=== PATIENT | male | born 1965 | race Caucasian/White ===

== ENCOUNTER 2021-06-08 09:26 | Inpatient (IN) ==
[2021-06-08 10:12] LABS: Basophils # (auto) 0.04 K/uL (0-0.2); Basophils % (auto) 0.3 %; Eosinophils # (auto) 0.02 K/uL (0-0.5); Eosinophils % (auto) 0.1 %; Hematocrit (blood only) 36.7 % (42-52); Hemoglobin 12.8 g/dL (14.0-18.0); Immature Granulocytes # (auto) 0.07 K/uL (0.00-0.02); Immature Granulocytes % (auto) 0.4 %; Lymphocytes # (auto) 1.09 K/uL (1.2-3.4); Lymphocytes % (auto) 6.9 %; Mean Corpuscular Hemoglobin 32.7 pg (25-34); Mean Corpuscular Hgb Conc 34.9 g/dL (32-36); Mean Corpuscular Volume 93.6 fL (80-100); Monocytes # (auto) 1.35 K/uL (0.11-0.59); Monocytes % (auto) 8.6 %; Neutrophils # (auto) 13.17 K/uL (1.4-6.5); Neutrophils % (auto) 83.7 %; Platelet Count 140 K/uL (130-400); RDW Coefficient of Variation 13.6 % (11.5-14.5); RDW Standard Deviation 46.8 fL (36.4-46.3); Red Blood Count 3.92 M/uL (4.7-6.1); White Blood Count 15.74 K/uL (4.8-10.8)
[2021-06-08 10:14] LABS: Partial Thromboplastin Time 27.6 Seconds (21.0-31.0); Prothrombin Time 10.1 Seconds (9.0-12.0)
[2021-06-08 10:20] LABS: Alanine Aminotransferase 32 U/L (12-78); Albumin Level 3.3 gm/dl (3.4-5.0); Aspartate Aminotransferase 16 U/L (15-37); BUN Creatinine Ratio 25.7 (10-20); Blood Urea Nitrogen 83 mg/dl (7-18); Calcium 9.2 mg/dl (8.5-10.1); Carbon Dioxide 19 mmol/L (21-32); Chloride 101 mmol/L (98-107); Creatinine Clr Calc Pharmacy 40.1 ml/min; Est GFR (African American) 23.6 ml/min; Est GFR (Non-African American) 20.4 ml/min; Glucose 163 mg/dl (70-99); Potassium 4.1 mmol/L (3.5-5.1); Sodium 131 mmol/L (136-145)
[2021-06-08 10:25] LABS: Albumin Globulin Ratio 0.7 (0.9-2); Alkaline Phosphatase 99 U/L (45-117); Bilirubin,Total 0.7 mg/dl (0.2-1); Globulin 4.6 gm/dl (2.5-4.0); Total Protein 7.9 gm/dl (6.4-8.2); Troponin I < 0.015 ng/ml (0-0.045)
--- NOTE | 2021-06-08 10:29 | XRay Report ---
XR chest 1V portable HISTORY: Atypical Chest Pain COMPARISON: Chest 05/24/2019. FINDINGS: No pneumothorax or no pleural effusions. No new focal lung consolidations to suggest pneumo sheryl. No evidence for pulmonary edema. The heart remains enlarged. IMPRESSION: Stable mild cardiomegaly. Otherwise, no acute process within the chest. ACT 112: Negative or not required by law. Electronically signed by: Charan Grady M.D. 06/08/2021 10:27 AM
[2021-06-08] MEDS ORDERED: DAPTOmycin 450 MG in SYRINGE 0 ML IV ONE (11:14)
[2021-06-08] MEDS ORDERED: PIPERACILL/TAZOBAC CONSULT ACTIVE PRN ×2 (11:14→19:51)
[2021-06-08] MEDS ORDERED: PIPERACILLIN/TAZOBACTAM 4.5 GM/120 ML BAG IV ONE (11:14)
--- NOTE | 2021-06-08 11:22 | Emergency Department Note ---
Impression & Plan Cellulitis, Acute on chronic renal failure, Chronic venous insufficiency ED Provider Note NAME: CHANTEL NOYOLA AGE: 55 SEX: M ARRIVES VIA: Walk-In INFORMANT: Patient, ED PROVIDER(S): Goran Waldrop MD CHIEF COMPLAINT: Left leg pain and swelling. PLAN: Disposition: Admit MEDICAL DECISION MAKING: The patient is a pleasant 55-year-old gentleman with a past medical history of PMR, venous insufficiency, morbid obesity, type 2 diabetes who presents to the emergency department with worsening left leg swelling, redness, pain and weeping since Tuesday which is where he reports feeling initial pain in his left upper inner thigh but then rapidly progressed over the weekend. He reports he has an appointment with his doctor tomorrow but the swelling, redness and pain rapidly became more severe. He reports feeling feverish on Tuesday but this resolved. He denies nausea, vomiting, diarrhea, chest pain, shortness of breath, cough, congestion, known COVID-19 exposures. He is not vaccinated for COVID-19 but is interested in getting the vaccine. On arrival the patient is no acute distress, afebrile stable vital signs. His left lower extremity has 4+ pitting edema with erythema warmth, induration and tenderness of the left lower leg and mild induration warmth and tenderness of the proximal medial thigh. There is no scrotal edema, erythema, induration or crepitus. Zosyn and Daptomycin ordered empirically. EKG without overt acute ischemia. CXR negative for acute cardiopulmonary process. WBC 15.7K. H/H approximate to prior range of values. Platelets wnl. Chemistry without acidosis. Cr. 3.2 increased from 1.2 in September. BUN/Cr > 20 suggestive of pre-renal component. Electrolytes unremarkable. LFTs without significant abno rmality. Troponin negative/undetectable. BNP wnl. Procalcitonin is elevated at 14.5. LLE US negative for DVT. Not is made of left inguinal lymphadenopathy. Patient agrees with plan for admission. Case was discussed with Dr. Larios, [facility] [place], who will evaluate the patient for admission. Triage Nursing notes reviewed and agree them. Prior medical records reviewed Vital Signs: reviewed and remarkable for no significant abnormalities Differential diagnosis: Cellulitis, abscess, MRSA infection, DVT, necrotizing fasciitis, dermatitis, drug eruption, allergic reaction, as well as other pathologies. ER treatment provided: See below. Diagnostics interpreted by me: ECG: Normal sinus rhythm, 64 bpm, non ectopy, non-specific intra-ventricular conduction block, nonspecific ST and T wave abnormality, no overt ST elevation or depression. QTC 472, QRS 132. Cardiac Monitoring: An order for continuous cardiac monitoring was placed and demonstrated Normal sinus rhythm, 64 bpm, non ectopy. Laboratory studies: See below Imaging studies: See below Consultation(s): Case was discussed with Dr. Larios, [facility] [place], who will evaluate the patient for admission. HPI: The patient is a pleasant 55-year-old gentleman with a past medical history of PMR, venous insufficiency, morbid obesity, type 2 diabetes who presents to the emergency department with worsening left leg swelling, redness, pain and weeping since Tuesday which is where he reports feeling initial pain in his left upper inner thigh but then rapidly progressed over the weekend. He reports he has an appointment with his doctor tomorrow but the swelling, redness and pain rapidly became more severe. He reports feeling feverish on Tuesday but this r esolved. He denies nausea, vomiting, diarrhea, chest pain, shortness of breath, cough, congestion, known COVID-19 exposures. He is not vaccinated for COVID-19 but is interested in getting the vaccine. ROS: See above HPI for pertinent positives & negatives. A total of 10 systems reviewed and were otherwise negative. PAST MEDICAL HISTORY:See Below PAST SURGICAL HISTORY:See Below FAMILY HISTORY:See Below SOCIAL HISTORY:See Below HOME MEDICATIONS:See Below ALLERGIES:See Below VITALS:See Below PHYSICAL EXAMINATION: GENERAL: Awake, alert, uncomfortable-appearing, in no distress, BMI 45.5 HENT: Normocephalic, atraumatic. Oropharynx with dry mucous membranes and otherwise unremarkable. EYES: Normal conjunctiva. Sclera non-icteric. NECK: Supple. No nuchal rigidity. FROM. No JVD. RESPIRATORY: Clear to auscultation. CARDIAC: Regular rate, normal rhythm. Extremities warm and well perfused. Pulses equal. ABDOMEN: Soft, non-distended. No tenderness to palpation. No rebound or guarding. No masses. RECTAL: Deferred. : No scrotal edema, erythema, induration or crepitus. MUSCULOSKELETAL: Chest examination reveals no tenderness. The back is symmetrical on inspection without obvious abnormality. There is no CVA tenderness to palpation. LOWER EXTREMITIES: Asymmetric Left lower extremity has 4+ pitting edema with erythema warmth, induration and tenderness of the left lower leg and mild induration warmth and tenderness of the proximal medial thigh. NEURO: Normal sensorium. No sensory or motor deficits noted. SKIN: No rash or jaundice noted. Goran Waldrop MD Past Med/Surg History Medical History Acute kidney injury Anemia Arthritis Back pain Bilateral primary osteoarthritis of knee Chronic venous insufficiency Depression Diabetes DM type 2 (diabetes mellitus, type 2) Fatty liver Gout High cholesterol History of atrial flutter "s/p cardioversion 06/2014" History of gallbladder disease History of gout History of polymyalgia rheumatica History of right bundle branch block (RBBB) HTN (hypertension) Hypertension Lower extremity edema Microalbuminuria Obesity, morbid, BMI 50 or higher Osteoarthritis Pseudomonas infection Renal hematoma, left Spinal stenosis Spinal stenosis Venous insufficiency Surgical History H/O arthroscopic knee surgery 2000 and 2007 S/P cardiac cath "cath 07/05/2014- angiographically normal vessels, EF 60-65%" S/P left knee arthroscopy S/P tonsillectomy Family History Mother Diabetes Hypertension Denies family history of Ovarian cancer Prostate cancer Myocardial infarction Breast cancer Colorectal cancer Social History Smoking Status: Never smoker Tobacco Type: Cigarettes Age Started Using Tobacco: 27; Age Quit Using Tobacco: 49; packs per day: 1; Second Hand Exposure: No; Hx Alcohol Use: Yes Alcohol type: beer Alcohol Intake Frequency: Monthly or Less Hx Substance Use: No Preferred Language: Zimbabwean Communication Ability: Effective Visual Impairment: No Limitations Hearing Ability: Normal Salvage Determiner Required: No Beliefs That Will Affect Care: None marital status: Current Living Situation: Alone current occupational status: retired Feels Safe at Home: Yes Childhood Exposure to Second-Hand Smoke: No caffeine: Yes (Coffee x 2 per day.) during the past year weight has: decreased > 10 lbs Dental Care, Regularly: No Physical Activity Frequency: 3-4 Times per Week Physical Activity Frequency Comment: limited by physical condition/ does excercises while sitting Seatbelt Use: always Sunscreen Use: No Allergies Allergies Allergy/AdvReac Type Severity Reaction Status Date / Time Sulfa (Sulfonamide Allergy Intermediate itching Verified 06/08/21 11:06 Antibiotics) cephalexin [From Keflex] Allergy Mild Rash Verified 06/08/21 11:06 Home Meds Home Medications Medication Instructions Recorded Confirmed cholecalciferol (vitamin D3) 50 50 mcg PO DAILY 10/22/20 06/08/21 mcg (2,000 unit) capsule Previous Rx's Medication Instructions Recorded aspirin 81 mg tablet,delayed 81 mg PO DAILY #30 tab 04/21/20 release (Aspirin Low Dose) glipizide 10 mg tablet, extended 20 mg PO DAILY 90 Days #180 tab 06/04/20 release 24 hr sotalol 120 mg tablet 120 mg PO BID #180 tab 08/12/20 tramadol 50 mg tablet 50 mg PO BID PRN #30 tab 10/22/20 insulin NPH isoph U-100 human 100 10 unit SUBCUT BID #15 ml 10/28/20 unit/mL (3 mL) subcutaneous pen (Novolin N Flexpen) hydrochlorothiazide 12.5 mg tablet 12.5 mg PO DAILY #90 tab 11/13/20 amlodipine 5 mg tablet 5 mg PO HS #90 tab 12/02/20 bupropion HCl 150 mg tablet,12 hr 150 mg PO BID #60 ea 12/02/20 sustained-release atorvastatin 40 mg tablet 40 mg PO DAILY #90 tab 04/20/21 lisinopril 40 mg tablet 40 mg PO DAILY #90 tab 04/20/21 metformin 1,000 mg tablet 1,000 mg PO BID #180 tab 04/20/21 allopurinol 300 mg tablet 300 mg PO DAILY #90 tab 04/21/21 Results & Data (ED) Vital Signs Vital Signs - 24 hr 06/08/21 09:32 06/08/21 11:14 06/08/21 11:30 Temperature 36.6 C Temperature Source Temporal Artery Scan Pulse Rate 68 63 63 Pulse Rate from SpO2 Sensor 63 Respiratory Rate 18 24 25 H Respiratory Depth Normal Blood Pressure 124/76 Blood Pressure Mean 92 Pulse Oximetry 97 97 Sepsis Recent Fever Within 48 Hours No Sepsis New/Unexplained Change in Mental Status No Sepsis Action Taken by Nursing No Action Required 06/08/21 12:13 06/08/21 12:30 06/08/21 13:00 Temperature Temperature Source Pulse Rate 67 67 71 Pulse Rate from SpO2 Sensor 67 72 Respiratory Rate 12 29 H 23 Respiratory Depth Blood Pressure Blood Pressure Mean Pulse Oximetry 99 98 Sepsis Recent Fever Within 48 Hours Sepsis New/Unexplained Change in Mental Status Sepsis Action Taken by Nursing 06/08/21 13:30 06/08/21 14:00 06/08/21 14:30 Temperature Temperature Source Pulse Rate 73 73 72 Pulse Rate from SpO2 Sensor 73 73 72 Respiratory Rate 19 25 H 15 Respiratory Depth Blood Pressure 136/70 122/64 Blood Pressure Mean 92 83 Pulse Oximetry 98 94 95 Sepsis Recent Fever Within 48 Hours Sepsis New/Unexplained Change in Mental Status Sepsis Action Taken by Nursing 06/08/21 15:00 Temperature Temperature Source Pulse Rate 70 Pulse Rate from SpO2 Sensor 70 Respiratory Rate 19 Respiratory Depth Blood Pressure Blood Pressure Mean Pulse Oximetry 95 Sepsis Recent Fever Within 48 Hours Sepsis New/Unexplained Change in Mental Status Sepsis Action Taken by Nursing Laboratory Data Attestation: I reviewed the patient's lab results. Result diagrams: 06/08/21 09:45 06/08/21 09:45 Lab Results 06/08/21 06/08/21 06/08/21 Range/Units 09:45 09:45 09:45 WBC 15.74 H (4.8-10.8) K/uL RBC 3.92 L (4.7-6.1) M/uL Hgb 12.8 L (14.0-18.0) g/dL Hct 36.7 L (42-52) % MCV 93.6 (80-100) fL MCH 32.7 (25-34) pg MCHC 34.9 (32-36) g/dL RDW Std Deviation 46.8 H (36.4-46.3) fL RDW Coeff of Dar 13.6 (11.5-14.5) % Plt Count 140 (130-400) K/uL MPV 12.0 H (7.4-10.4) fL Immature Gran % (Auto) 0.4 % Neut % (Auto) 83.7 % Lymph % (Auto) 6.9 % Villalba % (Auto) 8.6 % Eos % (Auto) 0.1 % Baso % (Auto) 0.3 % Neut # (Auto) 13.17 H (1.4-6.5) K/uL Lymph # (Auto) 1.09 L (1.2-3.4) K/uL Villalba # (Auto) 1.35 H (0.11-0.59) K/uL Eos # (Auto) 0.02 (0-0.5) K/uL Baso # (Auto) 0.04 (0-0.2) K/uL Immature Gran # (Auto) 0.07 H (0.00-0.02) K/uL PT 10.1 (9.0-12.0) Seconds INR 1.0 (0.9-1.1) APTT 27.6 (21.0-31.0) Seconds PTT Ratio 1.0 Sodium 131 L (136-145) mmol/L Potassium 4.1 (3.5-5.1) mmol/L Chloride 101 (98-107) mmol/L Carbon Dioxide 19 L (21-32) mmol/L Anion Gap 11.0 (3-11) BUN 83 H (7-18) mg/dl Creatinine 3.22 H (0.6-1.4) mg/dl Est Cr Clr Drug Dosing 40.1 ml/min Est GFR ( Amer) 23.6 ml/min Est GFR (Non-Af Amer) 20.4 ml/min BUN/Creatinine Ratio 25.7 H (10-20) Glucose 163 H (70-99) mg/dl Lactate (0.4-2.0) mmol/L Calcium 9.2 (8.5-10.1) mg/dl Total Bilirubin 0.7 (0.2-1) mg/dl AST 16 (15-37) U/L ALT 32 (12-78) U/L Alkaline Phosphatase 99 (45-117) U/L Troponin I < 0.015 (0-0.045) ng/ml NT-Pro-B Natriuret Pep (0-900) pg/ml Total Protein 7.9 (6.4-8.2) gm/dl Albumin 3.3 L (3.4-5.0) gm/dl Globulin 4.6 H (2.5-4.0) gm/dl Albumin/Globulin Ratio 0.7 L (0.9-2) Procalcitonin (0-0.5) ng/ml COVID-19 Eval Order SARS-CoV-2 (PCR) (Negative) 06/08/21 06/08/21 06/08/21 Range/Units 09:45 09:45 11:22 WBC (4.8-10.8) K/uL RBC (4.7-6.1) M/uL Hgb (14.0-18.0) g/dL Hct (42-52) % MCV (80-100) fL MCH (25-34) pg MCHC (32-36) g/dL RDW Std Deviation (36.4-46.3) fL RDW Coeff of Dar (11.5-14.5) % Plt Count (130-400) K/uL MPV (7.4-10.4) fL Immature Gran % (Auto) % Neut % (Auto) % Lymph % (Auto) % Villalba % (Auto) % Eos % (Auto) % Baso % (Auto) % Neut # (Auto) (1.4-6.5) K/uL Lymph # (Auto) (1.2-3.4) K/uL Villalba # (Auto) (0.11-0.59) K/uL Eos # (Auto) (0-0.5) K/uL Baso # (Auto) (0-0.2) K/uL Immature Gran # (Auto) (0.00-0.02) K/uL PT (9.0-12.0) Seconds INR (0.9-1.1) APTT (21.0-31.0) Seconds PTT Ratio Sodium (136-145) mmol/L Potassium (3.5-5.1) mmol/L Chloride (98-107) mmol/L Carbon Dioxide (21-32) mmol/L Anion Gap (3-11) BUN (7-18) mg/dl Creatinine (0.6-1.4) mg/dl Est Cr Clr Drug Dosing ml/min Est GFR ( Amer) ml/min Est GFR (Non-Af Amer) ml/min BUN/Creatinine Ratio (10-20) Glucose (70-99) mg/dl Lactate (0.4-2.0) mmol/L Calcium (8.5-10.1) mg/dl Total Bilirubin (0.2-1) mg/dl AST (15-37) U/L ALT (12-78) U/L Alkaline Phosphatase (45-117) U/L Troponin I (0-0.045) ng/ml NT-Pro-B Natriuret Pep 489 (0-900) pg/ml Total Protein (6.4-8.2) gm/dl Albumin (3.4-5.0) gm/dl Globulin (2.5-4.0) gm/dl Albumin/Globulin Ratio (0.9-2) Procalcitonin 14.57 H (0-0.5) ng/ml COVID-19 Eval Order Covid19 at [facility] SARS-CoV-2 (PCR) (Negative) 06/08/21 06/08/21 Range/Units 11:22 11:35 WBC (4.8-10.8) K/uL RBC (4.7-6.1) M/uL Hgb (14.0-18.0) g/dL Hct (42-52) % MCV (80-100) fL MCH (25-34) pg MCHC (32-36) g/dL RDW Std Deviation (36.4-46.3) fL RDW Coeff of Dar (11.5-14.5) % Plt Count (130-400) K/uL MPV (7.4-10.4) fL Immature Gran % (Auto) % Neut % (Auto) % Lymph % (Auto) % Villalba % (Auto) % Eos % (Auto) % Baso % (Auto) % Neut # (Auto) (1.4-6.5) K/uL Lymph # (Auto) (1.2-3.4) K/uL Villalba # (Auto) (0.11-0.59) K/uL Eos # (Auto) (0-0.5) K/uL Baso # (Auto) (0-0.2) K/uL Immature Gran # (Auto) (0.00-0.02) K/uL PT (9.0-12.0) Seconds INR (0.9-1.1) APTT (21.0-31.0) Seconds PTT Ratio Sodium (136-145) mmol/L Potassium (3.5-5.1) mmol/L Chloride (98-107) mmol/L Carbon Dioxide (21-32) mmol/L Anion Gap (3-11) BUN (7-18) mg/dl Creatinine (0.6-1.4) mg/dl Est Cr Clr Drug Dosing ml/min Est GFR ( Amer) ml/min Est GFR (Non-Af Amer) ml/min BUN/Creatinine Ratio (10-20) Glucose (70-99) mg/dl Lactate 1.3 (0.4-2.0) mmol/L Calcium (8.5-10.1) mg/dl Total Bilirubin (0.2-1) mg/dl AST (15-37) U/L ALT (12-78) U/L Alkaline Phosphatase (45-117) U/L Troponin I (0-0.045) ng/ml NT-Pro-B Natriuret Pep (0-900) pg/ml Total Protein (6.4-8.2) gm/dl Albumin (3.4-5.0) gm/dl Globulin (2.5-4.0) gm/dl Albumin/Globulin Ratio (0.9-2) Procalcitonin (0-0.5) ng/ml COVID-19 Eval Order SARS-CoV-2 (PCR) NEGATIVE (Negative) Administered Medications Amlodipine Besylate (Amlodipine Besylate 5 Mg Tab) 5 mg PO HS AMY Stop: 07/08/21 20:59 Last Admin: 06/08/21 21:06 Dose: 5 mg Documented by: [id number] Sodium Chloride (Nss 1000ml) 1,000 mls @ 100 mls/hr IV .Q10H AMY Stop: 07/08/21 19:59 Last Admin: 06/08/21 21:15 Dose: 100 mls/hr Documented by: [id number] Piperacillin Sod/Tazobactam (Sod 4.5 gm/ Dextrose) 120 mls @ 30 mls/hr IV Q8H AMY; Protocol Stop: 06/15/21 20:59 Last Admin: 06/08/21 21:06 Dose: 30 mls/hr Documented by: [id number] Insulin Aspart (Insulin Aspart 100 Units/Ml 3 Ml Pen) 0 units SC ACHS AMY Stop: 07/08/21 20:59 Last Admin: 06/08/21 21:07 Dose: 1 units Documented by: [id number] Cosigned by: [id number] Sotalol HCl (Sotalol Hcl 80 Mg Tab) 120 mg PO BID AMY Stop: 07/08/21 20:59 Last Admin: 06/08/21 21:06 Dose: 120 mg Documented by: [id number] Tramadol HCl (Tramadol Hcl 50 Mg Tablet) 50 mg PO BID PRN PRN Reason: pain Stop: 07/08/21 19:50 Last Admin: 06/08/21 21:14 Dose: 50 mg Documented by: [id number] Discontinued Medications Piperacillin Sod/Tazobactam Sod (Zosyn) 4.5 gm in 120 mls @ 240 mls/hr IV NOW ONE Stop: 06/08/21 11:43 Last Infusion: 06/08/21 12:40 Dose: 240 mls/hr Documented by: [id number] Admin: 06/08/21 12:10 Dose: 240 mls/hr Documented by: [id number] Daptomycin 450 mg/ Syringe 9 mls @ 4.5 mls/min IV NOW ONE; Protocol Stop: 06/08/21 11:15 Last Admin: 06/08/21 12:10 Dose: 4.5 mls/min Documented by: [id number] Acetaminophen (Ofirmev) 1,000 mg in 100 mls @ 400 mls/hr IV NOW STA Stop: 06/08/21 12:19 Last Infusion: 06/08/21 13:08 Dose: 400 mls/hr Documented by: [id number] Admin: 06/08/21 12:53 Dose: 400 mls/hr Documented by: [id number] Sodium Chloride (Nss) 500 mls @ 999 mls/hr IV .Q31M ONE Stop: 06/08/21 12:35 Last Infusion: 06/08/21 12:46 Dose: 999 mls/hr Documented by: [id number] Admin: 06/08/21 12:15 Dose: 999 mls/hr Documented by: [id number] Morphine Sulfate (Morphine Sulfate 2 Mg/Ml Carp) 2 mg IV NOW STA Stop: 06/08/21 12:06 Last Admin: 06/08/21 12:11 Dose: 2 mg Documented by: [id number] Imaging Data Radiologist's Impression: Chest X-Ray 06/08/21 09:36 XR chest 1V portable HISTORY: Atypical Chest Pain COMPARISON: Chest 05/24/2019. FINDINGS: No pneumothorax or no pleural effusions. No new focal lung consolidations to suggest pneumonia. No evidence for pulmonary edema. The heart remains enlarged. IMPRESSION: Stable mild cardiomegaly. Otherwise, no acute process within the chest. ACT 112: Negative or not required by law. Electronically signed by: Charan Grady M.D. 06/08/2021 10:27 AM Venous Doppler Study 06/08/21 11:12 LEFT LOWER EXTREMITY VENOUS DOPPLER HISTORY: Left leg pain swelling COMPARISON STUDY: None. FINDINGS: There is normal compressibility, flow, and augmentation within the left lower extremity deep venous system. Left inguinal lymphadenopathy with the largest lymph node measuring 5.5 x 5.9 x 1.9 cm. IMPRESSION: No DVT within the left lower extremity. Left inguinal lymphadenopathy. ACT 112: Negative or not required by law. Electronically signed by: Charan Grady M.D. 06/08/2021 12:14 PM Discharge Plan Visit Data Chief Complaint: Swelling/Edema to Extremity Stated Complaint: SWOLLEN LEFT LEG Discharge Problem: Cellulitis, Acute on chronic renal failure, Chronic venous insufficiency Patient Disposition: Admitted As Inpatient Discharge Instructions Interventions: ED Discharge Assessment Last Done: 06/08/21 19:41 Discharge Problem: Cellulitis Qualifiers: Site of cellulitis: extremity Site of cellulitis of extremity: lower extremity Laterality: left Qualified Code(s): L03.116 - Cellulitis of left lower limb Acute on chronic renal failure Qualifiers: Acute renal failure type: unspecified Chronic kidney disease stage: unspecified stage Qualified Code(s): N17.9 - Acute kidney failure, unspecified
[2021-06-08] MEDS ORDERED: ACETAMINOPHEN 1,000 MG/100 ML VIAL IV STA (12:05)
[2021-06-08] MEDS ORDERED: MoRPHine SULFATE 2 MG/ML CARP IV STA (12:05)
[2021-06-08] MEDS ORDERED: SODIUM CHLORIDE 0.9% 500 ML IV ONE (12:05)
--- NOTE | 2021-06-08 12:15 | Ultrasound Report ---
LEFT LOWER EXTREMITY VENOUS DOPPLER HISTORY: Left leg pain swelling COMPARISON STUDY: None. FINDINGS: There is normal compressibility, flow, and augmentation within the left lower extremity mushtaq p venous system. Left inguinal lymphadenopathy with the largest lymph node measuring 5.5 x 5.9 x 1.9 cm. IMPRESSION: No DVT within the left lower extremity. Left inguinal lymphadenopathy. ACT 112: Negative or not required by law. Electronically signed by: Charan Grady M.D. 06/08/2021 12:14 PM
--- NOTE | 2021-06-08 14:32 | Electrocardiogram Report ---
Test Reason : Blood Pressure : / mmHG Vent. Rate : 064 BPM Atrial Rate : 064 BPM P-R Int : 178 ms QRS Dur : 132 ms QT Int : 458 ms P-R-T Axes : 096 000 051 degrees QTc Int : 472 ms Poor data quality, interpretation may be adversely affected Normal sinus rhythm Non-specific intra-ventricular conduction block Nonspecific ST and T wave abnormality Abnormal ECG When compared with ECG of 08-JUN-2016 20:00, No significant change was found Confirmed by Rupesh Loomis ([id number]) on 06/08/2021 2:32:10 PM Referred By: Confirmed By:Rupesh Loomis
--- NOTE | 2021-06-08 15:07 | History & Physical Report ---
Date of Service June 08, 2021 Assessment & Plan (1) Cellulitis: Plan: Significant cellulitis in left lower extremity Admit to a monitored bed Patient was given daptomycin and Zosyn in the emergency room. Will continue these pending cultures Follow blood cultures. No open wound on leg noted to culture (2) DAYO (acute kidney injury): Plan: May be secondary to prerenal azotemia/dehydration Will hydrate slowly with normal saline, monitor for improvement Bladder scan to ensure no outlet obstruction If no improvement over 24 hours, consider renal ultrasound, nephrology evaluation Hold lisinopril, hydrochlorothiazide (3) History of atrial flutter: Plan: Patient is in normal sinus rhythm, tells me he is on sotalol twice a day which we will continue Not on anticoagulation. Will start DVT prophylaxis but no further blood thinners needed Continue cardiac medications as ordered (4) DM type 2 (diabetes mellitus, type 2): Plan: Patient is on glipizide which should be continued. Hold Metformin as patient has acute renal failure Patient is also on NPH twice daily which we can continue We will start sliding scale insulin. Check hemoglobin A1c (5) HTN (hypertension): History of Present Illness Chief Complaint: LLE edema Primary Care Provider: BRODY Cason This is a 55-year-old gentleman with past medical history of chronic venous stasis, type 2 diabetes mellitus, morbid obesity presents complaining of left lower extremity edema. Patient is pleasant and a decent historian. Patient tells me he has had chronic venous stasis for a very long time and has swelling in his legs. However, starting 06/05, he had some pink erythema around his left groin. He noted a lesion there that popped like a pustule and then scabbed over fairly readily. However, the erythema spread down into his leg. His left leg became very edematous and erythematous below the knee. There is a significant amount of serous weeping but no open lesions. The entire area is extremely tender. Patient did note to me that he was feeling lethargic and some chills. He also noted significant nausea and decreased appetite, was having some vomiting earlier but is now holding down food. Does admit that his oral fluid intake has been decreased as well. Allergies Allergy/AdvReac Type Severity Reaction Status Date / Time Sulfa (Sulfonamide Allergy Intermediate itching Verified 06/08/21 11:06 Antibiotics) cephalexin [From Keflex] Allergy Mild Rash Verified 06/08/21 11:06 Home Medications Medication Instructions Recorded Confirmed Type aspirin 81 mg tablet,delayed 81 mg PO DAILY #30 tab 04/21/20 06/08/21 Rx release (Aspirin Low Dose) glipizide 10 mg tablet, extended 20 mg PO DAILY 90 Days #180 tab 06/04/20 06/08/21 Rx release 24 hr sotalol 120 mg tablet 120 mg PO BID #180 tab 08/12/20 06/08/21 Rx cholecalciferol (vitamin D3) 50 50 mcg PO DAILY 10/22/20 06/08/21 History mcg (2,000 unit) capsule tramadol 50 mg tablet 50 mg PO BID PRN #30 tab 10/22/20 06/08/21 Rx insulin NPH isoph U-100 human 100 10 unit SUBCUT BID #15 ml 10/28/20 06/08/21 Rx unit/mL (3 mL) subcutaneous pen (Novolin N Flexpen) hydrochlorothiazide 12.5 mg tablet 12.5 mg PO DAILY #90 tab 11/13/20 06/08/21 Rx amlodipine 5 mg tablet 5 mg PO HS #90 tab 12/02/20 06/08/21 Rx bupropion HCl 150 mg tablet,12 hr 150 mg PO BID #60 ea 12/02/20 06/08/21 Rx sustained-release atorvastatin 40 mg tablet 40 mg PO DAILY #90 tab 04/20/21 06/08/21 Rx lisinopril 40 mg tablet 40 mg PO DAILY #90 tab 04/20/21 06/08/21 Rx metformin 1,000 mg tablet 1,000 mg PO BID #180 tab 04/20/21 06/08/21 Rx allopurinol 300 mg tablet 300 mg PO DAILY #90 tab 04/21/21 06/08/21 Rx Past Med/Surg History Medical History Acute kidney injury Anemia Arthritis Back pain Bilateral primary osteoarthritis of knee Chronic venous insufficiency Depression Diabetes DM type 2 (diabetes mellitus, type 2) Fatty liver Gout High cholesterol History of atrial flutter "s/p cardioversion 06/2014" History of gallbladder disease History of gout History of polymyalgia rheumatica History of right bundle branch block (RBBB) HTN (hypertension) Hypertension Lower extremity edema Microalbuminuria Obesity, morbid, BMI 50 or higher Osteoarthritis Pseudomonas infection Renal hematoma, left Spinal stenosis Spinal stenosis Venous insufficiency Surgical History H/O arthroscopic knee surgery 2000 and 2007 S/P cardiac cath "cath 07/05/2014- angiographically normal vessels, EF 60-65%" S/P left knee arthroscopy S/P tonsillectomy Family History Mother Diabetes Hypertension Denies family history of Ovarian cancer Prostate cancer Myocardial infarction Breast cancer Colorectal cancer Social History Smoking Status: Never smoker Tobacco Type: Cigarettes Age Started Using Tobacco: 27; Age Quit Using Tobacco: 49; packs per day: 1; Second Hand Exposure: No; Hx Alcohol Use: Yes Alcohol type: beer Alcohol Intake Frequency: Monthly or Less Hx Substance Use: No Preferred Language: Faroese Communication Ability: Effective Visual Impairment: No Limitations Hearing Ability: Normal 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 Product Inspection Required: No Beliefs That Will Affect Care: None marital status: Current Living Situation: Alone current occupational status: retired Feels Safe at Home: Yes Childhood Exposure to Second-Hand Smoke: No caffeine: Yes (Coffee x 2 per day.) during the past year weight has: decreased > 10 lbs Dental Care, Regularly: No Physical Activity Frequency: 3-4 Times per Week Physical Activity Frequency Comment: limited by physical condition/ does excercises while sitting Seatbelt Use: always Sunscreen Use: No Review of Systems Constitutional: + chills and + weakness; no fever, no weight loss and no weight gain Eyes: as per Subjective / HPI Respiratory: no cough, no chest congestion, no dyspnea and no dyspnea on exertion Cardiovascular: no chest pain, no orthopnea, no palpitations, no lightheadedness and no edema Gastrointestinal: no abdominal pain, no nausea, no vomiting, no constipation and no diarrhea/loose stools Musculoskeletal: no back pain, no neck pain, no joint pain, no stiffness and no myalgia Integumentary: + boil; no rash Neurologic: no gait abnormality, no unsteadiness, no falls and no generalized weakness Physical Exam Constitutional: + morbidly obese and cooperative; no acute distress Neck: trachea midline, no thyromegaly Respiratory: normal respiratory effort Auscultation: lungs clear to auscultation bilaterally; no crackles, no rales, no rhonchi and no wheezes Cardiovascular: Rate/Rhythm: regular rate and regular rhythm Heart Sounds: normal S1 and normal S2 Gastrointestinal (Abdomen): Inspection/Auscultation: abdomen normal to inspection Percussion/Palpation: abdomen soft; abdomen nontender, no guarding, abdomen not rigid and no hepatosplenomegaly Musculoskeletal: Right lower extremity with trace/+1 pitting edema, venous stasis changes with erythema. Left lower extremity with 4+ non-dependent edema to knee, extensive serous weeping. [place] erythema tracking from the knee up to the left groin. Small eschar in the groin, dry without drainage. Skin: no rashes, warm and dry Results & Data Results & Data ([facility]) Vital Signs (Past 12 Hours) Vital Signs Temp Pulse Resp BP Pulse Ox 06/08/21 13:30 73 19 136/70 98 06/08/21 13:00 71 23 98 06/08/21 12:30 67 29 H 99 06/08/21 12:13 67 12 06/08/21 11:30 63 25 H 06/08/21 11:14 63 24 97 06/08/21 09:32 36.6 C 68 18 124/76 97 Laboratory Results Laboratory Results WBC 15.74 K/uL (4.8-10.8) H 06/08/21 09:45 RBC 3.92 M/uL (4.7-6.1) L 06/08/21 09:45 Hgb 12.8 g/dL (14.0-18.0) L 06/08/21 09:45 Hct 36.7 % (42-52) L 06/08/21 09:45 MCV 93.6 fL (80-100) 06/08/21 09:45 MCH 32.7 pg (25-34) 06/08/21 09:45 MCHC 34.9 g/dL (32-36) 06/08/21 09:45 RDW Std Deviation 46.8 fL (36.4-46.3) H 06/08/21 09:45 RDW Coeff of Dar 13.6 % (11.5-14.5) 06/08/21 09:45 Plt Count 140 K/uL (130-400) 06/08/21 09:45 MPV 12.0 fL (7.4-10.4) H 06/08/21 09:45 Immature Gran % (Auto) 0.4 % 06/08/21 09:45 Neut % (Auto) 83.7 % 06/08/21 09:45 Lymph % (Auto) 6.9 % 06/08/21 09:45 [place] % (Auto) 8.6 % 06/08/21 09:45 Eos % (Auto) 0.1 % 06/08/21 09:45 Baso % (Auto) 0.3 % 06/08/21 09:45 Neut # (Auto) 13.17 K/uL (1.4-6.5) H 06/08/21 09:45 Lymph # (Auto) 1.09 K/uL (1.2-3.4) L 06/08/21 09:45 [place] # (Auto) 1.35 K/uL (0.11-0.59) H 06/08/21 09:45 Eos # (Auto) 0.02 K/uL (0-0.5) 06/08/21 09:45 Baso # (Auto) 0.04 K/uL (0-0.2) 06/08/21 09:45 Immature Gran # (Auto) 0.07 K/uL (0.00-0.02) H 06/08/21 09:45 PT 10.1 Seconds (9.0-12.0) 06/08/21 09:45 INR 1.0 (0.9-1.1) 06/08/21 09:45 APTT 27.6 Seconds (21.0-31.0) 06/08/21 09:45 PTT Ratio 1.0 06/08/21 09:45 Sodium 131 mmol/L (136-145) L 06/08/21 09:45 Potassium 4.1 mmol/L (3.5-5.1) 06/08/21 09:45 Chloride 101 mmol/L (98-107) 06/08/21 09:45 Carbon Dioxide 19 mmol/L (21-32) L 06/08/21 09:45 Anion Gap 11.0 (3-11) 06/08/21 09:45 BUN 83 mg/dl (7-18) H 06/08/21 09:45 Creatinine 3.22 mg/dl (0.6-1.4) H 06/08/21 09:45 Est Cr Clr Drug Dosing 40.1 ml/min 06/08/21 09:45 Est GFR ( Amer) 23.6 ml/min 06/08/21 09:45 Est GFR (Non-Af Amer) 20.4 ml/min 06/08/21 09:45 BUN/Creatinine Ratio 25.7 (10-20) H 06/08/21 09:45 Glucose 163 mg/dl (70-99) H 06/08/21 09:45 Lactate 1.3 mmol/L (0.4-2.0) 06/08/21 11:35 Calcium 9.2 mg/dl (8.5-10.1) 06/08/21 09:45 Total Bilirubin 0.7 mg/dl (0.2-1) 06/08/21 09:45 AST 16 U/L (15-37) 06/08/21 09:45 ALT 32 U/L (12-78) 06/08/21 09:45 Alkaline Phosphatase 99 U/L (45-117) 06/08/21 09:45 Troponin I < 0.015 ng/ml (0-0.045) 06/08/21 09:45 NT-Pro-B Natriuret Pep 489 pg/ml (0-900) 06/08/21 09:45 Total Protein 7.9 gm/dl (6.4-8.2) 06/08/21 09:45 Albumin 3.3 gm/dl (3.4-5.0) L 06/08/21 09:45 Globulin 4.6 gm/dl (2.5-4.0) H 06/08/21 09:45 Albumin/Globulin Ratio 0.7 (0.9-2) L 06/08/21 09:45 Procalcitonin 14.57 ng/ml (0-0.5) H 06/08/21 09:45 COVID-19 Eval Order Covid19 at [facility] 06/08/21 11:22 SARS-CoV-2 (PCR) NEGATIVE (Negative) 06/08/21 11:22 Impressions Chest X-Ray 06/08/21 09:36 XR chest 1V portable HISTORY: Atypical Chest Pain COMPARISON: Chest 05/24/2019. FINDINGS: No pneumothorax or no pleural effusions. No new focal lung consolidations to suggest pneumonia. No evidence for pulmonary edema. The heart remains enlarged. IMPRESSION: Stable mild cardiomegaly. Otherwise, no acute process within the chest. ACT 112: Negative or not required by law. Electronically signed by: Charan Grady M.D. 06/08/2021 10:27 AM Venous Doppler Study 06/08/21 11:12 LEFT LOWER EXTREMITY VENOUS DOPPLER HISTORY: Left leg pain swelling COMPARISON STUDY: None. FINDINGS: There is normal compressibility, flow, and augmentation within the left lower extremity deep venous system. Left inguinal lymphadenopathy with the largest lymph node measuring 5.5 x 5.9 x 1.9 cm. IMPRESSION: No DVT within the left lower extremity. Left inguinal lymphadenopathy. ACT 112: Negative or not required by law. Electronically signed by: Charan Grady M.D. 06/08/2021 12:14 PM PG Care Time/CCT Total # of Minutes Spent Total Time Spent with Patient: Total time spent is greater than 50% in coord ination of care (as documented) at patient's floor/unit and/or counseling patient: Coding Level of Care Code 20054 Initial Inpt Care Lvl 3 Diagnoses History of atrial flutter Z86.79 DM type 2 (diabetes mellitus, type 2) E11.9 HTN (hypertension) I10 Cellulitis L03.90 DAYO (acute kidney injury) N17.9
[2021-06-08] MEDS ORDERED: DEXTROSE 50% 50 ML SYRINGE IV PRN (19:51)
[2021-06-08] MEDS ORDERED: GLUCOSE 10 TABS/TUBE PO PRN (19:51)
[2021-06-08] MEDS ORDERED: GLUCAGON FOR INJ 1 MG VIAL SQ PRN (19:51)
[2021-06-08] MEDS ORDERED: ONDANSETRON INJ 2 MG/ML 2 ML VIAL IV PRN (19:51)
[2021-06-08] MEDS ORDERED: CARBOHYDRATES FOR HYPOGLYCEMIA PO PRN (19:51)
[2021-06-08] MEDS ORDERED: GLUCOSE 40% GEL 15 GM TUBE PO PRN (19:51)
[2021-06-08] MEDS ORDERED: amLODIPine BESYLATE 5 MG TAB PO SCH (21:00)
[2021-06-08] MEDS: PIPERACILLIN/TAZOBACTAM 4.5 GM in DEXTROSE 5% 100 ML IV SCH (21:06)
[2021-06-08] MEDS: SOTALOL HCL 80 MG TAB PO SCH (21:06)
[2021-06-08] MEDS: INSULIN ASPART 100 UNITS/ML 3 ML PEN SC SCH (21:07)
[2021-06-08] MEDS: traMADol HCL 50 MG TABLET PO PRN (21:14)
[2021-06-08] MEDS: SODIUM CHLORIDE 0.9% 1000ML 1,000 ML IV SCH (21:15)
[2021-06-08] MEDS: HEPARIN SOD 5,000 UNIT/0.5 ML VIAL SQ SCH (23:46)
[2021-06-09] MEDS: PIPERACILLIN/TAZOBACTAM 4.5 GM in DEXTROSE 5% 100 ML IV SCH ×2 (05:13→13:04)
[2021-06-09] MEDS: HEPARIN SOD 5,000 UNIT/0.5 ML VIAL SQ SCH ×3 (05:14→21:41)
[2021-06-09] MEDS: SODIUM CHLORIDE 0.9% 1000ML 1,000 ML IV SCH ×3 (05:14→23:36)
[2021-06-09 06:20] LABS: Basophils # (auto) 0.03 K/uL (0-0.2); Basophils % (auto) 0.2 %; Eosinophils # (auto) 0.01 K/uL (0-0.5); Eosinophils % (auto) 0.1 %; Hematocrit (blood only) 32.9 % (42-52); Hemoglobin 11.6 g/dL (14.0-18.0); Immature Granulocytes % (auto) 0.6 %; Lymphocytes # (auto) 1.69 K/uL (1.2-3.4); Lymphocytes % (auto) 10.1 %; Mean Corpuscular Hemoglobin 33.1 pg (25-34); Mean Corpuscular Hgb Conc 35.3 g/dL (32-36); Mean Platelet Volume 11.4 fL (7.4-10.4); Monocytes # (auto) 1.08 K/uL (0.11-0.59); Monocytes % (auto) 6.5 %; Neutrophils # (auto) 13.76 K/uL (1.4-6.5); Neutrophils % (auto) 82.5 %; Platelet Count 132 K/uL (130-400); RDW Coefficient of Variation 13.6 % (11.5-14.5); RDW Standard Deviation 46.6 fL (36.4-46.3); White Blood Count 16.67 K/uL (4.8-10.8)
[2021-06-09] MEDS: traMADol HCL 50 MG TABLET PO PRN ×2 (06:22→23:36)
[2021-06-09 06:35] LABS: BUN Creatinine Ratio 36.1 (10-20); Calcium 8.4 mg/dl (8.5-10.1); Creatinine Clr Calc Pharmacy 59.5 ml/min; Est GFR (African American) 38.1 ml/min; Est GFR (Non-African American) 32.8 ml/min; Magnesium 2.3 mg/dl (1.8-2.4)
[2021-06-09 07:15] LABS: Estimated Average Glucose 148 mg/dl; Hemoglobin A1C 6.8 % (4.5-5.6)
[2021-06-09] MEDS ORDERED: PHARMACY GLYCEMIC MGMT CONSULT PRN (07:54)
--- NOTE | 2021-06-09 07:54 | Hospitalist Progress Note ---
Date of Service June 09, 2021 Assessment & Plan (1) Cellulitis: Plan: Kevin is a 55-year-old male with a history of PMR, atrial flutter, venous insufficiency, type 2 diabetes, hypertension who was admitted for the management of left lower extremity cellulitis. Left lower extremity cellulitis Leukocytosis to 16, afebrile Pro-Ervin elevated to 14 on admission No hypotension/tachycardia/fever, although patient subjectively with fever/chills/sweats Received Dapto/Zosyn in ER Narrowed to Zosyn monotherapy, no purulence to suggest anaerobes/Dapto needed. No known history of MRSA. Further narrowed to cefepime, if worsening expanding back to Zosyn/Dapto BC pending Past lower extremity isolates with fluoroquinolone resistance. (2) DAYO (acute kidney injury): Plan: Baseline creatinine approximately 11 0.23 Creatinine on admission 3.22, consistent with DAYO? Prerenal azotemia Downtrending to 2.17 06/09 with fluid support and antibiotics (3) History of atrial flutter: Plan: Normal sinus rhythm on admission Continue home sotalol twice daily Patient not on anticoagulation prior to admission DVT prophylaxis while inpatient (4) DM type 2 (diabetes mellitus, type 2): Plan: Home glipizide continued Metformin held Patient on home NPH twice daily, will convert to basal bolus while inpatient. Glycemic consult placed A1c 6.8 from prior 10.1 (5) HTN (hypertension): Admission and Anticipated Discharge Date Admission Date: June 08, 2021 Subjective Patient is seen at the bedside. He reports he has had no fever/chills/sweats today, these have resolved since being put on antibiotics last night. Reports he continues to have left leg swelling and pain, greatly improved and feels his leg swelling has gone down by about half since starting antibiotics. Denies chest pain, chest pressure, shortness of breath, dyspnea today. Review of Systems Review of Systems: Constitutional: Denies fever, chills, malaise Eyes: Denies vision change ENT: Denies ear pain, sore throat, sinus pain Cardiovascular: Denies Chest pain, chest pressure, palpitations, extremity swelling Respiratory: Denies shortness of breath, cough, sputum production, difficulty breathing Gastrointestinal: Denies abdominal pain, nausea, vomiting, constipation, diarrhea Genitourinary: Denies dysuria, urinary frequency Musculoskeletal: Denies acute focal weakness, endorses left leg pain erythema as noted and bilateral lower extremity swelling at baseline Integumentary: Endorses left leg cellulitis as previously noted Neurological: Denies headache, numbness, tingling, focal weakness Physical Exam Physical Exam: General: A&Ox3. NAD. Cooperative. HEENT: Atraumatic, normocephalic. Visual acuity and hearing grossly intact. Pulm: CTAB A&P. -wheezes, -rales, -rhonchi. Symmetrical chest rise. No increase work of breathing. No respiratory distress. Cardiac: RRR, -mrg. Radial pulses intact and symmetrical. Abdominal: Nontender, nondistended, soft. BS present. Extremity: Left lower leg swollen, erythematous, tender. No purulence. Anterior chronic venous stasis/mild ulceration. Station to soft touch intact bilaterally. PT pulse difficult to appreciate due to swelling, hallux cap refill less than 2 seconds bilaterally. Results & Data Results & Data ([facility]) Vital Signs (Past 12 Hours) Vital Signs Temp Pulse Resp BP Pulse Ox 06/08/21 23:53 36.7 C 76 16 112/63 96 06/08/21 21:18 88 18 111/61 98 PG Care Time/CCT Total # of Minutes Spent Total Time Spent with Patient: Total time spent is greater than 50% in coordina tion of care (as documented) at patient's floor/unit and/or counseling patient: Coding Level of Care Code 73049 Subseq Hosp Care Lvl 3 Diagnoses Cellulitis L03.116 Laterality: left Site of cellulitis: extremity Site of cellulitis of extremity: lower extremity DAYO (acute kidney injury) N17.9 History of atrial flutter Z86.79 DM type 2 (diabetes mellitus, type 2) E11.9 HTN (hypertension) I10 (1) Cellulitis Laterality: left Site of cellulitis: extremity Site of cellulitis of extremity: lower extremity Qualified Code(s): L03.116 - Cellulitis of left lower limb
[2021-06-09] MEDS ORDERED: INSULIN HUMAN NPH SQ SCH (08:00)
[2021-06-09] MEDS: INSULIN ASPART 100 UNITS/ML 3 ML PEN SC SCH ×4 (08:01→21:30)
[2021-06-09] MEDS ORDERED: ATORVASTATIN 40 MG TAB PO SCH (09:00)
[2021-06-09] MEDS ORDERED: NON-FORMULARY MEDICATION (Glipizide 10 mg tablet extended release 24hr) PO SCH (09:00)
[2021-06-09] MEDS: SOTALOL HCL 80 MG TAB PO SCH ×2 (09:06→21:22)
[2021-06-09] MEDS: ASPIRIN 81 MG ECTAB PO SCH (09:08)
[2021-06-09] MEDS: buPROPion SR 150 MG TABCR PO SCH ×2 (09:08→17:08)
[2021-06-09] MEDS: allopurinoL 300 MG TAB PO SCH (09:08)
[2021-06-09] MEDS: CHOLECALCIFEROL 1,000 UNITS 25 MCG TAB PO SCH (09:08)
[2021-06-09] MEDS: INSULIN HUMAN NPH SQ SCH ×2 (09:12→17:54)
[2021-06-09] MEDS ORDERED: FLUARIX QUADRIVALENT 0.5 ML SYR IM ONE (10:00)
--- NOTE | 2021-06-09 10:44 | Pharmacy Report ---
Pharmacy Glycemic Short Note 2 - Date of Service June 09, 2021 - Glycemic Short BSG Results (Last 24 hours): 06/08/21 06/09/21 06/09/21 21:04 05:57 07:32 Glucose 162 H POC Glucose 149 H 172 H OUTPATIENT ANTIDIABETIC REGIMEN: * NPH 10 units SC BID * Metformin * Glipizide * HbA1c 6.8% 06/09/21 ASSESSMENT: * 55 yo M with T2DM admitted for cellulitis * AM fasting BSG elevated today, but this is likely 2nd missed evening dose of NPH yesterday * Stressors may increase insulin demands, although it's reasonable at this time to continue with NPH as the basal insulin due to easier transition back to outpatient regimen on discharge. May need to switch to Lantus if BSG's are not able to be controlled well with NPH * Will hold outpatient po and initiate bolus Novolog instead. Weight-based moderate stress estimate PLAN FOR INPATIENT GLYCEMIC CONTROL: * Hold outpatient oral diabetes medications * Basal insulin * NPH 10-12 units SQ BID * Bolus insulin * NovoLog per scale ACHS or Q6hrs while NPO * Goal Range: Low 110 mg/dL - High 140 mg/dL * Correction Factor: 15 mg/dL/unit * Nutritional / Prandial insulin per carb ratio of 1 unit per 5 grams CHO consumed PLAN FOR DISCHARGE: * Continue outpatient regimen, assuming frequent lows as an outpatient are not occurring and assuming no contraindications exist at discharge
[2021-06-09] MEDS ORDERED: DAPTOmycin 450 MG in SYRINGE 0 ML IV SCH (12:00)
[2021-06-09] MEDS ORDERED: MoRPHine SULFATE 2 MG/ML CARP IV PRN (16:05)
[2021-06-09] MEDS: MoRPHine SULFATE 2 MG/ML CARP IV PRN ×2 (16:39→22:23)
[2021-06-09] MEDS ORDERED: LORazepam 0.5 MG TAB PO STA (19:53)
[2021-06-09] MEDS: CEFEPIME 2,000 MG in SYRINGE 0 ML IV SCH (20:23)
[2021-06-09] MEDS ORDERED: Nursing to Pharmacy Communication SCH (20:30)
[2021-06-10] MEDS: INSULIN ASPART 100 UNITS/ML 3 ML PEN SC SCH ×5 (00:09→21:03)
[2021-06-10] MEDS: MoRPHine SULFATE 2 MG/ML CARP IV PRN ×3 (06:06→20:51)
[2021-06-10] MEDS: CEFEPIME 2,000 MG in SYRINGE 0 ML IV SCH ×3 (06:07→20:52)
[2021-06-10] MEDS: SODIUM CHLORIDE 0.9% 1000ML 1,000 ML IV SCH ×2 (06:07→17:47)
[2021-06-10] MEDS: HEPARIN SOD 5,000 UNIT/0.5 ML VIAL SQ SCH ×3 (07:08→21:05)
[2021-06-10 07:09] LABS: Basophils # (auto) 0.04 K/uL (0-0.2); Basophils % (auto) 0.2 %; Eosinophils # (auto) 0.01 K/uL (0-0.5); Eosinophils % (auto) 0.1 %; Hemoglobin 12.1 g/dL (14.0-18.0); Immature Granulocytes # (auto) 0.24 K/uL (0.00-0.02); Immature Granulocytes % (auto) 1.4 %; Lymphocytes # (auto) 1.36 K/uL (1.2-3.4); Lymphocytes % (auto) 8.2 %; Mean Corpuscular Hemoglobin 33.2 pg (25-34); Mean Corpuscular Hgb Conc 35.6 g/dL (32-36); Mean Corpuscular Volume 93.2 fL (80-100); Monocytes # (auto) 2.09 K/uL (0.11-0.59); Monocytes % (auto) 12.6 %; Neutrophils # (auto) 12.82 K/uL (1.4-6.5); Neutrophils % (auto) 77.5 %; Platelet Count 191 K/uL (130-400); RDW Coefficient of Variation 13.6 % (11.5-14.5); RDW Standard Deviation 46.5 fL (36.4-46.3); Red Blood Count 3.65 M/uL (4.7-6.1); White Blood Count 16.56 K/uL (4.8-10.8)
[2021-06-10 07:37] LABS: BUN Creatinine Ratio 43.1 (10-20); Calcium 9.1 mg/dl (8.5-10.1); Creatinine Clr Calc Pharmacy 96.3 ml/min; Est GFR (African American) 68.2 ml/min; Est GFR (Non-African American) 58.8 ml/min; Potassium 3.7 mmol/L (3.5-5.1)
[2021-06-10] MEDS: INSULIN HUMAN NPH SQ SCH ×2 (09:26→17:48)
[2021-06-10] MEDS: CHOLECALCIFEROL 1,000 UNITS 25 MCG TAB PO SCH (09:32)
[2021-06-10] MEDS: buPROPion SR 150 MG TABCR PO SCH ×2 (09:32→17:47)
[2021-06-10] MEDS: ASPIRIN 81 MG ECTAB PO SCH (09:32)
[2021-06-10] MEDS: allopurinoL 300 MG TAB PO SCH (09:32)
[2021-06-10] MEDS: SOTALOL HCL 80 MG TAB PO SCH ×2 (09:32→20:52)
--- NOTE | 2021-06-10 11:07 | Gastrointestinal Consultation ---
Date of Consultation June 10, 2021 Assessment & Plan (1) Odynophagia: 55 year old male admitted w/ cellulitis who notes epigastric abd pain w/ swallowing, globus getting worse since onset NPO for EGD this AM Please see EGD report for further recommendation once completed Start Pantoprazole 40 mg daily Supervising Physician Co-Signing Physician Notes I have seen and examined the patient with BRODY Busch whose note reflects our findings and plan. Dysphagia and globus sensation. Will perform an EGD today. PPI to be continued at time of discharge History of Present Illness Reason for Consultation: dysphagia Requesting Physician: Boris Attending Physician: Thong Escalante MD History of Present Illness 55 year old male w/ history of PMR, atrial flutter, venous insufficiency, type 2 diabetes, hypertension who was admitted for the management of left lower extremity cellulitis who notes dysphagia. Suggests that he swallowed felt something get hung up and has had intermittent symptoms since. Worsening over the last 24 hours. He gets pain, discomfort with attempted PO, even water. Feels pressure sensation at back of his throat. No nausea, vomiting. Has had attempted any PO in over 48 hours. Has had intermittent hiccups as well. Allergies Allergy/AdvReac Type Severity Reaction Status Date / Time Sulfa (Sulfonamide Allergy Intermediate itching Verified 06/08/21 11:06 Antibiotics) cephalexin [From Keflex] Allergy Mild Rash Verified 06/08/21 11:06 Home Medications Medication Instructions Recorded Confirmed Type aspirin 81 mg tablet,delayed 81 mg PO DAILY #30 tab 04/21/20 06/08/21 Rx release (Aspirin Low Dose) glipizide 10 mg tablet, extended 20 mg PO DAILY 90 Days #180 tab 06/04/20 06/08/21 Rx release 24 hr sotalol 120 mg tablet 120 mg PO BID #180 tab 08/12/20 06/08/21 Rx cholecalciferol (vitamin D3) 50 50 mcg PO DAILY 10/22/20 06/08/21 History mcg (2,000 unit) capsule tramadol 50 mg tablet 50 mg PO BID PRN #30 tab 10/22/20 06/08/21 Rx insulin NPH isoph U-100 human 100 10 unit SUBCUT BID #15 ml 10/28/20 06/08/21 Rx unit/mL (3 mL) subcutaneous pen (Novolin N Flexpen) hydrochlorothiazide 12.5 mg tablet 12.5 mg PO DAILY #90 tab 11/13/20 06/08/21 Rx amlodipine 5 mg tablet 5 mg PO HS #90 tab 12/02/20 06/08/21 Rx bupropion HCl 150 mg tablet,12 hr 150 mg PO BID #60 ea 12/02/20 06/08/21 Rx sustained-release atorvastatin 40 mg tablet 40 mg PO DAILY #90 tab 04/20/21 06/08/21 Rx lisinopril 40 mg tablet 40 mg PO DAILY #90 tab 04/20/21 06/08/21 Rx metformin 1,000 mg tablet 1,000 mg PO BID #180 tab 04/20/21 06/08/21 Rx allopurinol 300 mg tablet 300 mg PO DAILY #90 tab 04/21/21 06/08/21 Rx Patient History Medical History Acute kidney injury Anemia Arthritis Back pain Bilateral primary osteoarthritis of knee Chronic venous insufficiency Depression Diabetes DM type 2 (diabetes mellitus, type 2) Fatty liver Gout High cholesterol History of atrial flutter "s/p cardioversion 06/2014" History of gallbladder disease History of gout History of polymyalgia rheumatica History of right bundle branch block (RBBB) HTN (hypertension) Hypertension Lower extremity edema Microalbuminuria Obesity, morbid, BMI 50 or higher Osteoarthritis Pseudomonas infection Renal hematoma, left Spinal stenosis Spinal stenosis Venous insufficiency Surgical History H/O arthroscopic knee surgery 2000 and 2007 S/P cardiac cath "cath 07/05/2014- angiographically normal vessels, EF 60-65%" S/P left knee arthroscopy S/P tonsillectomy Family History Mother Diabetes Hypertension Denies family history of Ovarian cancer Prostate cancer Myocardial infarction Breast cancer Colorectal cancer Social History Smoking Status: Never smoker Tobacco Type: Cigarettes Age Started Using Tobacco: 27; Age Quit Using Tobacco: 49; packs per day: 1; Second Hand Exposure: No; Hx Alcohol Use: Yes Alcohol type: beer Alcohol Intake Frequency: Monthly or Less Hx Substance Use: No Preferred Language: [place] Communication Ability: Effective Visual Impairment: No Limitations Hearing Ability: Normal Reimbursement Counselor Required: No Beliefs That Will Affect Care: None marital status: Current Living Situation: Family current occupational status: retired Other Information That Helps Us Care for You: No Feels Safe at Home: Yes Safety Concerns: Feels Safe At This Time Childhood Exposure to Second-Hand Smoke: No caffeine: Yes (Coffee x 2 per day.) during the past year weight has: decreased > 10 lbs Dental Care, Regularly: No Physical Activity Frequency: 3-4 Times per Week Physical Activity Frequency Comment: limited by physical condition/ does excercises while sitting Seatbelt Use: always Sunscreen Use: No Assistive Devices: None Review of Systems Review of Systems: All systems reviewed & are unremarkable except as noted in HPI & below Physical Exam Constitutional: WD/WN, vitals as above Neck: trachea midline, no thyromegaly Respiratory: normal respiratory effort, lungs clear to auscultation Cardiovascular: Rate/Rhythm: regular rate and regular rhythm Gastrointestinal (Abdomen): normal bowel sounds, soft, nontender, no hepatosplenomegaly Results & Data ([facility]) Vital Signs (Past 12 Hours) Vital Signs Temp Pulse Resp BP Pulse Ox 06/10/21 07:12 37.3 C 77 20 121/65 95 Laboratory Results 06/10/21 06/10/21 06/10/21 Range/Units 06:44 06:44 06:15 WBC 16.56 H (4.8-10.8) K/uL RBC 3.65 L (4.7-6.1) M/uL Hgb 12.1 L (14.0-18.0) g/dL Hct 34.0 L (42-52) % MCV 93.2 (80-100) fL MCH 33.2 (25-34) pg MCHC 35.6 (32-36) g/dL RDW Std Deviation 46.5 H (36.4-46.3) fL RDW Coeff of Dar 13.6 (11.5-14.5) % Plt Count 191 (130-400) K/uL MPV 11.0 H (7.4-10.4) fL Immature Gran % (Auto) 1.4 % Neut % (Auto) 77.5 % Lymph % (Auto) 8.2 % Gregg % (Auto) 12.6 % Eos % (Auto) 0.1 % Baso % (Auto) 0.2 % Neut # (Auto) 12.82 H (1.4-6.5) K/uL Lymph # (Auto) 1.36 (1.2-3.4) K/uL Gregg # (Auto) 2.09 H (0.11-0.59) K/uL Eos # (Auto) 0.01 (0-0.5) K/uL Baso # (Auto) 0.04 (0-0.2) K/uL Immature Gran # (Auto) 0.24 H (0.00-0.02) K/uL Sodium 139 (136-145) mmol/L Potassium 3.7 (3.5-5.1) mmol/L Chloride 110 H (98-107) mmol/L Carbon Dioxide 18 L (21-32) mmol/L Anion Gap 11.0 (3-11) BUN 58 H (7-18) mg/dl Creatinine 1.34 D (0.6-1.4) mg/dl Est Cr Clr Drug Dosing 96.3 ml/min Est GFR ( Amer) 68.2 ml/min Est GFR (Non-Af Amer) 58.8 ml/min BUN/Creatinine Ratio 43.1 H (10-20) Glucose 169 H (70-99) mg/dl POC Glucose 164 H (70-99) mg/dl Calcium 9.1 (8.5-10.1) mg/dl C-Reactive Protein (0-0.29) mg/dl 06/10/21 06/09/21 06/09/21 Range/Units 00:01 21:29 17:33 WBC (4.8-10.8) K/uL RBC (4.7-6.1) M/uL Hgb (14.0-18.0) g/dL Hct (42-52) % MCV (80-100) fL MCH (25-34) pg MCHC (32-36) g/dL RDW Std Deviation (36.4-46.3) fL RDW Coeff of Dar (11.5-14.5) % Plt Count (130-400) K/uL MPV (7.4-10.4) fL Immature Gran % (Auto) % Neut % (Auto) % Lymph % (Auto) % Gregg % (Auto) % Eos % (Auto) % Baso % (Auto) % Neut # (Auto) (1.4-6.5) K/uL Lymph # (Auto) (1.2-3.4) K/uL Gregg # (Auto) (0.11-0.59) K/uL Eos # (Auto) (0-0.5) K/uL Baso # (Auto) (0-0.2) K/uL Immature Gran # (Auto) (0.00-0.02) K/uL Sodium (136-145) mmol/L Potassium (3.5-5.1) mmol/L Chloride (98-107) mmol/L Carbon Dioxide (21-32) mmol/L Anion Gap (3-11) BUN (7-18) mg/dl Creatinine (0.6-1.4) mg/dl Est Cr Clr Drug Dosing ml/min Est GFR ( Amer) ml/min Est GFR (Non-Af Amer) ml/min BUN/Creatinine Ratio (10-20) Glucose (70-99) mg/dl POC Glucose 142 H 149 H 172 H (70-99) mg/dl Calcium (8.5-10.1) mg/dl C-Reactive Protein (0-0.29) mg/dl 06/09/21 06/09/21 Range/Units 11:39 05:57 WBC (4.8-10.8) K/uL RBC (4.7-6.1) M/uL Hgb (14.0-18.0) g/dL Hct (42-52) % MCV (80-100) fL MCH (25-34) pg MCHC (32-36) g/dL RDW Std Deviation (36.4-46.3) fL RDW Coeff of Dar (11.5-14.5) % Plt Count (130-400) K/uL MPV (7.4-10.4) fL Immature Gran % (Auto) % Neut % (Auto) % Lymph % (Auto) % Gregg % (Auto) % Eos % (Auto) % Baso % (Auto) % Neut # (Auto) (1.4-6.5) K/uL Lymph # (Auto) (1.2-3.4) K/uL Gregg # (Auto) (0.11-0.59) K/uL Eos # (Auto) (0-0.5) K/uL Baso # (Auto) (0-0.2) K/uL Immature Gran # (Auto) (0.00-0.02) K/uL Sodium (136-145) mmol/L Potassium (3.5-5.1) mmol/L Chloride (98-107) mmol/L Carbon Dioxide (21-32) mmol/L Anion Gap (3-11) BUN (7-18) mg/dl Creatinine (0.6-1.4) mg/dl Est Cr Clr Drug Dosing ml/min Est GFR ( Amer) ml/min Est GFR (Non-Af Amer) ml/min BUN/Creatinine Ratio (10-20) Glucose (70-99) mg/dl POC Glucose 230 H (70-99) mg/dl Calcium (8.5-10.1) mg/dl C-Reactive Protein 25.00 H (0-0.29) mg/dl
[2021-06-10] MEDS ORDERED: PROPOFOL IV EMULSION 10 MG/ML 20 ML VIAL IV ONE (11:08)
[2021-06-10] MEDS ORDERED: LIDOCAINE 2% 2 ML VIAL/AMP(20MG/ML) INFIL ONE (11:08)
--- NOTE | 2021-06-10 11:15 | Anesthesiology Consultation ---
Date of Service June 10, 2021 Assessment & Plan (1) Encounter for pre-operative examination: Chart Review Chart Review: Acceptable Risk for Surgery and Patient NOT seen in Pre Admission Testing Consults Requested none History Surgery Operation Date: 06/10/21 17:00 Proposed Procedures p Esophagogastroduodenoscopy Dr Seth - Matilda Seth, DO Height/Weight Height: 6 ft 1 in Weight: 156.6 kg Allergies Allergy/AdvReac Type Severity Reaction Status Date / Time Sulfa (Sulfonamide Allergy Intermediate itching Verified 06/08/21 11:06 Antibiotics) cephalexin [From Keflex] Allergy Mild Rash Verified 06/08/21 11:06 Medications Home Medications Medication Instructions Recorded Confirmed Last Taken aspirin 81 mg tablet,delayed 81 mg PO DAILY #30 tab 04/21/20 06/08/21 06/08/21 release (Aspirin Low Dose) glipizide 10 mg tablet, extended 20 mg PO DAILY 90 Days #180 tab 06/04/20 06/08/21 06/08/21 release 24 hr sotalol 120 mg tablet 120 mg PO BID #180 tab 08/12/20 06/08/21 06/08/21 cholecalciferol (vitamin D3) 50 50 mcg PO DAILY 10/22/20 06/08/21 06/08/21 mcg (2,000 unit) capsule tramadol 50 mg tablet 50 mg PO BID PRN #30 tab 10/22/20 06/08/21 06/08/21 insulin NPH isoph U-100 human 100 10 unit SUBCUT BID #15 ml 10/28/20 06/08/21 06/08/21 unit/mL (3 mL) subcutaneous pen (Novolin N Flexpen) hydrochlorothiazide 12.5 mg tablet 12.5 mg PO DAILY #90 tab 11/13/20 06/08/21 06/08/21 amlodipine 5 mg tablet 5 mg PO HS #90 tab 12/02/20 06/08/21 06/07/21 bupropion HCl 150 mg tablet,12 hr 150 mg PO BID #60 ea 12/02/20 06/08/21 06/08/21 sustained-release atorvastatin 40 mg tablet 40 mg PO DAILY #90 tab 04/20/21 06/08/21 06/08/21 lisinopril 40 mg tablet 40 mg PO DAILY #90 tab 08/06/08/21 06/08/21 metformin 1,000 mg tablet 1,000 mg PO BID #180 tab 04/20/21 06/08/21 06/08/21 allopurinol 300 mg tablet 300 mg PO DAILY #90 tab 04/21/21 06/08/21 06/08/21 Active Medications Generic Name Dose Route Start Last Admin Trade Name Sagar JAYN Reason Stop Dose Admin Allopurinol 300 mg 06/09/21 09:00 06/10/21 09:32 Allopurinol 300 Mg Tab PO 07/09/21 08:59 Not Given DAILY AMY Amlodipine Besylate 5 mg 06/08/21 21:00 06/08/21 21:06 Amlodipine Besylate 5 Mg Tab PO 07/08/21 20:59 5 mg HS AMY Administration Aspirin 81 mg 06/09/21 09:00 06/10/21 09:32 Aspirin 81 Mg Ectab PO 07/09/21 08:59 Not Given DAILY AMY Bupropion HCl 150 mg 06/09/21 09:00 06/10/21 09:32 Bupropion Sr 150 Mg Tabcr PO 07/09/21 08:59 Not Given BID17 AMY Heparin Sodium (Porcine) 7,500 units 06/08/21 22:00 06/10/21 07:08 Heparin Sod 5,000 Unit/0.5 Ml Vial SQ 07/08/21 21:59 7,500 units Q8 AMY Administration Sodium Chloride 1,000 mls @ 125 mls/hr 06/08/21 20:00 06/10/21 06:07 Nss 1000ml IV 07/08/21 19:59 125 mls/hr .Q8H AMY Administration Cefepime HCl 2,000 mg/ Syringe 20 mls @ 5 mls/min 06/09/21 21:00 06/10/21 06:07 IV 06/16/21 20:59 5 mls/min Q8H AMY Administration Protocol Insulin Aspart 0 units 06/09/21 21:00 06/10/21 06:38 Insulin Aspart 100 Units/Ml 3 Ml Pen SC 07/08/21 20:59 2 units Q6 AMY Administration Insulin Human NPH 0 units 06/09/21 08:00 06/10/21 09:26 Insulin Human Nph SQ 07/09/21 07:59 12 units BIDM AMY Administration Protocol Morphine Sulfate 2 mg 06/09/21 16:11 06/10/21 06:06 Morphine Sulfate 2 Mg/Ml Carp IV 06/23/21 16:10 2 mg Q4H PRN Administration Severe Pain (7,8,9,10) on NRS Ondansetron HCl 4 mg 06/08/21 19:51 06/09/21 08:36 Ondansetron Inj 2 Mg/Ml 2 Ml Vial IV 07/08/21 19:50 4 mg Q6H PRN Administration Nausea Sotalol HCl 120 mg 06/08/21 21:00 06/10/21 09:32 Sotalol Hcl 80 Mg Tab PO 07/08/21 20:59 Not Given BID AMY Tramadol HCl 50 mg 06/08/21 19:51 06/09/21 23:36 Tramadol Hcl 50 Mg Tablet PO 07/08/21 19:50 50 mg BID PRN Administration pain Vitamin D 2,000 units 06/09/21 09:00 06/10/21 09:32 Cholecalciferol 1,000 Units 25 Mcg Tab PO 07/09/21 08:59 Not Given DAILY AMY Past Medical History Medical History Acute kidney injury Anemia Arthritis Back pain Bilateral primary osteoarthritis of knee Chronic venous insufficiency Depression Diabetes DM type 2 (diabetes mellitus, type 2) Fatty liver Gout High cholesterol History of atrial flutter "s/p cardioversion 06/2014" History of gallbladder disease History of gout History of polymyalgia rheumatica History of right bundle branch block (RBBB) HTN (hypertension) Hypertension Lower extremity edema Microalbuminuria Obesity, morbid, BMI 50 or higher Osteoarthritis Pseudomonas infection Renal hematoma, left Spinal stenosis Spinal stenosis Venous insufficiency Past Family History Family History Mother Diabetes Hypertension Denies family history of Ovarian cancer Prostate cancer Myocardial infarction Breast cancer Colorectal cancer Past Surgical History Surgical History H/O arthroscopic knee surgery 2000 and 2007 S/P cardiac cath "cath 07/05/2014- angiographically normal vessels, EF 60-65%" S/P left knee arthroscopy S/P tonsillectomy Social History Smoking Status: Never smoker tobacco type: cigarettes Hx Alcohol Use: Yes Alcohol type: beer alcohol intake frequency: 0-2 drinks per day Hx Substance Use: No substance use type: does not use Physical Exam Vital Signs Last Vital Signs Temp 99.1 F 06/10/21 07:12 Pulse 77 06/10/21 07:12 Resp 20 06/10/21 07:12 BP 121/65 06/10/21 07:12 Pulse Ox 95 06/10/21 07:12 Testing Laboratory Results 06/10/21 06:44 06/10/21 06:44 PT 10.1 Seconds (9.0-12.0) 06/08/21 09:45 INR 1.0 (0.9-1.1) 06/08/21 09:45 APTT 27.6 Seconds (21.0-31.0) 06/08/21 09:45 Hemoglobin A1c 6.8 % (4.5-5.6) H 06/09/21 05:57 06/08/21 11:36 Aerobic Blood Culture - Preliminary Blood No growth in Aerobic bottle after 24 hours. Anaerobic Blood Culture - Final 06/08/21 11:35 Aerobic Blood Culture - Preliminary Blood No growth in Aerobic bottle after 24 hours. Anaerobic Blood Culture - Preliminary No growth in Anaerobic bottle after 24 hours. 06/10/21 06/10/21 06:15 00:01 POC Glucose 164 H 142 H Electrocardiogram Date: 06/08/21 Normal sinus rhythm Non-specific intra-ventricular conduction block Nonspecific ST and T wave abnormality Abnormal ECG When compared with ECG of 08-JUN-2016 20:00, No significant change was found Chest X-Ray Date: 06/08/21 Findings: + cardiomegaly (mild)
[2021-06-10] MEDS ORDERED: ePHEDrine sulfate 50 MG/ML AMP IV PRN (11:42)
[2021-06-10] MEDS ORDERED: ATROPINE SULFATE 0.1 MG/ML 10ML SYR IV PRN (11:42)
[2021-06-10] MEDS ORDERED: ONDANSETRON INJ 2 MG/ML 2 ML VIAL IV PRN (11:42)
--- NOTE | 2021-06-10 12:09 | GI REPORT ---
Patient Name: Zeferino Velarde Procedure Date: 06/10/2021 11:39 AM Date of : 1965 Admit Type: Inpatient Age: 55 Gender: Male Attending MD: Matilda Seth DO Procedure: Upper GI endoscopy Providers: Matilda Seth DO Referring MD: Thong Escalante Md Indications: Functional Dyspepsia, Eructation, Globus sensation Medicines: Propofol per Anesthesia Complications: No immediate complications. Estimated blood loss: None. Estimated Blood Loss: Estimated blood loss: none. Procedure: Pre-Anesthesia Assessment: - Prior to the procedure, a History and Physical was performed, and patient medications, allergies and sensitivities were reviewed. The patient's tolerance of previous anesthesia was reviewed. - The risks and benefits of the procedure and the sedation options and risks were discussed with the patient. All questions were answered and informed consent was obtained. - Patient identification and proposed procedure were verified prior to the procedure by the physician and the nurse. The procedure was verified in the pre-procedure area in the procedure room. - Airway Examination: normal oropharyngeal airway and neck mobility. - Respiratory Examination: clear to auscultation. - ASA Grade Assessment: IV - A patient with severe systemic disease that is a constant threat to life. After obtaining informed consent, the endoscope was passed under direct vision. Throughout the procedure, the patient's blood pressure, pulse, and oxygen saturations were monitored continuously. The Endoscope was introduced through the mouth, and advanced to the second part of duodenum. The upper GI endoscopy was accomplished without difficulty. The patient tolerated the procedure well. Findings: Non-severe esophagitis with no bleeding was found at the gastroesophageal junction. The stomach was normal. Mild inflammation characterized by congestion (edema) was found in the entire duodenum. Impression: - Non-severe reflux esophagitis. No stricture. - Normal stomach. - Mild duodenitis. - No specimens collected. Recommendation: - Check stool for H. pylori and treat if positive. - Oral PPI daily. - [facility] patient [facility] for [facility] care. Wyatt Neff DO 06/10/2021 12:09:03 PM This report has been signed electronically. Note Initiated On: 06/10/2021 11:39 AM Number of Addenda: 0 I attest to the content of the Intraoperative Record and orders documented therein, exceptions below {[id number]}
--- NOTE | 2021-06-10 13:18 | Anesthesiology Progress Note ---
Date of Service June 10, 2021 Anesthesia Post Procedure Vital Signs Vital Signs: Temp Pulse Resp BP Pulse Ox 06/10/21 13:00 97.7 F 80 18 135/74 98 06/10/21 12:35 79 19 105/61 96 06/10/21 12:23 78 19 125/61 95 06/10/21 12:07 79 19 121/79 94 06/10/21 11:34 99.3 F 82 19 143/69 H 96 06/10/21 07:12 99.1 F 77 20 121/65 95 06/09/21 21:55 98.8 F 77 18 121/74 96 06/09/21 21:20 71 107/65 06/09/21 20:12 76 104/60 06/09/21 15:44 98.2 F 74 18 99/62 L 96 Pain Intensity Bilateral Leg: Pain Intensity: 5 Left Leg: Pain Intensity: 6 Transfer of Care Handoff Completed per policy Notes Mental Status: alert / awake / arousable and participated in evaluation Patient Amnestic to Procedure: Yes Nausea / Vomiting: adequately controlled Pain: adequately controlled Airway Patency, RR, SpO2: stable & adequate BP & HR: stable & adequate Hydration State: stable & adequate Anesthetic Complications: no major complications apparent and Pt Satisfied with anesthetic care
--- NOTE | 2021-06-10 14:24 | Pharmacy Report ---
Pharmacy Glycemic Short Note 2 - Date of Service June 10, 2021 - Glycemic Short BSG Results (Last 24 hours): 06/09/21 06/09/21 06/10/21 17:33 21:29 00:01 Glucose POC Glucose 172 H 149 H 142 H 06/10/21 06/10/21 06/10/21 06:15 06:44 12:55 Glucose 169 H POC Glucose 164 H 154 H OUTPATIENT ANTIDIABETIC REGIMEN: * NPH 10 units SC BID * Metformin * Glipizide * HbA1c 6.8% 06/09/21 ASSESSMENT: 06/10/21: * Mr Velarde received 52 units of insulin yesterday, with good glycemic control (BSGs 172, 149, 164, 154 past 24 hours) * Insulin appears to be appropriately distributed (~50:50 basal:bolus). * No changes required at this time. 06/09 * 55 yo M with T2DM admitted for cellulitis * AM fasting BSG elevated today, but this is likely 2nd missed evening dose of NPH yesterday * Stressors may increase insulin demands, although it's reasonable at this time to continue with NPH as the basal insulin due to easier transition back to outpatient regimen on discharge. May need to switch to Lantus if BSG's are not able to be controlled well with NPH * Will hold outpatient po and initiate bolus Novolog instead. Weight-based moderate stress estimate PLAN FOR INPATIENT GLYCEMIC CONTROL: * Hold outpatient oral diabetes medications * Basal insulin * NPH 10-12 units SQ BID * Bolus insulin * NovoLog per scale ACHS or Q6hrs while NPO * Goal Range: Low 100 mg/dL - High 140 mg/dL * Correction Factor: 15 mg/dL/unit * Nutritional / Prandial insulin per carb ratio of 1 unit per 5 grams CHO consumed PLAN FOR DISCHARGE: * HbA1c: 6.8% * This indicates adequate glycemic control as an outpt. * Continue outpatient regimen, assuming frequent lows as an outpatient are not occurring and assuming no contraindications exist at discharge.
[2021-06-10] MEDS ORDERED: bisacodyL 10 MG SUPP PR PRN (15:23)
--- NOTE | 2021-06-10 15:38 | Hospitalist Progress Note ---
Date of Service June 10, 2021 Assessment & Plan (1) Cellulitis: Plan: Kevin is a 55-year-old male with a history of PMR, atrial flutter, venous insufficiency, type 2 diabetes, hypertension who was admitted for the management of left lower extremity cellulitis. Left lower extremity cellulitis Leukocytosis persists, afebrile. Pro-Ervin elevated to 14 on admission No hypotension/tachycardia/fever, although patient subjectively with fever/chills/sweats Received Dapto/Zosyn in ER Narrowed to Zosyn monotherapy, clear fluid without purulence, no purulence to suggest anaerobes/Dapto needed. No known history of MRSA. Previously narrowed to cefepime, if worsening expanding back to Zosyn/Dapto BC pending Past lower extremity isolates with fluoroquinolone resistance. - Leg with fluid blisters and persistent erythema, increased pain. F/u CT-lower extremity pending. Wound care consulted - Continue Cefepime CRP 25, repeat tomorrow (2) DAYO (acute kidney injury): Plan: Baseline creatinine approximately less than 1.4 Creatinine on admission 3.22, consistent with DAYO? Prerenal azotemia Downtrend and and normalized (3) History of atrial flutter: Plan: Normal sinus rhythm on admission Continue home sotalol twice daily Patient not on anticoagulation prior to admission DVT prophylaxis while inpatient (4) DM type 2 (diabetes mellitus, type 2): Plan: Home glipizide continued Metformin held Patient on home NPH twice daily, will convert to basal bolus while inpatient. Glycemic consult placed A1c 6.8 from prior 10.1 (5) HTN (hypertension): (6) Odynophagia: Plan: - Worsening x5 days - Pt feels food gets stuck in his throat, can initiate swallow but feeling of getting stuck midway - NPO prior to EGD evaluation, EGD performed with results below and diet resumed. - GI consulted. EGD: Nonsevere esophagitis with no bleeding, mild inflammation/congestion of the duodenum without obstruction or stricture. Continue PPI, H. pylori biopsies taken. (7) Constipation: Plan: No BM in 3-4 days ? Contribution to bloating and hiccups KUB pending +miralax Bisacodyl PRN if not improving with miralax Admission and Anticipated Discharge Date Admission Date: June 08, 2021 Subjective She is bedside this morning. Worsened hiccups and feeling that food is stuck in his throat, difficulty swallowing. N.p.o. at time of morning assessment, GI consulted with pending EGD. EGD update: No stricture or obstruction, nonsevere esophagitis, mild duodenal congestion. Stool to be checked for H. pylori, continue PPI. Discussed above with patient, meds resumed. On afternoon visit patient feels that he is improving, but his leg feels painful today and has multiple fluid blisters. Swelling diminishing. No fever/chills/sweats. Hiccups as noted, otherwise no chest pain/chest pressure/shortness of breath Review of Systems Review of Systems: All systems reviewed & are unremarkable except as noted in HPI & below Physical Exam Physical Exam: General: A&Ox3. NAD. Cooperative. HEENT: Atraumatic, normocephalic. Visual acuity and hearing grossly intact. Pulm: CTAB A&P. -wheezes, -rales, -rhonchi. Symmetrical chest rise. No increase work of breathing. No respiratory distress. Cardiac: RRR, -mrg. Radial pulses intact and symmetrical. Abdominal: Nontender, nondistended, soft. BS present. Extremity: Left lower leg swollen, erythematous, tender. Reduce swelling, erythema persists with some purple discoloration. Fluid blister of the left lateral lower leg. No purulence. Anterior chronic venous stasis/mild ulceration. Sensation to soft touch intact bilaterally. PT pulse difficult to appreciate due to swelling, hallux cap refill less than 2 seconds bilaterally. Results & Data Results & Data ([facility]) Vital Signs (Past 12 Hours) Vital Signs Temp Pulse Resp BP Pulse Ox 06/10/21 13:30 37.4 C 77 16 126/75 96 06/10/21 13:00 36.5 C 80 18 135/74 98 06/10/21 12:35 79 19 105/61 96 06/10/21 12:23 78 19 125/61 95 06/10/21 12:07 79 19 121/79 94 06/10/21 11:34 37.4 C 82 19 143/69 H 96 06/10/21 07:12 37.3 C 77 20 121/65 95 PG Care Time/CCT Total # of Minutes Spent Total Time Spent with Patient: Total time spent is greater than 50% in coordination of care (as documented) at patient's floor/unit and/or counseling patient: Coding Level of Care Code 65323 Subseq Hosp Care Lvl 3 Diagnoses Cellulitis L03.116 Laterality: left Site of cellulitis: extremity Site of cellulitis of extremity: lower extremity DAYO (acute kidney injury) N17.9 History of atrial flutter Z86.79 DM type 2 (diabetes mellitus, type 2) E11.9 HTN (hypertension) I10 Odynophagia R13.10 Constipation K59.00 (1) Cellulitis Laterality: left Site of cellulitis: extremity Site of cellulitis of extremity: lower extremity Qualified Code(s): L03.116 - Cellulitis of left lower limb
--- NOTE | 2021-06-10 16:06 | XRay Report ---
KUB CLINICAL HISTORY: Generalized abdominal pain. FINDINGS: 4 AP supine abdominal radiographs are correlated with abdominal CT dated 06/07/2018. There is a nonobstructed abdominal bowel gas pattern. Moderate fecal retention is seen throughout the colon . No evidence of intraperitoneal free air is seen on these supine views. The liver appears enlarged. There are no abnormal abdominal calcifications. The bony structures appear intact. Lumbosacral spondy losis is observed. IMPRESSION: Nonobstructed bowel gas pattern. Electronically signed by: Wilfredo Ventura M.D. 06/10/2021 4:04 PM
--- NOTE | 2021-06-10 16:55 | CT Scan Report ---
CT SCAN OF THE LEFT TIBIA AND FIBULA WITHOUT IV CONTRAST CLINICAL HISTORY: Left leg pain. Cellulitis. COMPARISON STUDY: No priors. TECHNIQUE: CT scan of the left tibia and fibula is performed from the distal femur to the ankle. Imag es are reviewed in the axial, sagittal, and coronal planes. IV contrast was not administered for this examination. A dose lowering technique was utilized adhering to the principles of ALARA. Note that i nterpretation is significantly suboptimal without plain film correlate. CT DOSE: 403.91 mGy.cm FINDINGS: The skeletal structures are osteopenic. There is no evidence of tibial or fibular fracture. No bony erosion or periostitis is identified. The knee and ankle joints are grossly maintained, noti ng degenerative change. No destructive bony lesion is seen. There is a popliteal cyst posterior to th e knee which measures up to 6 cm. There is marked generalized atrophy of the regional musculature, gr eatest involving the gastrocnemius muscles. Atherosclerotic calcification is noted in the regional ar teries. Diffuse subcutaneous soft tissue edema and fluid are seen throughout the left lower extremity . No organized fluid collection is seen to suggest abscess. No soft tissue gas is identified. Milder soft tissue edema is noted in the partially imaged right lower extremity. IMPRESSION: 1. No osseous abnormality is seen involving the left tibia or fibula. 2. Diffuse soft tissue edema and subcutaneous fluid are consistent with reported history of celluliti s. 3. There is no organized fluid collection seen to suggest abscess. 4. No soft tissue gas is identified. 5. Popliteal cyst. ACT 112: Negative or not required by law. Dictated: 06/10/2021 4:26 PM Transcribed: 06/10/2021 4:50 PM Amira [id number] NICKOLAS_Christian Electronically signed by: Wilfredo Ventura M.D. 06/10/2021 4:54 PM
--- NOTE | 2021-06-10 16:56 | CT Scan Report ---
CT SCAN OF THE LEFT FOOT WITHOUT IV CONTRAST CLINICAL HISTORY: Cellulitis. Swelling. COMPARISON STUDY: No priors. TECHNIQUE: CT scan of the left foot is performed from the ankle to the base of the foot. Images are r eviewed in the axial, sagittal, and coronal planes. IV contrast was not administered for this examina tion. A dose lowering technique was utilized adhering to the principles of ALARA. Note that interpret ation is suboptimal without plain film correlate. FINDINGS: The skeletal structures are osteopenic. No acute fracture is identified. The ankle mortise appears intact. Osteoarthritic change is seen throughout the foot, greatest at the first metatarsopha langeal joint and at the tarsometatarsal articulations. There is no evidence of bony erosion or perio stitis. There are dorsal and plantar calcaneal enthesophytes. Diffuse soft tissue edema and subcutane ous fluid are seen throughout the foot and ankle. No organized fluid collection is identified to sugg est abscess. There is diffuse atrophy of the regional musculature. Advanced atherosclerotic calcifica tion is noted in the regional arteries. No soft tissue gas or radiodense foreign body is seen. IMPRESSION: 1. No acute bony abnormality is identified. 2. Diffuse soft tissue edema and subcutaneous fluid are consistent with reported history of celluliti s. 3. No organized fluid collection is seen to indicate abscess. 4. No soft tissue gas is seen. ACT 112: Negative or not required by law. Dictated: 06/10/2021 4:40 PM Transcribed: 06/10/2021 4:54 PM Amira [id number] NICKOLAS_Christian Electronically signed by: Wilfredo Ventura M.D. 06/10/2021 4:55 PM
[2021-06-10] MEDS: traMADol HCL 50 MG TABLET PO PRN (19:33)
[2021-06-10] MEDS: POLYETHYLENE (MIRALAX) 17 GM PACK PO SCH (20:52)
[2021-06-11] MEDS: SODIUM CHLORIDE 0.9% 1000ML 1,000 ML IV SCH ×3 (01:33→17:35)
[2021-06-11] MEDS: MoRPHine SULFATE 2 MG/ML CARP IV PRN ×4 (01:34→17:09)
[2021-06-11] MEDS: HEPARIN SOD 5,000 UNIT/0.5 ML VIAL SQ SCH ×3 (05:38→22:06)
[2021-06-11] MEDS: CEFEPIME 2,000 MG in SYRINGE 0 ML IV SCH ×3 (05:38→20:38)
[2021-06-11 07:09] LABS: Basophils # (auto) 0.05 K/uL (0-0.2); Basophils % (auto) 0.4 %; Eosinophils # (auto) 0.05 K/uL (0-0.5); Eosinophils % (auto) 0.4 %; Hematocrit (blood only) 32.3 % (42-52); Hemoglobin 11.3 g/dL (14.0-18.0); Immature Granulocytes # (auto) 0.36 K/uL (0.00-0.02); Immature Granulocytes % (auto) 2.7 %; Lymphocytes # (auto) 1.68 K/uL (1.2-3.4); Lymphocytes % (auto) 12.5 %; Mean Corpuscular Volume 94.4 fL (80-100); Monocytes # (auto) 1.21 K/uL (0.11-0.59); Neutrophils # (auto) 10.12 K/uL (1.4-6.5); Platelet Count 201 K/uL (130-400); RDW Coefficient of Variation 13.8 % (11.5-14.5); RDW Standard Deviation 47.5 fL (36.4-46.3); Red Blood Count 3.42 M/uL (4.7-6.1); White Blood Count 13.47 K/uL (4.8-10.8)
[2021-06-11 07:39] LABS: BUN Creatinine Ratio 36.4 (10-20); C Reactive Protein 12.9 mg/dl (0-0.29); Calcium 9.2 mg/dl (8.5-10.1); Creatinine Clr Calc Pharmacy 135.8 ml/min; Est GFR (African American) 103.3 ml/min; Est GFR (Non-African American) 89.1 ml/min; Potassium 3.7 mmol/L (3.5-5.1)
[2021-06-11] MEDS: allopurinoL 300 MG TAB PO SCH (09:27)
[2021-06-11] MEDS: buPROPion SR 150 MG TABCR PO SCH ×2 (09:27→18:11)
[2021-06-11] MEDS: SOTALOL HCL 80 MG TAB PO SCH ×2 (09:28→20:37)
[2021-06-11] MEDS: ASPIRIN 81 MG ECTAB PO SCH (09:30)
[2021-06-11] MEDS: CHOLECALCIFEROL 1,000 UNITS 25 MCG TAB PO SCH (09:30)
[2021-06-11] MEDS: INSULIN HUMAN NPH SQ SCH ×2 (09:31→18:12)
[2021-06-11] MEDS: POLYETHYLENE (MIRALAX) 17 GM PACK PO SCH ×2 (09:31→20:35)
[2021-06-11] MEDS: INSULIN ASPART 100 UNITS/ML 3 ML PEN SC SCH ×4 (09:32→22:07)
--- NOTE | 2021-06-11 11:00 | Hospitalist Progress Note ---
Date of Service June 11, 2021 Assessment & Plan (1) Cellulitis: Plan: Kevin is a 55-year-old male with a history of PMR, atrial flutter, venous insufficiency, type 2 diabetes, hypertension who was admitted for the management of left lower extremity cellulitis. Left lower extremity cellulitis Leukocytosis persists, afebrile. Pro-Ervin elevated to 14 on admission No hypotension/tachycardia/fever, although patient subjectively with fever/chills/sweats Received Dapto/Zosyn in ER Narrowed to Zosyn monotherapy, clear fluid without purulence, no purulence to suggest anaerobes/Dapto needed. No known history of MRSA. Previously narrowed to cefepime, if worsening expanding back to Zosyn/Dapto BC NGTD Past lower extremity isolates with fluoroquinolone resistance. -Wound care consulted, leg with C/D/high dressing. Appreciate care. - Continue Cefepime. Giving patient's very severe cellulitis, high CRP, high white count/pro-Ervin, and history of Pseudomonas he required pseudomonal treatment at admission and did not have clinical room to narrow antibiotics below pseudomonal coverage earlier in admission. At this point given the slow resolution, severe cellulitis, and overall clinical picture I do believe that Pseudomonas coverage should be continued for cellulitis. Unfortunately Cipro is not able to be used as his past culture was intermediately resistant to this, anticipate he will require a peripheral IV with cefepime infusion at discharge. CRP 25, downtrended to 12.9 (2) DAYO (acute kidney injury): Plan: Baseline creatinine approximately less than 1.4 Creatinine on admission 3.22, consistent with DAYO? Prerenal azotemia Downtrend and and normalized (3) History of atrial flutter: Plan: Normal sinus rhythm on admission Continue home sotalol twice daily Patient not on anticoagulation prior to admission DVT prophylaxis while inpatient (4) DM type 2 (diabetes mellitus, type 2): Plan: Home glipizide continued Metformin held Patient on home NPH twice daily, will convert to basal bolus while inpatient. Glycemic consult deviously placed. A1c 6.8 from prior 10.1 (5) HTN (hypertension): (6) Odynophagia: Plan: - Worsening x5 days [employer] - Pt feels food gets stuck in his throat, can initiate swallow but feeling of getting stuck midway - NPO prior to EGD evaluation, EGD performed with results below and diet resumed. - GI consulted. EGD: Nonsevere esophagitis with no bleeding, mild inflammation/congestion of the duodenum without obstruction or stricture. Continue PPI, H. pylori biopsies taken. ? Hiccups and reflux in 2 to constipation, managed as below (7) Constipation: Plan: No BM in 3-4 days ? Contribution to bloating and hiccups KUB pending No bowel movement with MiraLAX/bisacodyl Plus milk of magnesia, if ineffective follow-up with Fleet enema Admission and Anticipated Discharge Date Admission Date: June 08, 2021 Tong Mcgarry is seen at the bedside this morning. He reports his leg feels like it is starting to improve, but is still very red and swollen. He thinks that there is somewhat less drainage today than it was yesterday. He is very concerned about his ability to move his leg around and manage drainage when he returns home. Denies fever/chills/sweats overnight. Reports overall he thinks the pain is improving but still hurts to stand on. He continues to have hiccups/reflux. Has not had a bowel movement yet. Review of Systems Review of Systems: Constitutional: Denies fever, chills, malaise Eyes: Denies vision change ENT: Denies ear pain, sore throat, sinus pain Cardiovascular: Denies Chest pain, chest pressure, palpitations, extremity swelling Respiratory: Denies shortness of breath, cough, sputum production, difficulty breathing Gastrointestinal: Denies abdominal pain, nausea, vomiting, constipation, diarrhea Genitourinary: Denies dysuria, urinary frequency Musculoskeletal: Denies acute focal weakness, endorses left leg pain erythema as noted (improved from prior) and bilateral lower extremity swelling at baseline Integumentary: Endorses left leg cellulitis as previously noted Neurological: Denies headache, numbness, tingling, focal weakness Physical Exam Physical Exam: General: A&Ox3. NAD. Cooperative. HEENT: Atraumatic, normocephalic. Visual acuity and hearing grossly intact. Pulm: CTAB A&P. -wheezes, -rales, -rhonchi. Symmetrical chest rise. No increase work of breathing. No respiratory distress. Cardiac: RRR, -mrg. Radial pulses intact and symmetrical. Abdominal: Nontender, nondistended, soft. BS present. Extremity: Left lower leg swollen, erythematous, tender. Left lower extremity with fresh wound care dressing intact, no seepage appreciated. Erythema around borders of dressing, pitting edema persists. Results & Data Results & Data ([facility]) Vital Signs (Past 12 Hours) Vital Signs Temp Pulse Resp BP Pulse Ox 06/11/21 07:17 37.0 C 116 H 19 128/77 95 PG Care Time/CCT Total # of Minutes Spent Total Time Spent with Patient: Total time spent is greater than 50% in coordin ation of care (as documented) at patient's floor/unit and/or counseling patient: Coding Level of Care Code 04343 Subseq Hosp Care Lvl 3 Diagnoses Cellulitis L03.116 Laterality: left Site of cellulitis: extremity Site of cellulitis of extremity: lower extremity DAYO (acute kidney injury) N17.9 History of atrial flutter Z86.79 DM type 2 (diabetes mellitus, type 2) E11.9 HTN (hypertension) I10 Odynophagia R13.10 Constipation K59.00 (1) Cellulitis Laterality: left Site of cellulitis: extremity Site of cellulitis of extremity: lower extremity Qualified Code(s): L03.116 - Cellulitis of left lower limb
[2021-06-11] MEDS ORDERED: SOD PHOSPHATE/SOD BIPHOSPHATE ENEMA 132 ML BTL PR PRN (11:08)
--- NOTE | 2021-06-11 15:27 | Pharmacy Report ---
Pharmacy Glycemic Short Note 2 - Date of Service June 11, 2021 - Glycemic Short BSG Results (Last 24 hours): 06/10/21 06/10/21 06/11/21 17:28 20:27 05:55 Glucose 173 H POC Glucose 194 H 220 H 06/11/21 06/11/21 08:14 12:13 Glucose POC Glucose 172 H 195 H OUTPATIENT ANTIDIABETIC REGIMEN: * NPH 10 units SC BID * Metformin * Glipizide * HbA1c 6.8% 06/09/21 ASSESSMENT: 06/11: * Pt received total 45 units of insulin yesterday; 24 units basal + 21 units bolus * Fasting BSG was elevated at 172 mg/dl today. NPH insulin dose scale increased. * Since post-prandial BSGs yesterday were elevated, breakfast and lunch Novolog carb ratio tightened slightly but continued same as yesterday for dinner and HS. Correction factor tightened for dinner and HS. 06/10/21: * Mr Velarde received 52 units of insulin yesterday, with good glycemic control (BSGs 172, 149, 164, 154 past 24 hours) * Insulin appears to be appropriately distributed (~50:50 basal:bolus). * No changes required at this time. 06/09 * 55 yo M with T2DM admitted for cellulitis * AM fasting BSG elevated today, but this is likely 2nd missed evening dose of NPH yesterday * Stressors may increase insulin demands, although it's reasonable at this time to continue with NPH as the basal insulin due to easier transition back to outpatient regimen on discharge. May need to switch to Lantus if BSG's are not able to be controlled well with NPH * Will hold outpatient po and initiate bolus Novolog instead. Weight-based moderate stress estimate PLAN FOR INPATIENT GLYCEMIC CONTROL: * Hold outpatient oral diabetes medications * Basal insulin: increased * NPH 10-15 units SQ BID * Bolus insulin: increased * NovoLog per scale ACHS or Q6hrs while NPO * Goal Range: Low 100 mg/dL - High 140 mg/dL * Correction Factor: 15 mg/dL/unit for breakfast and lunch. CF: 10 mg/dl/unit for dinner and HS * Nutritional / Prandial insulin per carb ratio of 1 unit per 4.5 grams CHO consumed for breakfast and lunch. CR: 5 mg/dl/unit for dinner and HS. PLAN FOR DISCHARGE: * HbA1c: 6.8% * This indicates adequate glycemic control as an outpt. * Continue outpatient regimen, assuming frequent lows as an outpatient are not occurring and assuming no contraindications exist at discharge.
[2021-06-11] MEDS: MAGNESIUM HYDROXIDE SUSP 30 ML UDC PO PRN (16:49)
[2021-06-11] MEDS: traMADol HCL 50 MG TABLET PO PRN (20:36)
[2021-06-12] MEDS: SODIUM CHLORIDE 0.9% 1000ML 1,000 ML IV SCH ×3 (01:20→17:40)
[2021-06-12] MEDS: HEPARIN SOD 5,000 UNIT/0.5 ML VIAL SQ SCH (05:48)
[2021-06-12] MEDS: CEFEPIME 2,000 MG in SYRINGE 0 ML IV SCH ×3 (05:49→21:32)
[2021-06-12] MEDS: MoRPHine SULFATE 2 MG/ML CARP IV PRN ×2 (05:50→15:23)
[2021-06-12 07:33] LABS: Basophils # (auto) 0.08 K/uL (0-0.2); Basophils % (auto) 0.5 %; Eosinophils # (auto) 0.11 K/uL (0-0.5); Eosinophils % (auto) 0.7 %; Hematocrit (blood only) 35.4 % (42-52); Hemoglobin 12.1 g/dL (14.0-18.0); Immature Granulocytes # (auto) 0.47 K/uL (0.00-0.02); Lymphocytes # (auto) 2.31 K/uL (1.2-3.4); Lymphocytes % (auto) 14.5 %; Mean Corpuscular Hgb Conc 34.2 g/dL (32-36); Mean Corpuscular Volume 96.5 fL (80-100); Mean Platelet Volume 10.7 fL (7.4-10.4); Monocytes # (auto) 1.05 K/uL (0.11-0.59); Monocytes % (auto) 6.6 %; Neutrophils # (auto) 11.88 K/uL (1.4-6.5); Neutrophils % (auto) 74.7 %; Platelet Count 213 K/uL (130-400); RDW Coefficient of Variation 13.7 % (11.5-14.5); RDW Standard Deviation 48.5 fL (36.4-46.3); Red Blood Count 3.67 M/uL (4.7-6.1)
[2021-06-12] MEDS: SOTALOL HCL 80 MG TAB PO SCH ×2 (07:38→21:30)
[2021-06-12 08:11] LABS: BUN Creatinine Ratio 32.3 (10-20); Calcium 8.8 mg/dl (8.5-10.1); Creatinine Clr Calc Pharmacy 165.4 ml/min; Est GFR (Non-African American) 100.9 ml/min; Potassium 4.1 mmol/L (3.5-5.1)
--- NOTE | 2021-06-12 08:22 | Hospitalist Progress Note ---
Date of Service June 12, 2021 Assessment & Plan (1) Cellulitis: Plan: Kevin is a 55-year-old male with a history of PMR, atrial flutter, venous insufficiency, type 2 diabetes, hypertension who was admitted for the management of left lower extremity cellulitis. Left lower extremity cellulitis Leukocytosis downtrending, uptrending after narrowing abx Pro-Ervin elevated to 14 on admission No hypotension/tachycardia/fever, although patient subjectively with fever/ chills/sweats Received Dapto/Zosyn in ER Narrowed to Zosyn monotherapy, clear fluid without purulence, no purulence to suggest anaerobes/Dapto needed. No known history of MRSA. Previously narrowed to cefepime, if worsening expanding back to Zosyn/Dapto BC NGTD Past lower extremity isolates with fluoroquinolone resistance. -Wound care consulted, leg with C/D/high dressing. Appreciate care. - Continue Cefepime. Giving patient's very severe cellulitis, high CRP, high white count/pro-Ervin, and history of Pseudomonas he required pseudomonal treatment at admission and did not have clinical room to narrow antibiotics below pseudomonal coverage earlier in admission. At this point given the slow resolution, severe cellulitis, and overall clinical picture I do believe that Pseudomonas coverage should be continued for cellulitis. Unfortunately Cipro is not able to be used as his past culture was intermediately resistant to this, anticipate he will require a peripheral IV with cefepime infusion at discharge. CRP 25, downtrended to 12.9, repeat continues to improve - If WBC worsening, clinical worsening, or CRP worsens --> resume dapto (2) DAYO (acute kidney injury): Plan: Baseline creatinine approximately less than 1.4 Creatinine on admission 3.22, consistent with DAYO? Prerenal azotemia Downtrended and normalized Remains normal (3) Afib: Plan: Patient with A. fib, history of past a flutter status post conversion [id number] 2 points, moderatehigh risk Given history of prior atrial arrhythmia, and recurrence even though likely exacerbated/provoked by acute illness Rate low 100s in setting of acute illness. Increased sotalol to 120 mg a.m./160 mg p.o. Discussed risk/benefits of anticoagulation. Discussed various options including warfarin and DOAC's, and the effect of his recurrent A. fib despite cardioversion, BMI and anticoagulation, and [id number] of 2. Will pursue DOAC treatment at this time and follow-up as outpatient. (4) History of atrial flutter: Plan: Normal sinus rhythm on admission Sotatol as noted Patient not on anticoagulation prior to admission (5) DM type 2 (diabetes mellitus, type 2): Plan: Home glipizide continued Metformin held Patient on home NPH twice daily, will convert to basal bolus while inpatient. Glycemic consult previously placed. A1c 6.8 from prior 10.1 (6) HTN (hypertension): Plan: Reasonable blood pressure control during inpatient, 149/86 today (7) Odynophagia: Plan: - Worsening x5 days [employer] - Pt feels food gets stuck in his throat, can initiate swallow but feeling of getting stuck midway - NPO prior to EGD evaluation, EGD performed with results below and diet resumed. - GI consulted. EGD: Nonsevere esophagitis with no bleeding, mild inflammation/congestion of the duodenum without obstruction or stricture. Continue PPI, H. pylori biopsies taken. ? Hiccups and reflux in 2 to constipation, managed as below (8) Constipation: Plan: First BM today ? Contribution to bloating and hiccups KUB with moderate stool burden No bowel movement with MiraLAX/bisacodyl Continue milk of magnesia, if ineffective follow-up with Fleet enema Admission and Anticipated Discharge Date Admission Date: June 08, 2021 Subjective Seen at bedside this morning. He reports his leg feels about the same, although pain is improved. Some seepage into the wound care dressing today. Continues to have some hiccups and belching, had a bowel movement today for the first time in several days. Does not feel palpitations, is aware that he is in A. fib from his morning EKG. Reports he has been in a flutter/A. fib in the past last several years ago and has been shocked out of it twice. Discussed recurrent nature of A. fib, and given that he has returned into it and has had 2 recurrences in the past it is likely he will intermittently be in A. fib again in the future and is appropriate to pursue a rate control strategy at this time. Discussed [id number] or and risk of bleeding versus clot, [id number] 2 and low risk of bleeding. Agreeable to anticoagulation. Review of Systems Review of Systems: 10 point review systems negative except as noted in HPI Physical Exam Physical Exam: General: A&Ox3. NAD. Cooperative. HEENT: Atraumatic, normocephalic. Visual acuity and hearing grossly intact. Pulm: CTAB A&P. -wheezes, -rales, -rhonchi. Symmetrical chest rise. No increase work of breathing. No respiratory distress. Cardiac: Cardiac, irregularly irregular, -mrg. Radial pulses intact and symmetrical. Abdominal: Nontender, nondistended, soft. BS present. Extremity: Left lower leg swollen, erythematous, tender. Left lower extremity with fresh wound care dressing intact, trace serous seepage in the dressing appreciated. Erythema around borders of dressing tomorrow prior, pitting edema persists. Results & Data Results & Data ([facility]) Vital Signs (Past 12 Hours) Vital Signs Temp Pulse Resp BP Pulse Ox 06/12/21 05:55 37.1 C 111 H 20 149/86 H 95 06/11/21 22:35 37 C 104 H 18 126/78 96 PG Care Time/CCT Total # of Minutes Spent Total Time Spent with Patient: Total time spent is greater than 50% in coordination of care (as documented) at patient's floor/unit and/or counseling patient: Coding Level of Care Code 58654 Subseq Hosp Care Lvl 3 Diagnoses Cellulitis L03.116 Laterality: left Site of cellulitis: extremity Site of cellulitis of extremity: lower extremity DAYO (acute kidney injury) N17.9 History of atrial flutter Z86.79 DM type 2 (diabetes mellitus, type 2) E11.9 HTN (hypertension) I10 Odynophagia R13.10 Constipation K59.00 Afib I48.91 (1) Cellulitis Laterality: left Site of cellulitis: extremity Site of cellulitis of extremity: lower extremity Qualified Code(s): L03.116 - Cellulitis of left lower limb
[2021-06-12] MEDS: allopurinoL 300 MG TAB PO SCH (08:37)
[2021-06-12] MEDS: buPROPion SR 150 MG TABCR PO SCH ×2 (08:37→18:05)
[2021-06-12] MEDS: CHOLECALCIFEROL 1,000 UNITS 25 MCG TAB PO SCH (08:37)
[2021-06-12] MEDS: ASPIRIN 81 MG ECTAB PO SCH (08:38)
[2021-06-12] MEDS: POLYETHYLENE (MIRALAX) 17 GM PACK PO SCH ×2 (08:38→21:28)
[2021-06-12] MEDS: MAGNESIUM HYDROXIDE SUSP 30 ML UDC PO PRN (08:41)
[2021-06-12] MEDS: INSULIN ASPART 100 UNITS/ML 3 ML PEN SC SCH ×4 (08:42→21:40)
[2021-06-12] MEDS: INSULIN HUMAN NPH SQ SCH ×2 (08:43→18:03)
--- NOTE | 2021-06-12 08:55 | Pharmacy Report ---
Pharmacy Glycemic Short Note 2 - Date of Service June 12, 2021 - Glycemic Short BSG Results (Last 24 hours): 06/11/21 06/11/21 06/11/21 12:13 16:59 20:33 Glucose POC Glucose 195 H 123 H 223 H 06/12/21 06/12/21 06:58 08:40 Glucose 165 H POC Glucose 185 H OUTPATIENT ANTIDIABETIC REGIMEN: * NPH 10 units SC BID * Metformin * Glipizide * HbA1c 6.8% 06/09/21 ASSESSMENT: 06/12: * Pt received total of 80 units of insulin (30 basal and 50 bolus) yesterday which is almost double of what he got the day before. * Fasting BSG = 165 mg/dl, continued current NPH dose scale BID with meals. * Dinner BSG yesterday was within goal but HS BSG climbed up to 223 mg/dl. Tightened Novolog CR and CF this AM to continue throughout the day. 06/11: * Pt received total 45 units of insulin yesterday; 24 units basal + 21 units bolus * Fasting BSG was elevated at 172 mg/dl today. NPH insulin dose scale increased. * Since post-prandial BSGs yesterday were elevated, breakfast and lunch Novolog carb ratio tightened slightly but continued same as yesterday for dinner and HS. Correction factor tightened for dinner and HS. 06/10/21: * Mr Velarde received 52 units of insulin yesterday, with good glycemic control (BSGs 172, 149, 164, 154 past 24 hours) * Insulin appears to be appropriately distributed (~50:50 basal:bolus). * No changes required at this time. 06/09 * 55 yo M with T2DM admitted for cellulitis * AM fasting BSG elevated today, but this is likely 2nd missed evening dose of NPH yesterday * Stressors may increase insulin demands, although it's reasonable at this time to continue with NPH as the basal insulin due to easier transition back to outpatient regimen on discharge. May need to switch to Lantus if BSG's are not able to be controlled well with NPH * Will hold outpatient po and initiate bolus Novolog instead. Weight-based moderate stress estimate PLAN FOR INPATIENT GLYCEMIC CONTROL: * Hold outpatient oral diabetes medications * Basal insulin: * NPH 10-15 units SQ BID * Bolus insulin: tightened CF/CR * NovoLog per scale ACHS or Q6hrs while NPO * Goal Range: Low 100 mg/dL - High 140 mg/dL * Correction Factor: 10 mg/dL/unit * Nutritional / Prandial insulin per carb ratio of 1 unit per 4.5 grams CHO PLAN FOR DISCHARGE: * HbA1c: 6.8% * This indicates adequate glycemic control as an outpt. * Continue outpatient regimen, assuming frequent lows as an outpatient are not occurring and assuming no contraindications exist at discharge.
[2021-06-12] MEDS ORDERED: SIMETHICONE 80 MG CHEW PO PRN (11:17)
[2021-06-12] MEDS ORDERED: SIMETHICONE 40 MG/0.6 ML 30ML PO ONE (11:18)
[2021-06-12] MEDS ORDERED: SIMETHICONE 80 MG CHEW PO ONE (12:00)
[2021-06-12] MEDS: APIXABAN 2.5 MG TAB PO SCH ×2 (12:06→21:31)
[2021-06-12] MEDS: FAMOTIDINE 20 MG in SYRINGE 3 ML IV SCH ×2 (12:07→21:32)
[2021-06-12] MEDS ORDERED: SOTALOL HCL 80 MG TAB PO ONE (12:15)
--- NOTE | 2021-06-12 16:00 | Electrocardiogram Report ---
Test Reason : Blood Pressure : / mmHG Vent. Rate : 117 BPM Atrial Rate : 258 BPM P-R Int : 000 ms QRS Dur : 104 ms QT Int : 332 ms P-R-T Axes : 000 -25 007 degrees QTc Int : 463 ms Poor data quality, interpretation may be adversely affected Atrial fibrillation with rapid ventricular response with premature ventricular or aberrantly conducte d complexes Incomplete right bundle branch block Abnormal ECG When compared with ECG of 08-JUN-2021 09:36, Atrial fibrillation has replaced Sinus rhythm Vent. rate has increased BY 53 BPM Incomplete right bundle branch block has replaced Non-specific intra-ventricular conduction block Minimal criteria for Inferior infarct are now Present Confirmed by Rupesh Loomis ([id number]) on 06/12/2021 3:59:46 PM Referred By: REFERRED SELF Confirmed By:Rupesh Loomis
[2021-06-12] MEDS: traMADol HCL 50 MG TABLET PO PRN ×2 (17:11→21:29)
[2021-06-13] MEDS: SODIUM CHLORIDE 0.9% 1000ML 1,000 ML IV SCH ×4 (01:43→23:12)
[2021-06-13] MEDS: MoRPHine SULFATE 2 MG/ML CARP IV PRN ×4 (04:48→21:50)
[2021-06-13] MEDS: CEFEPIME 2,000 MG in SYRINGE 0 ML IV SCH ×3 (04:48→20:36)
[2021-06-13 07:01] LABS: BUN Creatinine Ratio 23.2 (10-20); Calcium 8.5 mg/dl (8.5-10.1); Creatinine Clr Calc Pharmacy 148.3 ml/min; Est GFR (African American) 111.8 ml/min; Est GFR (Non-African American) 96.5 ml/min; Potassium 4.2 mmol/L (3.5-5.1)
[2021-06-13 07:28] LABS: Hematocrit (blood only) 33.3 % (42-52); Hemoglobin 11.5 g/dL (14.0-18.0); Mean Corpuscular Hemoglobin 33.4 pg (25-34); Mean Corpuscular Hgb Conc 34.5 g/dL (32-36); Mean Corpuscular Volume 96.8 fL (80-100); Mean Platelet Volume 10.6 fL (7.4-10.4); Platelet Count 221 K/uL (130-400); RDW Coefficient of Variation 13.9 % (11.5-14.5); RDW Standard Deviation 49.4 fL (36.4-46.3); Red Blood Count 3.44 M/uL (4.7-6.1); White Blood Count 16.75 K/uL (4.8-10.8)
[2021-06-13] MEDS ORDERED: INSULIN HUMAN NPH SQ SCH ×2 (08:00→16:30)
[2021-06-13] MEDS: FAMOTIDINE 20 MG in SYRINGE 3 ML IV SCH ×2 (08:40→20:36)
[2021-06-13] MEDS: ASPIRIN 81 MG ECTAB PO SCH (08:41)
[2021-06-13] MEDS: CHOLECALCIFEROL 1,000 UNITS 25 MCG TAB PO SCH (08:41)
[2021-06-13] MEDS: allopurinoL 300 MG TAB PO SCH (08:41)
[2021-06-13] MEDS: APIXABAN 2.5 MG TAB PO SCH ×2 (08:41→20:30)
[2021-06-13] MEDS: buPROPion SR 150 MG TABCR PO SCH ×2 (08:41→16:04)
[2021-06-13 08:42] LABS: Basophils % (auto) 0.4 %; Eosinophils # (auto) 0.14 K/uL (0-0.5); Eosinophils % (auto) 0.8 %; Lymphocytes # (auto) 2.21 K/uL (1.2-3.4); Lymphocytes % (auto) 13.2 %; Monocytes # (auto) 0.85 K/uL (0.11-0.59); Monocytes % (auto) 5.1 %; Neutrophils # (auto) 12.99 K/uL (1.4-6.5); Neutrophils % (auto) 77.5 %
[2021-06-13] MEDS: POLYETHYLENE (MIRALAX) 17 GM PACK PO SCH ×2 (08:42→20:29)
[2021-06-13 08:43] LABS: Basophils # (auto) 0.06 K/uL (0-0.2)
[2021-06-13] MEDS ORDERED: SOTALOL HCL 80 MG TAB PO ONE (09:00)
[2021-06-13] MEDS: INSULIN ASPART 100 UNITS/ML 3 ML PEN SC SCH ×4 (09:10→20:31)
[2021-06-13] MEDS ORDERED: DAPTOmycin 450 MG in SYRINGE 0 ML IV SCH (16:00)
--- NOTE | 2021-06-13 18:52 | Hospitalist Progress Note ---
Date of Service June 13, 2021 Assessment & Plan (1) Cellulitis: Plan: Kevin is a 55-year-old male with a history of PMR, atrial flutter, venous insufficiency, type 2 diabetes, hypertension who was admitted for the management of left lower extremity cellulitis. Left lower extremity cellulitis Leukocytosis downtrending, uptrending after narrowing abx Pro-Ervin elevated to 14 on admission No hypotension/tachycardia/fever, although patient subjectively with fever/ chills/sweats Received Dapto/Zosyn in ER Narrowed to Zosyn monotherapy, clear fluid without purulence, no purulence to suggest anaerobes/Dapto needed. No known history of MRSA. Previously narrowed to cefepime, if worsening expanding back to Zosyn/Dapto BC NGTD Past lower extremity isolates with fluoroquinolone resistance. -Wound care consulted, leg with C/D/high dressing. Appreciate care. - Continue Cefepime. Giving patient's very severe cellulitis, high CRP, high white count/pro-Ervin, and history of Pseudomonas he required pseudomonal treatment at admission and did not have clinical room to narrow antibiotics below pseudomonal coverage earlier in admission. At this point given the slow resolution, severe cellulitis, and overall clinical picture I do believe that Pseudomonas coverage should be continued for cellulitis. Unfortunately Cipro is not able to be used as his past culture was intermediately resistant to this, anticipate he will require a peripheral IV with cefepime infusion at discharge. CRP 25, downtrended to 12.9, down less than 6 today Concern for treatments all as patient had increased pain in uptrending leukocytosis, on reassessment and evening swelling has continued to go down, clinically improving, and CRP has continued to downtrend. We will continue to defer daptomycin, WBC daily Patient will require wound care, unable to have services and infusion set up until Tuesday. Will require outpatient cefepime (2) DAYO (acute kidney injury): Plan: Baseline creatinine approximately less than 1.4 Creatinine on admission 3.22, consistent with DAYO? Prerenal azotemia Downtrended and normalized Remains normal (3) Afib: Plan: Patient with A. fib, history of past a flutter status post conversion [id number] 2 points, moderatehigh risk Given history of prior atrial arrhythmia, and recurrence even though likely exacerbated/provoked by acute illness Rate low 100s in setting of acute illness. Increased sotalol to 120 mg a.m./160 mg p.o. Discussed risk/benefits of anticoagulation. Discussed various options including warfarin and DOAC's, and the effect of his recurrent A. fib despite cardioversion, BMI and anticoagulation, and [id number] of 2. Will pursue DOAC treatment at this time and follow-up as outpatient. (4) History of atrial flutter: Plan: Normal sinus rhythm on admission Sotatol as noted Patient not on anticoagulation prior to admission (5) DM type 2 (diabetes mellitus, type 2): Plan: Home glipizide continued Metformin held Patient on home NPH twice daily, will convert to basal bolus while inpatient. Glycemic consult previously placed. 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 - GI consulted. EGD: Nonsevere esophagitis with no bleeding, mild inflammation/congestion of the duodenum without obstruction or stricture. Continue PPI, H. pylori biopsies taken. ? Hiccups and reflux in 2 to constipation, managed as below Resolved with improved bowel movement (8) Constipation: Plan: First BM today ? Contribution to bloating and hiccups KUB with moderate stool burden Improved bowel movements with milk of magnesia Hiccups have improved with production of stool volume Admission and Anticipated Discharge Date Admission Date: June 08, 2021 Subjective At bedside today. Patient reports in the morning that his legs feel slightly worse and very painful to the touch, erythema does not seem to have spread but has not improved either. White blood cell count up trended, tentatively may add back on Dapto but we will recheck a CRP. Otherwise patient feels well, no shortness of breath, chest pain. Shortness of breath seems improved with improved heart rate. Patient reports he will need help with wound care and infusions at home, these will not be able to be set up for him until 06/14. CRP ordered, on afternoon reassessment legs continue to improve. CRP continues to be downtrending, leg swelling reduced. In the setting of improved clinical picture and reassuring CRP will defer addition of additional antibiotics at this time and continue to follow. Suspect he will have a slow course due to his extensive underlying venous stasis/soft tissue swelling. Review of Systems Review of Systems: 10 point review systems negative except as noted in HPI Physical Exam Physical Exam: General: A&Ox3. NAD. Cooperative. HEENT: Atraumatic, normocephalic. Visual acuity and hearing grossly intact. Pulm: CTAB A&P. -wheezes, -rales, -rhonchi. Symmetrical chest rise. No increase work of breathing. No respiratory distress. Cardiac: Cardiac, irregularly irregular, -mrg. Radial pulses intact and symmetrical. Abdominal: Nontender, nondistended, soft. BS present. Extremity: Left lower leg swollen, erythematous, tender. Left lower extremity with fresh wound care dressing intact, continued pitting edema. Sensitive to soft touch. Results & Data Results & Data ([facility]) Vital Signs (Past 12 Hours) Vital Signs Temp Pulse Resp BP Pulse Ox 06/13/21 15:58 37 C 95 H 18 130/90 96 06/13/21 07:30 37.1 C 97 H 18 169/83 H 96 PG Care Time/CCT Total # of Minutes Spent Total Time Spent with Patient: Total time spent is greater than 50% in coordination of care (as documented) at patient's floor/unit and/or counseling patient: Coding Level of Care Code 80847 Subseq Hosp Care Lvl 2 Diagnoses Cellulitis L03.116 Laterality: left Site of cellulitis: extremity Site of cellulitis of extremity: lower extremity DAYO (acute kidney injury) N17.9 Afib I48.91 History of atrial flutter Z86.79 DM type 2 (diabetes mellitus, type 2) E11.9 HTN (hypertension) I10 Odynophagia R13.10 Constipation K59.00 (1) Cellulitis Laterality: left Site of cellulitis: extremity Site of cellulitis of extremity: lower extremity Qualified Code(s): L03.116 - Cellulitis of left lower limb
[2021-06-13] MEDS: SOTALOL HCL 80 MG TAB PO SCH (20:30)
[2021-06-14] MEDS: CEFEPIME 2,000 MG in SYRINGE 0 ML IV SCH ×3 (05:18→20:26)
[2021-06-14] MEDS: MoRPHine SULFATE 2 MG/ML CARP IV PRN ×3 (05:18→20:59)
[2021-06-14] MEDS: SODIUM CHLORIDE 0.9% 1000ML 1,000 ML IV SCH ×3 (05:23→20:23)
[2021-06-14 06:08] LABS: Basophils % (auto) 0.5 %; Eosinophils # (auto) 0.14 K/uL (0-0.5); Eosinophils % (auto) 0.7 %; Hematocrit (blood only) 35.3 % (42-52); Hemoglobin 11.8 g/dL (14.0-18.0); Immature Granulocytes # (auto) 0.78 K/uL (0.00-0.02); Immature Granulocytes % (auto) 3.9 %; Lymphocytes # (auto) 2.17 K/uL (1.2-3.4); Mean Corpuscular Hemoglobin 32.9 pg (25-34); Mean Corpuscular Hgb Conc 33.4 g/dL (32-36); Mean Corpuscular Volume 98.3 fL (80-100); Mean Platelet Volume 10.5 fL (7.4-10.4); Monocytes # (auto) 1.32 K/uL (0.11-0.59); Monocytes % (auto) 6.7 %; Neutrophils # (auto) 15.25 K/uL (1.4-6.5); Neutrophils % (auto) 77.2 %; Platelet Count 229 K/uL (130-400); RDW Coefficient of Variation 13.5 % (11.5-14.5); RDW Standard Deviation 48.5 fL (36.4-46.3); Red Blood Count 3.59 M/uL (4.7-6.1); White Blood Count 19.76 K/uL (4.8-10.8)
[2021-06-14 06:28] LABS: BUN Creatinine Ratio 19.4 (10-20); Calcium 8.6 mg/dl (8.5-10.1); Est GFR (African American) 112.4 ml/min; Est GFR (Non-African American) 96.9 ml/min; Potassium 4.1 mmol/L (3.5-5.1)
[2021-06-14] MEDS: traMADol HCL 50 MG TABLET PO PRN (07:15)
[2021-06-14] MEDS: FAMOTIDINE 20 MG in SYRINGE 3 ML IV SCH ×2 (08:39→20:26)
[2021-06-14] MEDS: POLYETHYLENE (MIRALAX) 17 GM PACK PO SCH ×2 (08:40→20:26)
[2021-06-14] MEDS: ASPIRIN 81 MG ECTAB PO SCH (08:40)
[2021-06-14] MEDS: buPROPion SR 150 MG TABCR PO SCH ×2 (08:40→16:09)
[2021-06-14] MEDS: APIXABAN 2.5 MG TAB PO SCH ×2 (08:40→20:24)
[2021-06-14] MEDS: allopurinoL 300 MG TAB PO SCH (08:40)
[2021-06-14] MEDS ORDERED: MoRPHine SULFATE 2 MG/ML CARP IV STA (08:54)
[2021-06-14] MEDS ORDERED: CHOLECALCIFEROL 400 UNITS 10 MCG TAB PO SCH (09:00)
[2021-06-14] MEDS: INSULIN HUMAN NPH SQ SCH ×2 (09:06→18:08)
[2021-06-14] MEDS: INSULIN ASPART 100 UNITS/ML 3 ML PEN SC SCH ×4 (09:07→20:57)
[2021-06-14] MEDS: metroNIDAZOLE 500 MG TAB PO SCH ×2 (09:13→20:25)
[2021-06-14] MEDS ORDERED: DAPTOmycin 450 MG in SYRINGE 0 ML IV ONE (10:00)
--- NOTE | 2021-06-14 10:50 | Pharmacy Report ---
Pharmacy Glycemic Short Note 2 - Date of Service June 14, 2021 - Glycemic Short BSG Results (Last 24 hours): 06/13/21 06/13/21 06/13/21 12:31 17:28 20:31 Glucose POC Glucose 166 H 124 H 120 H 06/14/21 06/14/21 05:43 09:01 Glucose 152 H POC Glucose 151 H OUTPATIENT ANTIDIABETIC REGIMEN: * NPH 10 units SC BID * Metformin * Glipizide * HbA1c 6.8% 06/09/21 ASSESSMENT: 06/14/21 * Patient's BSGs yesterday were [phone] mg/dl * Patient received 80 units of insulin (33 units of basal and 47 units of bolus). * Fasting BSG today was 151 mg/dL. * Continue NPH 18 units in morning. Will increase evening NPH by 1 unit (~5%) since patient's fasting is just slightly out of range. * Continue aggressive Novolog. 06/12: * Pt received total of 80 units of insulin (30 basal and 50 bolus) yesterday which is almost double of what he got the day before. * Fasting BSG = 165 mg/dl, continued current NPH dose scale BID with meals. * Dinner BSG yesterday was within goal but HS BSG climbed up to 223 mg/dl. Tightened Novolog CR and CF this AM to continue throughout the day. 06/11: * Pt received total 45 units of insulin yesterday; 24 units basal + 21 units bolus * Fasting BSG was elevated at 172 mg/dl today. NPH insulin dose scale increased. * Since post-prandial BSGs yesterday were elevated, breakfast and lunch Novolog carb ratio tightened slightly but continued same as yesterday for dinner and HS. Correction factor tightened for dinner and HS. 06/10/21: * Mr Velarde received 52 units of insulin yesterday, with good glycemic control ( BSGs 172, 149, 164, 154 past 24 hours) * Insulin appears to be appropriately distributed (~50:50 basal:bolus). * No changes required at this time. 06/09 * 55 yo M with T2DM admitted for cellulitis * AM fasting BSG elevated today, but this is likely 2nd missed evening dose of NPH yesterday * Stressors may increase insulin demands, although it's reasonable at this time to continue with NPH as the basal insulin due to easier transition back to outpatient regimen on discharge. May need to switch to Lantus if BSG's are not able to be controlled well with NPH * Will hold outpatient po and initiate bolus Novolog instead. Weight-based moderate stress estimate PLAN FOR INPATIENT GLYCEMIC CONTROL: * Hold outpatient oral diabetes medications * Basal insulin: * NPH 18 units SQ in morning; 16 units SQ with dinner * Bolus insulin: * NovoLog per scale ACHS or Q6hrs while NPO * Goal Range: Low 100 mg/dL - High 140 mg/dL * Correction Factor: 15 mg/dL/unit * Nutritional / Prandial insulin per carb ratio of 1 unit per 4.5 grams CHO PLAN FOR DISCHARGE: * HbA1c: 6.8% * This indicates adequate glycemic control as an outpt. * Continue outpatient regimen, assuming frequent lows as an outpatient are not occurring and assuming no contraindications exist at discharge.
[2021-06-14] MEDS: DAPTOmycin 450 MG in SYRINGE 0 ML IV SCH (16:09)
[2021-06-14] MEDS ORDERED: INSULIN HUMAN NPH SQ SCH (16:30)
--- NOTE | 2021-06-14 17:40 | Hospitalist Progress Note ---
Date of Service June 14, 2021 Assessment & Plan (1) Cellulitis: Plan: Kevin is a 55-year-old male with a history of PMR, atrial flutter, venous insufficiency, type 2 diabetes, hypertension who was admitted for the management of left lower extremity cellulitis. Left lower extremity cellulitis Pro-Ervin elevated to 14 on admission No hypotension/tachycardia/fever, although patient subjectively with fever/chills/sweats Received Dapto/Zosyn in ER Narrowed to Zosyn monotherapy, clear fluid without purulence, no purulence to suggest anaerobes/Dapto needed. No known history of MRSA. Previously narrowed to cefepime, if worsening expanding back to Zosyn/Dapto BC NGTD Past lower extremity isolates with fluoroquinolone resistance. -Wound care consulted, leg with C/D/high dressing. Appreciate care. - Continue Cefepime. Giving patient's very severe cellulitis, high CRP, high white count/pro-Ervin, and history of Pseudomonas he required pseudomonal treatment at admission and did not have clinical room to narrow antibiotics below pseudomonal coverage earlier in admission. At this point given the slow resolution, severe cellulitis, and overall clinical picture I do believe that Pseudomonas coverage should be continued for cellulitis. Unfortunately Cipro is not able to be used as his past culture was intermediately resistant to this, anticipate he will require a peripheral IV with cefepime infusion at discharge. CRP 25, downtrended to 12.9, down less than 6 today 06/13: Concern for treatments all as patient had increased pain in uptrending leukocytosis, on reassessment and evening swelling has continued to go down, clinically improving, and CRP has continued to downtrend. We will continue to defer daptomycin, WBC daily 06/14: On reassessment borders of erythema expanded, leukocytosis up trended, patient feels more pain today. Clinically appears worsened with increased leukocytosis, added Dapto plus Flagyl. Continue to follow (2) DAYO (acute kidney injury): Plan: Baseline creatinine approximately less than 1.4 Creatinine on admission 3.22, consistent with DAYO? Prerenal azotemia Downtrended and normalized Remains normal (3) Afib: Plan: Patient with A. fib, history of past a flutter status post conversion [id number] 2 points, moderatehigh risk Given history of prior atrial arrhythmia, and recurrence even though likely exacerbated/provoked by acute illness Rate low 100s in setting of acute illness. Increased sotalol to 120 mg a.m./160 mg p.o. Discussed risk/benefits of anticoagulation. Discussed various options including warfarin and DOAC's, and the effect of his recurrent A. fib despite cardioversion, BMI and anticoagulation, and [id number] of 2. Will pursue DOAC treatment at this time and follow-up as outpatient. (4) History of atrial flutter: Plan: Normal sinus rhythm on admission Sotatol as noted Patient not on anticoagulation prior to admission (5) DM type 2 (diabetes mellitus, type 2): Plan: Home glipizide continued Metformin held Patient on home NPH twice daily, will convert to basal bolus while inpatient. Glycemic consult previously placed. 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 - GI consulted. EGD: Nonsevere esophagitis with no bleeding, mild inflammation/congestion of the duodenum without obstruction or stricture. Continue PPI, H. pylori biopsies taken. ? Hiccups and reflux in 2 to constipation, managed as below Resolved with improved bowel movement (8) Constipation: Plan: First BM today ? Contribution to bloating and hiccups KUB with moderate stool burden Improved bowel movements with milk of magnesia Hiccups have improved with BMs Admission and Anticipated Discharge Date Admission Date: June 08, 2021 Subjective Seen at bedside today. White blood cell count has up trended to 19, patient feels his leg is more painful, and erythema has reexpanded up towards the knee/thigh. No sign of abscess/phlegmon formation. Discussed with patient, antibiotics reexpanded. He reports other than the pain in his leg he is okay, denies shortness of breath/difficulty breathing, chest pain, chest pressure, lightheadedness, dizziness today. Review of Systems Review of Systems: 10 point review systems negative except as noted in above Physical Exam Physical Exam: General: A&Ox3. NAD. Cooperative. HEENT: Atraumatic, normocephalic. Visual acuity and hearing grossly intact. Pulm: CTAB A&P. -wheezes, -rales, -rhonchi. Symmetrical chest rise. No increase work of breathing. No respiratory distress. Cardiac: Cardiac, irregularly irregular, -mrg. Radial pulses intact and symmetrical. Abdominal: Nontender, nondistended, soft. BS present. Extremity: Left lower leg swollen, erythematous, tender. Area of tender erythema increased today, at the level of the knee and distal thigh. Knee edema present, no areas of fluctuance or purulent discharge. Drainage continues, wound wrap in place by wound care. Results & Data Results & Data ([facility]) Vital Signs (Past 12 Hours) Vital Signs Temp Pulse Resp BP Pulse Ox 06/14/21 16:00 37.4 C 106 H 18 133/88 97 06/14/21 07:30 36.9 C 102 H 18 132/84 95 PG Care Time/CCT Total # of Minutes Spent Total Time Spent with Patient: Total time spent is greater than 50% in coordination of care (as documented) at patient's floor/unit and/or counseling patient: Coding Level of Care Code 24331 Subseq Hosp Care Lvl 3 Diagnoses Cellulitis L03.116 Laterality: left Site of cellulitis: extremity Site of cellulitis of extremity: lower extremity DAYO (acute kidney injury) N17.9 Afib I48.91 History of atrial flutter Z86.79 DM type 2 (diabetes mellitus, type 2) E11.9 HTN (hypertension) I10 Odynophagia R13.10 Constipation K59.00 (1) Cellulitis Laterality: left Site of cellulitis: extremity Site of cellulitis of extremity: lower extremity Qualified Code(s): L03.116 - Cellulitis of left lower limb
[2021-06-14] MEDS: SOTALOL HCL 80 MG TAB PO SCH (20:24)
[2021-06-15] MEDS: SODIUM CHLORIDE 0.9% 1000ML 1,000 ML IV SCH ×2 (01:57→09:26)
[2021-06-15] MEDS: MoRPHine SULFATE 2 MG/ML CARP IV PRN ×4 (01:59→19:17)
[2021-06-15] MEDS: CEFEPIME 2,000 MG in SYRINGE 0 ML IV SCH (05:46)
[2021-06-15 06:11] LABS: Basophils # (auto) 0.05 K/uL (0-0.2); Basophils % (auto) 0.3 %; Eosinophils % (auto) 0.7 %; Hematocrit (blood only) 33.7 % (42-52); Hemoglobin 11.4 g/dL (14.0-18.0); Immature Granulocytes # (auto) 0.45 K/uL (0.00-0.02); Lymphocytes # (auto) 2.04 K/uL (1.2-3.4); Lymphocytes % (auto) 13.5 %; Mean Corpuscular Hemoglobin 33.1 pg (25-34); Mean Corpuscular Hgb Conc 33.8 g/dL (32-36); Mean Platelet Volume 10.5 fL (7.4-10.4); Monocytes # (auto) 1.21 K/uL (0.11-0.59); Neutrophils # (auto) 11.31 K/uL (1.4-6.5); Neutrophils % (auto) 74.5 %; Platelet Count 226 K/uL (130-400); RDW Coefficient of Variation 13.5 % (11.5-14.5); RDW Standard Deviation 47.9 fL (36.4-46.3); Red Blood Count 3.44 M/uL (4.7-6.1); White Blood Count 15.16 K/uL (4.8-10.8)
[2021-06-15 06:41] LABS: BUN Creatinine Ratio 20.2 (10-20); Calcium 8.6 mg/dl (8.5-10.1); Creatinine Clr Calc Pharmacy 146.6 ml/min; Est GFR (African American) 111.3 ml/min; Potassium 3.9 mmol/L (3.5-5.1)
[2021-06-15] MEDS: metroNIDAZOLE 500 MG TAB PO SCH (08:48)
[2021-06-15] MEDS: POLYETHYLENE (MIRALAX) 17 GM PACK PO SCH ×2 (08:48→20:47)
[2021-06-15] MEDS: ASPIRIN 81 MG ECTAB PO SCH (08:48)
[2021-06-15] MEDS: buPROPion SR 150 MG TABCR PO SCH ×2 (08:48→16:57)
[2021-06-15] MEDS: APIXABAN 2.5 MG TAB PO SCH ×2 (08:48→20:48)
[2021-06-15] MEDS: FAMOTIDINE 20 MG in SYRINGE 3 ML IV SCH (08:48)
[2021-06-15] MEDS: allopurinoL 300 MG TAB PO SCH (08:48)
[2021-06-15] MEDS: INSULIN HUMAN NPH SQ SCH ×2 (08:49→17:45)
[2021-06-15] MEDS: CHOLECALCIFEROL 1,000 UNITS 25 MCG TAB PO SCH (08:49)
[2021-06-15] MEDS: INSULIN ASPART 100 UNITS/ML 3 ML PEN SC SCH ×4 (08:50→21:13)
[2021-06-15] MEDS ORDERED: PIPERACILL/TAZOBAC CONSULT ACTIVE PRN (11:41)
[2021-06-15] MEDS ORDERED: PIPERACILLIN/TAZOBACTAM 3.375 GM in DEXTROSE 5% 100 ML IV SCH (11:45)
[2021-06-15] MEDS ORDERED: PIPERACILLIN/TAZOBACTAM 4.5 GM in DEXTROSE 5% 100 ML IV ONE (12:00)
[2021-06-15] MEDS ORDERED: metroNIDAZOLE 500 MG TAB PO SCH (14:00)
--- NOTE | 2021-06-15 14:56 | Hospitalist Progress Note ---
Date of Service June 15, 2021 Assessment & Plan (1) Cellulitis: Plan: Pt is a 55-year-old male with a history of PMR, atrial flutter, venous insufficiency, type 2 diabetes, hypertension who was admitted for the management of left lower extremity cellulitis. Left lower extremity cellulitis Pro-Ervin elevated to 14 on admission No hypotension/tachycardia/fever, although patient subjectively with fever/chills/sweats Received Dapto/Zosyn in ER and then placed on Cefepime No known history of MRSA BC NGTD Past lower extremity isolates with GNR/Pseudomonas,Enterobacter and Achromobacter sensitive to Zosyn but Intermediate to Cefepime, also with MSSA resistant to clinda -Wound care consulted, leg with C/D/high dressing. Appreciate care. CRP 25, downtrended to 12.9, down less than 6 on 06/14,had worsening with borders of erythema expanded, leukocytosis up trended, and increased pain. Added Dapto plus Flagyl Today, WBC count coming down, is afebrile, erythema slightly improved Given h/o Achromobacter intermediate sensitivity to Cefepime--> will change to Zosyn to cover for GNRs and anaerobes. Continue Dapto for now but will convert to po doxy on discharge to cover for MRSA since had improvement with starting Dapto has US-guided PIV and wants to go home tomorrow on IV abx -follow CBC, CMP in AM (2) DAYO (acute kidney injury): Plan: Baseline creatinine approximately less than 1.4 Creatinine on admission 3.22, consistent with DAYO/ Prerenal azotemia Downtrended and normalized Remains normal -dc IVFs (3) Afib: Plan: Patient with rapid A. fib here, history of past a flutter status post conversion Looking back at vital signs--> became tachycardic on 06/10--this is likely when it started, but not found on exam/ECG until 06/12 [id number] 2 points, moderatehigh risk Given history of prior atrial arrhythmia, and recurrence even though likely exacerbated/provoked by acute illness Rate low 100s in setting of acute illness. Increased sotalol to 120 mg a.m./160 mg p.o. -remains with some tachycardia Discussed risk/benefits of anticoagulation. Discussed various options including warfarin and DOAC's, and the effect of his recurrent A. fib despite cardioversion, BMI and anticoagulation, and [id number] of 2. Will pursue DOAC treatment at this time and follow-up as outpatient. Continues on Elqius -Consult Cardiology as he may end up needing cardioversion again and remains with uncontrolled rates -not on telemetry and no need to transfer at this point unless recommended by Cardiology -give KCl 10 meq po x 1 now (4) History of atrial flutter: Plan: Normal sinus rhythm on admission Sotatol as noted Patient not on anticoagulation prior to admission (5) DM type 2 (diabetes mellitus, type 2): Plan: hold Home glipizide Metformin held Patient on home NPH twice daily, will convert to basal bolus while inpatient. Glycemic consult previously placed. A1c 6.8 from prior 10.1 (6) HTN (hypertension): Plan: Reasonable blood pressure control during inpatient -held lisinopril and HCTZ for DAYO -amlodipine on hold now as well-continue to hold unless BPs elevate -continue ASA (7) Odynophagia: Plan: - Worsening x5 days [employer] - Pt feels food gets stuck in his throat, can initiate swallow but feeling of getting stuck midway - EGD performed with results below and diet resumed. - GI consulted. EGD: Nonsevere esophagitis with no bleeding, mild inflammation/congestion of the duodenum without obstruction or stricture. -Continue PPI, H. pylori stool antigen to be ordered today as I do not see path results pending from biopsy Hiccups and reflux in 2 to constipation, managed as below hiccups resolved with improved bowel movement -dc IV Pepcid (8) Constipation: Plan: now resolved KUB with moderate stool burden Improved bowel movements with milk of magnesia Plan: DVT Prohylaxis-ELiquis Dispo-continued stay, hopeful for home tomorrow with IV abx Admission and Anticipated Discharge Date Admission Date: June 08, 2021 Subjective Pt feels left leg is much better, less redness on the toes and not as much pain in leg. No CP or SOB, no lightheadedness, no diarrhea. Is eating and drinking, Is anxious to get out of the hospital. Can not tell when he is in atrial fibrillation. Never followed up with Cardiology after his cardioversion 5 years ago. Review of Systems Review of Systems: All systems reviewed & are unremarkable except as noted in HPI & below Physical Exam Constitutional: WD/WN, vitals as above + morbidly obese Eyes: + anicteric sclerae Neck: trachea midline, no thyromegaly Respiratory: normal respiratory effort, lungs clear to auscultation Cardiovascular: Rate/Rhythm: + tachycardic and + irregularly irregular Heart Sounds: no murmur Extremities: + edema (2+ pitting edema LLE, 1+ RLE) Chest (Breasts): Chest: normal inspection of chest Gastrointestinal (Abdomen): normal bowel sounds, soft, nontender, no hepatosplenomegaly Musculoskeletal: Extremities: extremities normal to inspection; no cyanosis and no clubbing Skin: + erythema (entire left leg and dorsal foot,small blisters and serous weeping) Neurologic: moves all extremities and awake; no focal motor deficits Psychiatric: A+Ox3, euthymic affect Results & Data Results & Data ([facility]) Vital Signs (Past 12 Hours) Vital Signs Temp Pulse Resp BP Pulse Ox 06/15/21 07:30 36.8 C 102 H 20 124/65 94 Laboratory Results 06/15/21 06/15/21 06/15/21 Range/Units 12:35 08:29 05:35 WBC (4.8-10.8) K/uL RBC (4.7-6.1) M/uL Hgb (14.0-18.0) g/dL Hct (42-52) % MCV (80-100) fL MCH (25-34) pg MCHC (32-36) g/dL RDW Std Deviation (36.4-46.3) fL RDW Coeff of Dar (11.5-14.5) % Plt Count (130-400) K/uL MPV (7.4-10.4) fL Immature Gran % (Auto) % Neut % (Auto) % Lymph % (Auto) % Branch % (Auto) % Eos % (Auto) % Baso % (Auto) % Neut # (Auto) (1.4-6.5) K/uL Lymph # (Auto) (1.2-3.4) K/uL Branch # (Auto) (0.11-0.59) K/uL Eos # (Auto) (0-0.5) K/uL Baso # (Auto) (0-0.2) K/uL Immature Gran # (Auto) (0.00-0.02) K/uL Sodium 136 (136-145) mmol/L Potassium 3.9 (3.5-5.1) mmol/L Chloride 105 (98-107) mmol/L Carbon Dioxide 24 (21-32) mmol/L Anion Gap 7.0 (3-11) BUN 18 (7-18) mg/dl Creatinine 0.88 (0.6-1.4) mg/dl Est Cr Clr Drug Dosing 146.6 ml/min Est GFR ( Amer) 111.3 ml/min Est GFR (Non-Af Amer) 96.0 ml/min BUN/Creatinine Ratio 20.2 H (10-20) Glucose 140 H (70-99) mg/dl POC Glucose 142 H 149 H (70-99) mg/dl Calcium 8.6 (8.5-10.1) mg/dl 06/15/21 06/14/21 06/14/21 Range/Units 05:35 20:38 17:15 WBC 15.16 H (4.8-10.8) K/uL RBC 3.44 L (4.7-6.1) M/uL Hgb 11.4 L (14.0-18.0) g/dL Hct 33.7 L (42-52) % MCV 98.0 (80-100) fL MCH 33.1 (25-34) pg MCHC 33.8 (32-36) g/dL RDW Std Deviation 47.9 H (36.4-46.3) fL RDW Coeff of Dar 13.5 (11.5-14.5) % Plt Count 226 (130-400) K/uL MPV 10.5 H (7.4-10.4) fL Immature Gran % (Auto) 3.0 % Neut % (Auto) 74.5 % Lymph % (Auto) 13.5 % Branch % (Auto) 8.0 % Eos % (Auto) 0.7 % Baso % (Auto) 0.3 % Neut # (Auto) 11.31 H (1.4-6.5) K/uL Lymph # (Auto) 2.04 (1.2-3.4) K/uL Branch # (Auto) 1.21 H (0.11-0.59) K/uL Eos # (Auto) 0.10 (0-0.5) K/uL Baso # (Auto) 0.05 (0-0.2) K/uL Immature Gran # (Auto) 0.45 H (0.00-0.02) K/uL Sodium (136-145) mmol/L Potassium (3.5-5.1) mmol/L Chloride (98-107) mmol/L Carbon Dioxide (21-32) mmol/L Anion Gap (3-11) BUN (7-18) mg/dl Creatinine (0.6-1.4) mg/dl Est Cr Clr Drug Dosing ml/min Est GFR ( Amer) ml/min Est GFR (Non-Af Amer) ml/min BUN/Creatinine Ratio (10-20) Glucose (70-99) mg/dl POC Glucose 224 H 158 H (70-99) mg/dl Calcium (8.5-10.1) mg/dl PG Care Time/CCT Total # of Minutes Spent Total Time Spent with Patient: Total time spent is greater than 50% in coordination of care (as documented) at patient's floor/unit and/or counseling patient: Coding Level of Care Code 16680 Subseq Hosp Care Lvl 3 Diagnoses Cellulitis L03.116 Laterality: left Site of cellulitis: extremity Site of cellulitis of extremity: lower extremity DAYO (acute kidney injury) N17.9 Afib I48.91 History of atrial flutter Z86.79 DM type 2 (diabetes mellitus, type 2) E11.9 HTN (hypertension) I10 Odynophagia R13.10 Constipation K59.00 (1) Cellulitis Laterality: left Site of cellulitis: extremity Site of cellulitis of extremity: lower extremity Qualified Code(s): L03.116 - Cellulitis of left lower limb
[2021-06-15] MEDS ORDERED: POTASSIUM CHLORIDE 10 MEQ TABCR PO STA (14:59)
[2021-06-15] MEDS: DAPTOmycin 450 MG in SYRINGE 0 ML IV SCH (15:18)
--- NOTE | 2021-06-15 15:39 | Cardiology Consultation ---
Date of Consultation June 15, 2021 Assessment & Plan (1) Afib: (2) Cellulitis: The patient will need to have follow-up EKGs to assess QT interval with his increase in sotalol dose. At present he is in a persistent atrial fibrillation by my exam today. He is anticoagulated and presently he is asymptomatic in regard to the arrhythmia. He has not had an echocardiogram for several years and I have ordered that study to be completed this admission. At this point I would continue to treat his cellulitis and if he does not spontaneously convert back to a normal sinus rhythm at some point in the future we can consider an elective cardioversion. We will follow along with you during his hospital stay. History of Present Illness Attending Physician: Jessika Nagel MD History of Present Illness This is a 55-year-old male patient who was last seen in our practice in 2017 with a history of paroxysmal atrial fibrillation. He has been lost to follow-up and he states that his primary care physician has been writing for his sotalol. He is not anticoagulated but has taken aspirin daily. He has a history of recurrent cellulitis of the lower extremities and was admitted with a cellulitis of the left lower extremity. Patient states that he ran out of his medications, specifically sotalol the week prior to admission and he felt his heart become irregular before he entered the hospital however, his admitting EKG indicates he was in a sinus mechanism. EKG obtained 3 days ago indicates the patient is in persistent atrial fibrillation with a controlled heart rate. Patient is asymptomatic in regard to the atrial fibrillation. He denies shortness of breath orthopnea. He has had no chest pain, dizziness or lightheadedness. At some point, the patient had his sotalol increased to 120 mg twice daily from 80 mg twice daily. He was also placed on Eliquis. Past medical history: 1. Past paroxysmal atrial flutter controlled in sinus rhythm with sotalol. 2. History of prior diagnostic cardiac catheterization in of 2013 without obstructive coronary artery disease. 3. Longstanding hypertension. 4. Morbid obesity. 5. Hyperlipidemia. 6. Chronic back pain and lower extremity edema. Allergies Allergy/AdvReac Type Severity Reaction Status Date / Time Sulfa (Sulfonamide Allergy Intermediate itching Verified 06/10/21 11:32 Antibiotics) cephalexin [From Keflex] Allergy Mild Rash Verified 06/10/21 11:32 Home Medications Medication Instructions Recorded Confirmed Type aspirin 81 mg tablet,delayed 81 mg PO DAILY #30 tab 04/21/20 06/08/21 Rx release (Aspirin Low Dose) glipizide 10 mg tablet, extended 20 mg PO DAILY 90 Days #180 tab 06/04/20 06/08/21 Rx release 24 hr sotalol 120 mg tablet 120 mg PO BID #180 tab 08/12/20 06/08/21 Rx cholecalciferol (vitamin D3) 50 50 mcg PO DAILY 10/22/20 06/08/21 History mcg (2,000 unit) capsule tramadol 50 mg tablet 50 mg PO BID PRN #30 tab 10/22/20 06/08/21 Rx insulin NPH isoph U-100 human 100 10 unit SUBCUT BID #15 ml 10/28/20 06/08/21 Rx unit/mL (3 mL) subcutaneous pen (Novolin N Flexpen) hydrochlorothiazide 12.5 mg tablet 12.5 mg PO DAILY #90 tab 11/13/20 06/08/21 Rx amlodipine 5 mg tablet 5 mg PO HS #90 tab 12/02/20 06/08/21 Rx bupropion HCl 150 mg tablet,12 hr 150 mg PO BID #60 ea 12/02/20 06/08/21 Rx sustained-release atorvastatin 40 mg tablet 40 mg PO DAILY #90 tab 04/20/21 06/08/21 Rx lisinopril 40 mg tablet 40 mg PO DAILY #90 tab 04/20/21 06/08/21 Rx metformin 1,000 mg tablet 1,000 mg PO BID #180 tab 04/20/21 06/08/21 Rx allopurinol 300 mg tablet 300 mg PO DAILY #90 tab 04/21/21 06/08/21 Rx piperacillin-tazobactam 4.5 4.5 g IV Q8H 6 Days #2025 ml 06/15/21 Rx gram/100 mL dextrose(iso-osm) IV piggyback (Zosyn) Patient History Medical History Acute kidney injury Anemia Arthritis Back pain Bilateral primary osteoarthritis of knee Chronic venous insufficiency Depression Diabetes DM type 2 (diabetes mellitus, type 2) Fatty liver Gout High cholesterol History of atrial flutter "s/p cardioversion 06/2014" History of gallbladder disease History of gout History of polymyalgia rheumatica History of right bundle branch block (RBBB) HTN (hypertension) Hypertension Lower extremity edema Microalbuminuria Obesity, morbid, BMI 50 or higher Osteoarthritis Pseudomonas infection Renal hematoma, left Spinal stenosis Spinal stenosis Venous insufficiency Surgical History H/O arthroscopic knee surgery 2000 and 2007 S/P cardiac cath "cath 07/05/2014- angiographically normal vessels, EF 60-65%" S/P left knee arthroscopy S/P tonsillectomy Family History Mother Diabetes Hypertension Denies family history of Ovarian cancer Prostate cancer Myocardial infarction Breast cancer Colorectal cancer Social History Smoking Status: Never smoker Tobacco Type: Cigarettes Age Started Using Tobacco: 27; Age Quit Using Tobacco: 49; packs per day: 1; Second Hand Exposure: No; Hx Alcohol Use: Yes Alcohol type: beer Alcohol Intake Frequency: Monthly or Less Hx Substance Use: No Preferred Language: Chinese Communication Ability: Effective Visual Impairment: No Limitations Hearing Ability: Normal Lpn Or Medical Assistant Required: No Beliefs That Will Affect Care: None marital status: Current Living Situation: Family current occupational status: retired Other Information That Helps Us Care for You: No Feels Safe at Home: Yes Safety Concerns: Feels Safe At This Time Childhood Exposure to Second-Hand Smoke: No caffeine: Yes (Coffee x 2 per day.) during the past year weight has: decreased > 10 lbs Dental Care, Regularly: No Physical Activity Frequency: 3-4 Times per Week Physical Activity Frequency Comment: limited by physical condition/ does excercises while sitting Seatbelt Use: always Sunscreen Use: No Assistive Devices: Glasses Review of Systems Review of Systems: Review of Systems: See HPI for pertinent positives. All other 10 point review of systems are negative. Physical Exam Physical Exam: General: no acute distress and stated age Head: normocephalic, no masses, lesions, tenderness or abnormalities Eyes: conjunctiva are pink and non-injected, sclera clear Neck: supple, no adenopathy, no bruits, normal jugular venous pulse, no hepatojugular reflux Chest: normal shape and normal respiratory effort Lungs: clear to auscultation and percussion Cardiac Exam: - irregular rate & rhythm, no murmurs gallops or rubs - normal S1, normal S2 Pulses: 2(+) throughout Abdomen: abdomen soft, non-tender, no abnormal masses and no hepatosplenomegaly Musculoskeletal: no gait disturbance, no joint inflammation, no deforming arthritis Extremities: no edema and no cyanosis Neuro: grossly normal exam Results & Data ([facility]) Vital Signs (Past 12 Hours) Vital Signs Temp Pulse Resp BP Pulse Ox 06/15/21 07:30 36.8 C 102 H 20 124/65 94 Laboratory Results Laboratory Results - last 24 hr 06/14/21 06/14/21 06/15/21 17:15 20:38 05:35 WBC 15.16 H RBC 3.44 L Hgb 11.4 L Hct 33.7 L MCV 98.0 MCH 33.1 MCHC 33.8 RDW Std Deviation 47.9 H RDW Coeff of Dar 13.5 Plt Count 226 MPV 10.5 H Immature Gran % (Auto) 3.0 Neut % (Auto) 74.5 Lymph % (Auto) 13.5 [place] % (Auto) 8.0 Eos % (Auto) 0.7 Baso % (Auto) 0.3 Neut # (Auto) 11.31 H Lymph # (Auto) 2.04 [place] # (Auto) 1.21 H Eos # (Auto) 0.10 Baso # (Auto) 0.05 Immature Gran # (Auto) 0.45 H Sodium Potassium Chloride Carbon Dioxide Anion Gap BUN Creatinine Est Cr Clr Drug Dosing Est GFR ( Amer) Est GFR (Non-Af Amer) BUN/Creatinine Ratio Glucose POC Glucose 158 H 224 H Calcium 06/15/21 06/15/21 06/15/21 05:35 08:29 12:35 WBC RBC Hgb Hct MCV MCH MCHC RDW Std Deviation RDW Coeff of Dar Plt Count MPV Immature Gran % (Auto) Neut % (Auto) Lymph % (Auto) [place] % (Auto) Eos % (Auto) Baso % (Auto) Neut # (Auto) Lymph # (Auto) [place] # (Auto) Eos # (Auto) Baso # (Auto) Immature Gran # (Auto) Sodium 136 Potassium 3.9 Chloride 105 Carbon Dioxide 24 Anion Gap 7.0 BUN 18 Creatinine 0.88 Est Cr Clr Drug Dosing 146.6 Est GFR ( Amer) 111.3 Est GFR (Non-Af Amer) 96.0 BUN/Creatinine Ratio 20.2 H Glucose 140 H POC Glucose 149 H 142 H Calcium 8.6 Medications Administered Current Inpatient Medications Acetaminophen (Acetaminophen 325 Mg Tab) 650 mg PO Q4H PRN PRN Reason: pain/fever Stop: 07/08/21 19:50 Allopurinol (Allopurinol 300 Mg Tab) 300 mg PO DAILY AMY Stop: 07/09/21 08:59 Last Admin: 06/15/21 08:48 Dose: 300 mg Documented by: Amlodipine Besylate (Amlodipine Besylate 5 Mg Tab) 5 mg PO HS AMY Stop: 07/08/21 20:59 Last Admin: 06/08/21 21:06 Dose: 5 mg Documented by: Apixaban (Apixaban 2.5 Mg Tab) 5 mg PO BID AMY Stop: 07/12/21 11:44 Last Admin: 06/15/21 08:48 Dose: 5 mg Documented by: Aspirin (Aspirin 81 Mg Ectab) 81 mg PO DAILY AMY Stop: 07/09/21 08:59 Last Admin: 06/15/21 08:48 Dose: 81 mg Documented by: Atorvastatin Calcium (Atorvastatin 40 Mg Tab) 40 mg PO DAILY AMY Stop: 07/09/21 08:59 Bisacodyl (Bisacodyl 10 Mg Supp) 10 mg MI DAILY PRN PRN Reason: Constipation Stop: 07/10/21 15:22 Bupropion HCl (Bupropion Sr 150 Mg Tabcr) 150 mg PO BID17 AMY Stop: 07/09/21 08:59 Last Admin: 06/15/21 08:48 Dose: 150 mg Documented by: Dextrose (Dextrose 50% 50 Ml Syringe) 25 - 50 ml IV UD PRN; Protocol PRN Reason: Hypoglycemia Protocol Stop: 07/08/21 19:50 Glucagon (Glucagon For Inj 1 Mg Vial) 1 mg SQ UD PRN; Protocol PRN Reason: Hypoglycemia Protocol Stop: 07/08/21 19:50 Glucose (Glucose 10 Tabs/Tube) 4 - 8 tabs PO UD PRN; Protocol PRN Reason: Hypoglycemia Protocol Stop: 07/08/21 19:50 Glucose (Glucose 40% Gel 15 Gm Tube) 15 - 30 gm PO UD PRN; Protocol PRN Reason: Hypoglycemia Protocol Stop: 07/08/21 19:50 Daptomycin 450 mg/ Syringe 9 mls @ 4.5 mls/min IV Q24H AMY; Protocol Stop: 06/20/21 15:59 Last Admin: 06/15/21 15:18 Dose: 4.5 mls/min Documented by: Piperacillin Sod/Tazobactam (Sod 4.5 gm/ Dextrose) 120 mls @ 30 mls/hr IV Q8H AMY; Protocol Stop: 06/22/21 16:59 Insulin Aspart (Insulin Aspart 100 Units/Ml 3 Ml Pen) 0 units SC ACHS AMY Stop: 07/10/21 16:29 Last Admin: 06/15/21 12:53 Dose: 9 units Documented by: Insulin Human NPH (Insulin Human Nph) 18 units SQ QDB AMY; Protocol Stop: 07/14/21 07:29 Last Admin: 06/15/21 08:49 Dose: 18 units Documented by: Insulin Human NPH (Insulin Human Nph) 16 units SQ QDD AMY; Protocol Stop: 07/14/21 16:29 Last Admin: 06/14/21 18:08 Dose: 16 units Documented by: Magnesium Hydroxide (Magnesium Hydroxide Susp 30 Ml Udc) 30 ml PO Q6H PRN PRN Reason: Constipation Stop: 07/11/21 11:07 Last Admin: 06/12/21 08:41 Dose: 30 ml Documented by: Miscellaneous (Carbohydrates For Hypoglycemia ) 15 - 30 gm PO UD PRN PRN Reason: Hypoglycemia Protocol Stop: 07/08/21 19:50 Miscellaneous Information (Pharmacy Glycemic Mgmt Consult) 1 ea N/A UD PRN PRN Reason: Consult Stop: 07/09/21 07:53 Miscellaneous Information (Daptomycin Consult Active) 1 ea N/A UD PRN PRN Reason: Consult Stop: 07/14/21 08:51 Miscellaneous Information (Piperacill/Tazobac Consult Active) 1 ea N/A UD PRN PRN Reason: Consult Stop: 07/15/21 11:40 Morphine Sulfate (Morphine Sulfate 2 Mg/Ml Carp) 1 mg IV Q4H PRN PRN Reason: Moderate Pain (4,5,6) on NRS Stop: 06/23/21 16:04 Morphine Sulfate (Morphine Sulfate 2 Mg/Ml Carp) 2 mg IV Q4H PRN PRN Reason: Severe Pain (7,8,9,10) on NRS Stop: 06/23/21 16:10 Last Admin: 06/15/21 13:24 Dose: 2 mg Documented by: Ondansetron HCl (Ondansetron Inj 2 Mg/Ml 2 Ml Vial) 4 mg IV Q6H PRN PRN Reason: Nausea Stop: 07/08/21 19:50 Last Admin: 06/09/21 08:36 Dose: 4 mg Documented by: Polyethylene Glycol (Polyethylene (Miralax) 17 Gm Pack) 17 gm PO BID AMY Stop: 07/10/21 20:59 Last Admin: 06/15/21 08:48 Dose: 17 gm Documented by: Simethicone (Simethicone 80 Mg Chew) 80 mg PO Q6H PRN PRN Reason: gas Stop: 07/12/21 11:16 Last Admin: 06/12/21 18:05 Dose: 80 mg Documented by: Sodium Biphosphate/Sodium Phosphate (Sod Phosphate/Sod Biphosphate Enema 132 Ml Btl) 132 ml MI DAILY PRN PRN Reason: Constipation if MilkMg ineffec Stop: 07/11/21 11:07 Sotalol HCl (Sotalol Hcl 80 Mg Tab) 120 mg PO HS AMY Stop: 07/12/21 20:59 Last Admin: 06/14/21 20:24 Dose: 120 mg Documented by: Tramadol HCl (Tramadol Hcl 50 Mg Tablet) 50 mg PO BID PRN PRN Reason: pain Stop: 07/08/21 19:50 Last Admin: 06/14/21 07:15 Dose: 50 mg Documented by: Vitamin D (Cholecalciferol 1,000 Units 25 Mcg Tab) 2,000 units PO DAILY AMY Stop: 07/09/21 08:59 Last Admin: 06/15/21 08:49 Dose: Not Given Documented by:
[2021-06-15] MEDS: PIPERACILLIN/TAZOBACTAM 4.5 GM in DEXTROSE 5% 100 ML IV SCH ×2 (16:57→23:54)
[2021-06-15] MEDS: SOTALOL HCL 80 MG TAB PO SCH (20:48)
[2021-06-16] MEDS: APIXABAN 2.5 MG TAB PO SCH ×2 (08:04→21:00)
[2021-06-16] MEDS: ASPIRIN 81 MG ECTAB PO SCH (08:04)
[2021-06-16] MEDS: allopurinoL 300 MG TAB PO SCH (08:05)
[2021-06-16] MEDS: buPROPion SR 150 MG TABCR PO SCH ×2 (08:05→17:05)
[2021-06-16] MEDS: CHOLECALCIFEROL 1,000 UNITS 25 MCG TAB PO SCH (08:05)
[2021-06-16] MEDS: POLYETHYLENE (MIRALAX) 17 GM PACK PO SCH ×2 (08:06→21:01)
[2021-06-16] MEDS: PIPERACILLIN/TAZOBACTAM 4.5 GM in DEXTROSE 5% 100 ML IV SCH ×2 (08:09→16:26)
[2021-06-16] MEDS: traMADol HCL 50 MG TABLET PO PRN (08:09)
[2021-06-16 09:01] LABS: Basophils # (auto) 0.08 K/uL (0-0.2); Basophils % (auto) 0.6 %; Eosinophils # (auto) 0.09 K/uL (0-0.5); Eosinophils % (auto) 0.7 %; Hematocrit (blood only) 34.7 % (42-52); Hemoglobin 11.5 g/dL (14.0-18.0); Immature Granulocytes # (auto) 0.24 K/uL (0.00-0.02); Immature Granulocytes % (auto) 1.9 %; Mean Corpuscular Hemoglobin 32.7 pg (25-34); Mean Corpuscular Hgb Conc 33.1 g/dL (32-36); Mean Corpuscular Volume 98.6 fL (80-100); Monocytes # (auto) 1.27 K/uL (0.11-0.59); Neutrophils # (auto) 9.61 K/uL (1.4-6.5); Neutrophils % (auto) 75.8 %; Platelet Count 238 K/uL (130-400); RDW Coefficient of Variation 13.6 % (11.5-14.5); RDW Standard Deviation 48.4 fL (36.4-46.3); Red Blood Count 3.52 M/uL (4.7-6.1); White Blood Count 12.69 K/uL (4.8-10.8)
[2021-06-16] MEDS: INSULIN ASPART 100 UNITS/ML 3 ML PEN SC SCH ×4 (09:03→20:38)
[2021-06-16] MEDS: INSULIN HUMAN NPH SQ SCH ×2 (09:13→17:02)
[2021-06-16 09:36] LABS: BUN Creatinine Ratio 19.6 (10-20); Calcium 8.8 mg/dl (8.5-10.1); Creatinine Clr Calc Pharmacy 141.8 ml/min; Est GFR (African American) 108.8 ml/min; Est GFR (Non-African American) 93.9 ml/min; Magnesium 1.6 mg/dl (1.8-2.4); Potassium 4.3 mmol/L (3.5-5.1)
--- NOTE | 2021-06-16 10:07 | Cardiology Progress Note ---
Date of Service June 16, 2021 Assessment & Plan (1) Afib: (2) Cellulitis: Plan: At this point I believe the patient is best served on a telemetry unit. He remains in atrial fibrillation with high heart rates despite an increase in sotalol. I have added metoprolol 12.5 mg twice daily to help with better rate control but overall I think the patient is best served on a continuos monitor. Admission and Anticipated Discharge Date Admission Date: June 08, 2021 Subjective The patient had an uneventful night. Review of Systems Review of Systems: Review of Systems: See HPI for pertinent positives. All other 10 point review of systems are negative. Physical Exam Physical Exam: General: no acute distress and stated age Head: normocephalic, no masses, lesions, tenderness or abnormalities Eyes: conjunctiva are pink and non-injected, sclera clear Neck: supple, no adenopathy, no bruits, normal jugular venous pulse, no hepatojugular reflux Chest: normal shape and normal respiratory effort Lungs: clear to auscultation and percussion Cardiac Exam: - irregular rate & rhythm, no murmurs gallops or rubs - normal S1, normal S2 Pulses: 2(+) throughout Abdomen: abdomen soft, non-tender, no abnormal masses and no hepatosplenomegaly Musculoskeletal: no gait disturbance, no joint inflammation, no deforming arthritis Extremities: Cellulitis of the left lower extremity Neuro: grossly normal exam Results & Data ([facility]) Vital Signs (Past 12 Hours) Vital Signs Temp Pulse Resp BP BP Pulse Ox 06/16/21 07:17 36.8 C 136 H 20 102/70 95 06/15/21 22:07 37.4 C 116 H 24 111/75 95 Laboratory Results Laboratory Results - last 24 hr 06/15/21 06/15/21 06/15/21 12:35 17:38 20:50 WBC RBC Hgb Hct MCV MCH MCHC RDW Std Deviation RDW Coeff of Dar Plt Count MPV Immature Gran % (Auto) Neut % (Auto) Lymph % (Auto) [place] % (Auto) Eos % (Auto) Baso % (Auto) Neut # (Auto) Lymph # (Auto) [place] # (Auto) Eos # (Auto) Baso # (Auto) Immature Gran # (Auto) Sodium Potassium Chloride Carbon Dioxide Anion Gap BUN Creatinine Est Cr Clr Drug Dosing Est GFR ( Amer) Est GFR (Non-Af Amer) BUN/Creatinine Ratio Glucose POC Glucose 142 H 135 H 124 H Calcium Magnesium Total Creatine Kinase Stool H. pylori Ag 06/16/21 06/16/21 06/16/21 04:47 08:07 08:16 WBC RBC Hgb Hct MCV MCH MCHC RDW Std Deviation RDW Coeff of Dar Plt Count MPV Immature Gran % (Auto) Neut % (Auto) Lymph % (Auto) [place] % (Auto) Eos % (Auto) Baso % (Auto) Neut # (Auto) Lymph # (Auto) [place] # (Auto) Eos # (Auto) Baso # (Auto) Immature Gran # (Auto) Sodium 136 Potassium 4.3 Chloride 103 Carbon Dioxide 26 Anion Gap 7.0 BUN 18 Creatinine 0.91 Est Cr Clr Drug Dosing 141.8 Est GFR ( Amer) 108.8 Est GFR (Non-Af Amer) 93.9 BUN/Creatinine Ratio 19.6 Glucose 180 H POC Glucose 169 H Calcium 8.8 Magnesium 1.6 L Total Creatine Kinase 82 Stool H. pylori Ag Pending 06/16/21 08:16 WBC 12.69 H RBC 3.52 L Hgb 11.5 L Hct 34.7 L MCV 98.6 MCH 32.7 MCHC 33.1 RDW Std Deviation 48.4 H RDW Coeff of Dar 13.6 Plt Count 238 MPV 11.0 H Immature Gran % (Auto) 1.9 Neut % (Auto) 75.8 Lymph % (Auto) 11.0 [place] % (Auto) 10.0 Eos % (Auto) 0.7 Baso % (Auto) 0.6 Neut # (Auto) 9.61 H Lymph # (Auto) 1.40 [place] # (Auto) 1.27 H Eos # (Auto) 0.09 Baso # (Auto) 0.08 Immature Gran # (Auto) 0.24 H Sodium Potassium Chloride Carbon Dioxide Anion Gap BUN Creatinine Est Cr Clr Drug Dosing Est GFR ( Amer) Est GFR (Non-Af Amer) BUN/Creatinine Ratio Glucose POC Glucose Calcium Magnesium Total Creatine Kinase Stool H. pylori Ag Medications Administered Current Inpatient Medications Acetaminophen (Acetaminophen 325 Mg Tab) 650 mg PO Q4H PRN PRN Reason: pain/fever Stop: 07/08/21 19:50 Allopurinol (Allopurinol 300 Mg Tab) 300 mg PO DAILY AMY Stop: 07/09/21 08:59 Last Admin: 06/16/21 08:05 Dose: 300 mg Documented by: Amlodipine Besylate (Amlodipine Besylate 5 Mg Tab) 5 mg PO HS [facility] [place] Stop: 07/08/21 20:59 Last Admin: 06/08/21 21:06 Dose: 5 mg Documented by: Apixaban (Apixaban 2.5 Mg Tab) 5 mg PO BID [facility] [place] Stop: 07/12/21 11:44 Last Admin: 06/16/21 08:04 Dose: 5 mg Documented by: Aspirin (Aspirin 81 Mg Ectab) 81 mg PO DAILY AMY Stop: 07/09/21 08:59 Last Admin: 06/16/21 08:04 Dose: 81 mg Documented by: Atorvastatin Calcium (Atorvastatin 40 Mg Tab) 40 mg PO DAILY [facility] [place] Stop: 07/09/21 08:59 Bisacodyl (Bisacodyl 10 Mg Supp) 10 mg [place] DAILY PRN PRN Reason: Constipation Stop: 07/10/21 15:22 Bupropion HCl (Bupropion Sr 150 Mg Tabcr) 150 mg PO BID17 AMY Stop: 07/09/21 08:59 Last Admin: 06/16/21 08:05 Dose: 150 mg Documented by: Dextrose (Dextrose 50% 50 Ml Syringe) 25 - 50 ml IV UD PRN; Protocol PRN Reason: Hypoglycemia Protocol Stop: 07/08/21 19:50 Glucagon (Glucagon For Inj 1 Mg Vial) 1 mg SQ UD PRN; Protocol PRN Reason: Hypoglycemia Protocol Stop: 07/08/21 19:50 Glucose (Glucose 10 Tabs/Tube) 4 - 8 tabs PO UD PRN; Protocol PRN Reason: Hypoglycemia Protocol Stop: 07/08/21 19:50 Glucose (Glucose 40% Gel 15 Gm Tube) 15 - 30 gm PO UD PRN; Protocol PRN Reason: Hypoglycemia Protocol Stop: 07/08/21 19:50 Daptomycin 450 mg/ Syringe 9 mls @ 4.5 mls/min IV Q24H [facility] [place]; Protocol Stop: 06/20/21 15:59 Last Admin: 06/15/21 15:18 Dose: 4.5 mls/min Documented by: Piperacillin Sod/Tazobactam (Sod 4.5 gm/ Dextrose) 120 mls @ 30 mls/hr IV Q8H [facility] [place]; Protocol Stop: 06/22/21 16:59 Last Admin: 06/16/21 08:09 Dose: 30 mls/hr Documented by: Insulin Aspart (Insulin Aspart 100 Units/Ml 3 Ml Pen) 0 units SC ACHS [facility] [place] Stop: 07/10/21 16:29 Last Admin: 06/16/21 09:03 Dose: 15 units Documented by: Insulin Human NPH (Insulin Human Nph) 18 units SQ QDB [facility]; Protocol Stop: 07/14/21 07:29 Last Admin: 06/16/21 09:13 Dose: 18 units Documented by: Insulin Human NPH (Insulin Human Nph) 16 units SQ QDD [facility]; Protocol Stop: 07/14/21 16:29 Last Admin: 06/15/21 17:45 Dose: 16 units Documented by: Magnesium Hydroxide (Magnesium Hydroxide Susp 30 Ml Udc) 30 ml PO Q6H PRN PRN Reason: Constipation Stop: 07/11/21 11:07 Last Admin: 06/12/21 08:41 Dose: 30 ml Documented by: Metoprolol Tartrate (Metoprolol Tartrate 25 Mg Tab) 12.5 mg PO BID [facility] Stop: 07/16/21 09:59 Miscellaneous (Carbohydrates For Hypoglycemia ) 15 - 30 gm PO UD PRN PRN Reason: Hypoglycemia Protocol Stop: 07/08/21 19:50 Miscellaneous Information (Pharmacy Glycemic Mgmt Consult) 1 ea N/A UD PRN PRN Reason: Consult Stop: 07/09/21 07:53 Miscellaneous Information (Daptomycin Consult Active) 1 ea N/A UD PRN PRN Reason: Consult Stop: 07/14/21 08:51 Miscellaneous Information (Piperacill/Tazobac Consult Active) 1 ea N/A UD PRN PRN Reason: Consult Stop: 07/15/21 11:40 Morphine Sulfate (Morphine Sulfate 2 Mg/Ml Carp) 1 mg IV Q4H PRN PRN Reason: Moderate Pain (4,5,6) on NRS Stop: 06/23/21 16:04 Morphine Sulfate (Morphine Sulfate 2 Mg/Ml Carp) 2 mg IV Q4H PRN PRN Reason: Severe Pain (7,8,9,10) on NRS Stop: 06/23/21 16:10 Last Admin: 06/15/21 19:17 Dose: 2 mg Documented by: Ondansetron HCl (Ondansetron Inj 2 Mg/Ml 2 Ml Vial) 4 mg IV Q6H PRN PRN Reason: Nausea Stop: 07/08/21 19:50 Last Admin: 06/09/21 08:36 Dose: 4 mg Documented by: Polyethylene Glycol (Polyethylene (Miralax) 17 Gm Pack) 17 gm PO BID AMY Stop: 07/10/21 20:59 Last Admin: 06/16/21 08:06 Dose: 17 gm Documented by: Simethicone (Simethicone 80 Mg Chew) 80 mg PO Q6H PRN PRN Reason: gas Stop: 07/12/21 11:16 Last Admin: 06/12/21 18:05 Dose: 80 mg Documented by: Sodium Biphosphate/Sodium Phosphate (Sod Phosphate/Sod Biphosphate Enema 132 Ml Btl) 132 ml NJ DAILY PRN PRN Reason: Constipation if MilkMg ineffec Stop: 07/11/21 11:07 Sotalol HCl (Sotalol Hcl 80 Mg Tab) 120 mg PO HS AMY Stop: 07/12/21 20:59 Last Admin: 06/15/21 20:48 Dose: 120 mg Documented by: Tramadol HCl (Tramadol Hcl 50 Mg Tablet) 50 mg PO BID PRN PRN Reason: pain Stop: 07/08/21 19:50 Last Admin: 06/16/21 08:09 Dose: 50 mg Documented by: Vitamin D (Cholecalciferol 1,000 Units 25 Mcg Tab) 2,000 units PO DAILY AMY Stop: 07/09/21 08:59 Last Admin: 06/16/21 08:05 Dose: 2,000 units Documented by:
[2021-06-16] MEDS: METOPROLOL TARTRATE 25 MG TAB PO SCH ×2 (10:46→18:30)
[2021-06-16] MEDS: MAGNESIUM SULFATE / D5W 1 GM/100 ML BAG IV SCH ×2 (11:10→13:06)
[2021-06-16] MEDS: MoRPHine SULFATE 2 MG/ML CARP IV PRN ×2 (13:23→20:58)
--- NOTE | 2021-06-16 13:42 | Pharmacy Report ---
Pharmacy Glycemic Short Note 2 - Date of Service June 16, 2021 - Glycemic Short BSG Results (Last 24 hours): 06/15/21 06/15/21 06/16/21 17:38 20:50 08:07 Glucose POC Glucose 135 H 124 H 169 H 06/16/21 06/16/21 08:16 12:03 Glucose 180 H POC Glucose 209 H OUTPATIENT ANTIDIABETIC REGIMEN: * NPH 10 units SC BID * Metformin * Glipizide * HbA1c 6.8% 06/09/21 ASSESSMENT: 06/16: * BSGs well-controlled yesterday, ranging 124-149 mg/dL * Received 66 units of insulin (~50/50 basal/bolus split) * Fasting BSG of 169 mg/dL this morning - will utilize scaled evening NPH to potentially provide increased dose of NPH today 06/14: * Patient's BSGs yesterday were [phone] mg/dl * Patient received 80 units of insulin (33 units of basal and 47 units of bolus). * Fasting BSG today was 151 mg/dL. * Continue NPH 18 units in morning. Will increase evening NPH by 1 unit (~5%) since patient's fasting is just slightly out of range. * Continue aggressive Novolog. 06/09: * 55 yo M with T2DM admitted for cellulitis * AM fasting BSG elevated today, but this is likely 2nd missed evening dose of NPH yesterday * Stressors may increase insulin demands, although it's reasonable at this time to continue with NPH as the basal insulin due to easier transition back to outpatient regimen on discharge. May need to switch to Lantus if BSG's are not able to be controlled well with NPH * Will hold outpatient po and initiate bolus Novolog instead. Weight-based moderate stress estimate PLAN FOR INPATIENT GLYCEMIC CONTROL: * Hold outpatient oral diabetes medications * Basal insulin: * NPH 18 units SQ in morning; 16-18 units SQ with dinner (see EHR for details) * Bolus insulin: * NovoLog per scale ACHS or Q6hrs while NPO * Goal Range: Low 100 mg/dL - High 140 mg/dL * Correction Factor: 15 mg/dL/unit * Nutritional / Prandial insulin per carb ratio of 1 unit per 4.5 grams CHO PLAN FOR DISCHARGE: * HbA1c: 6.8% * This indicates adequate glycemic control as an outpatient * Continue outpatient regimen, assuming frequent lows as an outpatient are not o ccurring and assuming no contraindications exist at discharge.
[2021-06-16] MEDS: DAPTOmycin 450 MG in SYRINGE 0 ML IV SCH (15:30)
[2021-06-16] MEDS: SOTALOL HCL 80 MG TAB PO SCH (18:29)
--- NOTE | 2021-06-16 18:49 | Hospitalist Progress Note ---
Date of Service June 16, 2021 Assessment & Plan (1) Cellulitis: Plan: Pt is a 55-year-old male with a history of PMR, atrial flutter, venous insufficiency, type 2 diabetes, hypertension who was admitted for the management of left lower extremity cellulitis. Left lower extremity cellulitis Pro-Ervin elevated to 14 on admission No hypotension/tachycardia/fever, although patient subjectively with fever/chills/sweats Received Dapto/Zosyn in ER and then placed on Cefepime No known history of MRSA BC NGTD Past lower extremity isolates with Pseudomonas,MSSA,Coag neg STaph,Morganella, and Achromobacter sensitive to Zosyn but Intermediate to Cefepime, also with MSSA resistant to clinda -Wound care consulted, leg with C/D/high dressing. Appreciate care. CRP 25, downtrended to 12.9, down less than 6 on 06/14,had worsening with borders of erythema expanded, leukocytosis up trended, and increased pain. Added Dapto plus Flagyl Changed to ZOsyn and Dapto (and dcd Flagyl) on 06/15--> WBC count coming down, is afebrile, erythema and edema slowly improving has US-guided PIV and wants to go home on IV abx -follow CBC, CMP in AM -continue elevation of limb (2) DAYO (acute kidney injury): Plan: Baseline creatinine approximately less than 1.4 Creatinine on admission 3.22, consistent with DAYO/ Prerenal azotemia Downtrended and normalized Remains normal (3) Afib: Plan: Patient with rapid A. fib here, history of past a flutter status post conversion Looking back at vital signs--> became tachycardic on 06/10--this is likely when it started, but not found on exam/ECG until 06/12 [id number] 2 points, moderatehigh risk Given history of prior atrial arrhythmia, and recurrence even though likely exacerbated/provoked by acute illness Rate low 100s-130s in setting of acute illness - Increased sotalol on 06/13 to 160mg in AM and 120 in evening, but then has nicole been on 120mg qhs since then (was supposed to be on 160 in the AM -ECG with QTc 476 on 06/15 -started on Eliquis -Consult Cardiology as he may end up needing cardioversion again and remains with uncontrolled rates--> recommend adding on metoprolol 12.5mg po bid and changing sotalol to 80mg po bid for now and titrating back up again as he missed several days of his 120mg AM dose -follow daily ECG -transferred to tele on 06/16 -replace Magnesium IV today with 2 grams -continue to follow BMP, Mag and replace lytes as needed (4) History of atrial flutter: Plan: as above (5) DM type 2 (diabetes mellitus, type 2): Plan: hold Home glipizide Metformin held Patient on home NPH twice daily, will convert to basal bolus while inpatient. Glycemic consult previously placed. 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 - GI consulted. EGD: Nonsevere esophagitis with no bleeding, mild inflammation/congestion of the duodenum without obstruction or stricture. -Continue PPI, H. pylori stool antigen ordered and pending (8) Constipation: Plan: now resolved KUB with moderate stool burden Improved bowel movements with milk of magnesia Plan: DVT Prohylaxis-ELiquis Dispo-continued stay,transferred to [facility], not likely to be discharged unless cardioverts or rates with improved control. Leg cellulitis still fairly significant although is improving and will be going home on IV abx Admission and Anticipated Discharge Date Admission Date: June 08, 2021 Subjective Pt transferred to tele today for rapid Afib with rates in the 130s. He denies any CP or SOB, no lightheadedness. No diarrhea or abd pains. Feels his left leg continues to improve, less swelling and redness. No other concerns but again is quite anxious to leave the hospital. I discussed his care with Cardiology Review of Systems Review of Systems: All systems reviewed & are unremarkable except as noted in HPI & below Physical Exam Constitutional: WD/WN, vitals as above + morbidly obese Eyes: + anicteric sclerae Neck: trachea midline, no thyromegaly Respiratory: normal respiratory effort, lungs clear to auscultation Cardiovascular: Rate/Rhythm: + tachycardic and + irregularly irregular Heart Sounds: no murmur Extremities: + edema (2+ pitting edema LLE, 1+ RLE) Chest (Breasts): Chest: normal inspection of chest Gastrointestinal (Abdomen): normal bowel sounds, soft, nontender, no hepatosplenomegaly Musculoskeletal: Extremities: extremities normal to inspection; no cyanosis and no clubbing Skin: + erythema (entire left leg and dorsal foot,small blisters and serous weeping) erythema less on left inner thigh and left foot and there is reduced edema of left foot with wrinkles of the skin Neurologic: moves all extremities and awake; no focal motor deficits Psychiatric: A+Ox3, euthymic affect Results & Data Results & Data ([facility]) Vital Signs (Past 12 Hours) Vital Signs Temp Pulse Pulse Resp BP Pulse Ox 06/16/21 16:04 37.3 C 98 H 20 111/85 95 06/16/21 13:26 37.1 C 113 H 18 131/79 96 06/16/21 07:17 36.8 C 136 H 20 102/70 95 Laboratory Results 06/16/21 06/16/21 06/16/21 Range/Units 16:23 12:03 08:16 WBC 12.69 H (4.8-10.8) K/uL RBC 3.52 L (4.7-6.1) M/uL Hgb 11.5 L (14.0-18.0) g/dL Hct 34.7 L (42-52) % MCV 98.6 (80-100) fL MCH 32.7 (25-34) pg MCHC 33.1 (32-36) g/dL RDW Std Deviation 48.4 H (36.4-46.3) fL RDW Coeff of Dar 13.6 (11.5-14.5) % Plt Count 238 (130-400) K/uL MPV 11.0 H (7.4-10.4) fL Immature Gran % (Auto) 1.9 % Neut % (Auto) 75.8 % Lymph % (Auto) 11.0 % [place] % (Auto) 10.0 % Eos % (Auto) 0.7 % Baso % (Auto) 0.6 % Neut # (Auto) 9.61 H (1.4-6.5) K/uL Lymph # (Auto) 1.40 (1.2-3.4) K/uL [place] # (Auto) 1.27 H (0.11-0.59) K/uL Eos # (Auto) 0.09 (0-0.5) K/uL Baso # (Auto) 0.08 (0-0.2) K/uL Immature Gran # (Auto) 0.24 H (0.00-0.02) K/uL Sodium (136-145) mmol/L Potassium (3.5-5.1) mmol/L Chloride (98-107) mmol/L Carbon Dioxide (21-32) mmol/L Anion Gap (3-11) BUN (7-18) mg/dl Creatinine (0.6-1.4) mg/dl Est Cr Clr Drug Dosing ml/min Est GFR ( Amer) ml/min Est GFR (Non-Af Amer) ml/min BUN/Creatinine Ratio (10-20) Glucose (70-99) mg/dl POC Glucose 158 H 209 H (70-99) mg/dl Calcium (8.5-10.1) mg/dl Magnesium (1.8-2.4) mg/dl Total Creatine Kinase (39-308) U/L Stool H. pylori Ag 06/16/21 06/16/21 06/16/21 Range/Units 08:16 08:07 04:47 WBC (4.8-10.8) K/uL RBC (4.7-6.1) M/uL Hgb (14.0-18.0) g/dL Hct (42-52) % MCV (80-100) fL MCH (25-34) pg MCHC (32-36) g/dL RDW Std Deviation (36.4-46.3) fL RDW Coeff of Dar (11.5-14.5) % Plt Count (130-400) K/uL MPV (7.4-10.4) fL Immature Gran % (Auto) % Neut % (Auto) % Lymph % (Auto) % [place] % (Auto) % Eos % (Auto) % Baso % (Auto) % Neut # (Auto) (1.4-6.5) K/uL Lymph # (Auto) (1.2-3.4) K/uL [place] # (Auto) (0.11-0.59) K/uL Eos # (Auto) (0-0.5) K/uL Baso # (Auto) (0-0.2) K/uL Immature Gran # (Auto) (0.00-0.02) K/uL Sodium 136 (136-145) mmol/L Potassium 4.3 (3.5-5.1) mmol/L Chloride 103 (98-107) mmol/L Carbon Dioxide 26 (21-32) mmol/L Anion Gap 7.0 (3-11) BUN 18 (7-18) mg/dl Creatinine 0.91 (0.6-1.4) mg/dl Est Cr Clr Drug Dosing 141.8 ml/min Est GFR ( Amer) 108.8 ml/min Est GFR (Non-Af Amer) 93.9 ml/min BUN/Creatinine Ratio 19.6 (10-20) Glucose 180 H (70-99) mg/dl POC Glucose 169 H (70-99) mg/dl Calcium 8.8 (8.5-10.1) mg/dl Magnesium 1.6 L (1.8-2.4) mg/dl Total Creatine Kinase 82 (39-308) U/L Stool H. pylori Ag Pending 06/15/21 Range/Units 20:50 WBC (4.8-10.8) K/uL RBC (4.7-6.1) M/uL Hgb (14.0-18.0) g/dL Hct (42-52) % MCV (80-100) fL MCH (25-34) pg MCHC (32-36) g/dL RDW Std Deviation (36.4-46.3) fL RDW Coeff of Dar (11.5-14.5) % Plt Count (130-400) K/uL MPV (7.4-10.4) fL Immature Gran % (Auto) % Neut % (Auto) % Lymph % (Auto) % [place] % (Auto) % Eos % (Auto) % Baso % (Auto) % Neut # (Auto) (1.4-6.5) K/uL Lymph # (Auto) (1.2-3.4) K/uL [place] # (Auto) (0.11-0.59) K/uL Eos # (Auto) (0-0.5) K/uL Baso # (Auto) (0-0.2) K/uL Immature Gran # (Auto) (0.00-0.02) K/uL Sodium (136-145) mmol/L Potassium (3.5-5.1) mmol/L Chloride (98-107) mmol/L Carbon Dioxide (21-32) mmol/L Anion Gap (3-11) BUN (7-18) mg/dl Creatinine (0.6-1.4) mg/dl Est Cr Clr Drug Dosing ml/min Est GFR ( Amer) ml/min Est GFR (Non-Af Amer) ml/min BUN/Creatinine Ratio (10-20) Glucose (70-99) mg/dl POC Glucose 124 H (70-99) mg/dl Calcium (8.5-10.1) mg/dl Magnesium (1.8-2.4) mg/dl Total Creatine Kinase (39-308) U/L Stool H. pylori Ag PG Care Time/CCT Total # of Minutes Spent Total Time Spent with Patient: Total time spent is greater than 50% in coordination of care (as documented) at patient's floor/unit and/or counseling patient: Coding Level of Care Code 96301 Subseq Hosp Care Lvl 3 Diagnoses Cellulitis L03.116 Laterality: left Site of cellulitis: extremity Site of cellulitis of extremity: lower extremity DAYO (acute kidney injury) N17.9 Afib I48.91 History of atrial flutter Z86.79 DM type 2 (diabetes mellitus, type 2) E11.9 HTN (hypertension) I10 Odynophagia R13.10 Constipation K59.00 (1) Cellulitis Laterality: left Site of cellulitis: extremity Site of cellulitis of extremity: lower extremity Qualified Code(s): L03.116 - Cellulitis of left lower limb
[2021-06-17] MEDS: traMADol HCL 50 MG TABLET PO PRN ×2 (00:26→07:50)
[2021-06-17] MEDS: PIPERACILLIN/TAZOBACTAM 4.5 GM in DEXTROSE 5% 100 ML IV SCH ×3 (00:32→16:34)
[2021-06-17 07:33] LABS: Basophils # (auto) 0.09 K/uL (0-0.2); Basophils % (auto) 0.8 %; Eosinophils % (auto) 0.9 %; Hematocrit (blood only) 34.2 % (42-52); Hemoglobin 11.5 g/dL (14.0-18.0); Immature Granulocytes # (auto) 0.17 K/uL (0.00-0.02); Immature Granulocytes % (auto) 1.5 %; Lymphocytes % (auto) 14.1 %; Mean Corpuscular Hgb Conc 33.6 g/dL (32-36); Mean Corpuscular Volume 98.3 fL (80-100); Mean Platelet Volume 10.8 fL (7.4-10.4); Monocytes # (auto) 1.53 K/uL (0.11-0.59); Monocytes % (auto) 13.5 %; Neutrophils # (auto) 7.83 K/uL (1.4-6.5); Neutrophils % (auto) 69.2 %; Platelet Count 257 K/uL (130-400); RDW Coefficient of Variation 13.4 % (11.5-14.5); RDW Standard Deviation 47.6 fL (36.4-46.3); Red Blood Count 3.48 M/uL (4.7-6.1); White Blood Count 11.32 K/uL (4.8-10.8)
[2021-06-17] MEDS: APIXABAN 2.5 MG TAB PO SCH ×2 (07:46→20:47)
[2021-06-17] MEDS: allopurinoL 300 MG TAB PO SCH (07:46)
[2021-06-17] MEDS: ASPIRIN 81 MG ECTAB PO SCH (07:47)
[2021-06-17] MEDS: METOPROLOL TARTRATE 25 MG TAB PO SCH ×2 (07:48→20:48)
[2021-06-17] MEDS: buPROPion SR 150 MG TABCR PO SCH ×2 (07:48→16:34)
[2021-06-17] MEDS: CHOLECALCIFEROL 1,000 UNITS 25 MCG TAB PO SCH (07:48)
[2021-06-17] MEDS: POLYETHYLENE (MIRALAX) 17 GM PACK PO SCH ×2 (07:49→21:05)
[2021-06-17] MEDS: SOTALOL HCL 80 MG TAB PO SCH ×2 (07:49→20:48)
[2021-06-17 08:07] LABS: BUN Creatinine Ratio 19.5 (10-20); Calcium 8.7 mg/dl (8.5-10.1); Creatinine Clr Calc Pharmacy 141.8 ml/min; Est GFR (African American) 108.8 ml/min; Est GFR (Non-African American) 93.9 ml/min; Magnesium 1.8 mg/dl (1.8-2.4); Potassium 4.3 mmol/L (3.5-5.1)
[2021-06-17] MEDS: INSULIN ASPART 100 UNITS/ML 3 ML PEN SC SCH ×4 (08:49→21:03)
[2021-06-17] MEDS: INSULIN HUMAN NPH SQ SCH ×2 (08:49→16:56)
--- NOTE | 2021-06-17 08:55 | Cardiology Progress Note ---
Date of Service June 17, 2021 Assessment & Plan (1) Afib: (2) Cellulitis: Plan: The patient continues atrial flutter with elevated heart rates. He received his first real sotalol dose of 80 mg twice daily last night. We continue the sotalol at 80 mg twice daily. He needs daily EKGs to monitor his QT interval. I increased his metoprolol to 25 mg twice daily. Admission and Anticipated Discharge Date Admission Date: June 08, 2021 Subjective The patient had an uneventful night. Remains in atrial flutter with RVR. Review of Systems Review of Systems: Review of Systems: See HPI for pertinent positives. All other 10 point review of systems are negative. Physical Exam Physical Exam: General: no acute distress and stated age Head: normocephalic, no masses, lesions, tenderness or abnormalities Eyes: conjunctiva are pink and non-injected, sclera clear Neck: supple, no adenopathy, no bruits, normal jugular venous pulse, no hepatojugular reflux Chest: normal shape and normal respiratory effort Lungs: clear to auscultation and percussion Cardiac Exam: - irregular rate & rhythm, no murmurs gallops or rubs - normal S1, normal S2 Pulses: 2(+) throughout Abdomen: abdomen soft, non-tender, no abnormal masses and no hepatosplenomegaly Musculoskeletal: no gait disturbance, no joint inflammation, no deforming arthritis Extremities: Cellulitis of the left lower extremity Neuro: grossly normal exam Results & Data ([facility] [place]) Vital Signs (Past 12 Hours) Vital Signs Temp Pulse Pulse Pulse Resp BP BP 06/17/21 08:03 37.1 C 137 H 18 108/71 06/17/21 02:55 37.1 C 108 H 20 112/77 06/17/21 01:24 106 H 06/16/21 23:26 37.1 C 110 H 18 108/71 Pulse Ox 06/17/21 08:03 96 06/17/21 02:55 94 06/17/21 01:24 06/16/21 23:26 95 Laboratory Results Laboratory Results - last 24 hr 06/16/21 06/16/21 06/16/21 08:16 08:16 12:03 WBC 12.69 H RBC 3.52 L Hgb 11.5 L Hct 34.7 L MCV 98.6 MCH 32.7 MCHC 33.1 RDW Std Deviation 48.4 H RDW Coeff of Dar 13.6 Plt Count 238 MPV 11.0 H Immature Gran % (Auto) 1.9 Neut % (Auto) 75.8 Lymph % (Auto) 11.0 [place] % (Auto) 10.0 Eos % (Auto) 0.7 Baso % (Auto) 0.6 Neut # (Auto) 9.61 H Lymph # (Auto) 1.40 [place] # (Auto) 1.27 H Eos # (Auto) 0.09 Baso # (Auto) 0.08 Immature Gran # (Auto) 0.24 H Sodium 136 Potassium 4.3 Chloride 103 Carbon Dioxide 26 Anion Gap 7.0 BUN 18 Creatinine 0.91 Est Cr Clr Drug Dosing 141.8 Est GFR ( Amer) 108.8 Est GFR (Non-Af Amer) 93.9 BUN/Creatinine Ratio 19.6 Glucose 180 H POC Glucose 209 H Calcium 8.8 Magnesium 1.6 L Total Creatine Kinase 82 06/16/21 06/16/21 06/17/21 16:23 20:19 07:20 WBC 11.32 H RBC 3.48 L Hgb 11.5 L Hct 34.2 L MCV 98.3 MCH 33.0 MCHC 33.6 RDW Std Deviation 47.6 H RDW Coeff of Dar 13.4 Plt Count 257 MPV 10.8 H Immature Gran % (Auto) 1.5 Neut % (Auto) 69.2 Lymph % (Auto) 14.1 [place] % (Auto) 13.5 Eos % (Auto) 0.9 Baso % (Auto) 0.8 Neut # (Auto) 7.83 H Lymph # (Auto) 1.60 [place] # (Auto) 1.53 H Eos # (Auto) 0.10 Baso # (Auto) 0.09 Immature Gran # (Auto) 0.17 H Sodium Potassium Chloride Carbon Dioxide Anion Gap BUN Creatinine Est Cr Clr Drug Dosing Est GFR ( Amer) Est GFR (Non-Af Amer) BUN/Creatinine Ratio Glucose POC Glucose 158 H 121 H Calcium Magnesium Total Creatine Kinase 06/17/21 07:20 WBC RBC Hgb Hct MCV MCH MCHC RDW Std Deviation RDW Coeff of Dar Plt Count MPV Immature Gran % (Auto) Neut % (Auto) Lymph % (Auto) [place] % (Auto) Eos % (Auto) Baso % (Auto) Neut # (Auto) Lymph # (Auto) [place] # (Auto) Eos # (Auto) Baso # (Auto) Immature Gran # (Auto) Sodium 135 L Potassium 4.3 Chloride 102 Carbon Dioxide 26 Anion Gap 7.0 BUN 18 Creatinine 0.91 Est Cr Clr Drug Dosing 141.8 Est GFR ( Amer) 108.8 Est GFR (Non-Af Amer) 93.9 BUN/Creatinine Ratio 19.5 Glucose 147 H POC Glucose Calcium 8.7 Magnesium 1.8 Total Creatine Kinase Medications Administered Current Inpatient Medications Acetaminophen (Acetaminophen 325 Mg Tab) 650 mg PO Q4H PRN PRN Reason: pain/fever Stop: 07/08/21 19:50 Allopurinol (Allopurinol 300 Mg Tab) 300 mg PO DAILY AMY Stop: 07/09/21 08:59 Last Admin: 06/17/21 07:46 Dose: 300 mg Documented by: Amlodipine Besylate (Amlodipine Besylate 5 Mg Tab) 5 mg PO HS AMY Stop: 07/08/21 20:59 Last Admin: 06/08/21 21:06 Dose: 5 mg Documented by: Apixaban (Apixaban 2.5 Mg Tab) 5 mg PO BID AMY Stop: 07/12/21 11:44 Last Admin: 06/17/21 07:46 Dose: 5 mg Documented by: Aspirin (Aspirin 81 Mg Ectab) 81 mg PO DAILY AMY Stop: 07/09/21 08:59 Last Admin: 06/17/21 07:47 Dose: 81 mg Documented by: Atorvastatin Calcium (Atorvastatin 40 Mg Tab) 40 mg PO DAILY AMY Stop: 07/09/21 08:59 Bisacodyl (Bisacodyl 10 Mg Supp) 10 mg MA DAILY PRN PRN Reason: Constipation Stop: 07/10/21 15:22 Bupropion HCl (Bupropion Sr 150 Mg Tabcr) 150 mg PO BID17 AMY Stop: 07/09/21 08:59 Last Admin: 06/17/21 07:48 Dose: 150 mg Documented by: Dextrose (Dextrose 50% 50 Ml Syringe) 25 - 50 ml IV UD PRN; Protocol PRN Reason: Hypoglycemia Protocol Stop: 07/08/21 19:50 Glucagon (Glucagon For Inj 1 Mg Vial) 1 mg SQ UD PRN; Protocol PRN Reason: Hypoglycemia Protocol Stop: 07/08/21 19:50 Glucose (Glucose 10 Tabs/Tube) 4 - 8 tabs PO UD PRN; Protocol PRN Reason: Hypoglycemia Protocol Stop: 07/08/21 19:50 Glucose (Glucose 40% Gel 15 Gm Tube) 15 - 30 gm PO UD PRN; Protocol PRN Reason: Hypoglycemia Protocol Stop: 07/08/21 19:50 Daptomycin 450 mg/ Syringe 9 mls @ 4.5 mls/min IV Q24H AYM; Protocol Stop: 06/20/21 15:59 Last Admin: 06/16/21 15:30 Dose: 4.5 mls/min Documented by: Piperacillin Sod/Tazobactam (Sod 4.5 gm/ Dextrose) 120 mls @ 30 mls/hr IV Q8H AMY; Protocol Stop: 06/22/21 16:59 Last Admin: 06/17/21 08:45 Dose: 30 mls/hr Documented by: Insulin Aspart (Insulin Aspart 100 Units/Ml 3 Ml Pen) 0 units SC ACHS AMY Stop: 07/10/21 16:29 Last Admin: 06/16/21 20:38 Dose: Not Given Documented by: Insulin Human NPH (Insulin Human Nph) 18 units SQ QDB AMY; Protocol Stop: 07/14/21 07:29 Last Admin: 06/16/21 09:13 Dose: 18 units Documented by: Insulin Human NPH (Insulin Human Nph) 0 units SQ QDD AMY; Protocol Stop: 07/14/21 16:29 Last Admin: 06/16/21 17:02 Dose: 18 units Documented by: Magnesium Hydroxide (Magnesium Hydroxide Susp 30 Ml Udc) 30 ml PO Q6H PRN PRN Reason: Constipation Stop: 07/11/21 11:07 Last Admin: 06/12/21 08:41 Dose: 30 ml Documented by: Metoprolol Tartrate (Metoprolol Tartrate 25 Mg Tab) 25 mg PO BID AMY Stop: 07/17/21 08:59 Miscellaneous (Carbohydrates For Hypoglycemia ) 15 - 30 gm PO UD PRN PRN Reason: Hypoglycemia Protocol Stop: 07/08/21 19:50 Miscellaneous Information (Pharmacy Glycemic Mgmt Consult) 1 ea N/A UD PRN PRN Reason: Consult Stop: 07/09/21 07:53 Miscellaneous Information (Daptomycin Consult Active) 1 ea N/A UD PRN PRN Reason: Consult Stop: 07/14/21 08:51 Miscellaneous Information (Piperacill/Tazobac Consult Active) 1 ea N/A UD PRN PRN Reason: Consult Stop: 07/15/21 11:40 Morphine Sulfate (Morphine Sulfate 2 Mg/Ml Carp) 1 mg IV Q4H PRN PRN Reason: Moderate Pain (4,5,6) on NRS Stop: 06/23/21 16:04 Morphine Sulfate (Morphine Sulfate 2 Mg/Ml Carp) 2 mg IV Q4H PRN PRN Reason: Severe Pain (7,8,9,10) on NRS Stop: 06/23/21 16:10 Last Admin: 06/16/21 20:58 Dose: 2 mg Documented by: Ondansetron HCl (Ondansetron Inj 2 Mg/Ml 2 Ml Vial) 4 mg IV Q6H PRN PRN Reason: Nausea Stop: 07/08/21 19:50 Last Admin: 06/09/21 08:36 Dose: 4 mg Documented by: Polyethylene Glycol (Polyethylene (Miralax) 17 Gm Pack) 17 gm PO BID AMY Stop: 07/10/21 20:59 Last Admin: 06/17/21 07:49 Dose: Not Given Documented by: Simethicone (Simethicone 80 Mg Chew) 80 mg PO Q6H PRN PRN Reason: gas Stop: 07/12/21 11:16 Last Admin: 06/12/21 18:05 Dose: 80 mg Documented by: Sodium Biphosphate/Sodium Phosphate (Sod Phosphate/Sod Biphosphate Enema 132 Ml Btl) 132 ml MA DAILY PRN PRN Reason: Constipation if MilkMg ineffec Stop: 07/11/21 11:07 Sotalol HCl (Sotalol Hcl 80 Mg Tab) 80 mg PO BID AMY Stop: 07/16/21 20:59 Last Admin: 06/17/21 07:49 Dose: 80 mg Documented by: Tramadol HCl (Tramadol Hcl 50 Mg Tablet) 50 mg PO BID PRN PRN Reason: pain Stop: 07/08/21 19:50 Last Admin: 06/17/21 07:50 Dose: 50 mg Documented by: Vitamin D (Cholecalciferol 1,000 Units 25 Mcg Tab) 2,000 units PO DAILY AMY Stop: 07/09/21 08:59 Last Admin: 06/17/21 07:48 Dose: 2,000 units Documented by:
[2021-06-17] MEDS ORDERED: METOPROLOL TARTRATE 25 MG TAB PO ONE (09:15)
[2021-06-17] MEDS ORDERED: MAGNESIUM SULFATE / D5W 1 GM/100 ML BAG IV ONE (10:00)
--- NOTE | 2021-06-17 11:27 | Electrocardiogram Report ---
Test Reason : Blood Pressure : / mmHG Vent. Rate : 119 BPM Atrial Rate : 119 BPM P-R Int : 000 ms QRS Dur : 116 ms QT Int : 336 ms P-R-T Axes : 000 -30 032 degrees QTc Int : 472 ms Atrial fibrillation with premature ventricular or aberrantly conducted complexes Left axis deviation Abnormal ECG When compared with ECG of 12-JUN-2021 07:25, No significant change Confirmed by Neto Berg ([id number]) on 06/17/2021 11:27:48 AM Referred By: REFERRED SELF Confirmed By:Neto Berg
--- NOTE | 2021-06-17 13:16 | Electrocardiogram Report ---
Test Reason : Blood Pressure : / mmHG Vent. Rate : 124 BPM Atrial Rate : 267 BPM P-R Int : 000 ms QRS Dur : 116 ms QT Int : 296 ms P-R-T Axes : 253 -36 027 degrees QTc Int : 425 ms Atrial flutter with variable A-V block with premature ventricular or aberrantly conducted complexes Left axis deviation Pulmonary disease pattern Incomplete right bundle branch block Abnormal ECG When compared with ECG of 15-JUN-2021 16:52, (unconfirmed) No significant change Confirmed by Neto Berg ([id number]) on 06/17/2021 1:16:05 PM Referred By: REFERRED SELF Confirmed By:Neto Berg
--- NOTE | 2021-06-17 15:38 | Hospitalist Progress Note ---
Date of Service June 17, 2021 Assessment & Plan (1) Cellulitis: Plan: Pt is a 55-year-old male with a history of PMR, atrial flutter, venous insufficiency, type 2 diabetes, hypertension who was admitted for the management of left lower extremity cellulitis. Left lower extremity cellulitis Pro-Ervin elevated to 14 on admission No hypotension/tachycardia/fever, although patient subjectively with fever/chills/sweats Received Dapto/Zosyn in ER and then placed on Cefepime No known history of MRSA BC NGTD Past lower extremity isolates with Pseudomonas,MSSA,Coag neg STaph,Morganella, and Achromobacter sensitive to Zosyn but Intermediate to Cefepime, also with MSSA resistant to clinda -Wound care consulted, leg with C/D/high dressing. Appreciate care. CRP 25, downtrended to 12.9, down less than 6 on 06/14,had worsening with borders of erythema expanded, leukocytosis up trended, and increased pain. Added Dapto plus Flagyl Changed to ZOsyn and Dapto (and dcd Flagyl) on 06/15--> since that time, WBC count coming down, is afebrile, erythema and edema continue to improve daily has US-guided PIV and wants to go home on IV abx, but not ready to yet due to atrial flutter as below -follow CBC, CMP in AM -continue elevation of limb (2) DAYO (acute kidney injury): Plan: Baseline creatinine approximately less than 1.4 Creatinine on admission 3.22, consistent with DAYO/ Prerenal azotemia Downtrended and normalized Remains normal (3) Afib: Plan: Patient with rapid A. fib and flutter here, history of past a flutter status post conversion Looking back at vital signs--> became tachycardic on 06/10--this is likely when it started, but not found on exam/ECG until 06/12 [id number] 2 points, moderatehigh risk Given history of prior atrial arrhythmia, and recurrence even though likely exacerbated/provoked by acute illness Rate low 100s-130s in setting of acute illness - Increased sotalol on 06/13 to 160mg in AM and 120 in evening, but then was only on 120mg qhs since then (was supposed to be on 160 in the AM)-restarted sotalol 80 mg p.o. twice daily on 06/16 and now up to 506 on 06/17 -ECG with QTc 476 on 06/15 -started on Eliquis 5 mg p.o. twice daily -Consult Cardiology as he may end up needing cardioversion again and remains with uncontrolled rates--> recommend adding on metoprolol now titrated up to 25 mg po bid -Continue sotalol 80 mg p.o. twice daily for today -follow daily ECG -replace Magnesium IV today with 1 gram for goal magnesium 2.0, potassium at goal today -continue to follow BMP, Mag and replace lytes as needed -Continued stay May need cardioversion as an outpatient Goal is to get heart rates into the 90s prior to discharge (4) History of atrial flutter: Plan: as above (5) DM type 2 (diabetes mellitus, type 2): Plan: hold Home glipizide Metformin held Patient on home NPH twice daily, will convert to basal bolus while inpatient. Glycemic consult previously placed. A1c 6.8 from prior 10.1 (6) HTN (hypertension): Plan: Reasonable blood pressure control during inpatient-blood pressures mildly low now with increase metoprolol dose -Continue to hold lisinopril and HCTZ which were initially held for DAYO -amlodipine on hold now as well-continue to hold unless BPs elevate -continue ASA -now on metoprolol (7) Odynophagia: Plan: - Worsening x5 days [employer]BR[employer] - Pt feels food gets stuck in his throat, can initiate swallow but feeling of getting stuck midway - EGD performed with results below and diet resumed. - GI consulted. EGD: Nonsevere esophagitis with no bleeding, mild inflammation/congestion of the duodenum without obstruction or stricture. -Continue PPI, H. pylori stool antigen ordered and pending (8) Constipation: Plan: now resolved KUB with moderate stool burden Improved bowel movements with milk of magnesia Plan: DVT Prohylaxis-ELiquis Dispo-continued stay on tele, not likely to be discharged unless cardioverts or rates with atrial fib/flutter improve. Leg cellulitis still fairly significant although is improving and will be going home on IV abx most likely but may be able to convert to p.o. Admission and Anticipated Discharge Date Admission Date: June 08, 2021 Subjective Patient feels tired today and frustrated that he still in the hospital. He thinks his leg redness and swelling continues to improve. He denies any other problems. He is eating and drinking and moving his bowels. Telemetry with atrial fibrillation with rates in the 80s yesterday but now in atrial flutter with rates in the 1 teens-120s. I discussed his care with research statistician Review of Systems Review of Systems: All systems reviewed & are unremarkable except as noted in HPI & below Physical Exam 2 Constitutional: WD/WN, vitals as above + morbidly obese Eyes: + anicteric sclerae Neck: trachea midline, no thyromegaly Respiratory: normal respiratory effort, lungs clear to auscultation Cardiovascular: Rate/Rhythm: + tachycardic and + irregularly irregular Heart Sounds: no murmur Extremities: + edema (2+ pitting edema LLE, 1+ RLE) Chest (Breasts): Chest: normal inspection of chest Gastrointestinal (Abdomen): normal bowel sounds, soft, nontender, no hepatosplenomegaly Musculoskeletal: Extremities: extremities normal to inspection; no cyanosis and no clubbing Skin: + erythema (left leg/foot,small blisters and serous weeping, erythema improved) Neurologic: moves all extremities and awake; no focal motor deficits Psychiatric: A+Ox3, euthymic affect Results & Data Results & [facility] ([facility]) Vital Signs (Past 12 Hours) Vital Signs Temp Pulse Pulse Resp BP BP Pulse Ox 06/17/21 15:32 110 H 06/17/21 15:14 37.4 C 117 H 18 93/58 L 96 06/17/21 11:41 36.6 C 86 17 116/77 91 06/17/21 11:12 37.1 C 99 H 18 108/74 96 06/17/21 09:24 116 H 06/17/21 08:03 37.1 C 137 H 18 108/71 96 Laboratory Results 06/17/21 06/17/21 06/17/21 Range/Units 11:23 07:20 07:20 WBC 11.32 H (4.8-10.8) K/uL RBC 3.48 L (4.7-6.1) M/uL Hgb 11.5 L (14.0-18.0) g/dL Hct 34.2 L (42-52) % MCV 98.3 (80-100) fL MCH 33.0 (25-34) pg MCHC 33.6 (32-36) g/dL RDW Std Deviation 47.6 H (36.4-46.3) fL RDW Coeff of Dar 13.4 (11.5-14.5) % Plt Count 257 (130-400) K/uL MPV 10.8 H (7.4-10.4) fL Immature Gran % (Auto) 1.5 % Neut % (Auto) 69.2 % Lymph % (Auto) 14.1 % [place] % (Auto) 13.5 % Eos % (Auto) 0.9 % Baso % (Auto) 0.8 % Neut # (Auto) 7.83 H (1.4-6.5) K/uL Lymph # (Auto) 1.60 (1.2-3.4) K/uL [place] # (Auto) 1.53 H (0.11-0.59) K/uL Eos # (Auto) 0.10 (0-0.5) K/uL Baso # (Auto) 0.09 (0-0.2) K/uL Immature Gran # (Auto) 0.17 H (0.00-0.02) K/uL Sodium 135 L (136-145) mmol/L Potassium 4.3 (3.5-5.1) mmol/L Chloride 102 (98-107) mmol/L Carbon Dioxide 26 (21-32) mmol/L Anion Gap 7.0 (3-11) BUN 18 (7-18) mg/dl Creatinine 0.91 (0.6-1.4) mg/dl Est Cr Clr Drug Dosing 141.8 ml/min Est GFR ( Amer) 108.8 ml/min Est GFR (Non-Af Amer) 93.9 ml/min BUN/Creatinine Ratio 19.5 (10-20) Glucose 147 H (70-99) mg/dl POC Glucose 212 H (70-99) mg/dl Calcium 8.7 (8.5-10.1) mg/dl Magnesium 1.8 (1.8-2.4) mg/dl 06/16/21 06/16/21 Range/Units 20:19 16:23 WBC (4.8-10.8) K/uL RBC (4.7-6.1) M/uL Hgb (14.0-18.0) g/dL Hct (42-52) % MCV (80-100) fL MCH (25-34) pg MCHC (32-36) g/dL RDW Std Deviation (36.4-46.3) fL RDW Coeff of Dar (11.5-14.5) % Plt Count (130-400) K/uL MPV (7.4-10.4) fL Immature Gran % (Auto) % Neut % (Auto) % Lymph % (Auto) % [place] % (Auto) % Eos % (Auto) % Baso % (Auto) % Neut # (Auto) (1.4-6.5) K/uL Lymph # (Auto) (1.2-3.4) K/uL [place] # (Auto) (0.11-0.59) K/uL Eos # (Auto) (0-0.5) K/uL Baso # (Auto) (0-0.2) K/uL Immature Gran # (Auto) (0.00-0.02) K/uL Sodium (136-145) mmol/L Potassium (3.5-5.1) mmol/L Chloride (98-107) mmol/L Carbon Dioxide (21-32) mmol/L Anion Gap (3-11) BUN (7-18) mg/dl Creatinine (0.6-1.4) mg/dl Est Cr Clr Drug Dosing ml/min Est GFR ( Amer) ml/min Est GFR (Non-Af Amer) ml/min BUN/Creatinine Ratio (10-20) Glucose (70-99) mg/dl POC Glucose 121 H 158 H (70-99) mg/dl Calcium (8.5-10.1) mg/dl Magnesium (1.8-2.4) mg/dl PG Care Time/CCT Total # of Minutes Spent Total Time Spent with Patient: Total time spent is greater than 50% in coordination of care (as documented) at patient's floor/unit and/or counseling patient: Coding Level of Care Code 32611 Subseq Hosp Care Lvl 3 Diagnoses Cellulitis L03.116 Laterality: left Site of cellulitis: extremity Site of cellulitis of extremity: lower extremity DAYO (acute kidney injury) N17.9 Afib I48.91 History of atrial flutter Z86.79 DM type 2 (diabetes mellitus, type 2) E11.9 HTN (hypertension) I10 Odynophagia R13.10 Constipation K59.00 (1) Cellulitis Laterality: left Site of cellulitis: extremity Site of cellulitis of extremity: lower extremity Qualified Code(s): L03.116 - Cellulitis of left lower limb
[2021-06-17] MEDS: DAPTOmycin 450 MG in SYRINGE 0 ML IV SCH (16:34)
[2021-06-17] MEDS: MoRPHine SULFATE 2 MG/ML CARP IV PRN (16:35)
[2021-06-18] MEDS: traMADol HCL 50 MG TABLET PO PRN ×2 (00:02→08:27)
[2021-06-18] MEDS: PIPERACILLIN/TAZOBACTAM 4.5 GM in DEXTROSE 5% 100 ML IV SCH ×3 (00:03→17:24)
[2021-06-18 04:37] LABS: Basophils # (auto) 0.09 K/uL (0-0.2); Basophils % (auto) 0.9 %; Eosinophils # (auto) 0.13 K/uL (0-0.5); Eosinophils % (auto) 1.3 %; Hematocrit (blood only) 33.2 % (42-52); Hemoglobin 11.3 g/dL (14.0-18.0); Immature Granulocytes # (auto) 0.08 K/uL (0.00-0.02); Immature Granulocytes % (auto) 0.8 %; Lymphocytes # (auto) 1.77 K/uL (1.2-3.4); Lymphocytes % (auto) 18.3 %; Mean Corpuscular Hemoglobin 33.2 pg (25-34); Mean Corpuscular Volume 97.6 fL (80-100); Mean Platelet Volume 11.1 fL (7.4-10.4); Monocytes % (auto) 12.4 %; Neutrophils # (auto) 6.39 K/uL (1.4-6.5); Neutrophils % (auto) 66.3 %; Platelet Count 272 K/uL (130-400); RDW Coefficient of Variation 13.3 % (11.5-14.5); RDW Standard Deviation 47.7 fL (36.4-46.3); White Blood Count 9.66 K/uL (4.8-10.8)
[2021-06-18 04:55] LABS: BUN Creatinine Ratio 18.5 (10-20); Calcium 8.3 mg/dl (8.5-10.1); Creatinine Clr Calc Pharmacy 127.7 ml/min; Est GFR (African American) 95.9 ml/min; Est GFR (Non-African American) 82.8 ml/min; Magnesium 1.9 mg/dl (1.8-2.4); Potassium 4.3 mmol/L (3.5-5.1)
[2021-06-18] MEDS: METOPROLOL TARTRATE 25 MG TAB PO SCH ×2 (08:28→21:03)
[2021-06-18] MEDS: SOTALOL HCL 80 MG TAB PO SCH ×2 (08:28→21:03)
[2021-06-18] MEDS: APIXABAN 2.5 MG TAB PO SCH ×2 (08:28→21:03)
[2021-06-18] MEDS: POLYETHYLENE (MIRALAX) 17 GM PACK PO SCH ×2 (08:29→20:39)
[2021-06-18] MEDS: buPROPion SR 150 MG TABCR PO SCH ×2 (08:29→17:24)
[2021-06-18] MEDS: allopurinoL 300 MG TAB PO SCH (08:29)
[2021-06-18] MEDS: CHOLECALCIFEROL 1,000 UNITS 25 MCG TAB PO SCH (08:29)
[2021-06-18] MEDS: ASPIRIN 81 MG ECTAB PO SCH (08:29)
[2021-06-18] MEDS: INSULIN ASPART 100 UNITS/ML 3 ML PEN SC SCH ×4 (08:30→20:39)
[2021-06-18] MEDS: INSULIN HUMAN NPH SQ SCH ×3 (08:31→17:25)
--- NOTE | 2021-06-18 08:47 | Cardiology Progress Note ---
Date of Service June 18, 2021 Assessment & Plan (1) Afib: (2) Cellulitis: Plan: The patient remains in atrial fibrillation with heart rates anywhere from the 100s to 130s. He would not tolerate an increase in his metoprolol due to his blood pressure. His QTC by using the Jones calculation from the telemetry is 434 ms. The patient has been here for 10 days and is anxious to go home. I think the best option at this point is to perform a GABRIELLA cardioversion today. He did eat breakfast this morning, so it will have to be done this afternoon. I discussed the procedure and cardioversion with the patient. I explained the risk, benefit and intent of procedure to him and he is willing to proceed. Dr. Jiménez will have to complete the procedure for me and the patient is aware. Admission and Anticipated Discharge Date Admission Date: June 08, 2021 Subjective The patient had an uneventful night. He remains in atrial fibrillation with RVR. Review of Systems Review of Systems: Review of Systems: See HPI for pertinent positives. All o ther 10 point review of systems are negative. Physical Exam Physical Exam: General: no acute distress and stated age Head: normocephalic, no masses, lesions, tenderness or abnormalities Eyes: conjunctiva are pink and non-injected, sclera clear Neck: supple, no adenopathy, no bruits, normal jugular venous pulse, no hepatojugular reflux Chest: normal shape and normal respiratory effort Lungs: clear to auscultation and percussion Cardiac Exam: - irregular rate & rhythm, no murmurs gallops or rubs - normal S1, normal S2 Pulses: 2(+) throughout Abdomen: abdomen soft, non-tender, no abnormal masses and no hepatosplenomegaly Musculoskeletal: no gait disturbance, no joint inflammation, no deforming arthritis Extremities: Cellulitis of the left lower extremity Neuro: grossly normal exam Results & Data ([facility]) Vital Signs (Past 12 Hours) Vital Signs Temp Pulse Pulse Pulse Resp BP BP 06/18/21 07:43 36.6 C 107 H 20 113/81 06/18/21 03:16 36.8 C 102 H 16 101/70 06/17/21 23:10 37.2 C 103 H 18 109/73 06/17/21 23:00 102 H Pulse Ox 06/18/21 07:43 93 06/18/21 03:16 95 06/17/21 23:10 95 06/17/21 23:00 Laboratory Results Laboratory Results - last 24 hr 06/17/21 06/17/21 06/17/21 11:23 16:03 20:35 WBC RBC Hgb Hct MCV MCH MCHC RDW Std Deviation RDW Coeff of Dar Plt Count MPV Immature Gran % (Auto) Neut % (Auto) Lymph % (Auto) Citrus % (Auto) Eos % (Auto) Baso % (Auto) Neut # (Auto) Lymph # (Auto) Citrus # (Auto) Eos # (Auto) Baso # (Auto) Immature Gran # (Auto) Sodium Potassium Chloride Carbon Dioxide Anion Gap BUN Creatinine Est Cr Clr Drug Dosing Est GFR ( Amer) Est GFR (Non-Af Amer) BUN/Creatinine Ratio Glucose POC Glucose 212 H 129 H 108 H Calcium Magnesium 06/18/21 06/18/21 06/18/21 04:11 04:11 07:31 WBC 9.66 RBC 3.40 L Hgb 11.3 L Hct 33.2 L MCV 97.6 MCH 33.2 MCHC 34.0 RDW Std Deviation 47.7 H RDW Coeff of Dar 13.3 Plt Count 272 MPV 11.1 H Immature Gran % (Auto) 0.8 Neut % (Auto) 66.3 Lymph % (Auto) 18.3 Citrus % (Auto) 12.4 Eos % (Auto) 1.3 Baso % (Auto) 0.9 Neut # (Auto) 6.39 Lymph # (Auto) 1.77 Citrus # (Auto) 1.20 H Eos # (Auto) 0.13 Baso # (Auto) 0.09 Immature Gran # (Auto) 0.08 H Sodium 135 L Potassium 4.3 Chloride 102 Carbon Dioxide 28 Anion Gap 5.0 BUN 19 H Creatinine 1.01 Est Cr Clr Drug Dosing 127.7 Est GFR ( Amer) 95.9 Est GFR (Non-Af Amer) 82.8 BUN/Creatinine Ratio 18.5 Glucose 113 H POC Glucose 138 H Calcium 8.3 L Magnesium 1.9 Medications Administered Current Inpatient Medications Acetaminophen (Acetaminophen 325 Mg Tab) 650 mg PO Q4H PRN PRN Reason: pain/fever Stop: 07/08/21 19:50 Allopurinol (Allopurinol 300 Mg Tab) 300 mg PO DAILY AMY Stop: 07/09/21 08:59 Last Admin: 06/17/21 07:46 Dose: 300 mg Documented by: Apixaban (Apixaban 2.5 Mg Tab) 5 mg PO BID [facility] Stop: 07/12/21 11:44 Last Admin: 06/17/21 20:47 Dose: 5 mg Documented by: Aspirin (Aspirin 81 Mg Ectab) 81 mg PO DAILY AMY Stop: 07/09/21 08:59 Last Admin: 06/17/21 07:47 Dose: 81 mg Documented by: Atorvastatin Calcium (Atorvastatin 40 Mg Tab) 40 mg PO DAILY AMY Stop: 07/09/21 08:59 Bisacodyl (Bisacodyl 10 Mg Supp) 10 mg GA DAILY PRN PRN Reason: Constipation Stop: 07/10/21 15:22 Bupropion HCl (Bupropion Sr 150 Mg Tabcr) 150 mg PO BID17 AMY Stop: 07/09/21 08:59 Last Admin: 06/17/21 16:34 Dose: 150 mg Documented by: Dextrose (Dextrose 50% 50 Ml Syringe) 25 - 50 ml IV UD PRN; Protocol PRN Reason: Hypoglycemia Protocol Stop: 07/08/21 19:50 Glucagon (Glucagon For Inj 1 Mg Vial) 1 mg SQ UD PRN; Protocol PRN Reason: Hypoglycemia Protocol Stop: 07/08/21 19:50 Glucose (Glucose 10 Tabs/Tube) 4 - 8 tabs PO UD PRN; Protocol PRN Reason: Hypoglycemia Protocol Stop: 07/08/21 19:50 Glucose (Glucose 40% Gel 15 Gm Tube) 15 - 30 gm PO UD PRN; Protocol PRN Reason: Hypoglycemia Protocol Stop: 07/08/21 19:50 Daptomycin 450 mg/ Syringe 9 mls @ 4.5 mls/min IV Q24H AMY; Protocol Stop: 06/20/21 15:59 Last Admin: 06/17/21 16:34 Dose: 4.5 mls/min Documented by: Piperacillin Sod/Tazobactam (Sod 4.5 gm/ Dextrose) 120 mls @ 30 mls/hr IV Q8H AMY; Protocol Stop: 06/22/21 16:59 Last Infusion: 06/18/21 04:28 Dose: Infused Documented by: Insulin Aspart (Insulin Aspart 100 Units/Ml 3 Ml Pen) 0 units SC ACHS AMY Stop: 07/10/21 16:29 Last Admin: 06/17/21 21:03 Dose: Not Given Documented by: Insulin Human NPH (Insulin Human Nph) 18 units SQ BIDM [facility]; Protocol Stop: 07/18/21 07:59 Magnesium Hydroxide (Magnesium Hydroxide Susp 30 Ml Udc) 30 ml PO Q6H PRN PRN Reason: Constipation Stop: 07/11/21 11:07 Last Admin: 06/12/21 08:41 Dose: 30 ml Documented by: Metoprolol Tartrate (Metoprolol Tartrate 25 Mg Tab) 25 mg PO BID [facility] Stop: 07/17/21 20:59 Last Admin: 06/17/21 20:48 Dose: 25 mg Documented by: Miscellaneous (Carbohydrates For Hypoglycemia ) 15 - 30 gm PO UD PRN PRN Reason: Hypoglycemia Protocol Stop: 07/08/21 19:50 Miscellaneous Information (Pharmacy Glycemic Mgmt Consult) 1 ea N/A UD PRN PRN Reason: Consult Stop: 07/09/21 07:53 Miscellaneous Information (Daptomycin Consult Active) 1 ea N/A UD PRN PRN Reason: Consult Stop: 07/14/21 08:51 Miscellaneous Information (Piperacill/Tazobac Consult Active) 1 ea N/A UD PRN PRN Reason: Consult Stop: 07/15/21 11:40 Morphine Sulfate (Morphine Sulfate 2 Mg/Ml Carp) 1 mg IV Q4H PRN PRN Reason: Moderate Pain (4,5,6) on NRS Stop: 06/23/21 16:04 Morphine Sulfate (Morphine Sulfate 2 Mg/Ml Carp) 2 mg IV Q4H PRN PRN Reason: Severe Pain (7,8,9,10) on NRS Stop: 06/23/21 16:10 Last Admin: 06/17/21 16:35 Dose: 2 mg Documented by: Ondansetron HCl (Ondansetron Inj 2 Mg/Ml 2 Ml Vial) 4 mg IV Q6H PRN PRN Reason: Nausea Stop: 07/08/21 19:50 Last Admin: 06/09/21 08:36 Dose: 4 mg Documented by: Polyethylene Glycol (Polyethylene (Miralax) 17 Gm Pack) 17 gm PO BID [facility] Stop: 07/10/21 20:59 Last Admin: 06/17/21 21:05 Dose: Not Given Documented by: Simethicone (Simethicone 80 Mg Chew) 80 mg PO Q6H PRN PRN Reason: gas Stop: 07/12/21 11:16 Last Admin: 06/12/21 18:05 Dose: 80 mg Documented by: Sodium Biphosphate/Sodium Phosphate (Sod Phosphate/Sod Biphosphate Enema 132 Ml Btl) 132 ml GA DAILY PRN PRN Reason: Constipation if MilkMg ineffec Stop: 07/11/21 11:07 Sotalol HCl (Sotalol Hcl 80 Mg Tab) 80 mg PO BID AMY Stop: 07/16/21 20:59 Last Admin: 06/17/21 20:48 Dose: 80 mg Documented by: Tramadol HCl (Tramadol Hcl 50 Mg Tablet) 50 mg PO BID PRN PRN Reason: pain Stop: 07/08/21 19:50 Last Admin: 06/18/21 00:02 Dose: 50 mg Documented by: Vitamin D (Cholecalciferol 1,000 Units 25 Mcg Tab) 2,000 units PO DAILY AMY Stop: 07/09/21 08:59 Last Admin: 06/17/21 07:48 Dose: 2,000 units Documented by:
[2021-06-18] MEDS ORDERED: MAGNESIUM SULFATE / D5W 1 GM/100 ML BAG IV ONE (09:45)
--- NOTE | 2021-06-18 11:00 | Pharmacy Report ---
Pharmacy Glycemic Sign Off Nt - Date of Service June 18, 2021 - Assessment & Plan ASSESSMENT: * Pharmacy was consulted by Dr Escalante on 06/09/21 for glycemic control and to write orders per [facility] inpatient glycemic control protocol. * Major changes made by pharmacy to antidiabetic regimen include: * Holding oral agents and using NovoLog in their place * Continuing outpatient NPH and titrating based on BSG trends. * Patient has been receiving/requiring 70-80 units of insulin per day for adequate glycemic control * BSGs ranging 108-212 mg/dl * Regimen has only required minor adjustments over the past 48hrs to achieve this level of control * Do not anticipate further changes in patient status that would quickly deteriorate glycemic control (i.e. patient to be NPO for upcoming procedure, steroids tapering, starting tube feedings, etc). * Please see recommendations for outpatient antidiabetic regimen below. PLAN FOR INPATIENT GLYCEMIC CONTROL: No changes needed to current regimen. * Continue basal insulin with NPH 18 units SQ BIDM * Continue NovoLog per scale ACHS/Q6hrs while NPO * Goal range = 110 140 mg/dl * CF = 15 mg/dl/unit * CR = 1 unit for ever 4.5 g CHO consumed * Pharmacy is signing off of glycemic consult and will no longer be making adjustments to inpatient regimen. Please feel free to re-consult if needed. Thank you. DISCHARGE RECOMMENDATIONS: * A1c 6.8 % on 06/09/21 * No changes needed to outpatient regimen at [place]
[2021-06-18] MEDS: ACETAMINOPHEN 325 MG TAB PO PRN ×2 (12:06→17:34)
--- NOTE | 2021-06-18 12:47 | Electrocardiogram Report ---
Test Reason : Blood Pressure : / mmHG Vent. Rate : 108 BPM Atrial Rate : 263 BPM P-R Int : 000 ms QRS Dur : 124 ms QT Int : 378 ms P-R-T Axes : 257 -22 050 degrees QTc Int : 506 ms Atrial flutter with variable A-V block Right bundle branch block Abnormal ECG When compared with ECG of 16-JUN-2021 09:09, (unconfirmed) No significant change Confirmed by Neto Berg ([id number]) on 06/18/2021 12:47:28 PM Referred By: REFERRED SELF Confirmed By:Neto Berg
[2021-06-18] MEDS ORDERED: MIDAZOLAM HCL 5 MG/ML 1 ML VIAL ONE (14:19)
[2021-06-18] MEDS ORDERED: fentaNYL citrate 100 MCG/2 ML VIAL ONE (14:19)
--- NOTE | 2021-06-18 14:26 | Pre Anesthesia Assessment ---
Date of Service June 18, 2021 Pre Sedation Assessment Vital Signs Temp Pulse Pulse Pulse Resp BP BP 06/18/21 11:34 37.0 C 98 H 20 113/75 06/18/21 07:43 36.6 C 107 H 20 113/81 06/18/21 07:00 111 H 06/18/21 03:16 36.8 C 102 H 16 101/70 06/17/21 23:10 37.2 C 103 H 18 109/73 06/17/21 23:00 102 H 06/17/21 19:00 37.4 C 112 H 18 104/68 06/17/21 15:32 110 H 06/17/21 15:14 37.4 C 117 H 18 93/58 L Pulse Ox 06/18/21 11:34 93 06/18/21 07:43 93 06/18/21 07:00 06/18/21 03:16 95 06/17/21 23:10 95 06/17/21 23:00 06/17/21 19:00 96 06/17/21 15:32 06/17/21 15:14 96 Pre-Sedation Airway Assessment Smoking Status: Never smoker Thyromental Distance: > or= 3.5 Finger Breadths Mallampati Class: III Notes The planned sedation has been discussed with the patient. Informed Consent was obtained. I have identified the patient, determined the appropriateness of sedation and have assessed the patient immediately prior to the procedure. All medicine(s) and interventions are by my order.
--- NOTE | 2021-06-18 15:08 | Electrocardiogram Report ---
Test Reason : Blood Pressure : / mmHG Vent. Rate : 105 BPM Atrial Rate : 127 BPM P-R Int : 000 ms QRS Dur : 126 ms QT Int : 360 ms P-R-T Axes : 000 -23 046 degrees QTc Int : 475 ms Atrial flutter with variable A-V block Non-specific intra-ventricular conduction block Abnormal ECG When compared with ECG of 17-JUN-2021 11:29, (unconfirmed) Non-specific intra-ventricular conduction block has replaced Right bundle branch block Confirmed by Neto Berg ([id number]) on 06/18/2021 3:07:43 PM Referred By: REFERRED SELF Confirmed By:Neto Berg
--- NOTE | 2021-06-18 15:23 | Post Anesthesia Assessment ---
Date of Service June 18, 2021 Post Sedation Assessment Vital Signs Temp Pulse Pulse Pulse Resp BP BP 06/18/21 15:15 70 20 100/65 06/18/21 15:00 68 20 104/73 06/18/21 14:59 65 18 103/72 06/18/21 14:56 101 H 18 88/65 L 06/18/21 14:51 116 H 18 104/66 06/18/21 14:46 99 H 18 115/89 06/18/21 11:34 37.0 C 98 H 20 113/75 06/18/21 07:43 36.6 C 107 H 20 113/81 06/18/21 07:00 111 H 06/18/21 03:16 36.8 C 102 H 16 101/70 06/17/21 23:10 37.2 C 103 H 18 109/73 06/17/21 23:00 102 H 06/17/21 19:00 37.4 C 112 H 18 104/68 06/17/21 15:32 110 H Pulse Ox 06/18/21 15:15 93 06/18/21 15:00 93 06/18/21 14:59 98 06/18/21 14:56 98 06/18/21 14:51 98 06/18/21 14:46 98 06/18/21 11:34 93 06/18/21 07:43 93 06/18/21 07:00 06/18/21 03:16 95 06/17/21 23:10 95 06/17/21 23:00 06/17/21 19:00 96 06/17/21 15:32 Recovery Score Activity: Moves 4 extremities Respiration: Deep Breath/Cough Circulation: +/-20% PreAnes Value Consciousness: Fully Awake Oxygen Saturation: > 92% On Room Air Post Anesthesia Score: 10 Discharge Sedation Level of Care: Fast Track Phase II Post Sedation Plan On clinical assessment, the patient appears to have tolerated the sedation without complications. Patient is recovering as anticipated. Patient will continue to be monitored by nursing and may be discharged when sedation discharge criteria are met per below protocol. Upon Completions of procedure up to 15 minutes continue every 5 minute vital signs and the P.A.R. score; then discharge to a Phase I or Fast Track to Phase II per the following guidelines: * Discharge Patient to appropriate Phase II area if PAR is 8 or greater or return to pre- procedure baseline. The post - procedure orders will be as directed. * If PAR score is less than 8 or not return to pre-procedure baseline then patient will follow Phase I monitoring till PAR is reached for Phase II. The Phase I may be done in procedure room or may call to secure a Phase I area. * If naloxone or flumazenil are used for reversal, hold in Phase I for ammon nued monitoring from when last reversal dose was given for a minimum of 60 minutes or longer pending the nurse and/or physician discretion of patient condition before discharge to Phase II. Please call the Sedation Physician to re-evaluate and complete post-note for discharge to Phase II area. Do NOT discharge from procedure sedation or Phase 1 until post- sedation evaluation note is complete by procedure /sedation MD Sedation Discharge Instructions to be given to the patient at discharge to home.
--- NOTE | 2021-06-18 15:27 | Operative Report ---
Post Operative Report Pre & Post Diagnosis Operation Date: 06/10/21 17:00 Pre-Op Diagnosis: PAF Post-Op Diagnosis: PAF Operation Date: 06/18/21 14:00 <No data on this case meets the specified criteria> I identified the patient and participated in the time-out.: Yes Procedure Informed consent obtained. Patient prepped GABRIELLA performed which revealed no significant left atrial appendage thrombus with good velocities through the appendage as well. Patient remaneuvered. 360 J of synchronized DC energy delivered with successful conversion to normal sinus rhythm. Patient tolerated procedure well. No complications. Recovered per protocol. Start time 1453 Stop time 1458 Adequate moderate sedation achieved with a total of 4 mg of Versed and 75 mg of fentanyl Surgeon DO Assistant Matthew Jack RN Estimated Blood Loss 0 Findings See Below No left atrial appendage thrombus Successful DC cardioversion Specimens none Drains none Description of Procedure see above I attest to the content of the Intraoperative Record and any orders documented therein. Any exceptions are noted below.
--- NOTE | 2021-06-18 17:18 | Hospitalist Progress Note ---
Date of Service June 18, 2021 Assessment & Plan (1) Cellulitis: Plan: Pt is a 55-year-old male with a history of PMR, atrial flutter, venous insufficiency, type 2 diabetes, hypertension who was admitted for the management of left lower extremity cellulitis. Left lower extremity cellulitis Pro-Ervin elevated to 14 on admission No hypotension/tachycardia/fever, although patient subjectively with fever/chills/sweats Received Dapto/Zosyn in ER and then placed on Cefepime No known history of MRSA BC NGTD Past lower extremity isolates with Pseudomonas,MSSA,Coag neg STaph,Morganella, and Achromobacter sensitive to Zosyn but Intermediate to Cefepime, also with MSSA resistant to clinda -Wound care consulted, leg with C/D/high dressing. Appreciate care. CRP 25, downtrended to 12.9, down less than 6 on 06/14,had worsening with borders of erythema expanded, leukocytosis up trended, and increased pain. Added Dapto plus Flagyl And had some slight improvement by the next day Changed to Zosyn and Dapto (and dcd Flagyl) on 06/15--> since that time, WBC co unt has normalized, remains afebrile, erythema and edema significantly improved has US-guided PIV and wants to go home on IV abx -Plan for home with IV Zosyn for at least 7 more days, with close follow-up by home nursing and PCP to see if needs extension of IV antibiotics at that time -We will also send home with p.o. doxycycline just in case to cover for MRSA as he did have some improvement on daptomycin prior to adding Zosyn -follow CBC, BMP in AM -continue elevation of limb (2) DAYO (acute kidney injury): Plan: Baseline creatinine approximately less than 1.4 Creatinine on admission 3.22, consistent with DAYO/ Prerenal azotemia Downtrended and normalized Remains normal (3) Afib: Plan: Patient with rapid A. fib and flutter here, history of past a flutter status post conversion Looking back at vital signs--> became tachycardic on 06/10--this is likely when it started, but not found on exam/ECG until 06/12 [id number] 2 points, moderatehigh risk Given history of prior atrial arrhythmia, and recurrence even though likely exacerbated/provoked by acute illness Rate low 100s-130s in setting of acute illness - Increased sotalol on 06/13 to 160mg in AM and 120 in evening, but then was only on 120mg qhs since then (was supposed to be on 160 in the AM)-restarted sotalol 80 mg p.o. twice daily on 06/16 -QTc acceptable on telemetry -started on Eliquis 5 mg p.o. twice daily -Consult Cardiology as he may end up needing cardioversion again and remains with uncontrolled rates--> recommend adding on metoprolol and was titrated up to 25 mg po bid -He continued to have rapid atrial flutter and was cardioverted after a GABRIELLA showed no left atrial appendage on 06/18 -Now back in normal sinus rhythm with good blood pressure and normal rates -Continue sotalol 80 mg p.o. twice daily and metoprolol 25 mg p.o. twice daily upon discharge -follow daily ECG -replace Magnesium IV today with 1 gram for goal magnesium 2.0, potassium at goal today -continue to follow BMP, Mag and replace lytes as needed -Continued stay but if remains in sinus, can discharge home tomorrow Follow-up with cardiology as an outpatient (4) History of atrial flutter: Plan: as above (5) DM type 2 (diabetes mellitus, type 2): Plan: hold Home glipizide Metformin held Glucose well controlled, continue NPH 18 units twice daily and NovoLog sliding scale -To resume home regimen upon discharge A1c 6.8 from prior 10.1 (6) HTN (hypertension): Plan: Reasonable blood pressure control during inpatient-blood pressures mildly low now with increase metoprolol dose when in atrial flutter Blood pressures now improved after conversion to sinus rhythm -Continue to hold lisinopril and HCTZ which were initially held for DAYO -amlodipine on hold now as well-continue to hold unless BPs elevate -continue ASA -now on metoprolol (7) Odynophagia: Plan: - Worsening x5 days SYSTEMS ADMIN - Pt feels food gets stuck in his throat, can initiate swallow but feeling of getting stuck midway - EGD performed with results below and diet resumed. - GI consulted. EGD: Nonsevere esophagitis with no bleeding, mild inflammation/congestion of the duodenum without obstruction or stricture. -Continue PPI, H. pylori stool antigen ordered and pending (8) Constipation: Plan: now resolved KUB with moderate stool burden Improved bowel movements with milk of magnesia Plan: DVT Prohylaxis-ELiquis Dispo-continued stay on tele, plan for discharge home tomorrow on IV antibiotics if remains in sinus rhythm as cellulitis is improving Admission and Anticipated Discharge Date Admission Date: June 08, 2021 Anticipated date of discharge: 06/19/21 Subjective Patient had a DC cardioversion today and is back in sinus rhythm. He feels so much better and is feeling hopeful for discharge home tomorrow. Also reports his leg is improved. Denies chest pain or shortness of breath, no abdominal pains or diarrhea. He is eating and drinking well. Telemetry prior to cardioversion showed atrial flutter with rates in the 1 teens to 130s and some PVCs Review of Systems Review of Systems: All systems reviewed & are unremarkable except as noted in HPI & below Physical Exam Constitutional: WD/WN, vitals as above + morbidly obese Eyes: + anicteric sclerae Neck: trachea midline, no thyromegaly Respiratory: normal respiratory effort, lungs clear to auscultation Cardiovascular: Rate/Rhythm: regular rate and regular rhythm Heart Sounds: no murmur Extremities: + edema (1+ pitting edema LLE, improved) Chest (Breasts): Chest: normal inspection of chest Gastrointestinal (Abdomen): normal bowel sounds, soft, nontender, no hepatosplenomegaly Musculoskeletal: Extremities: extremities normal to inspection; no cyanosis and no clubbing Skin: + erythema (left leg/foot, significantly improved from previous) Neurologic: moves all extremities and awake; no focal motor deficits Psychiatric: A+Ox3, euthymic affect Results & Data Results & Data ([facility]) Vital Signs (Past 12 Hours) Vital Signs Temp Pulse Pulse Pulse Resp BP BP 06/18/21 15:34 36.9 C 67 19 116/77 06/18/21 15:15 70 20 100/65 06/18/21 15:00 66 68 20 104/73 06/18/21 14:59 65 18 103/72 06/18/21 14:56 101 H 18 88/65 L 06/18/21 14:51 116 H 18 104/66 06/18/21 14:46 99 H 18 115/89 06/18/21 11:34 37.0 C 98 H 20 113/75 06/18/21 07:43 36.6 C 107 H 20 113/81 06/18/21 07:00 111 H Pulse Ox 06/18/21 15:34 96 06/18/21 15:15 93 06/18/21 15:00 93 06/18/21 14:59 98 06/18/21 14:56 98 06/18/21 14:51 98 06/18/21 14:46 98 06/18/21 11:34 93 06/18/21 07:43 93 06/18/21 07:00 Laboratory Results 06/18/21 06/18/21 06/18/21 Range/Units 16:29 11:45 07:31 WBC (4.8-10.8) K/uL RBC (4.7-6.1) M/uL Hgb (14.0-18.0) g/dL Hct (42-52) % MCV (80-100) fL MCH (25-34) pg MCHC (32-36) g/dL RDW Std Deviation (36.4-46.3) fL RDW Coeff of Dar (11.5-14.5) % Plt Count (130-400) K/uL MPV (7.4-10.4) fL Immature Gran % (Auto) % Neut % (Auto) % Lymph % (Auto) % [place] % (Auto) % Eos % (Auto) % Baso % (Auto) % Neut # (Auto) (1.4-6.5) K/uL Lymph # (Auto) (1.2-3.4) K/uL [place] # (Auto) (0.11-0.59) K/uL Eos # (Auto) (0-0.5) K/uL Baso # (Auto) (0-0.2) K/uL Immature Gran # (Auto) (0.00-0.02) K/uL Sodium (136-145) mmol/L Potassium (3.5-5.1) mmol/L Chloride (98-107) mmol/L Carbon Dioxide (21-32) mmol/L Anion Gap (3-11) BUN (7-18) mg/dl Creatinine (0.6-1.4) mg/dl Est Cr Clr Drug Dosing ml/min Est GFR ( Amer) ml/min Est GFR (Non-Af Amer) ml/min BUN/Creatinine Ratio (10-20) Glucose (70-99) mg/dl POC Glucose 121 H 152 H 138 H (70-99) mg/dl Calcium (8.5-10.1) mg/dl Magnesium (1.8-2.4) mg/dl 06/18/21 06/18/21 06/17/21 Range/Units 04:11 04:11 20:35 WBC 9.66 (4.8-10.8) K/uL RBC 3.40 L (4.7-6.1) M/uL Hgb 11.3 L (14.0-18.0) g/dL Hct 33.2 L (42-52) % MCV 97.6 (80-100) fL MCH 33.2 (25-34) pg MCHC 34.0 (32-36) g/dL RDW Std Deviation 47.7 H (36.4-46.3) fL RDW Coeff of Dar 13.3 (11.5-14.5) % Plt Count 272 (130-400) K/uL MPV 11.1 H (7.4-10.4) fL Immature Gran % (Auto) 0.8 % Neut % (Auto) 66.3 % Lymph % (Auto) 18.3 % [place] % (Auto) 12.4 % Eos % (Auto) 1.3 % Baso % (Auto) 0.9 % Neut # (Auto) 6.39 (1.4-6.5) K/uL Lymph # (Auto) 1.77 (1.2-3.4) K/uL [place] # (Auto) 1.20 H (0.11-0.59) K/uL Eos # (Auto) 0.13 (0-0.5) K/uL Baso # (Auto) 0.09 (0-0.2) K/uL Immature Gran # (Auto) 0.08 H (0.00-0.02) K/uL Sodium 135 L (136-145) mmol/L Potassium 4.3 (3.5-5.1) mmol/L Chloride 102 (98-107) mmol/L Carbon Dioxide 28 (21-32) mmol/L Anion Gap 5.0 (3-11) BUN 19 H (7-18) mg/dl Creatinine 1.01 (0.6-1.4) mg/dl Est Cr Clr Drug Dosing 127.7 ml/min Est GFR ( Amer) 95.9 ml/min Est GFR (Non-Af Amer) 82.8 ml/min BUN/Creatinine Ratio 18.5 (10-20) Glucose 113 H (70-99) mg/dl POC Glucose 108 H (70-99) mg/dl Calcium 8.3 L (8.5-10.1) mg/dl Magnesium 1.9 (1.8-2.4) mg/dl PG Care Time/CCT Total # of Minutes Spent Total Time Spent with Patient: Total time spent is greater than 50% in coordination of care (as documented) at patient's floor/unit and/or counseling patient: Coding Level of Care Code 56828 Subseq Hosp Care Lvl 3 Diagnoses Cellulitis L03.116 Laterality: left Site of cellulitis: extremity Site of cellulitis of extremity: lower extremity DAYO (acute kidney injury) N17.9 Afib I48.91 History of atrial flutter Z86.79 DM type 2 (diabetes mellitus, type 2) E11.9 HTN (hypertension) I10 Odynophagia R13.10 Constipation K59.00 (1) Cellulitis Laterality: left Site of cellulitis: extremity Site of cellulitis of extremity: lower extremity Qualified Code(s): L03.116 - Cellulitis of left lower limb
[2021-06-18] MEDS: DAPTOmycin 450 MG in SYRINGE 0 ML IV SCH (17:24)
[2021-06-18] MEDS: MoRPHine SULFATE 2 MG/ML CARP IV PRN (21:42)
[2021-06-19] MEDS: PIPERACILLIN/TAZOBACTAM 4.5 GM in DEXTROSE 5% 100 ML IV SCH ×2 (02:07→08:59)
[2021-06-19] MEDS ORDERED: DICLOFENAC SOD 1% GEL 100 GM TUBE EXT PRN (02:11)
[2021-06-19] MEDS: traMADol HCL 50 MG TABLET PO PRN ×2 (02:13→08:59)
[2021-06-19 06:45] LABS: Basophils # (auto) 0.14 K/uL (0-0.2); Basophils % (auto) 1.4 %; Eosinophils # (auto) 0.12 K/uL (0-0.5); Eosinophils % (auto) 1.2 %; Hematocrit (blood only) 32.7 % (42-52); Hemoglobin 10.7 g/dL (14.0-18.0); Immature Granulocytes # (auto) 0.07 K/uL (0.00-0.02); Immature Granulocytes % (auto) 0.7 %; Lymphocytes # (auto) 1.82 K/uL (1.2-3.4); Lymphocytes % (auto) 18.8 %; Mean Corpuscular Hemoglobin 32.6 pg (25-34); Mean Corpuscular Hgb Conc 32.7 g/dL (32-36); Mean Corpuscular Volume 99.7 fL (80-100); Mean Platelet Volume 10.7 fL (7.4-10.4); Monocytes # (auto) 0.89 K/uL (0.11-0.59); Monocytes % (auto) 9.2 %; Neutrophils # (auto) 6.63 K/uL (1.4-6.5); Neutrophils % (auto) 68.7 %; Platelet Count 278 K/uL (130-400); RDW Coefficient of Variation 13.2 % (11.5-14.5); RDW Standard Deviation 47.9 fL (36.4-46.3); Red Blood Count 3.28 M/uL (4.7-6.1); White Blood Count 9.67 K/uL (4.8-10.8)
[2021-06-19 07:07] LABS: BUN Creatinine Ratio 20.8 (10-20); Calcium 8.4 mg/dl (8.5-10.1); Creatinine Clr Calc Pharmacy 129.7 ml/min; Est GFR (African American) 93.7 ml/min; Est GFR (Non-African American) 80.8 ml/min; Magnesium 2.1 mg/dl (1.8-2.4); Potassium 4.5 mmol/L (3.5-5.1)
[2021-06-19] MEDS: CHOLECALCIFEROL 1,000 UNITS 25 MCG TAB PO SCH (09:00)
[2021-06-19] MEDS: METOPROLOL TARTRATE 25 MG TAB PO SCH (09:00)
[2021-06-19] MEDS: APIXABAN 2.5 MG TAB PO SCH (09:00)
[2021-06-19] MEDS: allopurinoL 300 MG TAB PO SCH (09:01)
[2021-06-19] MEDS: buPROPion SR 150 MG TABCR PO SCH (09:01)
[2021-06-19] MEDS: ASPIRIN 81 MG ECTAB PO SCH (09:01)
[2021-06-19] MEDS: POLYETHYLENE (MIRALAX) 17 GM PACK PO SCH (09:01)
[2021-06-19] MEDS: SOTALOL HCL 80 MG TAB PO SCH (09:01)
[2021-06-19] MEDS: INSULIN HUMAN NPH SQ SCH (09:02)
[2021-06-19] MEDS: INSULIN ASPART 100 UNITS/ML 3 ML PEN SC SCH ×2 (09:03→12:11)
--- NOTE | 2021-06-19 09:47 | Electrocardiogram Report ---
Test Reason : Blood Pressure : / mmHG Vent. Rate : 066 BPM Atrial Rate : 066 BPM P-R Int : 170 ms QRS Dur : 126 ms QT Int : 430 ms P-R-T Axes : 047 -23 046 degrees QTc Int : 450 ms Normal sinus rhythm Right bundle branch block Minimal voltage criteria for LVH, may be normal variant ( R in aVL ) Abnormal ECG When compared with ECG of 18-JUN-2021 04:53, Sinus rhythm has replaced Atrial flutter Vent. rate has decreased BY 39 BPM Confirmed by Trace Rebolledo ([id number]) on 06/19/2021 9:47:20 AM Referred By: REFERRED SELF Confirmed By:Trace Rebolledo
--- NOTE | 2021-06-19 10:01 | Cardiology Progress Note ---
Date of Service June 19, 2021 Assessment & Plan (1) Afib: (2) Cellulitis: Plan: The patient underwent a successful cardioversion yesterday. He is maintaining sinus rhythm. I would continue his current medications including the metoprolol and sotalol at its current dosage. He can be discharged to outpatient follow-up per the hospitalist service. Our clinic will call him with a follow-up appointment. Admission and Anticipated Discharge Date Admission Date: June 08, 2021 Subjective The patient had an uneventful night. He has maintained sinus rhythm since cardioversion yesterday. Review of Systems Review of Systems: Review of Systems: See HPI for pertinent positives. All other 10 point review of systems are negative. Physical Exam Physical Exam: General: no acute distress and stated age Head: normocephalic, no masses, lesions, tenderness or abnormalities Eyes: conjunctiva are pink and non-injected, sclera clear Neck: supple, no adenopathy, no bruits, normal jugular venous pulse, no hepatojugular reflux Chest: normal shape and normal respiratory effort Lungs: clear to auscultation and percussion Cardiac Exam: - regular rate & rhythm, no murmurs gallops or rubs - normal S1, normal S2 Pulses: 2(+) throughout Abdomen: abdomen soft, non-tender, no abnormal masses and no hepatosplenomegaly Musculoskeletal: no gait disturbance, no joint inflammation, no deforming arthritis Extremities: Cellulitis of the left lower extremity Neuro: grossly normal exam Results & Data ([facility]) Vital Signs (Past 12 Hours) Vital Signs Temp Pulse Pulse Resp BP BP Pulse Ox 06/19/21 07:43 36.8 C 68 16 113/71 92 06/19/21 07:23 36.5 C 72 18 124/74 93 06/19/21 07:22 37.1 C 67 20 122/75 94 06/19/21 03:25 36.8 C 67 19 108/67 95 06/18/21 23:12 37 C 67 18 106/69 98 06/18/21 23:00 67 Laboratory Results Laboratory Results - last 24 hr 06/18/21 06/18/21 06/18/21 11:45 16:29 20:26 WBC RBC Hgb Hct MCV MCH MCHC RDW Std Deviation RDW Coeff of Dar Plt Count MPV Immature Gran % (Auto) Neut % (Auto) Lymph % (Auto) [place] % (Auto) Eos % (Auto) Baso % (Auto) Neut # (Auto) Lymph # (Auto) [place] # (Auto) Eos # (Auto) Baso # (Auto) Immature Gran # (Auto) Sodium Potassium Chloride Carbon Dioxide Anion Gap BUN Creatinine Est Cr Clr Drug Dosing Est GFR ( Amer) Est GFR (Non-Af Amer) BUN/Creatinine Ratio Glucose POC Glucose 152 H 121 H 138 H Calcium Magnesium 06/19/21 06/19/21 06/19/21 06:05 06:05 07:48 WBC 9.67 RBC 3.28 L Hgb 10.7 L Hct 32.7 L MCV 99.7 MCH 32.6 MCHC 32.7 RDW Std Deviation 47.9 H RDW Coeff of Dar 13.2 Plt Count 278 MPV 10.7 H Immature Gran % (Auto) 0.7 Neut % (Auto) 68.7 Lymph % (Auto) 18.8 Bib[place] % (Auto) 9.2 Eos % (Auto) 1.2 Baso % (Auto) 1.4 Neut # (Auto) 6.63 H Lymph # (Auto) 1.82 Bibb # (Auto) 0.89 H Eos # (Auto) 0.12 Baso # (Auto) 0.14 Immature Gran # (Auto) 0.07 H Sodium 134 L Potassium 4.5 Chloride 102 Carbon Dioxide 25 Anion Gap 7.0 BUN 21 H Creatinine 1.03 Est Cr Clr Drug Dosing 129.7 Est GFR ( Amer) 93.7 Est GFR (Non-Af Amer) 80.8 BUN/Creatinine Ratio 20.8 H Glucose 101 H POC Glucose 104 H Calcium 8.4 L Magnesium 2.1 Medications Administered Current Inpatient Medications Acetaminophen (Acetaminophen 325 Mg Tab) 650 mg PO Q4H PRN PRN Reason: pain/fever Stop: 07/08/21 19:50 Last Admin: 06/18/21 17:34 Dose: 650 mg Documented by: Allopurinol (Allopurinol 300 Mg Tab) 300 mg PO DAILY [facility] Stop: 07/09/21 08:59 Last Admin: 06/19/21 09:01 Dose: 300 mg Documented by: Apixaban (Apixaban 2.5 Mg Tab) 5 mg PO BID [facility] [place] Stop: 07/12/21 11:44 Last Admin: 06/19/21 09:00 Dose: 5 mg Documented by: Aspirin (Aspirin 81 Mg Ectab) 81 mg PO DAILY [facility] [place] Stop: 07/09/21 08:59 Last Admin: 06/19/21 09:01 Dose: 81 mg Documented by: Atorvastatin Calcium (Atorvastatin 40 Mg Tab) 40 mg PO DAILY [facility] [place] Stop: 07/09/21 08:59 Bisacodyl (Bisacodyl 10 Mg Supp) 10 mg AL DAILY PRN PRN Reason: Constipation Stop: 07/10/21 15:22 Bupropion HCl (Bupropion Sr 150 Mg Tabcr) 150 mg PO BID17 [facility] [place] Stop: 07/09/21 08:59 Last Admin: 06/19/21 09:01 Dose: 150 mg Documented by: Dextrose (Dextrose 50% 50 Ml Syringe) 25 - 50 ml IV UD PRN; Protocol PRN Reason: Hypoglycemia Protocol Stop: 07/08/21 19:50 Diclofenac Sodium (Diclofenac Sod 1% Gel 100 Gm Tube) 2 gm EXT Q6H PRN PRN Reason: knee pain Stop: 07/19/21 02:14 Glucagon (Glucagon For Inj 1 Mg Vial) 1 mg SQ UD PRN; Protocol PRN Reason: Hypoglycemia Protocol Stop: 07/08/21 19:50 Glucose (Glucose 10 Tabs/Tube) 4 - 8 tabs PO UD PRN; Protocol PRN Reason: Hypoglycemia Protocol Stop: 07/08/21 19:50 Glucose (Glucose 40% Gel 15 Gm Tube) 15 - 30 gm PO UD PRN; Protocol PRN Reason: Hypoglycemia Protocol Stop: 07/08/21 19:50 Daptomycin 450 mg/ Syringe 9 mls @ 4.5 mls/min IV Q24H [facility] [place]; Protocol Stop: 06/20/21 15:59 Last Admin: 06/18/21 17:24 Dose: 4.5 mls/min Documented by: Piperacillin Sod/Tazobactam (Sod 4.5 gm/ Dextrose) 120 mls @ 30 mls/hr IV Q8H [facility] [place]; Protocol Stop: 06/22/21 16:59 Last Admin: 06/19/21 08:59 Dose: 30 mls/hr Documented by: Insulin Aspart (Insulin Aspart 100 Units/Ml 3 Ml Pen) 0 units SC ACHS [facility] [place] Stop: 07/10/21 16:29 Last Admin: 06/19/21 09:03 Dose: 10 units Documented by: Insulin Human NPH (Insulin Human Nph) 18 units SQ BIDM [facility] [place]; Protocol Stop: 07/18/21 07:59 Last Admin: 06/19/21 09:02 Dose: 18 units Documented by: Magnesium Hydroxide (Magnesium Hydroxide Susp 30 Ml Udc) 30 ml PO Q6H PRN PRN Reason: Constipation Stop: 07/11/21 11:07 Last Admin: 06/12/21 08:41 Dose: 30 ml Documented by: Metoprolol Tartrate (Metoprolol Tartrate 25 Mg Tab) 25 mg PO BID [facility] [place] Stop: 07/17/21 20:59 Last Admin: 06/19/21 09:00 Dose: 25 mg Documented by: Miscellaneous (Carbohydrates For Hypoglycemia ) 15 - 30 gm PO UD PRN PRN Reason: Hypoglycemia Protocol Stop: 07/08/21 19:50 Miscellaneous Information (Daptomycin Consult Active) 1 ea N/A UD PRN PRN Reason: Consult Stop: 07/14/21 08:51 Miscellaneous Information (Piperacill/Tazobac Consult Active) 1 ea N/A UD PRN PRN Reason: Consult Stop: 07/15/21 11:40 Morphine Sulfate (Morphine Sulfate 2 Mg/Ml Carp) 1 mg IV Q4H PRN PRN Reason: Moderate Pain (4,5,6) on NRS Stop: 06/23/21 16:04 Morphine Sulfate (Morphine Sulfate 2 Mg/Ml Carp) 2 mg IV Q4H PRN PRN Reason: Severe Pain (7,8,9,10) on NRS Stop: 06/23/21 16:10 Last Admin: 06/18/21 21:42 Dose: 2 mg Documented by: Ondansetron HCl (Ondansetron Inj 2 Mg/Ml 2 Ml Vial) 4 mg IV Q6H PRN PRN Reason: Nausea Stop: 07/08/21 19:50 Last Admin: 06/09/21 08:36 Dose: 4 mg Documented by: Polyethylene Glycol (Polyethylene (Miralax) 17 Gm Pack) 17 gm PO BID [facility] Stop: 07/10/21 20:59 Last Admin: 06/19/21 09:01 Dose: Not Given Documented by: Simethicone (Simethicone 80 Mg Chew) 80 mg PO Q6H PRN PRN Reason: gas Stop: 07/12/21 11:16 Last Admin: 06/12/21 18:05 Dose: 80 mg Documented by: Sodium Biphosphate/Sodium Phosphate (Sod Phosphate/Sod Biphosphate Enema 132 Ml Btl) 132 ml AL DAILY PRN PRN Reason: Constipation if MilkMg ineffec Stop: 07/11/21 11:07 Sotalol HCl (Sotalol Hcl 80 Mg Tab) 80 mg PO BID [facility] [place] Stop: 07/16/21 20:59 Last Admin: 06/19/21 09:01 Dose: 80 mg Documented by: Tramadol HCl (Tramadol Hcl 50 Mg Tablet) 50 mg PO BID PRN PRN Reason: pain Stop: 07/08/21 19:50 Last Admin: 06/19/21 08:59 Dose: 50 mg Documented by: Vitamin D (Cholecalciferol 1,000 Units 25 Mcg Tab) 2,000 units PO DAILY [facility] [place] Stop: 07/09/21 08:59 Last Admin: 06/19/21 09:00 Dose: 2,000 units Documented by:
--- NOTE | 2021-06-19 11:04 | Electrocardiogram Report ---
Test Reason : Blood Pressure : / mmHG Vent. Rate : 069 BPM Atrial Rate : 069 BPM P-R Int : 182 ms QRS Dur : 130 ms QT Int : 448 ms P-R-T Axes : 066 -02 050 degrees QTc Int : 480 ms Normal sinus rhythm Right bundle branch block Abnormal ECG When compared with ECG of 18-JUN-2021 14:58, No significant change was found Confirmed by Trace Rebolledo ([id number] on 06/19/2021 11:03:39 AM Referred By: REFERRED SELF Confirmed By:Trace Rebolledo
--- NOTE | 2021-06-19 11:24 | Discharge Summary ---
Date of Service June 19, 2021 Admission HPI Per Admitting Provider This is a 55-year-old gentleman with past medical history of chronic venous stasis, type 2 diabetes mellitus, morbid obesity presents complaining of left lower extremity edema. Patient is pleasant and a decent historian. Patient tells me he has had chronic venous stasis for a very long time and has swelling in his legs. However, starting 06/05, he had some pink erythema around his left groin. He noted a lesion there that popped like a pustule and then scabbed over fairly readily. However, the erythema spread down into his leg. His left leg became very edematous and erythematous below the knee. There is a significant amount of serous weeping but no open lesions. The entire area is extremely tender. Patient did note to me that he was feeling lethargic and some chills. He also noted significant nausea and decreased appetite, was having some vomiting earlier but is now holding down food. Does admit that his oral fluid intake has been decreased as well. Principal Diagnosis Left lower extremity cellulitis, rapid atrial fibrillation and flutter, acute kidney injury, esophagitis Discharge Exam Constitutional WD/WN, vitals as above + morbidly obese Eyes + anicteric sclerae Neck trachea midline, no thyromegaly Respiratory normal respiratory effort, lungs clear to auscultation Cardiovascular Rate/Rhythm: regular rate and regular rhythm Heart Sounds: no murmur Extremities: + edema (1+ pitting edema LLE, improved) Chest (Breasts) Chest: normal inspection of chest Gastrointestinal (Abdomen) normal bowel sounds, soft, nontender, no hepatosplenomegaly Musculoskeletal Extremities: extremities normal to inspection; no cyanosis and no clubbing Skin + erythema (left leg/foot, significantly improved from previous) Neurologic moves all extremities and awake; no focal motor deficits Psychiatric A+Ox3, euthymic affect Discharge Data Allergies Allergy/AdvReac Type Severity Reaction Status Date / Time Sulfa (Sulfonamide Allergy Intermediate itching Verified 06/10/21 11:32 Antibiotics) cephalexin [From Keflex] Allergy Mild Rash Verified 06/10/21 11:32 Consultations 06/08/21 13:23 ED Decision to Admit Stat 06/10/21 09:14 Consult Gastroenterology Routine 06/15/21 14:49 Consult Cardiology Routine Procedures Performed Operation Date: 06/10/21 17:00 Actual Procedures p Esophagogastroduodenoscopy - Matilda Seht DO Operation Date: 06/18/21 14:00 Actual Procedures p Echo Transesophageal - DO reynold Jack Doppler Echo Limited/Follow Up - Rocky Jiménez DO s Echo Color Flow - Rocky Jiménez DO Ordered Studies 06/08/21 11:12 US venous doppler LE LT Stat 06/10/21 CT foot LT wo con Routine 06/10/21 15:24 CT tib/fib LT wo con Urgent Hospital Course (1) Cellulitis: Pt is a 55-year-old male with a history of PMR, atrial flutter, venous insufficiency, type 2 diabetes, hypertension who was admitted for the management of left lower extremity cellulitis. Left lower extremity cellulitis Pro-Ervin elevated to 14 on admission No hypotension/tachycardia/fever, although patient subjectively with fever/chills/sweats Received Dapto/Zosyn in ER and then placed on Cefepime No known history of MRSA BC NGTD Past lower extremity isolates with Pseudomonas,MSSA,Coag neg STaph,Morganella, and Achromobacter sensitive to Zosyn but Intermediate to Cefepime, also with MSSA resistant to clinda -Wound care consulted, leg with C/D/high dressing. Appreciate care. CRP 25, downtrended to 12.9, down less than 6 on 06/14,had worsening with borders of erythema expanded, leukocytosis up tr ended, and increased pain. Added Dapto plus Flagyl And had some slight improvement by the next day Changed to Zosyn and Dapto (and dcd Flagyl) on 06/15--> since that time, WBC count has normalized, remains afebrile, erythema and edema significantly improved has US-guided PIV and wants to go home on IV abx -Plan for home with IV Zosyn for at least 7 more days, with close follow-up by home nursing and PCP to see if needs extension of IV antibiotics at that time -We will also send home with p.o. doxycycline just in case to cover for MRSA as he did have some improvement on daptomycin prior to adding Zosyn -follow CBC, BMP, and CRP in 2 to 3 days and then once weekly after that if remains on antibiotics -continue elevation of limb (2) DAYO (acute kidney injury): Baseline creatinine approximately less than 1.4 Creatinine on admission 3.22, consistent with DAYO/ Prerenal azotemia Downtrended and normalized Remains normal -Okay to restart lisinopril at lower dose of 5 mg daily Okay to restart HCTZ (3) Afib: Patient with rapid A. fib and flutter here, history of past a flutter status post conversion Looking back at vital signs--> became tachycardic on 06/10--this is likely when it started, but not found on exam/ECG until 06/12 [id number] 2 points, moderatehigh risk Given history of prior atrial arrhythmia, and recurrence even though likely exacerbated/provoked by acute illness Rate low 100s-130s in setting of acute illness - Increased sotalol on 06/13 to 160mg in AM and 120 in evening, but then was only on 120mg qhs since then (was supposed to be on 160 in the AM)-restarted sotalol 80 mg p.o. twice daily on 06/16 -QTc acceptable on telemetry -started on Eliquis 5 mg p.o. twice daily -Consult Cardiology as he remained with uncontrolled rates--> recommend adding on metoprolol and was titrated up to 25 mg po bid -He continued to have rapid atrial flutter and was cardioverted after a GABRIELLA showed no left atrial appendage on 06/18 -Now back in normal sinus rhythm and remains there for over 24 hours with good blood pressure and normal rates -Continue sotalol 80 mg p.o. twice daily and metoprolol 25 mg p.o. twice daily upon discharge Follow-up with cardiology as an outpatient (4) History of atrial flutter: as above (5) DM type 2 (diabetes mellitus, type 2): Upon discharge restart home glipizide Metformin and home dosing of NPH A1c now much improved at 6.8 from prior 10.1 (6) HTN (hypertension): Reasonable blood pressure control during inpatient-blood pressures mildly low now with increase metoprolol dose when in atrial flutter Blood pressures now improved after conversion to sinus rhythm -Upon discharge, reduced home dose of lisinopril to 5 mg daily down from 40, and can restart HCTZ which were initially held for DAYO -amlodipine discontinued -continue ASA -now on metoprolol 25 mg p.o. 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 - GI consulted. EGD: Nonsevere esophagitis with no bleeding, mild inflammation /congestion of the duodenum without obstruction or stricture. -Continue PPI, H. pylori stool antigen ordered and pending at the time of discharge (8) Constipation: now resolved KUB with moderate stool burden Improved bowel movements with milk of magnesia DVT Prophylaxis-ELiquis Dispo-stable for discharge home with home health I certify that this patient is under my care and that I, or a physicians medical assistant working with me, had a face to-face encounter that meets the home health [id number] encounter requirements with this patient. The encounter with the patient was in whole, or in part, for the following medical condition, which is the primary reason for home health care (list medical condition): cellulitis I certify that, based on my findings, the following services are medically necessary home health services: My clinical findings support the need for the above services because: Skilled Nsg Assessment Skilled Nsg Assessment Surgical Incision / Wound Further, I certify that my clinical findings support that this patient is homebound (i.e. absences from home require considerable and taxing effort and are for medical reasons or druze services or infrequently or of short duration when for other reasons) because: Assistance of 1 Person for Ambulation/Activities Certification for Home Health Services: Based on the above findings, I certify that this patient is confined to the home and needs intermittent care home care, physical therapy and/or speech therapy or continues to need occupational therapy. The patient is under my care, and I have initiated the establishment of the plan of care. This patient will be followed by a physician who will periodically review the plan of care. Total Time Total Time Spent Total Time Spent (In Minutes): 40 minutes Discharge Plan Discharge Items Patient Disposition: Home - Home Health Services Reason For Visit: CELLULLITIS Discharge Diagnosis: Left lower extremity cellulitis, rapid atrial fibrillation flutter, esophagitis, acute kidney injury Activity: As commented below Lifting: Gradually increase as tolerated Bathing: No limitations Exercise/Sports: Gradually increase as tolerated Exercise Comment: Keep your left leg elevated when sitting or lying down Non-emergency contact: Primary Care Provider and Rail Car Welder Call non-emergency contact if: you have any medication questions, your symptoms worsen, your pain is not controlled and you have a fever Follow-up/Referrals: Rd Andrea CRNP [Primary Care Provider] - (Follow-up within 1 week.) Cuate Anand DO [Rail Car Welder] - (Follow-up within 2 weeks) Diet: Carb Consistent or DM2 and Heart Healthy Addtl Attending Provider Instructions: Continue local wound care with dressing changes daily or as needed for drainage. Continue the IV Zosyn for at least 1 week. Your primary care physician in the home visiting nurse can determine if you may need an extension on the course of IV antibiotics. Please also continue the oral antibiotic called doxycycline 100 mg by mouth twice daily for 1 more week. Please have CBC, CMP, and CRP drawn in 3 to 5 days with home visiting nurse. For your rapid atrial fibrillation and flutter, you had a cardioversion to shock your heart back into a regular rhythm. You were started on a new medication, metoprolol 25 mg by mouth twice daily and your sotalol dose was reduced down to 80 mg by mouth twice daily. You are also started on a blood thinner called Eliquis. If you have any issues with bleeding as we discussed, please return to the hospital right away. Your lisinopril dose was decreased down to 5 mg daily and your amlodipine was stopped due to lower blood pressures. Please follow-up with the sugar mill worker within 2 weeks. Follow-up with your primary care physician within 1 week. Pending Studies at Discharge: Yes (Helicobacter pylori stool antigen) Stand-Alone Forms: My [facility] [employer], Smoking Cessation Medications and DC Order Prescriptions: New Zosyn in dextrose (iso-osm) 4.5 gram/100 mL piggyback 4.5 g IV Q8H Qty: 21 RF: 0 apixaban 5 mg tablet 5 mg PO BID Qty: 60 RF: 0 sotalol 80 mg Tablet 80 mg PO BID Qty: 60 RF: 0 lisinopril 5 mg tablet 5 mg PO DAILY Qty: 30 RF: 0 metoprolol tartrate 25 mg Tablet 25 mg PO BID Qty: 60 RF: 0 doxycycline hyclate 100 mg tablet 100 mg PO BID 7 Days Qty: 14 RF: 0 Continued glipizide 10 mg tablet extended release 24hr 20 mg PO DAILY 90 Days Qty: 180 RF: 3 Hold Instructions: continue insulin Novolin N Flexpen 100 unit/mL (3 mL) insulin pen 10 unit subcut BID Qty: 15 RF: 2 hydrochlorothiazide 12.5 mg tablet 12.5 mg PO DAILY Qty: 90 RF: 3 Hold Instructions: Elevated Creat bupropion HCl 150 mg tablet sustained-release 12 hr 150 mg PO BID Qty: 60 RF: 2 metformin 1,000 mg tablet 1,000 mg PO BID Qty: 180 RF: 3 Hold Instructions: Elevated Creat atorvastatin 40 mg tablet 40 mg PO DAILY Qty: 90 RF: 3 allopurinol 300 mg tablet 300 mg PO DAILY Qty: 90 RF: 3 Hold Instructions: Elevated Creat aspirin [Aspirin Low Dose] 81 mg tablet,delayed release (DR/EC) 81 mg PO DAILY Qty: 30 RF: 2 cholecalciferol (vitamin D3) 50 mcg (2,000 unit) capsule 50 mcg PO DAILY RF: 0 tramadol 50 mg tablet 50 mg PO BID PRN (Reason: pain) Qty: 30 RF: 0 Discontinued sotalol 120 mg tablet 120 mg PO BID Qty: 180 RF: 3 amlodipine 5 mg tablet 5 mg PO HS Qty: 90 RF: 1 lisinopril 40 mg tablet 40 mg PO DAILY Qty: 90 RF: 3 Discharge Orders: Discharge Order (Routine); Ordered 06/19/21 Ordered By: Jessika Clement/Other Patient Handouts: A1C, Managing Type 2 Diabetes Admission Data Admit Date/Time: 06/08/21 15:08 Attending Provider: Jessika Nagel Admit Provider: Sascha Larios Primary Care Provider: Rd Andrea Other Providers: Sascha Larios ; Matilda Seth ; Justin Main Coding Level of Care Code D/C DAY MANAGEMENT >30 MINS Diagnoses Cellulitis L03.116 Laterality: left Site of cellulitis: extremity Site of cellulitis of extremity: lower extremity DAYO (acute kidney injury) N17.9 Afib I48.91 History of atrial flutter Z86.79 DM type 2 (diabetes mellitus, type 2) E11.9 HTN (hypertension) I10 Odynophagia R13.10 Constipation K59.00
== END 2021-06-19 13:58 | disposition home health service (06) | DRG 603 ==
LOC: ED 09:26 → EDINP 15:08 → SUATTDRO 15:08 → EDINP 19:41 → 3N 06-09 15:37 → 2W 06-16 10:31

== ENCOUNTER 2024-10-09 17:08 | Inpatient (IN) ==
[2024-10-09 18:23] LABS: Basophils # (auto) 0.06 K/uL (0.00-0.20); Basophils % (auto) 0.6 %; Eosinophils # (auto) 0.01 K/uL (0.00-0.50); Eosinophils % (auto) 0.1 %; Hematocrit (blood only) 38.3 % (42.0-52.0); Hemoglobin 13.4 g/dl (14.0-18.0); Immature Granulocytes # (auto) 0.06 K/uL (0.01-0.20); Immature Granulocytes % (auto) 0.6 %; Lymphocytes # (auto) 0.73 K/uL (1.20-3.40); Lymphocytes % (auto) 6.8 %; Mean Corpuscular Hemoglobin 32.7 pg (25.0-34.0); Mean Corpuscular Volume 93.4 fL (80.0-100.0); Mean Platelet Volume 11.6 fL (9.4-12.4); Monocytes # (auto) 0.67 K/uL (0.11-0.59); Monocytes % (auto) 6.3 %; Neutrophils # (auto) 9.18 K/uL (1.40-6.50); Neutrophils % (auto) 85.6 %; Platelet Count 137 K/uL (130-400); RDW Coefficient of Variation 12.7 % (11.5-14.5); RDW Standard Deviation 43.2 fL (36.4-46.3); White Blood Count 10.71 K/ul (4.8-10.8)
[2024-10-09 18:36] LABS: Albumin Globulin Ratio 1.7 (0.9-2); Albumin Level 4.7 gm/dl (3.4-5.0); BUN Creatinine Ratio 17.1 (10-20); Bilirubin,Total 0.9 mg/dl (0.2-1.0); Calcium 9.1 mg/dl (8.6-10.3); Creatinine Clr Calc Pharmacy 112.5 ml/min; Globulin 2.7 gm/dl (2.5-4.0); Potassium 4.4 mmol/L (3.5-5.1); Total Protein 7.4 gm/dl (6.0-8.3)
[2024-10-09 18:43] LABS: Troponin I High Sensitivity 7.8 pg/ml (0-20)
[2024-10-09 18:47] LABS: INR 1.1 (0.9-1.1); Partial Thromboplastin Ratio 0.9; Partial Thromboplastin Time 24 Seconds (21-31); Prothrombin Time 11.6 Seconds (9.0-12.0)
[2024-10-09 19:09] LABS: Adenovirus PCR Not Detected (NotDetected); Bordetella parapertussis PCR Not Detected (NotDetected); Bordetella pertussis PCR Not Detected (NotDetected); Chlamydia pneumoniae PCR Not Detected (NotDetected); Coronavirus 229E PCR Not Detected (NotDetected); Coronavirus CoV-2 (COVID19)PCR Not Detected (NotDetected); Coronavirus HKU1 PCR Not Detected (NotDetected); Coronavirus NL63 PCR Not Detected (NotDetected); Coronavirus OC43PCR Not Detected (NotDetected); Human Metapneumovirus PCR Not Detected (NotDetected); Influenza A PCR Not Detected (NotDetected); Influenza B PCR Not Detected (NotDetected); Mycoplasma pneumoniae PCR Not Detected (NotDetected); Parainfluenza Virus 1 PCR Not Detected (NotDetected); Parainfluenza Virus 2 PCR Not Detected (NotDetected); Parainfluenza Virus 3 PCR Not Detected (NotDetected); Parainfluenza Virus 4 PCR Not Detected (NotDetected); Respiratory Syncytial VirusPCR Not Detected (NotDetected); Rhinovirus/Enterovirus PCR Not Detected (NotDetected)
--- NOTE | 2024-10-09 19:44 | XRay Report ---
Exam: 1 view chest Reason for exam: Chest pain COMPARISON: 06/08/2021 FINDINGS: Mild cardiomegaly is stable. Lungs show no acute infiltrate, collapse or edema and no pleural effusion is seen. IMPRESSION: Stable cardiomegaly. Otherwise negative for acute disease at this time. Electronically signed by Rocky Gross 10-09-2024 7:44 PM
[2024-10-09] MEDS: OPTIRAY 320 125ml IV ONE (21:37)
[2024-10-09 23:57] LABS: Appearance Urine Clear (Clear); Bilirubin Urine Negative (Negative); Blood Urine Negative (Negative); Color Urine Yellow; Glucose Urine UA Negative (Negative); Ketones Urine 1+ (Negative); Leukocyte Esterase Urine Negative (Negative); Nitrite Urine Negative (Negative); Protein Urine Negative (Negative); Specific Gravity Urine 1.014 (1.000-1.030); Urobilinogen Urine Negative (Negative)
--- NOTE | 2024-10-09 23:58 | CT Scan Report ---
Exam(s): CTA HEAD With Contrast IV Amt: 119 ml optiray 320 EXAM: CT Angiography Head With Intravenous Contrast CLINICAL HISTORY: Reason for exam: weak right side. TECHNIQUE: Axial computed tomographic angiography images of the head with intravenous contrast. CTDI is 39.03 mGy and DLP is 780.51 mGy-cm. Automated exposure control was utilized for the study. A dose lowering technique was utilized adhering to the principles of ALARA. MIP reconstructed images were created and reviewed. CONTRAST: Patient received 119 ml optiray 320 of IV contrast COMPARISON: No relevant prior studies available. FINDINGS: The dural venous sinuses are patent. Right internal carotid artery: No acute findings. Intracranial segment is patent with no significant stenosis. No aneurysm. Right anterior cerebral artery: Unremarkable. No occlusion or significant stenosis. No aneurysm. Right middle cerebral artery: Unremarkable. No occlusion or significant stenosis. No aneurysm. Right posterior cerebral artery: Unremarkable. No occlusion or significant stenosis. No aneurysm. Right vertebral artery: Unremarkable as visualized. Left internal carotid artery: No acute findings. Intracranial segment is patent with no significant stenosis. No aneurysm. Left anterior cerebral artery: Unremarkable. No occlusion or significant stenosis. No aneurysm. Left middle cerebral artery: Unremarkable. No occlusion or significant stenosis. No aneurysm. Left posterior cerebral artery: Unremarkable. No occlusion or significant stenosis. No aneurysm. Left vertebral artery: Unremarkable as visualized. Basilar artery: Unremarkable. No occlusion or significant stenosis. No aneurysm. IMPRESSION: Negative CT angiogram of the head. Electronically signed by: Roxi Méndez MD 10/09/24 23:57 PM
--- NOTE | 2024-10-10 00:04 | CT Scan Report ---
Exam(s): CT HEAD Without Contrast EXAM: CT Head Without Intravenous Contrast CLINICAL HISTORY: Reason for exam: weak. TECHNIQUE: Axial computed tomography images of the head/brain without intravenous contrast. CTDI is 39.03 mGy and DLP is 780.51 mGy-cm. Automated exposure control was utilized for the study. A dose lowering technique was utilized adhering to the principles of ALARA. COMPARISON: No relevant prior studies available. FINDINGS: This study is limited secondary to motion artifact. Brain: Unremarkable. No hemorrhage. No significant white matter disease. No edema. Ventricles: Unremarkable. No ventriculomegaly. Bones/joints: Unremarkable. No acute fracture. Soft tissues: Unremarkable. Sinuses: Unremarkable as visualized. No acute sinusitis. Mastoid air cells: Unremarkable as visualized. No mastoid effusion. IMPRESSION: No evidence of acute intracanal pathology. Electronically signed by: Roxi Méndez MD 10/10/24 00:02 AM
--- NOTE | 2024-10-10 00:05 | CT Scan Report ---
Exam(s): CTA NECK With Contrast IV Amt: 119 ml optiray 320 EXAM: CT Angiography Neck With Intravenous Contrast CLINICAL HISTORY: Reason for exam: weak right side. TECHNIQUE: Routine carotid CT angiography protocol was performed with intravenous contrast. NASCET criteria using the distal ICAs for comparison were used for evaluation of stenoses. CTDI is 39.03 mGy and DLP is 780.51 mGy-cm. Automated exposure control was utilized for the study. A dose lowering technique was utilized adhering to the principles of ALARA. MIP reconstructed images were created and reviewed. CONTRAST: Patient received 119 ml optiray 320 of IV contrast COMPARISON: None. FINDINGS: VASCULATURE: Right common carotid artery: Unremarkable. No occlusion or significant stenosis. No dissection. Right internal carotid artery: Unremarkable. Extracranial segment is patent with no occlusion or significant stenosis. No dissection. Right external carotid artery: Unremarkable. No occlusion. Right vertebral artery: Unremarkable. No occlusion or significant stenosis. No dissection. Left common carotid artery: Unremarkable. No occlusion or significant stenosis. No dissection. Left internal carotid artery: Unremarkable. Extracranial segment is patent with no occlusion or significant stenosis. No dissection. Left external carotid artery: Unremarkable. No occlusion. Left vertebral artery: Unremarkable. No occlusion or significant stenosis. No dissection. NECK: Bones/joints: There is a critical spinal canal stenosis at C3-4. Recommend MRI of cervical spine to evaluate for myelopathy. No acute fracture. Soft tissues: Prominent mediastinal lymph nodes. Prominent cervical lymph nodes and lingual tonsils. Lung apices: Bronchitis with pneumonitis. CAROTID STENOSIS REFERENCE USING NASCET CRITERIA: % ICA stenosis = (1 - narrowest ICA diameter/diameter of distal cervical ICA) x 100. Mild - <50% stenosis. Moderate - 50-69% stenosis. Severe - 70-94% stenosis. Near occlusion - 95-99% stenosis. Occluded - 100% stenosis. IMPRESSION: Negative CTA neck. Electronically signed by: Roxi Méndez MD 10/10/24 00:04 AM
[2024-10-10] MEDS: FUROSEMIDE 40 MG/4 ML VIAL IV ONE (00:47)
--- NOTE | 2024-10-10 01:20 | Emergency Department Note ---
Impression & Plan Acute confusion, Weakness, Hypoxia, Fluid overload, Elevated brain natriuretic peptide (BNP) level ED Provider Note NAME: CHANTEL NYOOLA AGE: 59 SEX: M : 1965 ARRIVES VIA: Walk-In INFORMANT: [Patient] ED PROVIDER(S): [Wilfredo Cool MD] CHIEF COMPLAINT: Neurosymptoms HISTORY OF PRESENT ILLNESS: The patient is a 59-year-old male who states that at around 3 PM, around 6 hours ago, he awoke from a nap. He had lost his urinary continence. He was confused, he noticed that his right side was weak and painful. He mentally has improved some but he states he is not sure why he was so confused and not himself. There has been no fall, he has no history of seizure. He was in baseline health before his nap. No cough or congestion. No fever. The patient does have pedal edema but he states this is baseline. He takes diuretics sporadically for his pedal edema. PMHx/PSHx/Social Hx: See Below PHYSICAL EXAM: GENERAL: Patient is in no acute distress. HEENT: No acute trauma, normocephalic atraumatic, mucous membranes moist, no nasal congestion. NECK: No stridor, no adenopathy, no meningismus, trachea is midline. LUNGS: Clear to auscultation bilaterally, no wheeze, no rhonchi, breath sounds equal. HEART: Without murmurs gallops or rubs, regular rate and rhythm. ABDOMEN: Soft, nontender, no peritonitis. EXTREMITIES: No cyanosis, the patient has pain to lift the right shoulder upwards and over the head. He has pain to lift the right knee off the bed. There is a contusion forming to the right medial posterior calf. This contusion is tender. He does have moderate bilateral pedal edema. NEUROLOGIC: Oriented x 3, no speech slur or facial droop. He can lift his right leg off the bed but it does seem to cause him pain. There is no upper arm extremity drift. No cerebellar function in the upper extremities. SKIN: No jaundice, no diaphoresis. DIFFERENTIAL DIAGNOSIS: Stroke, hypoxia, electrolyte imbalance, anemia, UTI, seizure, among others. EMERGENCY DEPARTMENT PROCEDURES: MEDICAL DECISION MAKING: There is no leukocytosis or concerning anemia. There is no coagulopathy. No renal failure or significant electrolyte abnormality. No concerning liver enzyme elevation. ECG shows atrial fibrillation, no obvious ischemia. Cardiac enzyme testing x 1 is not consistent with acute cardiac injury. BNP is elevated consistent with potential fluid overload. Chest x-ray does not show concerning CHF. No pneumonia. Urinalysis does not show findings of infection. Respiratory bio fire was negative. Brain CT showed no acute bleed or mass effect. CTA of the head and neck were performed, there was no evidence for aneurysm or for clot. On exam, the patient complained of pain with movement of the right arm and right leg. He seemed a bit weaker on the right side although, this may have been pain related. There was no speech slur. The patient was given IV Lasix for diuresis. He appeared fluid overloaded. The patient was found to be somewhat hypoxic at times, he required O2 supplementation. The cause for the confusion is unclear but may have been secondary to some hypoxia while he was sleeping. He does appear fluid overloaded and this certainly could be contributing to the lower O2 saturation. For now, I think the patient requires further workup in the hospital. I do not think he is safe for discharge. I did speak with the patient and case management, the on-call hospitalist was consulted. Of note, the patient was not a TNK candidate, he was out of the time window. Prior/Outside records/notes reviewed: None ECG per my interpretation: Indication was confusion. The ECG shows what appears to be atrial fibrillation with a rate of 100. No acute ST elevation, no PVCs per the QTc was 477. Continuous Cardiac Monitoring per my interpretation: An order was placed for continuous cardiac monitoring. The monitor shows a rate of 97 with atrial fibrillation. Imaging/x-ray results per my interpretation: Chest x-ray shows some mild cardiomegaly, there was no CHF or pneumonia. Chronic Medical/Social conditions affecting care: None Care/Management discussed with: Case management, the on-call hospitalist. Level of care consideration(s): After review of the information above and other included data: --I believe the patient requires escalation of care to admission DISPOSITION: Admission Past Med/Surg History Problem List (Updated 10/10/24 @ 15:17 by Wilfredo Cool MD) Elevated brain natriuretic peptide (BNP) level (Acute) Fluid overload (Acute) Hypoxia (Acute) Weakness (Acute) Acute confusion (Acute) Right sided weakness Diabetic neuropathy associated with type 2 diabetes mellitus Leg weakness, bilateral Spinal stenosis at L4-L5 level Lesion of left [place] kidney Cellulitis Afib Spinal stenosis Depression Bilateral primary osteoarthritis of knee Microalbuminuria Anemia Back pain History of polymyalgia rheumatica (Chronic) History of gallbladder disease (Chronic) History of gout (Chronic) History of atrial flutter (Chronic) "s/p cardioversion 06/2014" Venous insufficiency (Chronic) Osteoarthritis (Chronic) Obesity, morbid, BMI 50 or higher (Chronic) History of right bundle branch block (RBBB) (Chronic) DM type 2 (diabetes mellitus, type 2) (Chronic) High cholesterol (Chronic) HTN (hypertension) (Chronic) Lower extremity edema (Chronic) Chronic venous insufficiency (Chronic) Medical History Odynophagia Pseudomonas infection Spinal stenosis Hypertension Gout Fatty liver Diabetes Arthritis Renal hematoma, left Surgical History S/P tonsillectomy H/O arthroscopic knee surgery 2000 and 2007 S/P cardiac cath "cath 07/05/2014- angiographically normal vessels, EF 60-65%" S/P left knee arthroscopy Family History Mother Diabetes Hypertension Denies family history of Ovarian cancer Prostate cancer Myocardial infarction Breast cancer Colorectal cancer Social History Smoking Status: Former smoker Tobacco Type: Cigarettes Age Started Using Tobacco: 27; Age Quit Using Tobacco: 49; packs per day: 1; Second Hand Exposure: No; Do You Dip or Chew Tobacco: No; Hx Alcohol Use: Yes Alcohol type: beer Alcohol Intake Frequency: Monthly or Less Hx Substance Use: No Preferred Language: Tamaz[place] Communication Ability: Effective Visual Impairment: No Limitations Hearing Ability: Normal Accounts Payable Coordinator Required: No Beliefs That Will Affect Care: None marital status: Current Living Situation: Alone current occupational status: retired Feels Safe at Home: Yes Safety Concerns: Feels Safe At This Time Childhood Exposure to Second-Hand Smoke: No Diet: regular Diet Comment: regular caffeine: Yes (Coffee x 2 per day.) during the past year weight has: increased > 10 lbs Dental Care, Regularly: No Physical Activity Frequency: 3-4 Times per Week Physical Activity Frequency Comment: limited by physical condition/ does excercises while sitting Seatbelt Use: always Sunscreen Use: No Assistive Devices: Cane, Denture - Upper, Denture - Lower and Glasses Allergies Allergies Allergy/AdvReac Type Severity Reaction Status Date / Time Sulfa (Sulfonamide Allergy Intermediate itching Verified 01/09/24 14:04 Antibiotics) cephalexin [From Keflex] Allergy Mild Rash Verified 01/09/24 14:04 Home Meds Home Medications Medication Instructions Recorded Confirmed blood-glucose meter (ReliOn 12/20/23 10/10/24 All-In-One Meter kit) insulin glargine U-300 conc 300 48 unit subcut DAILY 06/05/24 10/10/24 unit/mL (1.5 mL) subcutaneous pen (T[employer]am [employer] Wander SoloStar U-300 Insulin) duloxetine 30 mg capsule,delayed 30 mg PO UD 10/10/24 10/10/24 release Previous Rx's Medication Instructions Recorded flash glucose scanning reader #1 ea 12/19/23 (FreeStyle Raegan 2 [place]) flash glucose sensor (FreeStyle #1 ea 12/19/23 Raegan 2 Sensor kit) insulin aspart U-100 100 unit/mL See Rx Instructions subcut 01/11/24 (3 mL) subcutaneous pen (Novolog .COMPLEX #54 mL FlexPen U-100 Insulin aspart) sotalol 80 mg tablet 80 mg PO BID #180 tabs 02/14/24 metformin 1,000 mg tablet 1,000 mg PO BID #180 tabs 04/03/24 pen needle, diabetic 32 gauge x #100 ea 04/17/2409/01" (BD Ultra-Fine Micro Pen Needle) Results & Data (ED) Vital Signs Vital Signs - 24 hr 10/09/24 17:29 10/09/24 18:27 10/09/24 18:34 Temperature 36.3 C L Temperature Source Skin Pulse Rate 96 H 91 H Pulse Rate [Apical] 93 H Pulse Rate from SpO2 Sensor Pulse Rhythm Pulse Strength [Apical] Respiratory Rate 22 19 Respiratory Effort / Characteristics Spontaneous Labored Short of Breath Spontaneous Respiratory Depth Normal Respiratory Pattern Regular Blood Pressure 195/119 H Blood Pressure [Right Arm] 157/111 H Blood Pressure Mean 144 Blood Pressure Mean [Right Arm] 126 Blood Pressure Position [Right Arm] Semi-fowlers Pulse Oximetry 88 L 98 Oxygen Delivery Method Room Air Nasal Cannula Oxygen Flow Rate 2 Sepsis Recent Fever Within 48 Hours No Sepsis New/Unexplained Change in Mental Status N/A Sepsis Action Taken by Nursing No Action Required 10/09/24 19:02 10/09/24 19:02 10/09/24 20:00 Temperature Temperature Source Pulse Rate 99 H Pulse Rate [Apical] 85 Pulse Rate from SpO2 Sensor Pulse Rhythm Irregular Pulse Strength [Apical] Normal Respiratory Rate 19 24 Respiratory Effort / Characteristics Non-Labored Spontaneous Respiratory Depth Normal Respiratory Pattern Regular Blood Pressure Blood Pressure [Right Arm] 147/95 H Blood Pressure Mean Blood Pressure Mean [Right Arm] 112 Blood Pressure Position [Right Arm] Sitting Pulse Oximetry 98 98 97 Oxygen Delivery Method Nasal Cannula Nasal Cannula Nasal Cannula Oxygen Flow Rate 2 2 3 Sepsis Recent Fever Within 48 Hours Sepsis New/Unexplained Change in Mental Status Sepsis Action Taken by Nursing 10/09/24 22:00 10/09/24 22:45 10/09/24 23:00 Temperature Temperature Source Pulse Rate 84 Pulse Rate [Apical] 101 H Pulse Rate from SpO2 Sensor Pulse Rhythm Pulse Strength [Apical] Normal Respiratory Rate 21 Respiratory Effort / Characteristics Spontaneous Respiratory Depth Normal Respiratory Pattern Regular Blood Pressure 147/100 H Blood Pressure [Right Arm] 147/109 H Blood Pressure Mean 115 Blood Pressure Mean [Right Arm] 121 Blood Pressure Position [Right Arm] Lying Pulse Oximetry 100 Oxygen Delivery Method Room Air Oxygen Flow Rate Sepsis Recent Fever Within 48 Hours Sepsis New/Unexplained Change in Mental Status Sepsis Action Taken by Nursing 10/09/24 23:03 10/09/24 23:30 10/10/24 00:00 Temperature Temperature Source Pulse Rate 98 H 95 H 88 Pulse Rate [Apical] Pulse Rate from SpO2 Sensor 99 H 96 H 94 H Pulse Rhythm Pulse Strength [Apical] Respiratory Rate 26 H 20 13 Respiratory Effort / Characteristics Respiratory Depth Respiratory Pattern Blood Pressure 134/97 147/103 H Blood Pressure [Right Arm] Blood Pressure Mean 109 117 Blood Pressure Mean [Right Arm] Blood Pressure Position [Right Arm] Pulse Oximetry 100 99 99 Oxygen Delivery Method Nasal Cannula Nasal Cannula Nasal Cannula Oxygen Flow Rate 3 Sepsis Recent Fever Within 48 Hours Sepsis New/Unexplained Change in Mental Status Sepsis Action Taken by Nursing 10/10/24 00:30 10/10/24 01:00 Temperature Temperature Source Pulse Rate 97 H 106 H Pulse Rate [Apical] Pulse Rate from SpO2 Sensor 108 H Pulse Rhythm Pulse Strength [Apical] Respiratory Rate 16 Respiratory Effort / Characteristics Respiratory Depth Respiratory Pattern Blood Pressure 152/94 H 157/109 H Blood Pressure [Right Arm] Blood Pressure Mean 115 125 Blood Pressure Mean [Right Arm] Blood Pressure Position [Right Arm] Pulse Oximetry 99 100 Oxygen Delivery Method Nasal Cannula Nasal Cannula Oxygen Flow Rate 3 3 Sepsis Recent Fever Within 48 Hours Sepsis New/Unexplained Change in Mental Status Sepsis Action Taken by [facility] Medications Current Medication List: was personally reviewed by me Laboratory Data Attestation: I reviewed the patient's lab results. 10/10/24 06:58 10/10/24 06:58 Lab Results 10/09/24 10/09/24 10/09/24 Range/Units 17:59 23:46 Unknown WBC 10.71 (4.8-10.8) K/ul RBC 4.10 L (4.70-6.10) M/uL Hgb 13.4 L (14.0-18.0) g/dl Hct 38.3 L (42.0-52.0) % MCV 93.4 (80.0-100.0) fL MCH 32.7 (25.0-34.0) pg MCHC 35.0 (32.0-36.0) g/dL RDW Std Deviation 43.2 (36.4-46.3) fL RDW Coeff of Dar 12.7 (11.5-14.5) % Plt Count 137 (130-400) K/uL MPV 11.6 (9.4-12.4) fL Immature Gran % (Auto) 0.6 % Neut % (Auto) 85.6 % Lymph % (Auto) 6.8 % Dewitt % (Auto) 6.3 % Eos % (Auto) 0.1 % Baso % (Auto) 0.6 % Neut # (Auto) 9.18 H (1.40-6.50) K/uL Lymph # (Auto) 0.73 L (1.20-3.40) K/uL Dewitt # (Auto) 0.67 H (0.11-0.59) K/uL Eos # (Auto) 0.01 (0.00-0.50) K/uL Baso # (Auto) 0.06 (0.00-0.20) K/uL Immature Gran # (Auto) 0.06 (0.01-0.20) K/uL PT 11.6 (9.0-12.0) Seconds INR 1.1 (0.9-1.1) APTT 24 (21-31) Seconds PTT Ratio 0.9 Sodium 135 L (136-145) mmol/L Potassium 4.4 (3.5-5.1) mmol/L Chloride 103 (98-107) mmol/L Carbon Dioxide 24 (21-32) mmol/L Anion Gap 8 (3-11) BUN 19 (6-23) mg/dl Creatinine 1.11 (0.6-1.4) mg/dl Est Cr Clr Drug Dosing 112.5 ml/min eGFR 76.02 BUN/Creatinine Ratio 17.1 (10-20) Glucose 203 H (70-99(Fasting)) mg/dl Calcium 9.1 (8.6-10.3) mg/dl Total Bilirubin 0.9 (0.2-1.0) mg/dl AST 20 (13-39) U/L ALT 30 (7-52) U/L Alkaline Phosphatase 57 (34-104) U/L Troponin I High Sens 7.8 (0-20) pg/ml B-Natriuretic Peptide 266 H (0-100) pg/ml Total Protein 7.4 (6.0-8.3) gm/dl Albumin 4.7 (3.4-5.0) gm/dl Globulin 2.7 (2.5-4.0) gm/dl Albumin/Globulin Ratio 1.7 (0.9-2) Urine Color Yellow Urine Appearance Clear (Clear) Urine pH 6.0 (4.5-7.5) Ur Specific [place] 1.014 (1.000-1.030) Urine Protein Negative (Negative) Urine Glucose (UA) Negative (Negative) Urine Ketones 1+ H (Negative) Urine Blood Negative (Negative) Urine Nitrite Negative (Negative) Urine Bilirubin Negative (Negative) Urine Urobilinogen Negative (Negative) Ur Leukocyte Esterase Negative (Negative) Adenovirus (PCR) Not Detected (NotDetected) B. pertussis DNA (PCR) Not Detected (NotDetected) B.parapertussis DNA PCR Not Detected (NotDetected) C. pneumoniae DNA (PCR) Not Detected (NotDetected) Coronavirus OC43 (PCR) Not Detected (NotDetected) Coronavirus HKU1 (PCR) Not Detected (NotDetected) Coronavirus 229E (PCR) Not Detected (NotDetected) SARS-CoV-2 (PCR) Not Detected (NotDetected) Coronavirus NL63 (PCR) Not Detected (NotDetected) Human Metapneumovir PCR Not Detected (NotDetected) Influenza Type A (PCR) Not Detected (NotDetected) Influenza Type B (PCR) Not Detected (NotDetected) M. pneumoniae (PCR) Not Detected (NotDetected) Parainfluenza 1 (PCR) Not Detected (NotDetected) Parainfluenza 2 (PCR) Not Detected (NotDetected) Parainfluenza 3 (PCR) Not Detected (NotDetected) Parainfluenza 4 (PCR) Not Detected (NotDetected) RSV (PCR) Not Detected (NotDetected) Entero/Rhino (PCR) Not Detected (NotDetected) Administered Medications Aspirin (Aspirin 81 Mg Ectab) [facility] [place] Stop: 11/09/24 08:59 Last Admin: 10/10/24 08:26 Dose: 81 mg Documented By: REILLY Furosemide (Furosemide 40 Mg/4 Ml Vial) [facility] [place] Stop: 11/09/24 08:59 Last Admin: 10/10/24 08:25 Dose: 40 mg Documented By: ERILLY Heparin Sodium (Porcine) (Heparin Sod 5,000 Unit/0.5 Ml Vial) 7,500 units SQ Q12 [facility]Y Stop: 11/09/24 08:59 Last Admin: 10/10/24 08:25 Dose: 7,500 units Documented By: REILLY Insulin Aspart (Insulin Aspart Per Unit Charge) 0 units SC ACHS [facility] Stop: 11/09/24 07:29 Last Admin: 10/10/24 13:12 Dose: 4 units Documented By: REILLY Co-signed By: LETY Admin: 10/10/24 08:26 Dose: 13 units Documented By: REILLY Co-signed By: NAMITA Discontinued Medications Alprazolam (Alprazolam 0.25 Mg Tablet) 0.25 mg PO NOW STA Stop: 10/10/24 08:37 Last Admin: 10/10/24 08:43 Dose: 0.25 mg Documented By: REILLY Furosemide (Furosemide 40 Mg/4 Ml Vial) 40 mg IV ONE ONE Stop: 10/10/24 00:32 Last Admin: 10/10/24 00:47 Dose: 40 mg Documented By: ALEJANDRA Insulin Glargine (Lantus Per Unit Charge) 20 units SQ BID AMY Stop: 11/09/24 08:59 Last Admin: 10/10/24 08:26 Dose: 20 units Documented By: REILLY Co-signed By: NAMITA Ioversol (Optiray 320 125ml) 119 ml IV ONCE ONE Stop: 10/09/24 21:37 Last Admin: 10/09/24 21:37 Dose: 119 ml Documented By: JESUS Ioversol (Optiray 320 100ml) 94 ml IV ONCE ONE Stop: 10/10/24 09:07 Last Admin: 10/10/24 09:06 Dose: 94 ml Documented By: KRISTEN Perflutren Lipid Microsphere (Perflutren Lipid Microsphere (Definity)) 2 ml IV ONCE ONE Stop: 10/10/24 07:38 Last Admin: 10/10/24 07:38 Dose: 2 ml Documented By: EDUARDO Sotalol HCl (Sotalol Hcl 80 Mg Tab) 80 mg PO BID AMY Stop: 11/09/24 08:59 Last Admin: 10/10/24 05:08 Dose: 80 mg Documented By: ZACHARY Imaging Data Radiologist's Impression: Chest X-Ray 10/09/24 17:45 Exam: 1 view chest Reason for exam: Chest pain COMPARISON: 06/08/2021 FINDINGS: Mild cardiomegaly is stable. Lungs show no acute infiltrate, collapse or edema and no pleural effusion is seen. IMPRESSION: Stable cardiomegaly. Otherwise negative for acute disease at this time. Electronically signed by Rocky Gross 10-09-2024 7:[address] 10/09/24 21:14 Exam(s): CT HEAD Without Contrast EXAM: CT Head Without Intravenous Contrast CLINICAL HISTORY: Reason for exam: weak. TECHNIQUE: Axial computed tomography images of the head/brain without intravenous contrast. CTDI is 39.03 mGy and DLP is 780.51 mGy-cm. Automated exposure control was utilized for the study. A dose lowering technique was utilized adhering to the principles of ALARA. COMPARISON: No relevant prior studies available. FINDINGS: This study is limited secondary to motion artifact. Brain: Unremarkable. No hemorrhage. No significant white matter disease. No edema. Ventricles: Unremarkable. No ventriculomegaly. Bones/joints: Unremarkable. No acute fracture. Soft tissues: Unremarkable. Sinuses: Unremarkable as visualized. No acute sinusitis. Mastoid air cells: Unremarkable as visualized. No mastoid effusion. IMPRESSION: No evidence of acute intracanal pathology. Electronically signed by: Roxi Méndez MD 10/10/24 00:02 AM Head CTA 10/09/24 21:14 Exam(s): CTA HEAD With Contrast IV Amt: 119 ml optiray 320 EXAM: CT Angiography Head With Intravenous Contrast CLINICAL HISTORY: Reason for exam: weak right side. TECHNIQUE: Axial computed tomographic angiography images of the head with intravenous contrast. CTDI is 39.03 mGy and DLP is 780.51 mGy-cm. Automated exposure control was utilized for the study. A dose lowering technique was utilized adhering to the principles of ALARA. MIP reconstructed images were created and reviewed. CONTRAST: Patient received 119 ml optiray 320 of IV contrast COMPARISON: No relevant prior studies available. FINDINGS: The dural venous sinuses are patent. Right internal carotid artery: No acute findings. Intracranial segment is patent with no significant stenosis. No aneurysm. Right anterior cerebral artery: Unremarkable. No occlusion or significant stenosis. No aneurysm. Right middle cerebral artery: Unremarkable. No occlusion or significant stenosis. No aneurysm. Right posterior cerebral artery: Unremarkable. No occlusion or significant stenosis. No aneurysm. Right vertebral artery: Unremarkable as visualized. Left internal carotid artery: No acute findings. Intracranial segment is patent with no significant stenosis. No aneurysm. Left anterior cerebral artery: Unremarkable. No occlusion or significant stenosis. No aneurysm. Left middle cerebral artery: Unremarkable. No occlusion or significant stenosis. No aneurysm. Left posterior cerebral artery: Unremarkable. No occlusion or significant stenosis. No aneurysm. Left vertebral artery: Unremarkable as visualized. Basilar artery: Unremarkable. No occlusion or significant stenosis. No aneurysm. IMPRESSION: Negative CT angiogram of the head. Electronically signed by: Roxi Méndez MD 10/09/24 23:57 PM Neck CTA 10/09/24 21:14 Exam(s): CTA NECK With Contrast IV Amt: 119 ml optiray 320 EXAM: CT Angiography Neck With Intravenous Contrast CLINICAL HISTORY: Reason for exam: weak right side. TECHNIQUE: Routine carotid CT angiography protocol was performed with intravenous contrast. NASCET criteria using the distal ICAs for comparison were used for evaluation of stenoses. CTDI is 39.03 mGy and DLP is 780.51 mGy-cm. Automated exposure control was utilized for the study. A dose lowering technique was utilized adhering to the principles of ALARA. MIP reconstructed images were created and reviewed. CONTRAST: Patient received 119 ml optiray 320 of IV contrast COMPARISON: None. FINDINGS: VASCULATURE: Right common carotid artery: Unremarkable. No occlusion or significant stenosis. No dissection. Right internal carotid artery: Unremarkable. Extracranial segment is patent with no occlusion or significant stenosis. No dissection. Right external carotid artery: Unremarkable. No occlusion. Right vertebral artery: Unremarkable. No occlusion or significant stenosis. No dissection. Left common carotid artery: Unremarkable. No occlusion or significant stenosis. No dissection. Left internal carotid artery: Unremarkable. Extracranial segment is patent with no occlusion or significant stenosis. No dissection. Left external carotid artery: Unremarkable. No occlusion. Left vertebral artery: Unremarkable. No occlusion or significant stenosis. No dissection. NECK: Bones/joints: There is a critical spinal canal stenosis at C3-4. Recommend MRI of cervical spine to evaluate for myelopathy. No acute fracture. Soft tissues: Prominent mediastinal lymph nodes. Prominent cervical lymph nodes and lingual tonsils. Lung apices: Bronchitis with pneumonitis. CAROTID STENOSIS REFERENCE USING NASCET CRITERIA: % ICA stenosis = (1 - narrowest ICA diameter/diameter of distal cervical ICA) x 100. Mild - <50% stenosis. Moderate - 50-69% stenosis. Severe - 70-94% stenosis. Near occlusion - 95-99% stenosis. Occluded - 100% stenosis. IMPRESSION: Negative CTA neck. Electronically signed by: Roxi Méndez MD 10/10/24 00:04 AM Discharge Plan Visit Data Chief Complaint: Neuro Symptoms/Deficit Stated Complaint: CONFUSED, RT FLANK NUMB, ED Provider: Wilfredo Cool Discharge Problem: Acute confusion, Weakness, Hypoxia, Fluid overload, Elevated brain natriuretic peptide (BNP) level Patient Disposition: Admitted As Inpatient Condition: Fair Discharge Instructions Interventions: ED Discharge Assessment Last Done: 10/10/24 02:05 Discharge Problem: Fluid overload Qualifiers: Hypervolemia type: unspecified Qualified Code(s): E87.70 - Fluid overload, unspecified
[2024-10-10] MEDS ORDERED: CARBOHYDRATES FOR HYPOGLYCEMIA PO PRN (03:21)
[2024-10-10] MEDS ORDERED: DEXTROSE 50% 50 ML SYRINGE IV PRN (03:21)
[2024-10-10] MEDS ORDERED: ALBUT/IPRATROP 3MG/0.5MG NEB 3 ML VIAL NEB PRN (03:21)
[2024-10-10] MEDS ORDERED: GLUCAGON FOR INJ 1 MG VIAL SQ PRN (03:21)
[2024-10-10] MEDS ORDERED: GLUCOSE 10 TAB/TUBE PO PRN (03:21)
[2024-10-10] MEDS ORDERED: GLUCOSE 40% GEL 15 GM TUBE PO PRN (03:21)
[2024-10-10] MEDS ORDERED: PHARMACY GLYCEMIC MGMT CONSULT PRN ×2 (03:36→03:46)
[2024-10-10] MEDS ORDERED: NON-FORMULARY MEDICATION (Insulin Aspart U-100 [Novolog Flexpen U-100 Insulin] 100 unit/mL SQ SCH (03:45)
[2024-10-10] MEDS ORDERED: DULoxetine HCL 30 MG CAP PO SCH (03:45)
[2024-10-10] MEDS: SOTALOL HCL 80 MG TAB PO SCH (05:08)
--- NOTE | 2024-10-10 05:20 | History & Physical Report ---
Date of Service October 10, 2024 Assessment & Plan (1) Leg weakness, bilateral: (2) Spinal stenosis at L4-L5 level: (3) Afib: (4) Chronic venous insufficiency: (5) Right sided weakness: Plan The patient is a 59-year-old male with a past medical history including diabetic neuropathy, bilateral lower extremity weakness, spinal stenosis L4-5, A-fib, spinal stenosis, depression, PMR, gout, atrial flutter, CVI, morbid obesity, RBBB, hypertension, hyperlipidemia, and chronic venous stasis dermatitis. The patient presents to the emergency department with complaint of right sided weakness and pain that occurred after he had an extended nap from 10 AM to 3 PM the day of admission, that was about 6 hours prior to arrival in the emergency department. He reports that upon awakening he felt disoriented, was trying to figure out how to use his phone to call his son, and was finally able to do so. He reports the previous day he had a panic attack, that occurred after he had taken his grandchildren to school. He reports that upon awakening this morning, he had had a normal interval, no panic attacks, and then reports that after he had his 5-hour nap and difficulty waking up and clearing his brain to do activities as noted above. He denies any bowel or bladder issues. He denies any issues with headaches, dizziness, vision or hearing change, bowel or bladder incontinence. He does note that his legs are more swollen than usual, and notes that there is a bruise on his right inner thigh and has noted some darkening of his right reese. He denies any difficulty with speech physically, and denies any issues with swallowing. Patient reports that in attempt to lose weight, he has gone through extended intervals of time anywhere from 12 to 24 hours where he does not eat or drink anything, and may often times misses medications as well during this interval. In the emergency department, the patient has concerns regarding pain and difficulty moving his right leg, and reports that he has difficulty raising his right arm above shoulder height, which is new for him. He describes it as more of a pain situation than it is a inability to move it situation. In the emergency department, workup included a CT scan of head, CTA head and neck all of which were negative. Patient reports that he is unable to tolerate an MRI due to claustrophobia. #Right sided weakness and pain- Symptoms primarily occurred after a 5-hour nap, and were also accompanied by transient decreased ability to remember how to use his phone and had some transient memory issues. Differential remaining symptoms are that of decreased ability to raise his right arm to shoulder level due to pain. He reports that his right leg feels weak, however, examination is equal to the left CT scan of head, CTA head and neck were all negative. Patient is unable to tolerate an MRI of the brain, so he will have a repeat CT head and brain with and without contrast at 9 AM for comparison to entrance imaging. #Mild CHF/fluid overload/atrial fibrillation/flutter- The patient will be admitted to telemetry for serial cardiac enzymes, serial EKG's, cardiac rhythm monitoring and a 2-D echocardiogram with Dopplers. BNP 266 on admission Received furosemide 40 mg IV in ED, and continue 40 mg IV every morning Continue sotalol 80 mg p.o. twice daily and aspirin 80 mg every morning Unclear when patient has taken his last medication, as he has been doing this fasting diet including not taking medications to help lose weight does not Patient is not on anticoagulation, and unclear at this point whether he has been or is supposed to be For now, hold any further decision anticoagulation until repeat CT done in the a.m. #Diabetes mellitus- Continue glargine 20 units subcu twice daily Place [facility] Admission and Anticipated Discharge Date Admission Date: October 10, 2024 History of Present Illness Chief Complaint: The patient presents to the emergency department with complaint of right sided weakness and pain that occurred after he had an extended nap from 10 AM to 3 PM the day of admission, that was about 6 hours prior to arrival in the emergency department. He reports that upon awakening he felt disoriented, was trying to figure out how to use his phone to call his son, and was finally able to do so. He reports the previous day he had a panic attack, that occurred after he had taken his grandchildren to school. He reports that upon awakening this morning, he had had a normal interval, no panic attacks, and then reports that after he had his 5-hour nap it difficulty waking up and clearing his brain to do activities as noted above. He denies any bowel or bladder issues. He denies any issues with headaches, dizziness, vision or hearing change, bowel or bladder incontinence. He does note that his legs are more swollen than usual, and notes that there is a bruise on his right inner thigh and has noted some darkening of his right reese. He denies any difficulty with speech physically, and denies any issues with swallowing. Patient reports that in attempt to lose weight, he has gone through extended intervals of time anywhere from 12 to 24 hours where he does not eat or drink anything, and may often times misses medications as well during this interval Primary Care Provider: BRODY Cason The patient is a 59-year-old male with a past medical history including diabetic neuropathy, bilateral lower extremity weakness, spinal stenosis L4-5, A-fib, spinal stenosis, depression, PMR, gout, atrial flutter, CVI, morbid obesity, RBBB, hypertension, hyperlipidemia, and chronic venous stasis dermatitis. The patient presents to the emergency department with complaint of right sided weakness and pain that occurred after he had an extended nap from 10 AM to 3 PM the day of admission, that was about 6 hours prior to arrival in the emergency department. He reports that upon awakening he felt disoriented, was trying to figure out how to use his phone to call his son, and was finally able to do so. He reports the previous day he had a panic attack, that occurred after he had taken his grandchildren to school. He reports that upon awakening this morning, he had had a normal interval, no panic attacks, and then reports that after he had his 5-hour nap and difficulty waking up and clearing his brain to do activities as noted above. He denies any bowel or bladder issues. He denies an y issues with headaches, dizziness, vision or hearing change, bowel or bladder incontinence. He does note that his legs are more swollen than usual, and notes that there is a bruise on his right inner thigh and has noted some darkening of his right reese. He denies any difficulty with speech physically, and denies any issues with swallowing. Patient reports that in attempt to lose weight, he has gone through extended intervals of time anywhere from 12 to 24 hours where he does not eat or drink anything, and may often times misses medications as well during this interval. Allergies Allergy/AdvReac Type Severity Reaction Status Date / Time Sulfa (Sulfonamide Allergy Intermediate itching Verified 01/09/24 14:04 Antibiotics) cephalexin [From Keflex] Allergy Mild Rash Verified 01/09/24 14:04 Home Medications Medication Instructions Recorded Confirmed Type flash glucose scanning reader #1 ea 12/19/23 10/10/24 Rx (FreeStyle Raegan 2 [place]) flash glucose sensor (FreeStyle #1 ea 12/19/23 10/10/24 Rx Raegan 2 Sensor kit) blood-glucose meter (ReliOn 12/20/23 10/10/24 History All-In-One Meter kit) insulin aspart U-100 100 unit/mL See Rx Instructions subcut 01/11/24 10/10/24 Rx (3 mL) subcutaneous pen (Novolog .COMPLEX #54 mL FlexPen U-100 Insulin aspart) sotalol 80 mg tablet 80 mg PO BID #180 tabs 02/14/24 10/10/24 Rx metformin 1,000 mg tablet 1,000 mg PO BID #180 tabs 04/03/24 10/10/24 Rx pen needle, diabetic 32 gauge x #100 ea 04/17/24 10/10/24 Rx 1/4" (BD Ultra-Fine Micro Pen Needle) insulin glargine U-300 conc 300 48 unit subcut DAILY 06/05/24 10/10/24 History unit/mL (1.5 mL) subcutaneous pen (Toujeo SoloStar U-300 Insulin) duloxetine 30 mg capsule,delayed 30 mg PO UD 10/10/24 10/10/24 History release Past Med/Surg History Problem List (Updated 10/10/24 @ 05:20 by Clarke Holm MD) Right sided weakness Diabetic neuropathy associated with type 2 diabetes mellitus Leg weakness, bilateral Spinal stenosis at L4-L5 level Lesion of left [place] kidney Cellulitis Afib Spinal stenosis Depression Bilateral primary osteoarthritis of knee Microalbuminuria Anemia Back pain History of polymyalgia rheumatica (Chronic) History of gallbladder disease (Chronic) History of gout (Chronic) History of atrial flutter (Chronic) "s/p cardioversion 06/2014" Venous insufficiency (Chronic) Osteoarthritis (Chronic) Obesity, morbid, BMI 50 or higher (Chronic) History of right bundle branch block (RBBB) (Chronic) DM type 2 (diabetes mellitus, type 2) (Chronic) High cholesterol (Chronic) HTN (hypertension) (Chronic) Lower extremity edema (Chronic) Chronic venous insufficiency (Chronic) Medical History (Updated 10/10/24 @ 05:20 by Clarke Holm MD) Odynophagia Pseudomonas infection Spinal stenosis Hypertension Gout Fatty liver Diabetes Arthritis Renal hematoma, left Surgical History S/P tonsillectomy H/O arthroscopic knee surgery 2000 and 2007 S/P cardiac cath "cath 07/05/2014- angiographically normal vessels, EF 60-65%" S/P left knee arthroscopy Family History Mother Diabetes Hypertension Denies family history of Ovarian cancer Prostate cancer Myocardial infarction Breast cancer Colorectal cancer Social History Smoking Status: Former smoker Tobacco Type: Cigarettes Age Started Using Tobacco: 27; Age Quit Using Tobacco: 49; packs per day: 1; Second Hand Exposure: No; Do You Dip or Chew Tobacco: No; Hx Alcohol Use: Yes Alcohol type: beer Alcohol Intake Frequency: Monthly or Less Hx Substance Use: No Preferred Language: Greek Communication Ability: Effective Visual Impairment: No Limitations Hearing Ability: Normal Trench Trimmer Fine Required: No Beliefs That Will Affect Care: None marital status: Current Living Situation: Alone current occupational status: retired Feels Safe at Home: Yes Safety Concerns: Feels Safe At This Time Childhood Exposure to Second-Hand Smoke: No Diet: regular Diet Comment: regular caffeine: Yes (Coffee x 2 per day.) during the past year weight has: increased > 10 lbs Dental Care, Regularly: No Physical Activity Frequency: 3-4 Times per Week Physical Activity Frequency Comment: limited by physical condition/ does excercises while sitting Seatbelt Use: always Sunscreen Use: No Assistive Devices: Cane, Denture - Upper, Denture - Lower and Glasses Results & Data Results & Data Vital Signs (Past 12 Hours) Vital Signs Temp Pulse Pulse Resp BP BP Pulse Ox 10/10/24 04:23 10/10/24 03:48 36.7 C 111 H 20 145/90 H 93 10/10/24 02:05 10/10/24 02:00 138/94 10/10/24 01:33 98 10/10/24 01:30 143/103 H 10/10/24 01:00 106 H 157/109 H 100 10/10/24 00:30 97 H 16 152/94 H 99 10/10/24 00:00 88 13 147/103 H 99 10/09/24 23:30 95 H 20 134/97 99 10/09/24 23:03 98 H 26 H 100 10/09/24 23:00 147/100 H 10/09/24 22:45 84 10/09/24 22:00 101 H 21 147/109 H 100 10/09/24 20:00 85 24 147/95 H 97 10/09/24 19:02 99 H 19 98 10/09/24 19:02 98 10/09/24 18:34 91 H 10/09/24 18:27 93 H 19 157/111 H 98 10/09/24 17:29 36.3 C L 96 H 22 195/119 H 88 L O2 Del Method O2 Flow Rate 10/10/24 04:23 Nasal Cannula 3 10/10/24 03:48 Nasal Cannula 3 10/10/24 02:05 Nasal Cannula 10/10/24 02:00 10/10/24 01:33 Nasal Cannula 3 10/10/24 01:30 10/10/24 01:00 Nasal Cannula 3 10/10/24 00:30 Nasal Cannula 3 10/10/24 00:00 Nasal Cannula 3 10/09/24 23:30 Nasal Cannula 10/09/24 23:03 Nasal Cannula 10/09/24 23:00 10/09/24 22:45 10/09/24 22:00 Room Air 10/09/24 20:00 Nasal Cannula 3 10/09/24 19:02 Nasal Cannula 2 10/09/24 19:02 Nasal Cannula 2 10/09/24 18:34 10/09/24 18:27 Nasal Cannula 2 10/09/24 17:29 Room Air Code Status & VTE Plan VTE Prophylaxis Plan VTE Prophylaxis will be ordered: Yes PG Care Time/CCT Total # of Minutes Spent Total Time Spent with Patient: Total time spent is greater than 50% in coordination of care (as documented) at patient's floor/unit and/or counseling patient: Coding Level of Care Code 14673 INT INP/OBS CARE 3/75MIN Diagnoses Leg weakness, bilateral R29.898 Spinal stenosis at L4-L5 level M48.061 Afib I48.91 Chronic venous insufficiency I87.2 Right sided weakness R53.1
--- OUTSIDE RECORDS SUMMARY | 2024-10-10 05:43 | External Medical Summary | Summary of Care ---
Author Name Unknown Organization [facility] Address [address] [place] [address] Phone [phone] Care Team Providers Care Airport Attendant Name Role Phone Rd Andrea Primary Care Provider Encounter Details Date Type Department Care Team (Late st Contact Info) Description 09/17/2024 Population Health External Data Unspecified Department Allergies Active Allergy Reactions Criticality Noted Date Comments Sulfamethoxazole 11/15/2014 Generalized rash documented as of this encounter (statuses as of 09/17/2024) Medications Insulin Syringes, Disposable, U-100 0.5 ML MISCIndications: DM type 2, goal A1c below 7 Use at meals and bedtime 100 Box Dosing Unit 5 6 Active DULoxetine HCl 30 MG Oral Capsule Delayed Release Particles (Cymbalta) Take 1 capsule by mouth every day 90 Capsule 1 06/12/2024 5:12 PM EDT 4 Active BD Pen Needle Micro U/F 32G X 6 MM (NOVOFINE 32G PEN NEEDLE) Use as directed 100 Each 01/13/2024 7:26 AM EDT 4 Active FreeStyle Raegan 2 Sensor Use as directed 1 Each 1 4 Active FreeStyle Raegan 2 Sensor Use as directed 1 Each 4 4 Active Jardiance 10 MG Oral Tablet (Empagliflozin) Take 1 tablet by mouth daily 90 Tablet 2 01/12/2024 4:03 PM EDT 4 Active Additional Information Patient not taking.Reported on 06/21/2024 Insulin Aspart FlexPen 100 UNIT/ML Subcutaneous Solution Pen-injector sliding scale at breakfast, lunch and dinner as below: Blood Sugar 70-150 inject 0 units; 151-200 inject 5 units; 201-250 inject 10 units; 251-300 inject 12 units; 301-350 inject 15 units; 351-400 inject 18 units;r >400 inject 18 units and notify office TDD 60 units 60 mL 3 06/08/2024 2:06 PM EDT 4 Active Additional Information Patient taking differently: Inject 16 units under the skin up to three times daily with meals as needed, Reported on 06/21/2024 Sotalol HCl 80 MG Oral Tablet (Betapace) take one tablet by mouth twice daily 180 Tablet 3 08/09/2024 1:58 PM EST 4 Active Atorvastatin Calcium 40 MG Oral Tablet (Lipitor) Take one tablet by mouth every day 90 Tablet 3 07/04/2024 12:13 PM EST 4 Active metFORMIN HCl 1000 MG Oral Tablet (Glucophage) Take one tablet by mouth twice a day 180 Tablet 3 07/04/2024 12:13 PM EST 4 Active AUM Mini Insulin Pen Needle 32G X 6 MM (NOVOFINE 32G PEN NEEDLE) use As directed 100 Each 3 07/24/2024 12:34 PM EST 4 Active Ibuprofen 200 MG Oral Tablet (Motrin) Take 2 Tablets by mouth 2 times a day. Active Toujeo SoloStar 300 UNIT/ML Subcutaneous Solution Pen-injector (Insulin Glargine (1 Unit Dial)) Inject 44 Units under the skin at bedtime. Active documented as of this encounter (statuses as of 09/17/2024) Active Problems Problem Noted Date Diagnosed Date Fatty liver 10/17/2015 Irreducible umbilical hernia 10/17/2015 BMI 50.0-59.9, adult 02/25/2015 Overview (02/25/2015): 405 RBBB 02/25/2015 Cardiac dysrhythmia 06/24/2014 Umbilical hernia 01/03/2014 Venous insufficiency 01/03/2014 Type 2 diabetes mellitus wit h hemoglobin A1c goal of less than 7.0% 10/05/2011 Primary localized osteoarthrosis, lower leg 11/2006 Derangement of medial meniscus Anterior cruciate ligament tear Elevated uric acid in blood LVH (left ventricular hypertrophy) Dyslipidemia, goal LDL below 100 documented as of this encounter (statuses as of 09/17/2024) Resolved Problems Problem Noted Date Diagnosed Date Resolved Date Atrial fibrillation with RVR 10/17/2015 11/25/2015 Overview (10/27/2015): [facility] Mixed dyslipidemia 07/11/2012 6 Severe obesity (BMI >= 40) 10/05/2011 0 02/25/2015 Obesity, morbid (more than 1 00 lbs over ideal weight or BMI > 40) 02/10/2010 10/05/2011 Overview (11/17/2015): Per Obesity Protocol, #19 ICD-10 update of inactive term Dyslipidemia, goal to be determined 08/05/2009 10/05/2011 Overview (08/05/2009): Per Lipid Taxonomy. HTN, goal below 140/90 07/04/200901/03 Overview (07/04/2009): Modified per HTN Taxonomy. ADVANCE DIRECTIVE INFORMATION 05/26/2007 07/02/2024 Overview (05/26/2007): No, Advance Directive brochure offered , patient declined. Preoperative cardiovascular examination 03/02/2007 02/26/2008 Mixed dyslipidemia 08/17/2004 9 Overview (08/05/2009): Per Lipid Taxonomy. HTN, goal below 140/90 07/04 Overview (07/04/2009): Modified per HTN Taxonomy. documented as of this encounter (statuses as of 09/17/2024) Immunizations Name Administration Dates Next Due Pneumococcal Polysaccharide PPV23 (Pneumovax) 09/30/2011,03/19/2009 Seasonal Influenza Vac., MDV , IM, 0.5 mL (Fluzone) 05/13/2015,06/12/2012,09/30/2011 TDAP, Age 7 and older, IM (Adacel) 02/26/2008 documented as of this encounter Social History Tobacco Use Types Packs/Day Years Used Date Smoking Tobacco: Former Cigarettes 0.5 7 1 08/29/2006 - 06/29/2014 Smokeless Tobacco: Never Alcohol Use Standard Drinks/Week Comments Yes 0 (1 standard drink = 0.6 oz pur e alcohol) very seldom a beer Sex and Gender Information Value Date Recorded Sex Assigned at Not on file Legal Sex Male 5:26 AM EST Gender Identity Not on file Sexual Orientation Not on file 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 Not on file Not on f ile documented as of this encounter Plan of Treatment Health Maintenance Due Date Last Done Comments Cologuard 2009 Colonoscopy 2009 Colorectal Cancer Screening 2009 Fecal Occult Blood Test 2009 Sigmoidoscopy 2009 Pneumococcal Vaccine: 50+ Years (2 of 2 - PCV) 09/30/2012 09/30/2011, 03/19/2009 Diabetic Eye Exam 10/20/2012 10/20/2011 (Do ne elsewhere) Zoster Vaccines (1 of 2) 2014 Diabetic Foot Exam 09/26/2016 09/26/2015, 0 11/15/2014, 01/03/2014, Additional history exists Albumin/Creatinine Ratio 09/30/2016 016, 01/03/2014, 09/26/2012, Additional history exists Depression Screening 11/30/2016 12/01/2015 HbA1c 03/17/2017 09/17/2016, 04/0 11/2015, 09/30/2015, Additional history exists GFR 09/17/2017 09/17/2016, 02/0 09/2015, 04/22/2015, Additional history exists DTap/Tdap Vaccines (2 - Td or Tdap) 02/25/2018 02/26/2008 Lipid Panel 09/17/2021 09/17/2016, 01/29, 10/24/2014, Additional history exists COVID-19 Vaccine ( - 2023- season) 2024 Influenza Vaccine (FLU shot) (#1) 2024 05/13/2015, 06/12/2012, 09/30/2011 HPV (Gardasil) Vaccine Aged Out No lo nger eligible based on patient's age to complete this topic Hepatitis B Vaccine Aged Out No longe r eligible based on patient's age to complete this topic MENINGOCOCCAL (MENACTRA/MENVEO) Aged Out No longer eligible based on patient's age to complete this topic documented as of this encounter Medical Devices Not on filedocumented as of this encounter Care Teams Airport Attendant Relationship Specialty Start Date End Date Rd Andrea CRNP [address] [address] PCP - General Nurse Practitioner 06/21/24 documented as of this encounter
--- OUTSIDE RECORDS SUMMARY | 2024-10-10 05:43 | External Medical Summary | Summary of Care ---
Author Name Unknown Organization [facility] Address [address] [place] [address] Phone [phone] Care Team Providers Care Show Worker Name Role Phone Rd Andrea Primary Care Provider Encounter Details Date Type Department Care Team (Late st Contact Info) Description 07/05/2024 Population Health External Data Unspecified Department Allergies Active Allergy Reactions Criticality Noted Date Comments Sulfamethoxazole 11/15/2014 Generalized rash documented as of this encounter (statuses as of 07/12/2024) Medications Insulin Syringes, Disposable, U-100 0.5 ML [...] by mouth twice daily 180 Tablet 3 05/11/2024 1:10 PM EDT 4 Active Atorvastatin Calcium 40 MG Oral [...] NEEDLE) use As directed 100 Each 3 04/18/2024 1:13 PM EDT 4 Active Ibuprofen 200 MG Oral Tablet (Motrin) Take 2 Tablets by mouth 2 times a day. Active Toujeo SoloStar 300 UNIT/ML Subcutaneous Solution Pen-injector (Insulin Glargine (1 Unit Dial)) Inject 44 Units under the skin at bedtime. Active documented as of this encounter (statuses as of 07/12/2024) Active Problems Problem Noted Date Diagnosed Date [...] as of this encounter (statuses as of 07/12/2024) Resolved Problems Problem Noted Date Diagnosed Date Resolved Date Atrial fibrillation with RVR 10/17/2015 11/25/2015 Overview (10/27/2015): 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 Not on file Not on f ile documented as of this encounter Plan of Treatment Health Maintenance Due Date Last Done Comments Hepatitis B Vaccine (1 of 3 - 19+ 3-dose series) 1983 Cologuard 2009 Colonoscopy 2009 Colorectal Cancer Screening 2009 Fecal Occult Blood Test 2009 Sigmoidoscopy 2009 Pneumococcal Vaccine: Pediatrics (0 to 5 Years) and At-Risk Patients (6 to 64 Years) (2 of 2 - PCV) 09/30/2012 09/30/2011, [...] Additional history exists COVID-19 Vaccine ( - season) 2024 Influenza Vaccine (FLU shot) (#1) 2024 05/13/2015, 06/12/2012, 09/30/2011 HPV (Gardasil) Vaccine Aged Out No lo nger eligible based on patient's age to complete this topic MENINGOCOCCAL (MENACTRA/MENVEO) Aged Out No longer eligible based on patient's age to complete this topic documented as of this encounter Medical Devices Not on filedocumented as of this encounter Care Teams Show Worker Relationship Specialty Start Date End Date Rd Andrea CRNP [address] [address] PCP - General Nurse Practitioner 06/21/24 documented as of this encounter
--- OUTSIDE RECORDS SUMMARY | 2024-10-10 05:43 | External Medical Summary | Summary of Care ---
Author Name Unknown Organization [facility] [address] [place] [address] Phone [phone] Care Team Providers Care Cold Mill Inspector Name Role Phone Rd Andrea Primary Care Provider Encounter Details Date Type Department Care Team (Latest Contact Info) Description 06/21/2024 Medication Management Aidee Mccann [facility] [address] [place] [address] Matilda Kennedy, [facility] [address] [place] [address] Referred for management of medication therapy* Allergies Active Allergy Reactions Criticality Noted Date Comments Sulfamethoxazole 11/15/2014 Generalized rash documented as of this encounter (statuses as of 06/22/2024) Medications Medication Sig Dispensed Refills Start Date End Date Status Insulin Syringes, Disposable, U-100 0.5 ML MISCIndications:D M type 2, goal A1c below 7 Use at meals and bedtime 100 Box Dosing Unit 5 6 Active DULoxetine HCl 30 MG Oral Capsule Delayed Release Particles (Cymbalta) Take 1 capsule by mouth every day 90 Capsule 1 4 Active BD Pen Needle Micro U/F 32G X 6 MM (NOVOFINE 32G PEN NEEDLE) Use as directed 100 Each 4 Active FreeStyle Raegan 2 Sensor Use as directed 1 Each 1 4 Active FreeStyle Raegan 2 Sensor Use as directed 1 Each 4 4 Active Jardiance 10 MG Oral Tablet (Empagliflozin) Take 1 tablet by mouth daily 90 Tablet 2 4 Active Additional Information Patient not taking.Reported [...] office TDD 60 units 60 mL 3 4 Active Additional Information Patient taking differently: Inject 16 units under the skin up to three times daily with meals as needed, Reported on 06/21/2024 Sotalol HCl 80 MG Oral Tablet (Betapace) take one tablet by mouth twice daily 180 Tablet 3 4 Active Atorvastatin Calcium 40 MG Oral Tablet (Lipitor) Take one tablet by mouth every day 90 Tablet 3 4 Active metFORMIN HCl 1000 MG Oral Tablet (Glucophage) Take one tablet by mouth twice a day 180 Tablet 3 4 Active AUM Mini Insulin Pen Needle 32G X 6 MM (NOVOFINE 32G PEN NEEDLE) use As directed 100 Each 3 4 Active Ibuprofen 200 MG Oral Tablet (Motrin) Take 2 Tablets by mouth 2 times a day. Active Toujeo SoloStar 300 UNIT/ML Subcutaneous Solution Pen-injector (Insulin Glargine (1 Unit Dial)) Inject 44 Units under the skin at bedtime. Active aspirin enteric coated 81 MG TBEC Take 1 Tab by mouth daily. 5 06/22/20 Discontinu ed(Medicat ion List Clean Up) insulin aspart (INSULIN ASPART) 100 UNIT/ML injectionIndicati ons:DM type 2, goal A1c below 7 12 units with meals 2 Vial 12 6 06/22/20 Discontinu ed(Medicat ion List Clean Up) Sotalol HCl 120 MG TabletIndications :Paroxysmal tachycardia (HCC) TAKE 1 TAB TWICE DAILY 180 Tab 1 6 06/22/20 24 Discontinu ed(Medicat ion List Clean Up) allopurinol (ZYLOPRIM) 100 MG TabletIndications :Gout TWO PILL BY MOUTH DAILY FOR GOUT PREVENTION 180 Tab 1 6 06/22/20 Discontinu ed(Medicat ion List Clean Up) metFORMIN (GLUCOPHAGE) 500 MG TabletIndications :Type 2 diabetes mellitus with hemoglobin A1c goal of less than 7.0% (HCC) Take 1 Tab by mouth 2 times a day with morning and evening meals. 180 Tab 1 6 06/22/20 Discontinu ed(Medicat ion List Clean Up) furosemide (LASIX) 40 MG TabletIndications :Generalized edema One tablet by mouth once a day for leg swelling 90 Tab 1 6 06/22/20 Discontinu ed(Medicat ion List Clean Up) lisinopril (PRINIVIL) 20 MG TabletIndications :HTN, goal below 130/80 Take 1 Tab by mouth daily. 31 Tab 6 7 06/22/20 Discontinu ed(Medicat ion List Clean Up) Terazosin HCl 2 MG Capsule Take 1 Cap by mouth at bedtime. 34 Cap 11 7 06/22/20 Discontinu ed(Medicat ion List Clean Up) Insulin Glargine Solostar 100 UNIT/ML Subcutaneous Solution Pen-injector (Basaglar KwikPen) Inject 26 units daily under the skin in the evening 15 Each 3 4 06/22/20 Discontinu ed(Medicat ion List Clean Up) Insulin Glargine Solostar 300 UNIT/ML Subcutaneous Solution Pen-injector inject 28 units under the skin daily 9 mL 3 4 06/22/20 Discontinu ed(Medicat ion List Clean Up) Ozempic (0.25 or 0.5 MG/DOSE) 2 MG/3ML Solution Pen-injector (Semaglutide(0.25 or 0.5MG/DOS)) inject 0.25 mg subcutaneously every 7 days: After 1 month, can increase to 0.5mg dose 9 mL 1 4 06/22/20 Discontinu ed(Medicat ion List Clean Up) Allopurinol 300 MG Oral Tablet (Zyloprim) Take one tablet by mouth every day 90 Tablet 3 4 06/22/20 Discontinu ed(Medicat ion List Clean Up) documented as of this encounter (statuses as of 06/22/2024) Active Problems Problem Noted Date Diagnosed Date Fatty liver 10/17/2015 Irreducible umbilical hernia 10/17/2015 BMI 50.0-59.9, adult 02/25/2015 Overview: 405 RBBB 02/25/2015 Cardiac dysrhythmia 06/24/2014 Umbilical hernia 01/03/2014 Venous insufficiency 01/03/2014 Type 2 diabetes mellitus wit h hemoglobin A1c goal of less than 7.0% 10/05/2011 ADVANCE DIRECTIVE INFORMATION 05/26/2007 Overview: No, Advance Directive brochure offered , patient declined. Primary localized osteoarthrosis, lower leg 11/2006 Derangement of medial meniscus Anterior cruciate ligament tear Elevated uric acid in blood LVH (left ventricular hypertrophy) Dyslipidemia, goal LDL below 100 documented as of this encounter (statuses as of 06/22/2024) Resolved Problems Problem Noted Date Diagnosed Date Resolved Date Atrial fibrillation with RVR 10/17/2015 11/25/2015 Overview: [facility] Mixed dyslipidemia 07/11/2012 6 Severe obesity (BMI >= 40) 10/05/2011 0 02/25/2015 Obesity, morbid (more than 1 00 lbs over ideal weight or BMI > 40) 02/10/2010 10/05/2011 Overview: Per Obesity Protocol, #19 ICD-10 update of inactive term Dyslipidemia, goal to be determined 08/05/2009 10/05/2011 Overview: Per Lipid Taxonomy. HTN, goal below 140/90 07/04/200901/03 Overview: Modified per HTN Taxonomy. Preoperative cardiovascular examination 03/02/2007 02/26/2008 Mixed dyslipidemia 08/17/2004 9 Overview: Per Lipid Taxonomy. HTN, goal below 140/90 07/04 Overview: Modified per HTN Taxonomy. documented as of this encounter (statuses as of 06/22/2024) Immunizations Name Administration Dates Next Due Pneumococcal [...] Recorded Sex Assigned at Not on file Gender Identity Not on file Sexual Orientation Not on file Job Start Date Occupation Industry Not on file Not on file Not on file documented as of this encounter Progress Notes * Matilda Kennedy, [facility] - 06/22/2024 9:06 AM EDT Zeferino Velarde is a 58 year old male. Objective: Review of patient's allergies indicates: Allergen Reactions Sulfamethoxazole Generalized rash Current Outpatient Medications - WARNING: List may be incomplete due to filtering Medication Sig Dispense Refill Ibuprofen 200 MG Oral Tablet (Motrin) Take 2 Tablets by mouth 2 times a day. Toujeo SoloStar 300 UNIT/ML Subcutaneous Solution Pen-injector (Insulin Glargine (1 Unit Dial)) Inject 44 Units under the skin at bedtime. Atorvastatin Calcium 40 MG Oral Tablet (Lipitor) Take one tablet by mouth every day 90 Tablet 3 metFORMIN HCl 1000 MG Oral Tablet (Glucophage) Take one tablet by mouth twice a day 180 Tablet 3 Sotalol HCl 80 MG Oral Tablet (Betapace) take one tablet by mouth twice daily 180 Tablet 3 Insulin Aspart FlexPen 100 UNIT/ML Subcutaneous Solution Pen-injector sliding scale at breakfast, lunch and dinner as below: Blood Sugar 70-150 inject 0 units; 151-200 inject 5 units; 201-250 inject 10 units; 251-300 inject 12 units; 301-350 inject 15 units; 351-400 inject 18 units;r >400 [id number] units and notify office TDD 60 units (Patient taking differently: Inject 16 units under the skinup to three times daily with meals as needed) 60 mL 3 DULoxetine HCl 30 MG Oral Capsule Delayed Release Particles (Cymbalta) Take 1 capsule by mouth every day 90 Capsule 1 AUM Mini Insulin Pen Needle 32G X 6 MM (NOVOFINE 32G PEN NEEDLE) use As directed 100 Each 3 BD Pen Needle Micro U/F 32G X 6 MM (NOVOFINE 32G PEN NEEDLE) Use as directed 100 Each 0 FreeStyle Raegan 2 Sensor Use as directed 1 Each 1 FreeStyle Raegan 2 Sensor Use as directed 1 Each 4 Jardiance 10 MG Oral Tablet (Empagliflozin) Take 1 tablet by mouth daily (Patient not taking: Reported on 06/21/2024) 90 Tablet 2 Insulin Syringes, Disposable, U-100 0.5 ML MISC Use at meals and bedtime 100 Box Dosing Unit 5 Immunization History Administered Date(s) Administered Pneumococcal Polysaccharide PPV23 (Pneumovax) 03/19/2009, 09/30/2011 Seasonal Influenza Vac., MDV, IM, 0.5 mL (Fluzone) 09/30/2011, 06/12/2012, 05/13/2015 TDAP, Age 7 and older, IM (Adacel) 02/26/2008 TMR Interventions Incomplete Encounter MTPs No medication therapy recommendations to display Complete Encounter MTPs No medication therapy recommendations to display Assessment & Plan Indication, effectiveness, safety and convenience of his medications were reviewed today. The patient's medical conditions were assessed, evaluated, and deemed meeting goals of drug therapy, with thefollowing exceptions. Additional Notes: Per patient, will check sugars with glucose meter a few times per day. Averages 120-160. No lows toreport. Stopped Jardiance due to cost. On average, reports only needing Novolog once a day. Summary Time Spent: 16-30 min Supervising pharmacist who provided the service: Blanco Lucero Information Who was the recipient of the CMR service: beneficiary Language Template for the Patient Takeaway: Ukrainian I attest that I have reviewed and updated the patient's conditions, allergies, and medications to the best of my ability. Patient provided medication list gathered by: Jolly Shankar RPh 06/22/2024, 9:06 AM documented in this encounter Miscellaneous Notes * MTM Personal Medication List - Matilda Kennedy RP - 06/22/2024 9:02 AM EDT Medication How I take it Why I use it Prescriber Atorvastatin Calcium 40 MG Oral Tablet (Lipitor) Take 1 Tablet by mouth every day. High CholesterolMattBRODY Cordon DULoxetine HCl 30 MG Oral Capsule Delayed Release Particles (Cymbalta) Take 1 Capsule by mouth oncea day. Mood Disorder BRODY Parkinson Ibuprofen 200 MG Oral Tablet (Motrin) Take 2 Tablets by mouth 2 times a day. Pain Self Insulin Aspart FlexPen 100 UNIT/ML Subcutaneous Solution Pen-injector Inject 0 to 18 Units under the skin 3 times a day at breakfast, lunch and dinner per sliding scale: If sugar 70-150, 0 units, If sugar 151-200, 5 units, If sugar 201-250, 10 units, If sugar 251-300, 12 units, If sugar 301-350, 15 units, If sugar 351-400, 18 units, If sugar more than 400, 18 units and notify office Total Daily Dose: 60 units Diabetes BRODY Parkinson metFORMIN HCl 1000 MG Oral Tablet (Glucophage) Take 1 Tablet by mouth 2 times a day. Diabetes BRODY Parkinson Sotalol HCl 80 MG Oral Tablet (Betapace) Take 1 Tablet by mouth 2 times a day. Heart Rate Control, High Blood Pressure BRODY Parkinson Toujesergio SoloStar 300 UNIT/ML Subcutaneous Solution Pen-injector (Insulin Glargine (1 Unit Dial)) Inject 44 Units under the skin at bedtime. Diabetes BRODY Parkinson * [facility] To-Do-List - Matilda Kennedy RPh - 06/22/2024 8:54 AM EDT Images from the original note were not included. What we talked about: What I should do: The importance of taking your medication as prescribed Your medicine works best when taken as prescribed. It can be hard to remember to take daily medications. Consider making it a part of your daily routine. Pair taking your medication with something you do every day, like brushing your teeth or eating a meal. Consider setting daily alarms to help remind yourself when it is time to take your medicine. Using a pill box can also help you organize your medicines. Pill boxes allow you to fill each day slot with your daily medicine and help you track when your next dose is due. What we talked about: What I should do: Importance of Good Blood Sugars Diabetes is a progressive disease that affects the pancreas and its' ability to produce insulin. It can also affect how well your body uses what insulin it does make. Insulin is how your body controls the amount of sugar that is in your blood. When your body isn't utilizing its' insulin well or if it is not making enough of it, your blood sugar will accumulate in your body rather than getting rid of it. If sugars remain high and left untreated, risks of kidney, heart, eyesight, circulation and prolonged healing issues can occur. The quicker and more stable you can keep your blood sugar levels, the lower the stress that is on your body and the lower the risk of diabetes-related complications. What we talked about: What I should do: Insulin Safe Use: Aspart, Toujeo Insulin should be administered at room temperature with a new needle and syringe with each time you inject. Unused insulin should be stored in your refrigerator. Onceyou start using a new insulin pen or vial, you may store it at room temperature away from direct light and heat sources for the duration noted in the package labeling (Novolog can be kept at room temperature up to 28 days (Aspart) and Toujeo can be kept at room temperature up to 42 days). Any unused insulin should be disposed of after the allotted time at room temperature. Prior to injection, ensure the insulin in the pen window is clear, colorless, and free of particles. Prep the area for injection (thigh, arm, buttocks, or abdomen) by ensuring it is clean and dry. Avoid any lumps, bruises, open wounds, or tender areas. Pinch the skin and insert the needle at a 45-degree angle. Push the needle all the way into the skin, release the pinched skin and slowly inject the insulin. Properly dispose of the needle and/or syringe in a sharps container. Do not reuse needles or syringes. What we talked about: What I should do: Low Blood Sugar If your blood sugar is 70 mg/dL or below, it is important to increase your blood sugar immediately. When left untreated, low blood sugar could progress from increased weakness and falls to passing out, coma, or even . When you notice your sugar is low, eat a small snack containing at least 15 grams of sugar; wait 15 minutes, and recheck your levels. If you the results are still low or you are still symptomatic, repeat the process. If after 2 attempts your blood sugar is no better, call your doctor immediately. Some examples of fast-acting sugars include: 4oz glass of juice or soda, 8oz glass of milk, chew and swallow 15g worth of glucose tablets, 1 tablespoon of sugar, jelly, peanut butter or honey, or 3-4hard candies. Be sure the product are not labeled as sugar-free or low-sugar. Please note, while foods like crackers, chips, breads, cookies, chocolate and other carbohydrate sources raise sugar, they do not do so as quickly. These items require more time for your body to digest and break down to get the sugar you need to help you. What we talked about: What I should do: Vaccine Reminder SHINGLES VACCINE: Shingrix is a 2 dose shingles vaccine series that are given 2-6 months apart. Getting this shot is a great way to protect yourself against the shingles virus. The shingles virus is contagious and causes formation of painful blisters on your body. The CDC recommends adults over 50 years old should get this vaccine to stay healthy. Regardless of whether you had the chicken pox, it is still recommended to get the shot to stay well. Talk to your doctor or pharmacist about getting this vaccine. This will be a $0 copay through your insurance at your local retail pharmacies. Tetanus/TDap Vaccine: The tetanus booster shot is recommended at least every 10 years. Per our records, your last dose was 2007. If this is correct, you may be due for the 10-year booster. Talk to your doctor to see if you are up to date on this vaccine. This should be a $0 copay through your insurance at local retail pharmacies. Flu Vaccine: It is time to go get your flu shot! It is recommended to get your 2023 flu vaccine in the early fall. Anywhere between April and May is the best time to get it. The earlier you get it, the sooner you are protected. It will be a $0 copay through your insurance at your local retail pharmacies. documented in this encounter Plan of Treatment Health Maintenance [...] 09/30/2015, Additional history exists GFR 09/17/2017 09/17/2016, /0 09/2015, 04/22/2015, Additional history exists DTap/Tdap Vaccines (2 - Td or Tdap) 02/25/2018 02/26/2008 Lipid Panel 09/17/2021 09/17/2016, 06, 10/24/2014, Additional history exists COVID-19 Vaccine ( [...] Not on filedocumented as of this encounter Visit Diagnoses Diagnosis Referred for management of medication therapy- Primary Encounter for long-term (current) use of other medications documented in this encounter Care Teams Cold Mill Inspector Relationship Specialty Start Date End Date Rd Andrea CRNP [address] [facility] [address] [place] [address] PCP - General Nurse Practitioner 06/21/24 documented as of this encounter
--- OUTSIDE RECORDS SUMMARY | 2024-10-10 05:43 | External Medical Summary | Summary of Care ---
Author Name Unknown Organization [facility] Address [address] [place] [address] Phone [phone] Care Team Providers Care Senior Writer Name Role Phone Rene Dodd MD Primary Care Provide r Encounter Details Date Type Department Care Team (Late st Contact Info) Description 06/12/2024 Population Health External Data Unspecified Department Allergies Active Allergy Reactions Criticality Noted Date Comments Sulfamethoxazole 11/15/2014 Generalized rash documented as of this encounter (statuses as of 06/13/2024) Medications Medication Sig Dispensed Refills Start Date End Date Status aspirin enteric coated 81 MG TBEC Take 1 Tab by mouth daily. 04/25/2015 Active insulin aspart (INSULIN ASPART) 100 UNIT/ML injectionIndicatio ns:DM type 2, goal A1c below 7 12 units with meals 2 Vial 12 12/01/2015 Active Insulin Syringes, Disposable, U-100 0.5 ML MISCIndications:DM type 2, goal A1c below 7 Use at meals and bedtime 100 Box Dosing Unit 5 12/01/2015 Active Sotalol HCl 120 MG TabletIndications: Paroxysmal tachycardia (HCC) TAKE 1 TAB TWICE DAILY 180 Tab 1 12/30/2015 Active allopurinol (ZYLOPRIM) 100 MG TabletIndications: Gout TWO PILL BY MOUTH DAILY FOR GOUT PREVENTION 180 Tab 1 01/05/2016 Active Additional Information Patient taking differently: 100 mg Oral Daily(AM), (No instructions reported), Reported on 10/19/2016 metFORMIN (GLUCOPHAGE) 500 MG TabletIndications: Type 2 diabetes mellitus with hemoglobin A1c goal of less than 7.0% (HCC) Take 1 Tab by mouth 2 times a day with morning and evening meals. 180 Tab 1 01/05/2016 Active furosemide (LASIX) 40 MG TabletIndications: Generalized edema One tablet by mouth once a day for leg swelling 90 Tab 1 01/05/2016 Active Additional Information Patient taking differently: 40 mg Oral DAILY PRN, Swelling, (No instructions reported), Reported on 10/19/2016 lisinopril (PRINIVIL) 20 MG TabletIndications: HTN, goal below 130/80 Take 1 Tab by mouth daily. 31 Tab 6 11/29/2016 Active Terazosin HCl 2 MG Capsule Take 1 Cap by mouth at bedtime. 34 Cap 11 12/29/2016 Active DULoxetine HCl 30 MG Oral Capsule Delayed Release Particles (Cymbalta) Take 1 capsule by mouth every day 90 Capsule 1 10/05/2023 Active BD Pen Needle Micro U/F 32G X 6 MM (NOVOFINE 32G PEN NEEDLE) Use as directed 100 Each 12/16/2023 Active FreeStyle Raegan 2 Sensor Use as directed 1 Each 1 12/19/2023 Active FreeStyle Raegan 2 Sensor Use as directed 1 Each 4 12/16/2023 Active Insulin Glargine Solostar 100 UNIT/ML Subcutaneous Solution Pen-injector (Basaglar KwikPen) Inject 26 units daily under the skin in the evening 15 Each 3 12/15/2023 Active Jardiance 10 MG Oral Tablet (Empagliflozin) Take 1 tablet by mouth daily 90 Tablet 2 01/11/2024 Active Insulin Aspart FlexPen 100 UNIT/ML Subcutaneous Solution Pen-injector sliding scale at breakfast, lunch and dinner as below: Blood Sugar 70-150 inject 0 units; 151-200 inject 5 units; 201-250 inject 10 units; 251-300 inject 12 units; 301-350 inject 15 units; 351-400 inject 18 units;r >400 inject 18 units and notify office TDD 60 units 60 mL 3 01/11/2024 Active Insulin Glargine Solostar 300 UNIT/ML Subcutaneous Solution Pen-injector inject 28 units under the skin daily 9 mL 3 01/11/2024 Active Ozempic (0.25 or 0.5 MG/DOSE) 2 MG/3ML Solution Pen-injector (Semaglutide(0.25 or 0.5MG/DOS)) inject 0.25 mg subcutaneously every 7 days: After 1 month, can increase to 0.5mg dose 9 mL 1 01/12/2024 Active Sotalol HCl 80 MG Oral Tablet (Betapace) take one tablet by mouth twice daily 180 Tablet 3 02/14/2024 Active Allopurinol 300 MG Oral Tablet (Zyloprim) Take one tablet by mouth every day 90 Tablet 3 04/03/2024 Active Atorvastatin Calcium 40 MG Oral Tablet (Lipitor) Take one tablet by mouth every day 90 Tablet 3 04/03/2024 Active metFORMIN HCl 1000 MG Oral Tablet (Glucophage) Take one tablet by mouth twice a day 180 Tablet 3 04/03/2024 Active AUM Mini Insulin Pen Needle 32G X 6 MM (NOVOFINE 32G PEN NEEDLE) use As directed 100 Each 3 04/17/2024 Active documented as of this encounter (statuses as of 06/13/2024) Active Problems Problem Noted Date Diagnosed Date [...] as of this encounter (statuses as of 06/13/2024) Resolved Problems Problem Noted Date Diagnosed Date Resolved Date Atrial fibrillation with RVR 10/17/2015 11/25/2015 Overview: [facility] Mixed dyslipidemia 07/11/2012 6 Severe obesity [...] as of this encounter (statuses as of 06/13/2024) Immunizations Name Administration Dates Next Due Pneumococcal [...] on file documented as of this encounter Plan of [...] 09/30/2015, Additional history exists GFR 09/17/2017 09/17/2016, 020 09/2015, 04/22/2015, Additional history exists DTap/Tdap Vaccines (2 - Td or Tdap) 02/25/2018 02/26/2008 Lipid Panel 09/17/2021 09/17/2016, 01/29, 10/24/2014, Additional history exists COVID-19 Vaccine ( season) 2024 Influenza Vaccine (FLU shot) (#1) 2024 05/13/2015, 06/12/2012, 09/30/2011 HPV (Gardasil) Vaccine Aged Out No lo nger eligible based on patient's age to complete this topic MENINGOCOCCAL (MENACTRA/MENVEO) Aged Out No longer eligible based on patient's age to complete this topic documented as of this encounter Medical Devices Not on filedocumented as of this encounter Care Teams Senior Writer Relationship Specialty Start Date End Date Rene Dodd MD [address] [place] [address] ANNIA Akins [id number] PCP - General Family Medicine 05/27/23 documented as of this encounter
[2024-10-10 07:15] LABS: Basophils # (auto) 0.08 K/uL (0.00-0.20); Basophils % (auto) 0.8 %; Eosinophils # (auto) 0.03 K/uL (0.00-0.50); Eosinophils % (auto) 0.3 %; Hematocrit (blood only) 36.8 % (42.0-52.0); Hemoglobin 13.2 g/dl (14.0-18.0); Immature Granulocytes # (auto) 0.04 K/uL (0.01-0.20); Immature Granulocytes % (auto) 0.4 %; Lymphocytes % (auto) 15.2 %; Mean Corpuscular Hemoglobin 33.3 pg (25.0-34.0); Mean Corpuscular Hgb Conc 35.9 g/dL (32.0-36.0); Mean Corpuscular Volume 92.9 fL (80.0-100.0); Mean Platelet Volume 11.5 fL (9.4-12.4); Monocytes # (auto) 1.02 K/uL (0.11-0.59); Monocytes % (auto) 10.3 %; Neutrophils # (auto) 7.22 K/uL (1.40-6.50); Platelet Count 147 K/uL (130-400); RDW Coefficient of Variation 12.7 % (11.5-14.5); RDW Standard Deviation 43.1 fL (36.4-46.3); Red Blood Count 3.96 M/uL (4.70-6.10); White Blood Count 9.89 K/ul (4.8-10.8)
[2024-10-10 07:26] LABS: Estimated Average Glucose 169 mg/dl; Hemoglobin A1C 7.5 % (4.5-5.6)
[2024-10-10] MEDS: PERFLUTREN LIPID MICROSPHERE (DEFINITY) IV ONE (07:38)
[2024-10-10 07:39] LABS: Albumin Globulin Ratio 1.6 (0.9-2); Albumin Level 4.4 gm/dl (3.4-5.0); BUN Creatinine Ratio 13.4 (10-20); Bilirubin,Total 0.9 mg/dl (0.2-1.0); Calcium 9.3 mg/dl (8.6-10.3); Creatinine Clr Calc Pharmacy 114.2 ml/min; Globulin 2.8 gm/dl (2.5-4.0); Potassium 3.7 mmol/L (3.5-5.1); Total Protein 7.2 gm/dl (6.0-8.3)
[2024-10-10 07:43] LABS: INR 1.1 (0.9-1.1)
[2024-10-10] MEDS: FUROSEMIDE 40 MG/4 ML VIAL IV SCH (08:25)
[2024-10-10] MEDS: HEPARIN SOD 5,000 UNIT/0.5 ML VIAL SQ SCH (08:25)
[2024-10-10] MEDS: ASPIRIN 81 MG ECTAB PO SCH (08:26)
[2024-10-10] MEDS: LANTUS PER UNIT CHARGE SQ SCH ×2 (08:26→20:50)
[2024-10-10] MEDS: INSULIN ASPART PER UNIT CHARGE SC SCH (08:26)
[2024-10-10] MEDS: ALPRAZolam 0.25 MG TABLET PO STA (08:43)
--- NOTE | 2024-10-10 08:43 | Neurology Consultation ---
Date of Consultation October 10, 2024 Assessment & Plan (1) Right sided weakness: History of Present Illness Attending Physician: Jarrett Vivar MD History of Present Illness S: pt this morning feeling back to baseline with no longer weakness on rt side and not confused anymore. CT head and CTA head/neck negative. pt with hx of PMR and heart failure with noncompliance to medical management and panic attacks. admission HpI: The patient presents to the emergency department with complaint of right sided weakness and pain that occurred after he had an extended nap from 10 AM to 3 PM the day of admission, that was about 6 hours prior to arrival in the emergency department. He reports that upon awakening he felt disoriented, was trying to figure out how to use his phone to call his son, and was finally able to do so. He reports the previous day he had a panic attack, that occurred after he had taken his grandchildren to school. He reports that upon awakening this morning, he had had a normal interval, no panic attacks, and then reports that after he had his 5-hour nap it difficulty waking up and clearing his brain to do activities as noted above. He denies any bowel or bladder issues. He denies any issues with headaches, dizziness, vision or hearing change, bowel or bladder incontinence. He does note that his legs are more swollen than usual, and notes that there is a bruise on his right inner thigh and has noted some darkening of his right reese. He denies any difficulty with speech physically, and denies any issues with swallowing. Patient reports that in attempt to lose weight, he has gone through extended intervals of time anywhere from 12 to 24 hours where he does not eat or drink anything, and may often times misses medications as well during this interval Primary Care Provider: BRODY Cason The patient is a 59-year-old male with a past medical history including diabetic neuropathy, bilateral lower extremity weakness, spinal stenosis L4-5, A-fib, spinal stenosis, depression, PMR, gout, atrial flutter, CVI, morbid obesity, RBBB, hypertension, hyperlipidemia, and chronic venous stasis dermatitis. The patient presents to the emergency department with complaint of right sided weakness and pain that occurred after he had an extended nap from 10 AM to 3 PM the day of admission, that was about 6 hours prior to arrival in the emergency department. He reports that upon awakening he felt disoriented, was trying to figure out how to use his phone to call his son, and was finally able to do so. He reports the previous day he had a panic attack, that occurred after he had taken his grandchildren to school. He reports that upon awakening this morning, he had had a normal interval, no panic attacks, and then reports that after he had his 5-hour nap and difficulty waking up and clearing his brain to do activities as noted above. He denies any bowel or bladder issues. He denies any issues with headaches, dizziness, vision or hearing change, bowel or bladder incontinence. He does note that his legs are more swollen than usual, and notes that there is a bruise on his right inner thigh and has noted some darkening of his right reese. He denies any difficulty with speech physically, and denies any issues with swallowing. Patient reports that in attempt to lose weight, he has gone through extended intervals of time anywhere from 12 to 24 hours where he does not eat or drink anything, and may often times misses medications as well during this interval. Allergies Allergy/AdvReac Type Severity Reaction Status Date / Time Sulfa (Sulfonamide Allergy Intermediate itching Verified 01/09/24 14:04 Antibiotics) cephalexin [From Keflex] Allergy Mild Rash Verified 01/09/24 14:04 Home Medications Medication Instructions Recorded Confirmed Type flash glucose scanning reader #1 ea 12/19/23 10/10/24 Rx (FreeStyle Raegan 2 Dodson) flash glucose sensor (FreeStyle #1 ea 12/19/23 10/10/24 Rx Raegan 2 Sensor kit) blood-glucose meter (ReliOn 12/20/23 10/10/24 History All-In-One Meter kit) insulin aspart U-100 100 unit/mL See Rx Instructions subcut 01/11/24 10/10/24 Rx (3 mL) subcutaneous pen (Novolog .COMPLEX #54 mL FlexPen U-100 Insulin aspart) sotalol 80 mg tablet 80 mg PO BID #180 tabs 02/14/24 10/10/24 Rx metformin 1,000 mg tablet 1,000 mg PO BID #180 tabs 04/03/24 10/10/24 Rx pen needle, diabetic 32 gauge x #100 ea 04/17/24 10/10/24 Rx 1/4" (BD Ultra-Fine Micro Pen Needle) insulin glargine U-300 conc 300 48 unit subcut DAILY 06/05/24 10/10/24 History unit/mL (1.5 mL) subcutaneous pen (Toujulia SoloStar U-300 Insulin) duloxetine 30 mg capsule,delayed 30 mg PO UD 10/10/24 10/10/24 History release Patient History Medical History (Updated 10/10/24 @ 05:20 by Clarke Holm MD) Odynophagia Pseudomonas infection Spinal stenosis Hypertension Gout Fatty liver Diabetes Arthritis Renal hematoma, left Surgical History S/P tonsillectomy H/O arthroscopic knee surgery 2000 and 2007 S/P cardiac cath "cath 07/05/2014- angiographically normal vessels, EF 60-65%" S/P left knee arthroscopy Family History Mother Diabetes Hypertension Denies family history of Ovarian cancer Prostate cancer Myocardial infarction Breast cancer Colorectal cancer Social History Smoking Status: Former smoker Tobacco Type: Cigarettes Age Started Using Tobacco: 27; Age Quit Using Tobacco: 49; packs per day: 1; Second Hand Exposure: No; Do You Dip or Chew Tobacco: No; Hx Alcohol Use: Yes Alcohol type: beer Alcohol Intake Frequency: Monthly or Less Hx Substance Use: No Preferred Language: Cypriot Communication Ability: Effective Visual Impairment: No Limitations Hearing Ability: Normal Equine Breeder Required: No Beliefs That Will Affect Care: None marital status: Current Living Situation: Alone current occupational status: retired Feels Safe at Home: Yes Safety Concerns: Feels Safe At This Time Childhood Exposure to Second-Hand Smoke: No Diet: regular Diet Comment: regular caffeine: Yes (Coffee x 2 per day.) during the past year weight has: increased > 10 lbs Dental Care, Regularly: No Physical Activity Frequency: 3-4 Times per Week Physical Activity Frequency Comment: limited by physical condition/ does excercises while sitting Seatbelt Use: always Sunscreen Use: No Assistive Devices: Cane, Denture - Upper, Denture - Lower and Glasses Exam (Neuro) Physical Exam: HEENT: normocephalic grossly Neuro: Mental: AOx4, fluent speech, normal comprehension, no apraxia, no L/R confusion, no neglect CN: PERRL, Full EOM, symmetric face, midline T/U/P, grossly full ROM neck Motor: No abnormal movements, normal tone, 5/5 t/o bilaterally Sens: intact to touch b/l grossly Coord: intact DTR: 1+ sym b/l Impression: 59 yo male with transient rt side weakness in setting of PMR and mild heart failure and panic attack history with now resolved symptoms and negative imaging. Unclear etiology but several factors contributed including his hx of PMR and medical noncompliance and HTN encephalopathy and psychological in nature. less likely vascular event. pt hx of a.fib but has been cardioverted few years and has been stable. Recommendations: i do not feel need for further stroke work up at this point. continue supportive care and medical management. make sure pt is compliance with his medical care and meds. please call if new question. Chart reviewed I have spent more than 50% educating patient about potential diagnosis and neurological evaluation and coordinating care with patient's treatment team. Total time spent (including chart review and coordination of care): 55 min (this includes chart review). Results & Data Vital Signs (Past 12 Hours) Vital Signs Temp Pulse Pulse Resp BP BP Pulse Ox 10/10/24 07:49 37.0 C 94 H 18 161/86 H 95 10/10/24 04:23 10/10/24 03:48 36.7 C 111 H 20 145/90 H 93 10/10/24 02:05 10/10/24 02:00 138/94 10/10/24 01:33 98 10/10/24 01:30 143/103 H 10/10/24 01:00 106 H 157/109 H 100 10/10/24 00:30 97 H 16 152/94 H 99 10/10/24 00:00 88 13 147/103 H 99 10/09/24 23:30 95 H 20 134/97 99 10/09/24 23:03 98 H 26 H 100 10/09/24 23:00 147/100 H 10/09/24 22:45 84 10/09/24 22:00 101 H 21 147/109 H 100 O2 Del Method O2 Flow Rate 10/10/24 07:49 Room Air 10/10/24 04:23 Nasal Cannula 3 10/10/24 03:48 Nasal Cannula 3 10/10/24 02:05 Nasal Cannula 10/10/24 02:00 10/10/24 01:33 Nasal Cannula 3 10/10/24 01:30 10/10/24 01:00 Nasal Cannula 3 10/10/24 00:30 Nasal Cannula 3 10/10/24 00:00 Nasal Cannula 3 10/09/24 23:30 Nasal Cannula 10/09/24 23:03 Nasal Cannula 10/09/24 23:00 10/09/24 22:45 10/09/24 22:00 Room Air PG Care Time/CCT Total # of Minutes Spent Total Time Spent with Patient: Total time spent is greater than 50% in coordination of care (as documented) at patient's floor/unit and/or counseling patient: Coding Level of Care Code 04376 OFFICE CONSULT LVL Diagnoses Right sided weakness R53.1
[2024-10-10] MEDS: OPTIRAY 320 100ml IV ONE (09:06)
--- NOTE | 2024-10-10 09:21 | Pharmacy Report ---
Pharmacy Glycemic Short Note 2 - Date of Service October 10, 2024 - Glycemic Short BSG Results (Last 24 hours): 10/09/24 10/10/24 10/10/24 17:59 03:17 06:58 Glucose 203 H 198 H POC Glucose 180 H 10/10/24 07:47 Glucose POC Glucose 178 H OUTPATIENT ANTIDIABETIC REGIMEN: * Toujeo 48 units SC daily * Novolog SSI * Metformin 1000 mg PO BIDM HbA1c: 7.5% (10/10/24) ASSESSMENT: * RB is a 59 year old male who presented to ED w/ right-sided weakness and pain following a long nap earlier in the day * Pertinent PMH includes T2DM, obesity, atrial fibrillation, spinal stenosis * Blood sugar of 178 mg/dL this morning * Will use adjusted-body weight to guide initial weight-based dosing of insulin * Diet ordered PLAN FOR INPATIENT GLYCEMIC CONTROL: * Hold outpatient oral diabetes medications * Basal insulin * Lantus 20 units SQ x 1 this AM * Lantus 0-10-20 units SC HS * Reassess in AM * Bolus insulin * NovoLog per scale ACHS or Q6hrs while NPO * Goal Range: Low 110 mg/dL - High 140 mg/dL * Correction Factor: 20 mg/dL/unit * Nutritional / Prandial insulin per carb ratio of 1 unit per 7 grams CHO consumed
--- NOTE | 2024-10-10 09:33 | CT Scan Report ---
CT head/brain wo/w con CLINICAL HISTORY: 59 years-old Male with follow up to evening CT. Acute stroke like symptoms with ri ght-sided weakness TECHNIQUE: Multiple axial CT images of the head were obtained without contrast. A dose lowering tech nique was utilized adhering to the principles of ALARA. CT DOSE: 2061.16 mGy.cm COMPARISON: Head CT 10/09/2024 FINDINGS: No acute intracranial hemorrhage, midline shift, intracranial mass, hydrocephalus, territorial ischem ia or abnormal extra-axial collection. Mild involutional changes. Study is mildly motion degraded. The calvarium is intact. The paranasal sinuses, mastoid air cells, and middle ear cavities are clear . IMPRESSION: No acute intracranial abnormality identified. ACT 112: Negative or not required by law. The above report was generated using voice recognition software. It may contain grammatical, syntax o r spelling errors. Electronically signed by: Storm Bryant M.D. 10/10/2024 9:31 AM
--- NOTE | 2024-10-10 09:36 | CT Scan Report ---
CT cervical spine wo con CLINICAL HISTORY: 59 years-old Male with ?critical spinal stenosis at C3-C4?. Acute neck pain COMPARISON: CT neck 10/09/2024 TECHNIQUE: Multiple axial CT images of the cervical spine were obtained without contrast. A dose low ering technique was utilized adhering to the principles of ALARA. FINDINGS: No acute cervical spine fracture or subluxation. Mild chronic periventricular endplate comp ression at C7-T3. No retropulsion. There is mild multilevel intervertebral disc space narrowing and s pondylotic spurring with moderate facet arthrosis. There is degenerative bony fusion involving the ri ght C3-C4 facets. Additionally, there is partial bony fusion posteriorly at this level with posterior bridging osteophyte. No marrow replacing lesion. There is suboptimal evaluation of the central canal and neural foramen by CT technique. There is suggestion of moderate central canal with moderate to s evere bilateral foraminal narrowing at C3-C4. No definite high-grade central canal stenosis is identi fied by CT. The cervical soft tissues appear unremarkable. The visualized lung apices appear clear. IMPRESSION: 1. No acute cervical spine fracture or subluxation. 2. Degenerative changes of the cervical spine as above. 3. There is suboptimal evaluation of the central canal and neural foramen by CT technique. ACT 112: Negative or not required by law. The above report was generated using voice recognition software. It may contain grammatical, syntax o r spelling errors. Electronically signed by: Storm Bryant M.D. 10/10/2024 9:35 AM
--- NOTE | 2024-10-10 12:29 | XCELERA ---
[id number]
--- NOTE | 2024-10-10 12:42 | Electrocardiogram Report ---
Test Reason : Blood Pressure : */* mmHG Vent. Rate : 100 BPM Atrial Rate : * BPM P-R Int : * ms QRS Dur : 120 ms QT Int : 370 ms P-R-T Axes : * -21 46 degrees QTcB Int : 477 ms Atrial fibrillation Right bundle branch block Abnormal ECG When compared with ECG of 19-Jun-2021 06:23, Atrial fibrillation has replaced Sinus rhythm Confirmed by Rupesh Loomis ([id number]) on 10/10/2024 12:42:31 PM Referred By: Confirmed By: Rupesh Loomis
[2024-10-10 13:53] LABS: C Reactive Protein 0.93 mg/dl (0-0.5)
[2024-10-10 14:09] LABS: Thyroid Stimulating Hormone 1.283 uIu/ml (0.300-4.500)
[2024-10-10] MEDS: METOPROLOL TARTRATE 25 MG TAB PO SCH (16:32)
[2024-10-10] MEDS: ACETAMINOPHEN 325 MG TAB PO PRN (16:33)
--- NOTE | 2024-10-10 17:23 | Hospitalist Progress Note ---
Date of Service October 10, 2024 Assessment & Plan (1) TIA (transient ischemic attack): Plan: I believe that his report of RUE/RLE weakness and confusion at home were due to TIA. In light of known a.fib and lack of chronic anticoagulation he could have easily had an embolic event leading to TIA. Unfortunately we cannot perform MRI brain to exclude a stroke process due to extreme claustrophobia. [id number] repeat CT head today was negative. I recommended we resume anticoagulation in the form of Eliquis 5mg BID. He previously took such years ago for his a.fib. Neck & head CTAs negative. Recheck lipid profile in am. (2) Right sided weakness: Plan: suspect 2nd to #1 resolved c-spine CT obtained as his CTA neck showed possible high-grade stenosis at C3-C4 c-spine CT fortunately did not show any high-grade stenosis further, his exam is not c/w myelopathy, and he denies any neck pain, arm paresthesias, or persistent weakness (3) Acute on chronic heart failure with preserved ejection fraction (HFpEF): Plan: looks euvolemic to me today s/p lasix in the ER last pm and again today will place additional doses on hold if he was indeed decompensated suspect uncontrolled a.fib as the culprit (4) Atrial fibrillation with RVR: Plan: he has been off anticoagulation for several years he is not symptomatic from the a.fib he has not been on sotalol for several years will stop sotalol will aim for rate control with metoprolol - start 25mg q6h resume anticoagulation in the form of Eliquis 5mg BID echo results noted TSH wnl mag/k wnl will need cardiology f/u (5) Spinal stenosis at L4-L5 level: Plan: known history of such, but his strength in both legs is intact and symmetric no evidence of clinical PMR no evidence of any myelopathy (6) Chronic venous insufficiency: (7) Degenerative joint disease of cervical spine: Plan: as above Plan checked sed rate/crp due to ?h/o PMR years ago -- both wnl checked CPK due to heavy weight lifting a few days ago -- wnl no discharge today Admission and Anticipated Discharge Date Admission Date: October 10, 2024 Subjective patient reports he hasn't take any sotalol in 2+ years hasn't seen cardiology in several years to his knowledge has not been in a.fib for years denies palpitations mentation improved; he does not feel confused/fuzzy today he denies any neck pain denies any low back pain denies focal weakness on right today denies paresthesias of arms/legs no dizziness with standing tele since admission - a.fib, rates >100 with any activity did take Eliquis years ago - willing to go back on such reports his arms are sore - he went to the gym on Tuesday and did a bunch of free weights and exercises although his medical history reports PMR he is not aware of that diagnosis and doesn't recall lengthy courses of prednisone, etc. Physical Exam Physical Exam: gen - obese, sitting in chair, NAD neck - no JVD heart - irregularly irregular, s1 s2, no murmur, rate ~100 lungs - CTA b/l abd - soft NT ND BS+ ext - <1+ edema b/l, pulses 2+ b/l neuro - strength 5/5 x 4 exts; no proximal muscle weakness; DTRs 1+ b/l upper & lower exts musculo - no abnormalities of his arms b/l Results & Data Results & Data Vital Signs (Past 12 Hours) Vital Signs Temp Pulse Pulse Resp BP Pulse Ox O2 Del Method 10/10/24 14:53 36.6 C 88 18 143/91 H 92 Room Air 10/10/24 11:18 36.7 C 83 18 128/88 95 Room Air 10/10/24 09:38 Room Air 10/10/24 09:37 99 H 10/10/24 07:49 37.0 C 94 H 18 161/86 H 95 Room Air Laboratory Results Laboratory Results - last 24 hr 10/10/24 10/10/24 10/10/24 03:17 06:58 07:47 WBC 9.89 RBC 3.96 L Hgb 13.2 L Hct 36.8 L MCV 92.9 MCH 33.3 MCHC 35.9 RDW Std Deviation 43.1 RDW Coeff of Dar 12.7 Plt Count 147 MPV 11.5 Immature Gran % (Auto) 0.4 Neut % (Auto) 73.0 Lymph % (Auto) 15.2 Lincoln % (Auto) 10.3 Eos % (Auto) 0.3 Baso % (Auto) 0.8 Neut # (Auto) 7.22 H Lymph # (Auto) 1.50 Lincoln # (Auto) 1.02 H Eos # (Auto) 0.03 Baso # (Auto) 0.08 Immature Gran # (Auto) 0.04 ESR 12 PT 12.0 INR 1.1 Sodium 139 Potassium 3.7 Chloride 104 Carbon Dioxide 23 Anion Gap 12 H BUN 16 Creatinine 1.19 Est Cr Clr Drug Dosing 114.2 eGFR 69.93 BUN/Creatinine Ratio 13.4 Glucose 198 H POC Glucose 180 H 178 H Estimat Average Glucose 169 Hemoglobin A1c 7.5 H Calcium 9.3 Total Bilirubin 0.9 AST 15 ALT 24 Alkaline Phosphatase 52 Total Creatine Kinase 85 C-Reactive Protein 0.93 H Total Protein 7.2 Albumin 4.4 Globulin 2.8 Albumin/Globulin Ratio 1.6 TSH 1.283 10/10/24 10/10/24 11:20 16:29 WBC RBC Hgb Hct MCV MCH MCHC RDW Std Deviation RDW Coeff of Dar Plt Count MPV Immature Gran % (Auto) Neut % (Auto) Lymph % (Auto) Lincoln % (Auto) Eos % (Auto) Baso % (Auto) Neut # (Auto) Lymph # (Auto) Lincoln # (Auto) Eos # (Auto) Baso # (Auto) Immature Gran # (Auto) ESR PT INR Sodium Potassium Chloride Carbon Dioxide Anion Gap BUN Creatinine Est Cr Clr Drug Dosing eGFR BUN/Creatinine Ratio Glucose POC Glucose 127 H 150 H Estimat Average Glucose Hemoglobin A1c Calcium Total Bilirubin AST ALT Alkaline Phosphatase Total Creatine Kinase C-Reactive Protein Total Protein Albumin Globulin Albumin/Globulin Ratio TSH PG Care Time/CCT Total # of Minutes Spent Total Time Spent with Patient: Total time spent is greater than 50% in coordination of care (as documented) at patient's floor/unit and/or counseling patient: Coding Level of Care Code None Diagnoses TIA (transient ischemic attack) G45.9 Right sided weakness R53.1 Acute on chronic heart failure with preserved ejection fraction (HFpEF) I50.33 Atrial fibrillation with RVR I48.91 Spinal stenosis at L4-L5 level M48.061 Chronic venous insufficiency I87.2 Degenerative joint disease of cervical spine M47.812
[2024-10-10] MEDS: APIXABAN 5 MG TABLET PO SCH (22:45)
[2024-10-11] MEDS: INFLUENZA VACC TS2024-25(6m+)/PF (IIV3) 0.5mL Syr IM ONE (05:42)
[2024-10-11 07:44] LABS: BUN Creatinine Ratio 16.4 (10-20); Calcium 9.5 mg/dl (8.6-10.3); Chol HDL Ratio 6.1 (0-5); Creatinine Clr Calc Pharmacy 115.9 ml/min; Magnesium 1.7 mg/dl (1.7-2.4); Potassium 3.6 mmol/L (3.5-5.1)
[2024-10-11] MEDS: LANTUS PER UNIT CHARGE SC SCH (08:20)
--- NOTE | 2024-10-11 10:28 | Hospitalist Progress Note ---
Date of Service October 11, 2024 Assessment & Plan (1) TIA (transient ischemic attack): Plan: I believe that his report of RUE/RLE weakness and confusion at home were due to TIA. In light of known a.fib and lack of chronic anticoagulation he could have easily had an embolic event leading to TIA. Unfortunately we cannot perform MRI brain to exclude a stroke process due to extreme claustrophobia. [id number] repeat CT head was again negative. I recommended we resume anticoagulation in the form of Eliquis 5mg BID. He previously took such years ago for his a.fib. Neck & head CTAs negative. Lipids - LDL 154. Recommend lipitor 40mg daily. (2) Right sided weakness: Plan: suspect 2nd to #1 resolved c-spine CT obtained as his CTA neck showed possible high-grade stenosis at C3-C4 c-spine CT fortunately did not show any high-grade stenosis further, his exam is not c/w myelopathy, and he denies any neck pain, arm paresthesias, or persistent weakness (3) Acute on chronic heart failure with preserved ejection fraction (HFpEF): Plan: s/p lasix in the ER then 1 additional dose after that euvolemic at this time with normal lung exam & normal O2 sats placed additional doses on hold if he was indeed decompensated suspect uncontrolled a.fib as the culprit (4) Atrial fibrillation with RVR: Plan: he has been off anticoagulation for several years he is not symptomatic from the a.fib except for dyspnea on exertion initially he had stated he was off sotalol for several years but actually had been taking it pre-admission [id number] it was not keeping him in NSR sotalol stopped due to lack of anticoagulation will strive for rate control at this time increase metoprolol to 50mg q6h also dig load -- 250mcg IV x 1, then additional dose of 250mcg IV x 1 in 6 hours cont Eliquis 5mg BID echo results noted TSH wnl mag/k wnl I spoke with Dr Buddy Loomis from [facility] who can follow him in the [place] office he agrees with the above rate-control strategy (5) Spinal stenosis at L4-L5 level: Plan: known history of such, but his strength in both legs is intact and symmetric no evidence of clinical PMR and sed rate/crp wnl no evidence of any myelopathy (6) Chronic venous insufficiency: (7) Degenerative joint disease of cervical spine: Plan: as above (8) Depression: Plan: resume cymbata 30mg daily (9) High cholesterol: Plan: LDL 154 start lipitor 40mg daily (10) Obesity, morbid, BMI 50 or higher: Plan: BMI 53 Plan checked CPK due to heavy weight lifting a few days ago -- wnl no discharge until a.fib rate control is satisfactory care d/w Dr Loomis - [facility] Admission and Anticipated Discharge Date Admission Date: October 10, 2024 Subjective a.fib rates 90s - some low 100s - at rest with walking - rates promptly rise to 120s/130s and hit 150-160 with minimal activity patient with CEJA during walking no chest pain no focal weakness in arms or legs still "sore" in arms/legs from recent weight lifting on Tuesday of this week at the gym Review of Systems Review of Systems: CV - no chest pain; no sensation of palpitations pulm - no dyspnea at rest GI - no abd pain Physical Exam Physical Exam: gen - obese, sitting in chair, NAD neck - no JVD heart - irregularly irregular, s1 s2, no murmur, rate <100 at rest lungs - CTA b/l abd - soft NT ND BS+ ext - trace edema b/l, pulses 2+ b/l neuro - gait - slow, walks with a slight limp Results & Data Results & Data Vital Signs (Past 12 Hours) Vital Signs Temp Pulse Pulse Resp BP Pulse Ox O2 Del Method 10/11/24 09:40 Room Air 10/11/24 07:31 97 H 10/11/24 07:26 36.8 C 93 H 20 105/77 95 Room Air 10/11/24 02:30 37.0 C 92 H 20 148/94 H 99 Room Air 10/11/24 01:16 93 H Laboratory Results Laboratory Results - last 24 hr 10/10/24 10/10/24 10/10/24 06:58 11:20 16:29 ESR 12 Sodium Potassium Chloride Carbon Dioxide Anion Gap BUN Creatinine Est Cr Clr Drug Dosing eGFR BUN/Creatinine Ratio Glucose POC Glucose 127 H 150 H Calcium Magnesium Total Creatine Kinase 85 C-Reactive Protein 0.93 H Triglycerides Cholesterol LDL Cholesterol, Calc VLDL Cholesterol, Calc HDL Cholesterol Cholesterol/HDL Ratio TSH 1.283 0210/11/24 10/11/24 20:06 06:39 07:24 ESR Sodium 139 Potassium 3.6 Chloride 105 Carbon Dioxide 25 Anion Gap 9 BUN 19 Creatinine 1.16 Est Cr Clr Drug Dosing 115.9 eGFR 72.11 BUN/Creatinine Ratio 16.4 Glucose 163 H POC Glucose 158 H 170 H Calcium 9.5 Magnesium 1.7 Total Creatine Kinase C-Reactive Protein Triglycerides 147 Cholesterol 219 H LDL Cholesterol, Calc 154 VLDL Cholesterol, Calc 29 HDL Cholesterol 36 Cholesterol/HDL Ratio 6.1 H TSH PG Care Time/CCT Total # of Minutes Spent Total Time Spent with Patient: Total time spent is greater than 50% in coordination of care (as documented) at patient's floor/unit and/or counseling patient: Coding Level of Care Code 89258 SUB INP/OBS CARE 3/50MIN Diagnoses TIA (transient ischemic attack) G45.9 Right sided weakness R53.1 Acute on chronic heart failure with preserved ejection fraction (HFpEF) I50.33 Atrial fibrillation with RVR I48.91 Spinal stenosis at L4-L5 level M48.061 Chronic venous insufficiency I87.2 Degenerative joint disease of cervical spine M47.812 Depression F32.9 High cholesterol E78.00 Obesity, morbid, BMI 50 or higher E66.01
[2024-10-11] MEDS: METOPROLOL TARTRATE 25 MG TAB PO STA (11:18)
[2024-10-11] MEDS: DIGOXIN 250 MCG in SYRINGE 9 ML IV STA (12:12)
[2024-10-11] MEDS: METOPROLOL TARTRATE 50 MG TAB PO SCH (15:10)
--- NOTE | 2024-10-11 15:22 | Electrocardiogram Report ---
Test Reason : Blood Pressure : */* mmHG Vent. Rate : 96 BPM Atrial Rate : * BPM P-R Int : * ms QRS Dur : 122 ms QT Int : 370 ms P-R-T Axes : * -31 51 degrees QTcB Int : 467 ms Atrial fibrillation with premature ventricular or aberrantly conducted complexes Left axis deviation Right bundle branch block Abnormal ECG When compared with ECG of 09-Oct-2024 17:54, No significant change was found Confirmed by Rupesh Loomis ([id number]) on 10/11/2024 3:21:48 PM Referred By: REFERRED SELF Confirmed By: Rupesh Loomis
[2024-10-11] MEDS: DIGOXIN 250 MCG in SYRINGE 9 ML IV ONE (18:26)
[2024-10-11] MEDS: LANTUS PER UNIT CHARGE SQ SCH (21:58)
[2024-10-12] MEDS: ATORVASTATIN 40 MG TAB PO SCH (08:31)
[2024-10-12] MEDS: DULoxetine HCL 30 MG CAP PO SCH (08:31)
[2024-10-12] MEDS: LANTUS PER UNIT CHARGE SC SCH (08:31)
--- NOTE | 2024-10-12 08:58 | Pharmacy Report ---
Pharmacy Glycemic Short Note 2 - Date of Service October 12, 2024 - Glycemic Short BSG Results (Last 24 hours): 10/11/24 10/11/24 10/11/24 11:13 16:17 20:31 POC Glucose 196 H 162 H 211 H 10/12/24 07:25 POC Glucose 161 H OUTPATIENT ANTIDIABETIC REGIMEN: * Toujeo 48 units SC daily * Novolog SSI * Metformin 1000 mg PO BIDM HbA1c: 7.5% (10/10/24) ASSESSMENT: 10/12 * He received a total of 75 units of insulin yesterday (40 units were basal and 35 units were bolus.) * Fasting BSG was 161mg/dL this morning so the Lantus has been increased to 24 units QAM. Will continue Lantus scale at HS (0-20 units depending on BSG) * BSG increased to 216mg/dL at lunch time today so the CR will be tightened as well. 10/10 * RB is a 59 year old male who presented to ED w/ right-sided weakness and pain following a long nap earlier in the day * Pertinent PMH includes T2DM, obesity, atrial fibrillation, spinal stenosis * Blood sugar of 178 mg/dL this morning * Will use adjusted-body weight to guide initial weight-based dosing of insulin * Diet ordered PLAN FOR INPATIENT GLYCEMIC CONTROL: * Hold outpatient oral diabetes medications * Basal insulin * Lantus 24 units SQ Q AM * Lantus 0-10-20 units SC HS * Bolus insulin * NovoLog per scale ACHS or Q6hrs while NPO * Goal Range: Low 110 mg/dL - High 140 mg/dL * Correction Factor: 20 mg/dL/unit * Nutritional / Prandial insulin per carb ratio of 1 unit per 5 grams CHO consumed
[2024-10-12] MEDS: METOPROLOL TARTRATE 100 MG TAB PO SCH (10:26)
[2024-10-12 12:13] VITALS: BP 134/71; RESP 16; TEMP 98.2; O2SAT 97
--- NOTE | 2024-10-12 13:15 | Electrocardiogram Report ---
Test Reason : Blood Pressure : */* mmHG Vent. Rate : 93 BPM Atrial Rate : * BPM P-R Int : * ms QRS Dur : 122 ms QT Int : 384 ms P-R-T Axes : * 213 117 degrees QTcB Int : 477 ms Atrial fibrillation with premature ventricular or aberrantly conducted complexes Right bundle branch block Abnormal ECG When compared with ECG of 11-Oct-2024 05:19, QRS axis Shifted left Confirmed by Rupesh Loomis ([id number]) on 10/12/2024 1:15:29 PM Referred By: REFERRED SELF Confirmed By: Rupesh Loomis
[2024-10-12] MEDS: DIGOXIN 0.25 MG TAB PO SCH (15:25)
--- NOTE | 2024-10-12 15:38 | Discharge Summary ---
Discharge Summary Date of Service October 12, 2024 Principal Dx & Hospital Course #1 = Principal Diagnosis (1) TIA (transient ischemic attack): I believe that his report of RUE/RLE weakness and confusion at home were due to TIA. In light of known a.fib and lack of chronic anticoagulation he could have easily had an embolic event leading to TIA. Unfortunately we cannot perform MRI brain to exclude a stroke process due to extreme claustrophobia. [id number]-ljj-[id number] repeat CT head was again negative. I recommended we resume anticoagulation in the form of Eliquis 5mg BID. He previously took such years ago for his a.fib. Neck & head CTAs negative. Lipids - LDL 154. Recommend lipitor 40mg daily. (2) Right sided weakness: suspect 2nd to #1 resolved c-spine CT obtained as his CTA neck showed possible high-grade stenosis at C3-C4 c-spine CT fortunately did not show any high-grade stenosis further, his exam is not c/w myelopathy, and he denies any neck pain, arm paresthesias, or persistent weakness (3) Acute on chronic heart failure with preserved ejection fraction (HFpEF): s/p lasix in the ER then 1 additional dose after that euvolemic at this time with normal lung exam & normal O2 sats placed additional doses on hold if he was indeed decompensated suspect uncontrolled a.fib as the culprit (4) Atrial fibrillation with RVR: he has been off anticoagulation for several years he is not symptomatic from the a.fib except for dyspnea on exertion initially he had stated he was off sotalol for several years but actually had been taking it pre-admission [id number] it was not keeping him in NSR sotalol stopped due to lack of anticoagulation will strive for rate control at this time increase metoprolol to 50mg q6h also dig load -- 250mcg IV x 1, then additional dose of 250mcg IV x 1 in 6 hours cont Eliquis 5mg BID echo results noted TSH wnl mag/k wnl I spoke with Dr Buddy Loomis from [facility] who can follow him in the [place] office he agrees with the above rate-control strategy (5) Spinal stenosis at L4-L5 level: known history of such, but his strength in both legs is intact and symmetric no evidence of clinical PMR and sed rate/crp wnl no evidence of any myelopathy (6) Chronic venous insufficiency: (7) Degenerative joint disease of cervical spine: as above (8) Depression: resume cymbata 30mg daily (9) High cholesterol: LDL 154 start lipitor 40mg daily (10) Obesity, morbid, BMI 50 or higher: BMI 53 Plan checked CPK due to heavy weight lifting a few days ago -- wnl no discharge until a.fib rate control is satisfactory care d/w Dr Loomis - [facility] Admission HPI Per Admitting Provider The patient is a 59-year-old male with a past medical history including diabetic neuropathy, bilateral lower extremity weakness, spinal stenosis L4-5, A-fib, spinal stenosis, depression, PMR, gout, atrial flutter, CVI, morbid obesity, RBBB, hypertension, hyperlipidemia, and chronic venous stasis dermatitis. The patient presents to the emergency department with complaint of right sided weakness and pain that occurred after he had an extended nap from 10 AM to 3 PM the day of admission, that was about 6 hours prior to arrival in the emergency department. He reports that upon awakening he felt disoriented, was trying to figure out how to use his phone to call his son, and was finally able to do so. He reports the previous day he had a panic attack, that occurred after he had taken his grandchildren to school. He reports that upon awakening this morning, he had had a normal interval, no panic attacks, and then reports that after he had his 5-hour nap and difficulty waking up and clearing his brain to do activities as noted above. He denies any bowel or bladder issues. He denies any issues with headaches, dizziness, vision or hearing change, bowel or bladder incontinence. He does note that his legs are more swollen than usual, and notes that there is a bruise on his right inner thigh and has noted some darkening of his right reese. He denies any difficulty with speech physically, and denies any issues with swallowing. Patient reports that in attempt to lose weight, he has gone through extended intervals of time anywhere from 12 to 24 hours where he does not eat or drink anything, and may often times misses medications as well during this interval. Discharge Exam gen - obese, sitting in chair, NAD neck - no JVD heart - irregularly irregular, s1 s2, no murmur, rate <100 at rest lungs - CTA b/l abd - soft NT ND BS+ ext - trace edema b/l, pulses 2+ b/l neuro - gait - slow, walks with a slight limp Discharge Plan Discharge Items Patient Disposition: Home - Self-Care Reason For Visit: RIDE SIDE WEAKNESS Discharge Diagnosis: 1. right-sided weakness & mild confusion - likely due to TIA (Transient Ischemic Attack) - resolved 2. atrial fibrillation 3. severe arthritis of the neck 4. severe arthritis of the low back 5. diabetes Activity: Resume your previous activity Non-emergency contact: Primary Care Provider and Certified Ophthalmic Surgical Assistant Call non-emergency contact if: you have any medication questions and your symptoms worsen Follow-up/Referrals: Rd Andrea CRNP [Primary Care Provider] - 10/22/24 9:20 am (Hospital follow up scheduled October 22 at 9:[address] Mota) Rupesh Loomis MD [Physician] - ([facility] Office Dr. Loomis's office will call Pt to schedule follow up) Diet: Carb Consistent or DM2 and Heart Healthy Ambulatory Orders: Digoxin (Routine) Timeframe: [id number] Location: Determined by Patient Ordered By: Jarrett Hidalgo Attending Provider Instructions: Mr Velarde, You were hospitalized after waking up from sleep and feeling a bit confused/disoriented & noticing weakness in your right arm/right leg. CT head x 2 did NOT show stroke. CTA head/neck did NOT show blocked arteries, aneurysms, etc in the head or neck. Echocardiogram of your heart was normal. I suspect you had a TIA event (see handout on TIA) as the cause of your disorientation and weakness on the right side. Although you have severe arthritis in your neck this would not have caused you to feel disoriented. A TIA is a temporary neurological event that typically resolves within minutes or hours. Although a TIA is not the same thing as a stroke it is a risk factor for a future stroke event. Since you have chronic atrial fibrillation (a.fib) I am concerned that the a.fib was the potential cause of your TIA event. If you have a.fib and are not taking blood thinner medication you can develop blood clots in the heart which can cause TIA & stroke. By taking a blood thinner you LOWER the risk of TIA & stroke. During the stay we started you on medicine to control your a.fib. You are now taking metoprolol tartrate and digoxin for the a.fib. Your blood thinner medication is "ELIQUIS." Recommendations - 1. STOP your sotalol. 2. TAKE Eliquis 5mg twice daily every day - this is your blood thinner for a.fib. 3. TAKE digoxin 250mcg (0.25mg) once daily each afternoon - this is to control your a.fib / heart rate. 4. TAKE metoprolol tartrate 100mg twice daily, first dose TONIGHT - this is to control your a.fib / heart rate. 5. Since you will be taking Eliquis blood thinner do NOT take zusa-jyo-clcsoei motrin, ibuprofen, aleve, naprosyn, or aspirin. TYLENOL IS OK to take with Eliquis. 6. We will need to check your "digoxin level" in your blood next week. I have placed a blood test order for October 16. Please have this blood test completed in the MORNING on 10/16 at the [facility]. You don't have to fast for this blood work. 7. TAKE atorvastatin 40mg once daily for cholesterol. I believe Dr Mota has previously prescribed this for you. If you don't have it at home I have sent in a prescription for it. Follow-up - see separate section Return to [facility] if - * you have worsening shortness of breath * you feel dizzy or lightheaded * you have chest pains * you have extreme fatigue or weakness * you feel your heart racing / palpitations * you have bleeding from any location as listed below * any other concerns It was our pleasure to care for you! [employer]tl [employer] Provider Instructions: Blood Thinner (Anticoagulation) Medication Instructions: Your atrial fibrillation condition is typically treated with an anticoagulant. Anticoagulants will thin your blood to help prevent new clots from forming in your heart. Your blood thinner is ELIQUIS. * You should take your medication exactly as directed. * Never skip a dose. * Never take a double dose. If you miss a dose, take it as soon as you remember. Call your Primary Care doctor or Certified Ophthalmic Surgical Assistant if you experience any of the following: * Chest Pain * Sudden Shortness of Breath * Rapid or pounding heart beat * Fainting * Dizziness * Cough with blood or bloody sputum * Sweating more than normal * Bruises * Heavy or uncontrolled bleeding * Blood in your urine, stool or vomit * Black or tarry stools * Heavy nose bleeding Caring for Your Self at Home: * When shaving please use an electric shaver rather than a traditional razor (less risk of bleeding with an electric shaver) Pending Studies at Discharge: No Stand-Alone Forms: My [facility] [employer], Smoking Cessation Medications and DC Order Prescriptions: New Eliquis 5 mg Tablet 5 mg PO BID Qty: 60 5RF atorvastatin 40 mg Tablet 40 mg PO QAM Qty: 30 2RF digoxin 250 mcg (0.25 mg) Tablet 0.25 mg PO DAILY@1600 Qty: 30 5RF Rx Instructions: for atrial fibrillation metoprolol tartrate 100 mg Tablet 100 mg PO BID Qty: 60 5RF Rx Instructions: for atrial fibrillation Continued (DME) FreeStyle Raegan 2 Frederick Misc See Rx Instructions .Route Qty: 1 2RF Rx Instructions: As directed (DME) FreeStyle Raegan 2 Sensor Kit See Rx Instructions .Route Qty: 1 4RF Rx Instructions: As directed insulin aspart U-100 [Novolog FlexPen U-100 Insulin] 100 unit/mL (3 mL) insulin pen See Rx Instructions subcut .COMPLEX MDD 60 units Qty: 54 3RF Rx Instructions: subcutaneously; Novolog sliding scale at breakfast, lunch and dinner as below: Blood Sugar 70-150 administer take 0 units Blood Sugar 151-200 administer take 5 units Blood Sugar 201-250 administer take 10 units Blood Sugar 251-300 administer take 12 units Blood Sugar 301-350 administer take 15 units Blood Sugar 351-400 administer take 18 units Blood Sugar >400 administer take 18 units and notify office TDD 60 units metformin 1,000 mg tablet 1,000 mg PO BID Qty: 180 3RF Hold Instructions: Elevated Creat (DME) pen needle, diabetic [BD Ultra-Fine Micro Pen Needle] 32 gauge x 1/4" needle See Rx Instructions .Route Qty: 100 3RF Rx Instructions: As directed insulin glargine U-300 conc [Toujeo SoloStar U-300 Insulin] 300 unit/mL (1.5 mL) insulin pen 48 unit subcut DAILY MDD 80 Qty: 9 3RF Rx Instructions: Inject 48 units once daily (DME) blood-glucose meter [ReliOn All-In-One Meter] Kit See Rx Instructions .Route Rx Instructions: As directed duloxetine 30 mg capsule,delayed release(DR/EC) 30 mg PO DAILY Qty: 0 0RF Discontinued sotalol 80 mg tablet 80 mg PO BID Qty: 180 3RF Discharge Orders: Discharge Order (Routine); Ordered 10/12/24 Ordered By: Jarrett Clement/Other Patient Handouts: Apixaban Oral Tablet, Managing Type 2 Diabetes, What Is a TIA?, AFib Preventing Stroke Admission Data Admit Date/Time: 10/10/24 01:20 Attending Provider: Jarrett Vivar Admit Provider: Clarke Holm Primary Care Provider: Rd Andrea Other Providers: Naman Narvaez; Clarke Holm Hospital Stay Data Consultations 10/10/24 00:31 ED Decision to Admit Stat 10/10/24 01:21 Consult Neurology Routine 10/10/24 03:21 Consult Neurology Routine Diagnostic Imagining Performed 10/09/24 21:14 CT angio head w con Stat CT angio neck with con Stat CT head/brain wo con Stat 10/10/24 09:00 CT cervical spine wo con Routine Head CT [CT head/brain wo/w con] Routine Pending Results Patient Have Any Pending Studies at Discharge: No Discharge Instructions Given to Patient (Per Discharging Provider) Mr Velarde, You were hospitalized after waking up from sleep and feeling a bit confused/disoriented & noticing weakness in your right arm/right leg. CT head x 2 did NOT show stroke. CTA head/neck did NOT show blocked arteries, aneurysms, etc in the head or neck. Echocardiogram of your heart was normal. I suspect you had a TIA event (see handout on TIA) as the cause of your disorientation and weakness on the right side. Although you have severe arthritis in your neck this would not have caused you to feel disoriented. A TIA is a temporary neurological event that typically resolves within minutes or hours. Although a TIA is not the same thing as a stroke it is a risk factor for a future stroke event. Since you have chronic atrial fibrillation (a.fib) I am concerned that the a.fib was the potential cause of your TIA event. If you have a.fib and are not taking blood thinner medication you can develop blood clots in the heart which can cause TIA & stroke. By taking a blood thinner you LOWER the risk of TIA & stroke. During the stay we started you on medicine to control your a.fib. You are now taking metoprolol tartrate and digoxin for the a.fib. Your blood thinner medication is "ELIQUIS." Recommendations - 1. STOP your sotalol. 2. TAKE Eliquis 5mg twice daily every day - this is your blood thinner for a.fib. 3. TAKE digoxin 250mcg (0.25mg) once daily each afternoon - this is to control your a.fib / heart rate. 4. TAKE metoprolol tartrate 100mg twice daily, first dose TONIGHT - this is to control your a.fib / heart rate. 5. Since you will be taking Eliquis blood thinner do NOT take tdpz-kef-kwcefop motrin, ibuprofen, aleve, naprosyn, or aspirin. TYLENOL IS OK to take with Eliquis. 6. We will need to check your "digoxin level" in your blood next week. I have placed a blood test order for October 16. Please have this blood test completed in the MORNING on 10/16 at the [place] office. You don't have to fast for this blood work. 7. TAKE atorvastatin 40mg once daily for cholesterol. I believe Dr Mota has previously prescribed this for you. If you don't have it at home I have sent in a prescription for it. Follow-up - see separate section Return to [facility] if - * you have worsening shortness of breath * you feel dizzy or lightheaded * you have chest pains * you have extreme fatigue or weakness * you feel your heart racing / palpitations * you have bleeding from any location as listed below * any other concerns It was our pleasure to care for you! Coding Diagnoses TIA (transient ischemic attack) G45.9 Right sided weakness R53.1 Acute on chronic heart failure with preserved ejection fraction (HFpEF) I50.33 Atrial fibrillation with RVR I48.91 Spinal stenosis at L4-L5 level M48.061 Chronic venous insufficiency I87.2 Degenerative joint disease of cervical spine M47.812 Depression F32.9 High cholesterol E78.00 Obesity, morbid, BMI 50 or higher E66.01
[2024-10-12 16:14] VITALS: PULSE 90
[2024-10-12] MEDS ORDERED: LANTUS PER UNIT CHARGE SQ SCH (21:00)
== END 2024-10-12 16:14 | disposition home or self-care (01) | DRG 69 ==
LOC: ED 17:08 → SUATTDRO 10-10 01:20 → 2S 10-10 01:20